=== PATIENT | male | born 1945 | race Two or more races ===

== ENCOUNTER 2024-08-02 10:47 | Inpatient (IN) | payer MEDICARE, SELFPAY ==
[2024-08-02] VITALS (15 sets, daily range): BP systolic 121–142; BP diastolic 75–94; PULSE 78–121; RESP 16–58; TEMP 36.2–37.1; O2SAT 75–100; BMI 33.9
--- NOTE | 2024-08-02 10:51 | EKG_ITS ---
[facility] Test Date: 2024-08-02 Pat Name: MICHELLE LEMUS Department: Room: - Gender: Male [employer]: : 1945 Requested By: ED Temporary Provider Order Number: [id number] Reading MD: ED Temporary Provider Measurements Intervals [place] Rate: 89 P: 47 AR: 222 QRS: -17 QRSD: 193 T: 94 QT: 445 QTc: 542 Interpretive Statements SINUS RHYTHM WITH FIRST DEGREE AV BLOCK LEFT BUNDLE BRANCH BLOCK [120+ ms QRS DURATION, 80+ ms Q/S IN V1/V2, 85+ ms R IN I/aVL/V5/V6] Compared to ECG 02/12/2024 09:09:13 Left bundle-branch block now present T-wave abnormality no longer present /store/S0/[id number]/[id number].pdf
--- NOTE | 2024-08-02 10:55 | RESP.EEG ---
PT BROUGHT BACK FROM TRIAGE IN RESPIRATORY DISTRESS WITH A SPO2 58% ROOM AIR WITH RR AT 42, AND PT IS UNABLE TO SPEAK BUT IN SHOT SENTENCES USING ACCESSORIES MUCUSES TO HELP HIM BREATH. DR. ESPINAL AT BEDSIDE, NEW ORDER GIVEN.
[2024-08-02] MEDS: MethylPREDNISolone SOD SUCC 62.5 MG/ML 2ML VIAL 125 MG IVP (11:06)
[2024-08-02] MEDS: FUROSEMIDE INJ 10 MG/ML 4ML VIAL 60 MG IVP (11:08)
--- NOTE | 2024-08-02 11:12 | XR_ITS ---
Examination: AP chest single view TECHNIQUE: AP portable upright chest single view Exam date and time: August 02, 2024 1153 hours INDICATIONS: Shortness of breath today. FINDINGS: Significant bilateral pneumonia Normal heart size Prominent osteopenia IMPRESSION: Significant bilateral pneumonia
[2024-08-02 12:09] LABS: Basophils % (Auto) 0 % (0-2.5); Eosinophils # (Auto) 0.1 Thou/mm3 (0.0-0.5); Eosinophils % (Auto) 1 % (0-10); Hematocrit 34.5 % (41.0-53.0); Hemoglobin 10.7 g/dL (13.5-16.0); Immature Granulocytes % (Auto) 0 % (0-0); Immature Granulocytes Auto 0.03 Thou/mm3 (0.00-0.00); Lymphocytes # (Auto) 1.3 Thou/mm3 (1.0-4.8); Lymphocytes % (Auto) 15 % (10-50); Mean Corpuscular Hemoglobin 29.2 pg (25.0-35.0); Mean Corpuscular Volume 94 fL (80-100); Monocytes # (Auto) 0.6 Thou/mm3 (0.0-0.8); Monocytes % (Auto) 7 % (0-12); Neutrophils # (Auto) 6.6 Thou/mm3 (1.8-7.7); Neutrophils % (Auto) 76 % (37-80); Nucleated Red Blood Cell % 0 /100 WBC (0); Platelet Count 251 Thou/mm3 (140-440); RDW Standard Deviation 47.8 fL (35.1-43.9); Red Blood Count 3.67 Miln/mm3 (4.50-5.90); White Blood Count 8.6 Thou/mm3 (3.8-10.6)
--- NOTE | 2024-08-02 12:09 | PD.EDSOB ---
ED SOB =RME/HPI General Chief Complaint: Shortness of Breath/Dyspnea Stated Complaint: DIFF BREATHING FOR 2 DAYS, WORSE SINCE 0600 Time Seen by Provider: 08/02/24 11:12 Arrival date/time: 08/02/24 10:47 RME / HPI RME / HPI Narrative: 79 year old male with history of hypertension, diabetes, hyperlipidemia, BPH, CHEYANNE on CPAP at night, asthma presents to the ED brought in by for shortness of breath today. Accompanied by a productive cough. reports patient has intermittently felt short of breath for 5 months and using his inhaler daily in the last 2 months. However, stated in the last 4 days the patient has had difficulty sleeping flat in bed and is sleeping upright on the couch, using his CPAP during the day, and taking multiple puffs of his inhaler. States yesterday the patient used his CPAP three times during the day with improvement while on it. denies any fevers, chills, vomiting, or other known lung history. Per RN, on arrival to ED patient was saturating 55% on room air, diaphoretic and tachypneic. Related Data Home Medications ?Medication ?Instructions ?Recorded ?Confirmed ferrous sulfate 325 mg (65 mg 325 mg PO TIDWM #0 tabs 11/21/13 04/19/20 iron) tablet (Feosol) Previous Rx's ?Medication ?Instructions ?Recorded cyclobenzaprine 10 mg tablet 10 mg PO TID PRN muscle spasm #30 04/19/20 tabs ibuprofen 800 mg tablet 800 mg PO TID PRN pain #30 tabs 04/19/20 Allergies Allergy/AdvReac Type Severity Reaction Status Date / Time No Known Allergies Allergy Verified 08/02/24 10:50 Review of Systems Review of Systems Narrative Review of Systems: Gen: No fever, no chills, no weight loss EYES: No discharge, no visual changes, no pain HEENT: No ear pain, no congestion, no sore throat PULM: + shortness of breath,+ cough CV: No chest pain, no palpitations, no chest tightness, +orthopnea GI: No nausea, no vomiting, no diarrhea, no pain, no constipation : No frequency, no urgency,? no dysuria Musc/skel: No joint pain, no back pain Skin: No rash, no ecchymosis, no lesions Psyc: No hallucinations, no depression Heme/Lymph: No easy bleeding or bruising tendencies Neuro: No weakness, no headache Past Medical History Past Medical History CARDIAC: Positive Hypertension; Negative Congestive Heart Failure RESPIRATORY: Negative Chronic Obstructive Pulmonary Disease (COPD) GENITOURINARY: Negative Renal Disease ENDOCRINE: Positive Endocrine Disorders and Diabetes Mellitus Type 2; Negative Diabetes Mellitus Type 1 OTHER HISTORY: Positive Blood Transfusions Social History SMOKING STATUS: Never smoker SUBSTANCE USE: does not use ED Exam Narrative Physical exam: GENERAL APPEARANCE: AxOx4, in respiratory distress, diaphoretic, very ill-appearing, cannot speak a word due to respiratory distress. HEENT: NC, AT. MMM. EOMI, clear conjunctiva, oropharynx clear. NECK: Supple without lymphadenopathy. No stiffness or restricted ROM. HEART: Normal rate and regular rhythm, normal S1/S1, no m/r/g LUNGS: Rales heard through entire lung anthony diminished breath sounds, visually appears to have a prolonged expiratory phase ABDOMEN: Soft, nontender, nondistended with good bowel sounds heard. BACK: No midline C/T/L spine pain or deformity, No CVAT, no obvious deformity. EXTREMITIES: Bilateral lower extremity edema. Without cyanosis or clubbing. MUSCULOSKELETAL: FROM of all major joints, no chest tenderness NEUROLOGICAL: Grossly nonfocal. Alert and oriented, moving all 4 extremities. CN not formally tested but appear grossly intact. Skin: Warm and dry without any rash. Course Quality Measures none Orders Category Date Time Status Bedside COVID-19 Antigen Test NOW Care 08/02/24 11:13 Active Bedside Influenza A&B Antigen Test NOW Care 08/02/24 11:13 Completed EKG (ED ONLY) *Do not use* NOW Care 08/02/24 10:51 Active Insert IV NOW Care 08/02/24 11:10 Active EKG (ED Only) Stat Exams 08/02/24 10:51 Draft XR chest 1V portable Stat Exams 08/02/24 11:12 Completed BNP [B-Type Natriuretic Peptide] Stat Lab 08/02/24 11:51 Completed Blood Culture (Lab) Stat Lab 08/02/24 11:09 Received CBC Stat Lab 08/02/24 11:51 Completed CMP [Comprehensive Metabolic Panel] Stat Lab 08/02/24 11:51 Completed Lactate (Lactic Acid) Stat Lab 08/02/24 12:27 Completed Partial Thromboplastin Time Stat Lab 08/02/24 11:51 Completed Procalcitonin Stat Lab 08/02/24 11:51 Completed Prothrombin Time with INR Stat Lab 08/02/24 11:51 Completed Troponin I Stat Lab 08/02/24 11:51 Completed ALBUTEROL RT 0.5ml [Proventil Rt 0.5ml] Med 08/02/24 11:12 Discontinued 10 mg INH X1 ONE Doxycycline [Vibramycin] Med 08/02/24 12:38 Discontinued 100 mg PO X1 ONE Furosemide Inj [Lasix Inj] Med 08/02/24 11:03 Discontinued 60 mg IVP X1 ONE Ipratropium [place] Rt Liya [Atrovent Rt Liya] Med 08/02/24 11:12 Discontinued 1 mg INH X1 ONE MethylPREDNISolone.* [SoluMEDROL Inj] Med 08/02/24 11:03 Discontinued 125 mg IVP X1 ONE Sodium Chloride 0.9% 1000 ml [Ns] 1,000 ml Med 08/02/24 12:38 Discontinued IV 999 mls/hr Sodium Chloride Rt Liya 0.9% [NS Rt Liya 0.9%] Med 08/02/24 11:12 Active 3 ml INH PRN PRN cefTRIAXone/D5w 1gm IV premix [Rocephin/D5w 1gm IV Med 08/02/24 12:38 Discontinued premix] 50 ml IV X1 Reevaluation(s) Reevaluation #1: Patient reports feeling much improved while on bipap. Time: 11:25 Reevaluation #2: Patient reports he had chest pain 1 week ago when his shortness of breath began worsening. No chest pain at this time. Time: 12:23 Vital Signs Vital signs: Vital Signs Pulse Rate 115 H 08/02/24 10:48 Respiratory Rate 38 H 08/02/24 10:48 Blood Pressure 142/88 H 08/02/24 10:48 Pulse Oximetry (%) 75 L 08/02/24 10:48 Oxygen Delivery Method Oxy Mask 08/02/24 10:48 Oxygen Flow Rate 15 08/02/24 10:48 Shortness of Breath / Dyspnea MDM Narrative MDM Narrative:: Mr. Tong presents to the emergency department with about a months worth of progressively worsening shortness of breath which is unclear as to whether not there is a dyspnea or positional component to it with subacute worsening over the last week where he presents in near respiratory distress. He was profoundly hypoxic, tachypneic, and diaphoretic on arrival. He was brought back immediately to room 3 for resuscitation and put immediately on BiPAP okay. already on CPAP at home, he was aggressively started on BiPAP settings of 16 and 10. This seemed to improve his symptoms almost immediately/dramatically where he was less diaphoretic, oxygen saturations risa quickly to 95 to 97%, however he remains tachypneic in the high 20s low 30s. Laboratory testing is otherwise unremarkable but is curious as he has a normal BNP, and a slightly elevated troponin. EKG shows a new left bundle branch block in comparison to EKG on January 2024. However patient does not endorse current chest pain, and notes last chest pain was about a week ago. Chest x-ray is suggestive for bilateral pneumonia, therefore cultures were sent and patient was started on antibiotics for community-acquired pneumonia. Given his profound hypoxia, need for respiratory support, and respiratory failure, it would be best to admit for further management, IV antibiotics, and respiratory treatments. IEwa, am scribing for and in the presence of Dr. Garcia. Patient data External records reviewed:: [facility] previous records (I reviewed ED visit on 02/12/2024. ) Clinical information provided by:: patient Social determinants that could affect healthcare access:: none Patient has the following chronic illnesses:: hypertension, diabetes, hyperlipidemia, BPH, CHEYANNE on CPAP at night, asthma How is presenting disease/condition affected by chronic disease/condition?: exacerbated by Evaluation data The following diagnostics were reviewed and interpreted by me:: lab results, radiology exam(s) and EKG tracing(s) (Sinus rhythm, rate 89, left bundle branch block that is new compared to EKG on 02/12/2024) Lab and/or radiology exams considered but not ordered:: None Interpretation Summary: Ordering Physician: Julio Cesar Garcia MD Date of Service: 08/02/24 Procedure(s): XR chest 1V portable Accession Number(s): [id number] Examination: AP chest single view Exam date and time: August 02, 2024 1153 hours INDICATIONS: Shortness of breath today. FINDINGS: Significant bilateral pneumonia Normal heart size Prominent osteopenia IMPRESSION: Significant bilateral pneumonia Dictated By: Adrien Zambrano MD Signed By: <Electronically signed by Adrien Zambrano MD in OV> 08/02/24 1221 Medications / Prescriptions Medications or Prescriptions considered but not ordered:: None Medication administrations:: Medication Administration History Sodium Chloride (Sodium Chloride Rt Liya 0.9% 3 Ml Nebu) 3 ml INH PRN PRN PRN Reason: SOLN Stop: 09/01/24 11:11 Discontinued Medications Albuterol (Albuterol Rt 2.5 Mg/0.5 Ml Nebu) 10 mg INH X1 ONE Stop: 08/02/24 11:13 Last Admin: 08/02/24 12:21 Dose: 10 mg Documented By: GAGAN Doxycycline Hyclate (Doxycycline 100 Mg Tablet) 100 mg PO X1 ONE Stop: 08/02/24 12:39 Last Admin: 08/02/24 12:54 Dose: 100 mg Documented By: MARCOS Furosemide (Furosemide Inj 10 Mg/Ml 4ml Vial) 60 mg IVP X1 ONE Stop: 08/02/24 11:04 Last Admin: 08/02/24 11:08 Dose: 60 mg Documented By: MARCOS Sodium Chloride (Ns) 1,000 mls @ 999 mls/hr IV .Q1H1M ONE Stop: 08/02/24 13:38 Last Admin: 08/02/24 12:51 Dose: 999 mls/hr Documented By: MARCOS Ceftriaxone Sodium/Dextrose (Rocephin/D5w 1gm Iv Premix) 50 mls @ 100 mls/hr IV X1 ONE Stop: 08/02/24 13:07 Last Admin: 08/02/24 12:52 Dose: 100 mls/hr Documented By: MARCOS Ipratropium [place] (Ipratropium Rt 0.5 Mg/ 2.5 Ml Nebu) 1 mg INH X1 ONE Stop: 08/02/24 11:13 Last Admin: 08/02/24 12:20 Dose: 1 mg Documented By: GAGAN Methylprednisolone Sodium Succinate (Methylprednisolone Sod Succ 62.5 Mg/Ml 2ml Vial) 125 mg IVP X1 ONE Stop: 08/02/24 11:04 Last Admin: 08/02/24 11:06 Dose: 125 mg Documented By: MARCOS See above Consultations Consultation(s) initiated? (list below): No Diagnosis Shortness of Breath Differential Diagnosis: acute exacerbation of chronic obstructive airways disease, congestive heart failure, community acquired pneumonia and asthma with exacerbation Most likely diagnosis given after review of the tests above:: See below Admission Indicated Admission indicated?: indicated Admission Request Was there a request for admission?: Yes Admission Attestation Admission request attestation: Discussed case with [Dr. Thompson] from Hospitalist service regarding admission. Discussed patients ED course, exam findings, labs, and radiology results. The Hospitalist [agrees] to accept the patient for admission. Disposition Plan Disposition Plan: Admit Critical Care Time Critical Care Time Critical Care Time: Yes Total Critical Care Time (min.): 35 Attestation: The high probability of sudden, clinically significant deterioration in the patient's condition required the highest level of my preparedness to intervene urgently. The services I provided to this patient were to treat and/or prevent clinically significant deterioration. Services included the following: chart data review, reviewing nursing notes and/or old charts, documentation time, vmware consultant collaboration regarding findings and treatment options, medication orders and management, direct patient care, vital sign assessments and ordering, interpreting and reviewing diagnostic studies and lab tests. Aggregate critical care time includes only time during which I was engaged in work directly related to the patient's care, as described above, whether at bedside or elsewhere in the Emergency Department. It did not include time spent performing other reported procedures or the services of residents, students, nurses or physician assistants. Discharge Plan Plan Patient Disposition: Admit Acute Care w/in Hospital Prescriptions/Referrals Prescriptions/Med Rec: No Action ferrous sulfate [Feosol] 1 TAB tablet 325 mg PO TIDWM Qty: 0 cyclobenzaprine 10 mg tablet 10 mg PO TID PRN (Reason: muscle spasm) Qty: 30 0RF ibuprofen 800 mg tablet 800 mg PO TID PRN (Reason: pain) Qty: 30 0RF Referrals: Bao Stephens MD [Primary Care Provider] - In 1 week Problem List Clinical Impression: Community acquired pneumonia, Acute hypoxic respiratory failure, Complete left bundle branch block Patient/Caregiver Discharge Instructions Print Language: Italian Stand Alone Forms: [employer]iko Award Info., Patient Portal Info Letter
[2024-08-02] MEDS: IPRATROPIUM RT 0.5 MG/ 2.5 ML NEBU 1 MG INH (12:20)
[2024-08-02] MEDS: ALBUTEROL RT 2.5 MG/0.5 ML NEBU 10 MG INH (12:21)
[2024-08-02 12:27] LABS: INR 1.1 (0.9-1.3); Partial Thromboplastin Time 25.2 Seconds (22.0-36.0); Prothrombin Time 11.7 Seconds (9.0-12.2)
[2024-08-02 12:30] LABS: B-Type Natriuretic Peptide 172 pg/mL (0-100)
[2024-08-02 12:35] LABS: Lactate (Lactic Acid) 1.1 mMol/L (0.4-2.0)
[2024-08-02] MEDS: SODIUM CHLORIDE 0.9% 1000 ML 1,000 ML 999 ML IV (12:51)
[2024-08-02] MEDS: cefTRIAXone/D5w 1gm IV premix 50 ML IV (12:52)
[2024-08-02] MEDS: DOXYCYCLINE 100 MG TABLET PO ×2 (12:54→20:18)
[2024-08-02 13:09] LABS: Alanine Aminotransferase 12 U/L (10-49); Albumin, Serum 3.9 gm/dL (3.4-4.8); Albumin/Globulin Ratio 0.9 (1.2-2.2); Alkaline Phosphatase 59 U/L (46-116); Anion Gap 11 (7-16); Aspartate Amino Transferase 14 U/L (0-34); BUN/Creatinine Ratio 13 Ratio (12-20); Bilirubin,Total 0.9 mg/dL (0.3-1.2); Blood Urea Nitrogen 10 mg/dL (9-23); Calcium 9.1 mg/dL (8.3-10.6); Calcium (Corrected) 9.2 mg/dL (8.5-10.1); Carbon Dioxide 25.6 mMol/L (20.0-31.0); Chloride 107 mMol/L (98-107); Creatinine (Component) 0.8 mg/dL (0.6-1.3); Estimated Creatinine Clearance 98.9 mL/min (>60); Globulin 4.5 gm/dL (2.3-3.5); Glucose 177 mg/dL (74-106); Osmolality,Calculated 289 (275-295); Procalcitonin < 0.04 ng/ml (0.0-0.49); Sodium 144 mMol/L (136-145); Total Protein 8.4 gm/dL (5.7-8.2); eGFR > 60 See Note
[2024-08-02 13:10] LABS: Troponin I 0.049 ng/mL (0.0-0.045)
[2024-08-02 15:42] LABS: Glucose Estimated Average 140 mg/dL (80-131); Hemoglobin A1C 6.5 % Hgb (4.8-6.0)
--- NOTE | 2024-08-02 15:58 | ECHO_ITS ---
Transthoracic Echo Report Ht (in): 72 Wt (lb): 250 Exam Location: Echo Lab Status: Emergency Field Nurse Case Manager: Lorna Ashraf Indications: Procedure Performed: BP: 110 / 67 HR: 117 Technical Quality: Technically difficult study MEASUREMENTS (Male / Female) Normal Values 2D ECHO LV Diastolic Diameter PLAX 6.6 cm 4.2 - 5.9 / 3.9 - 5.3 cm LV Systolic Diameter PLAX 5.5 cm IVS Diastolic Thickness 0.8 cm 0.6 - 1.0 / 0.6 - 0.9 cm LVPW Diastolic Thickness 0.9 cm 0.6 - 1.0 / 0.6 - 0.9 cm LV Relative Wall Thickness 0.3 LVOT Diameter 2.4 cm LA Volume Index 34.8 cm?/m? 16 - 28 cm?/m? M-MODE Aortic Root Diameter MM 2.5 cm LA Systolic Diameter MM 6.0 cm LA Ao Ratio MM 2.4 AV Cusp Separation MM 1.5 cm DOPPLER AV Peak Velocity 201.0 cm/s AV Peak Gradient 16.2 mmHg AV Mean Gradient 7.0 mmHg AV Velocity Time Integral 32.9 cm LVOT Peak Velocity 117.0 cm/s LVOT Peak Gradient 5.5 mmHg LVOT Velocity Time Integral 23.4 cm LVOT Cardiac Index 5084.5 cm?/min?m? AV Area Cont Eq vti 3.2 cm? AV Area Cont Eq pk 2.6 cm? MV Area PHT 6.7 cm? MR Peak Velocity 432.0 cm/s MR Peak Gradient 74.6 mmHg Mitral E Point Velocity 104.0 cm/s Mitral A Point Velocity 100.0 cm/s Mitral E to A Ratio 1.0 LV E' Lateral Velocity 7.1 cm/s Mitral E to LV E' Lateral Ratio 14.7 LV E' Septal Velocity 5.4 cm/s Mitral E to LV E' Septal Ratio 19.1 PV Peak Velocity 133.0 cm/s PV Peak Gradient 7.1 mmHg FINDINGS Left Ventricle Normal left ventricular size, wall thickness. The ejection fraction is visually estimated at 40-45 %. Global left ventricular systolic function is mildly decreased. Right Ventricle The right ventricle is normal in size and systolic function. Left Atrium The left atrium is normal by two-dimensional, color flow and Doppler imaging with no structural abnormalities, no thrombus formation present. Right Atrium The right atrium is normal by two-dimensional imaging, color flow and Doppler imaging with no structural abnormalities, no thrombus formation present. Atrial Septum The interatrial septum appears normal with no evidence of a shunt. Aorta The aorta is normal by two-dimensional, color flow and Doppler interrogation. Mitral Valve The mitral valve is normal by two-dimensional, color flow and Doppler interrogation. There is moderate valve regurgitation, stenosis or prolapse. Aortic Valve The aortic valve is trileaflet and normal by two-dimensional, color flow and Doppler interrogation. There is no significant aortic valve regurgitation. Tricuspid Valve The tricuspid valve is normal by two-dimensional, color flow and Doppler interrogation. There is no significant tricuspid valve regurgitation. Pulmonic Valve The pulmonic valve is not well visualized. There is no significant pulmonic valve regurgitation. Vessels The pulmonary artery appears normal. The inferior vena cava pulmonary and hepatic veins appear normal. Pericardium The pericardium is normal by two-dimensional imaging. There is no significant pericardial effusion. CONCLUSIONS Indication: SOB R/O CHF Normal left ventricular size, wall thickness. Severely reduced LV function LVEF estimated at 25-30 %. RV is normal in size and systolic function. Could not estimate RVSP as TR not visualiozed well. Moderate AV thickening with mild calcification. AV sclerosis without stenosis. V max 2.1 m/s. Possibly underestimated due to low EF. MIld thickening and clacification of mitral leafts too. Mild to moderate MR. Mild LA dilataion. IVC dilated but with > 50% collapse. Rakan Lundberg (Electronically Signed) Final Date: 05 August 2024 12:37
[2024-08-02] MEDS: POTASSIUM CHLORIDE 20 mEq TABCR 40 MEQ PO (16:05)
[2024-08-02] MEDS: POTASSIUM CHLORIDE 20 mEq TABCR PO (16:05)
--- NOTE | 2024-08-02 16:10 | PD.RESHP ---
Documentation for date of: 08/02/24 HPI History of Present Illness History of present illness: The patient is a 79-year-old male with a past medical history of hypertension, diabetes, asthma, CHEYANNE on CPAP presented to the ED on 08/02/2024 with a 3-day history of shortness of breath and cough. Per at bedside, about a month ago she noticed that he started drinking a lot of water and was increasingly thirsty which is the first time that he was feeling unhealthy however in the last 3 days he has had difficulty breathing and a cough. Cough is nonproductive most times and sometimes with white frothy sputum. She also reports that she had noticed some swelling in his legs bilaterally that he had not had prior. He denies fever, chest pain or palpitations. He has had no recent travels or immobilization or surgical periods. ED course: In the ED, patient was hypoxic and tachypneic and had to be placed on BiPAP. Labs showed WBC 8.6 Hgb 10.7 sodium 144 potassium 3 glucose 177 chloride 107 bicarb 25.6 troponin 0.049 BNP 172. COVID test was done which was negative Chest x-ray was done which showed bilateral pneumonia. EKG showed sinus rhythm with a first-degree AV block and left bundle branch block was not present on previous EKG. Patient was given IV Lasix 60 mg, Solu-Medrol 125 mg, IV Rocephin in the ED. He has been admitted for management of acute hypoxic respiratory failure secondary to bilateral pneumonia and possible new onset CHF. PMHx-hypertension, diabetes, asthma PSHx-knee surgery Home meds-pending med recs Review of Systems Review of Systems Narrative Review of Systems: GENERAL: Denies fevers/chills or diaphoresis. HEENT: Denies headache or visual/hearing changes. Denies nasal discharge. NEURO: Denies unusual weakness or difficulty speaking. CARDIO: Denies chest pain or palpitations. PULM: Admits SOB and cough GI: Denies abdominal pain, N/V/C/D/reflux/gas, bright red blood per rectum or melena. Reports having BMs. URO: Denies burning/itching/pain/urinary changes. MSK/EXT/SKIN: Denies joint/skeletal/muscle pain, issues/changes in upper or lower extremities, itchiness, or superficial pain. PSYCH: Cooperative, pleasant mood & affect. Exam Vital Signs Temp Pulse Resp BP Pulse Ox O2 Del Method O2 Flow Rate 98.7 F 79 24 H 124/76 100 CPAP 15 08/02/24 16:00 08/02/24 16:00 08/02/24 16:00 08/02/24 16:00 08/02/24 16:00 08/02/24 16:00 08/02/24 10:48 FiO2 75 08/02/24 12:28 Narrative Exam GENERAL: AAOX3 NEURO: SPRING INTERN grossly intact, moves extremities x4 HEENT: Moist mucosa. Eyes open, symmetrical, & clear CARDIO: No chest pain on palpation. Heart RRR, no obvious murmurs PULM: Tachypnea. Crackles bilaterally, no wheezing, BIPAP on GI: Abdomen soft, nondistended, no pain on palpation. BSx4 URO/MUNITIONS HANDLER:: No further abnormalities noted. SKIN/MSK/EXT: Bilateral pitting edema 2+ Results: Labs 08/03/24 10:20 08/03/24 10:20 Labs: Short CBC 08/02/24 Range/Units 11:51 WBC 8.6 (3.8-10.6) Thou/mm3 Hgb 10.7 L (13.5-16.0) g/dL Hct 34.5 L (41.0-53.0) % Plt Count 251 (140-440) Thou/mm3 BMP 08/02/24 11:51 Sodium 144 Potassium 3.0 L Chloride 107 Carbon Dioxide 25.6 BUN 10 Creatinine 0.8 Glucose 177 H Calcium 9.1 Cardiac Enzymes 08/02/24 Range/Units 11:51 Troponin I 0.049 H* (0.0-0.045) ng/mL Liver Function 08/02/24 Range/Units 11:51 Total Bilirubin 0.9 (0.3-1.2) mg/dL AST 14 (0-34) U/L ALT 12 (10-49) U/L Alkaline Phosphatase 59 (46-116) U/L Albumin 3.9 (3.4-4.8) gm/dL Quality Measures Quality Measures none Advance care planning discussed with:: patient and spouse Medications Home Medications and Allergies Home Medications ?Medication ?Instructions ?Recorded ?Confirmed ?Type albuterol sulfate 90 mcg/actuation 1 inh inhalation PRN shortness of 08/02/24 History aerosol inhaler breath or wheezing finasteride 5 mg tablet 5 mg PO QDAY 08/02/24 08/03/24 History glipizide 5 mg tablet 5 mg PO BID 08/02/24 08/03/24 History losartan 50 mg tablet 50 mg PO QDAY 08/02/24 08/03/24 History ropinirole 1 mg tablet 1 mg PO .COMPLEX 08/02/24 08/03/24 History simvastatin 20 mg tablet 20 mg PO QDAY 08/02/24 08/03/24 History tamsulosin 0.4 mg capsule 0.4 mg PO Q24H 08/02/24 08/03/24 History amlodipine 10 mg tablet 10 mg PO QDAY 08/03/24 08/03/24 History Allergies Allergy/AdvReac Type Severity Reaction Status Date / Time No Known Allergies Allergy Verified 08/02/24 10:50 Visit Medications Acetaminophen (Acetaminophen 325 Mg Tablet) 650 mg PO Q6H PRN PRN Reason: Pain 1-3 or Fever >100.3 Stop: 09/01/24 14:37 Albuterol/Ipratropium (Albuterol/Ipratropium (Duoneb) Rt Liya 3 Ml Nebu) 3 ml INH Q4HRRT PRN PRN Reason: WHEEZING Stop: 09/01/24 14:59 Doxycycline Hyclate (Doxycycline 100 Mg Tablet) 100 mg PO BID [facility] Stop: 08/09/24 20:59 Furosemide (Furosemide Inj 10 Mg/Ml 4ml Vial) 40 mg IVP QDAY [facility] Stop: 09/02/24 08:59 Guaifenesin/Dextromethorphan (Guaifenesin/Dm Tablet) 1 each PO DAILY [facility] Stop: 09/01/24 15:59 Heparin Sodium (Porcine) (Heparin Sod Inj 5000 Unit/Ml Vial) 5,000 unit SC Q12HR [facility] Stop: 08/16/24 20:59 Ceftriaxone Sodium/Dextrose (Rocephin/D5w 1gm Iv Premix) 50 mls @ 100 mls/hr IV QDAY [facility] Stop: 08/10/24 08:59 Ondansetron HCl (Ondansetron Inj 2 Mg/Ml Inj 2 Ml) 4 mg IV Q6H PRN; Protocol PRN Reason: NAUSEA OR VOMITING Stop: 09/01/24 14:37 Sennosides (Senna Tablet) 1 tab PO QDAY [facility]; Protocol Stop: 09/02/24 08:59 Sodium Chloride (Sodium Chloride Rt Liya 0.9% 3 Ml Nebu) 3 ml INH PRN PRN PRN Reason: SOLN Stop: 09/01/24 11:11 Discontinued Medications Albuterol (Albuterol Rt 2.5 Mg/0.5 Ml Nebu) 10 mg INH X1 ONE Stop: 08/02/24 11:13 Last Admin: 08/02/24 12:21 Dose: 10 mg Doxycycline Hyclate (Doxycycline 100 Mg Tablet) 100 mg PO X1 ONE Stop: 08/02/24 12:39 Last Admin: 08/02/24 12:54 Dose: 100 mg Furosemide (Furosemide Inj 10 Mg/Ml 4ml Vial) 60 mg IVP X1 ONE Stop: 08/02/24 11:04 Last Admin: 08/02/24 11:08 Dose: 60 mg Sodium Chloride (Ns) 1,000 mls @ 999 mls/hr IV .Q1H1M ONE Stop: 08/02/24 13:38 Last Infusion: 08/02/24 14:44 Dose: Infused Ceftriaxone Sodium/Dextrose (Rocephin/D5w 1gm Iv Premix) 50 mls @ 100 mls/hr IV X1 ONE Stop: 08/02/24 13:07 Last Infusion: 08/02/24 14:43 Dose: Infused Ceftriaxone Sodium/Dextrose (Rocephin/D5w 1gm Iv Premix) 50 mls @ 100 mls/hr IV QDAY [facility] Stop: 08/09/24 14:44 Ipratropium [place] (Ipratropium Rt 0.5 Mg/ 2.5 Ml Nebu) 1 mg INH X1 ONE Stop: 08/02/24 11:13 Last Admin: 08/02/24 12:20 Dose: 1 mg Methylprednisolone Sodium Succinate (Methylprednisolone Sod Succ 62.5 Mg/Ml 2ml Vial) 125 mg IVP X1 ONE Stop: 08/02/24 11:04 Last Admin: 08/02/24 11:06 Dose: 125 mg Potassium Chloride (Potassium Chloride 20 Meq Tabcr) 40 meq PO X1 ONE Stop: 08/02/24 15:45 Last Admin: 08/02/24 16:05 Dose: 40 meq Potassium Chloride (Potassium Chloride 20 Meq Tabcr) 20 meq PO X1 ONE Stop: 08/02/24 15:46 Sodium Chloride (Sodium Chloride Rt 10% 15 Ml Nebu) 5 ml INH X1 ONE Stop: 08/02/24 14:39 Assessment & Plan Plan Summary: The patient is a 79-year-old male with a past medical history of hypertension, diabetes, asthma, CHEYANNE on CPAP who presented to the ED with a 3-day history of shortness of breath and cough. #Acute hypoxic respiratory failure #Bilateral pneumonia #?New onset CHF The patient presented with a 3-day history of shortness of breath and cough. Although he uses CPAP at home and in inhaler for asthma, he has never had to be on oxygen at home. Reports that he initially started noticing that he was unable to do as much activity or take as many steps. After this, became much more difficult to breathe even laying down. He denies orthopnea or PND however. He also endorses a cough which is sometimes productive with whitish sputum but otherwise nonproductive. He denies fever chest pain palpitations. He has had no sick contacts or travel history no peers of immobilization or surgery. In the ED, patient was noted to be hypoxic and tachypneic and was placed on BiPAP and has been tolerating well. Chest x-ray showed bilateral pneumonia. EKG showed sinus rhythm with first-degree AV block. Plan: -IV Rocephin 1 g daily -Doxycycline 100 mg twice daily -IV Lasix 40 mg every day -DuoNebs as needed -Influenza A and B -Blood and sputum culture #Elevated troponin levels #Possible NSTEMI type II On admission, patient had troponin level resolved 0.049. He denies chest pain. Plan: --Trend troponins #History of hypertension The patient has a history of hypertension but does not know what medications he is on. Blood pressure on admission within normal limits. Plan: -Hold antihypertensives for now. #History of diabetes The patient has a history of diabetes and is on oral medication, possibly metformin. A1c done-6.5. Glucose on admission 177 Plan: -ISS -Blood glucose check AC -Hypoglycemic protocols in place #History of asthma The patient has a history of asthma and has a rescue albuterol inhaler. On examination, he does not have wheezing. Plan: -DuoNebs as needed Health maintenance: Dispo: Tele Diet: Cardiac/Carb consistent DVT: SC Heparin [place]: None Lines: Peripheral Med Rec: Pending, f/u PT: Not ordered Code: Full Case was discussed with Dr Hayes PGY-2 and attending physician, Dr Nate Thompson MD PGY-1 Patient is a 79-year-old male with a past medical history of hypertension, diabetes, asthma, CHEYANNE on CPAP who presented to the ED with a 3-day history of shortness of breath and cough. He was clinically found to be in acute hypoxia secondary to CHF exacerbation and pneumonia. Physical exam showed audible basal crackles and 2+ pitting edema up to the knees. BNP 172 and CXR was remarkable for prominent congestion as well as bilateral pneumonia. EKG showed sinus rhythm with first-degree AV block with LBBB. Cardiology was consulted and recommendations appreciated. Patient is NYHA Class II at baseline. Plan: Continue IV Lasix 40mg daily. Strict input/output charting. Daily weight recording. Diet: 2g sodium restriction. Fluid restriction to 1.5L Patient examined and case discussed with the team including attending physician. Note reviewed, I agree with the care plan as documented. - Elliott Hayes MD, PGY 2 Attending Provider Attestation/Addendum I reviewed labs, imaging, EKG, home medications and prior available records. Face to face evaluation was performed by me. I have personally examined the patient and discussed assessment and plan with the IM team. I reviewed the resident note and agree with the plan with exceptions as below. 79-year-old male with history of COPD, type 2 diabetes mellitus, hypertension, and hyperlipidemia, who presented with a chief complaint of shortness of breath and mild chest pain for 3 days. He was found to have pulmonary edema, bilateral pneumonia, and non-STEMI. Acute hypoxic respiratory failure New onset CHF Bilateral pneumonia, lower lobes Non-STEMI Type 2 diabetes mellitus Essential hypertension Hyperlipidemia Start IV Lasix. Monitor I's and O's. Ordered echocardiogram Start ceftriaxone/doxycycline Start aspirin and atorvastatin. Trend troponin. Consulted cardiology Patient refused insulin therapy. Will resume his home glipizide. Monitor fingersticks
[2024-08-02 17:02] LABS: Troponin I 0.062 ng/mL (0.0-0.045)
--- NOTE | 2024-08-02 17:28 | PC.NURSE ---
PT BLOOD GLUCOSE 216 AND PT AND WIDE WHO IS AT BEDSIDE IS REFUSING INSULIN. DR. CARTER MADE AWARE.
--- NOTE | 2024-08-02 18:10 | ESCONSULT_ITS ---
<Statement entered by Rakan Lundberg MD - 08/04/24 08:27> I have personally seen and examined the patient separately on the above date of service and discussed the plan of care with the resident. I reviewed the resident Dr. Yenny Lewis consultation note and agree with the resident findings and plan in the note above and have also edited the documentation to reflect my findings and plan. A 79-year-old male with a past medical history of morbid obesity, essential hypertension, type 2 diabetes mellitus, hyperlipidemia, history of intraventricular hemorrhage in January 2024 after a fall [unclear etiology- transferred to [facility]] asthma, obstructive sleep apnea on CPAP, BPH, hyperlipidemia, restless leg syndrome presented to the hospital with worsening shortness of breath as well as cough over the last few days. As per patient and his patient has been having worsening shortness of breath over the last for 5 days and was unable to sleep flat and was trying to sleep in the chair. Previously patient used to sleep on the bed with only 1 pillow. Denies any kind of PND but has significant orthopnea as noted above. Patient also complains of cough along with some sputum production and the sputum is mostly colorless and frothy. Also complains of significant bilateral leg swelling which is only worsened in the past few days. He has any other chest pain chest pressure or other cardiac complaints including any palpitations have any previous history of any heart disease. Denies a Fear of chills. Complains of some nausea but denies any kind of vomitings or other abdominal complaints. In the emergency department patient was noted to be hypoxic at 70% initially patient Ventimask and eventually started BiPAP. Blood pressure initially was 140/88 mmHg heart rate 115/min and respiratory rate 30/min tachypneic as well as tachycardic. Initial labs in the ED showed hemoglobin of 9.5 and platelets of 211 and WBC of 6.7 glucose 178 BUN 15 creatinine of 0.8 sodium 144 potassium 3.4. Troponin 0.049 and repeat troponin 0.06. LFTs were normal. BNP was 172. Chest x-ray showed at least moderate vascular congestion with evidence of heart failure pattern and possible right lower lobe pneumonia. EKG showed sinus rhythm with precipitated AV block and left bundle branch block. Previous EKG in January 2024 showed only sinus rhythm with first-degree AV block and no evidence of any left bundle branch block. On examination General: Patient appears morbidly obese and is in significant respiratory distress with use of accessory muscles and is on BiPAP. HEENT: Pupils equal and bilateral reacting to light. Mucosa moist Heart: S1-S2 present and tachycardic, 2 or 6 systolic murmur heard at the apex, no rubs or gallops. Lungs:-bilateral air entry present and significant decreased breath sounds in the right basilar compared to the left base and also bilateral crackles up to the mid anthony noted. Occasional rhonchi. Abdomenl: Soft bowel sounds present, obese as well as nondistended and nontender Extremities: 2+ bilateral lower leg edema noted and able to move all extremities without any major deformities Neuro: Alert awake oriented x 3, no focal neurological deficits Psych: Normal affect and mood Cardiology consulted for possible CHF new onset and also left bundle branch block. Assessment and plan: 1. New onset congestive heart failure exacerbation-unknown systolic versus diastolic 2. Acute hypoxic respiratory failure in the setting of CHF exacerbation as well as pneumonia 3. Community-acquired pneumonia-possible 4. Left bundle branch block 5. Essential hypertension 6. Diabetes mellitus type 2 7. Hyperlipidemia 8. Morbid obesity 9. CHEYANNE on CPAP 10. History of intraventricular hemorrhage after fall in March 2024 11. BPH 12. Anemia Patient presented significant orthopnea as well as shortness of breath along with cough and also sputum production. Clinical examination indicates patient is in acute CHF exacerbation. Unknown systolic versus diastolic but given his older blood presentation patient has both systolic and diastolic heart failure which is new onset diabetes no history of heart failure before. Also patient appears to have some possible right-sided consolidation of pneumonia. Regarding congestive failure recommend echocardiogram to evaluate systolic versus diastolic heart failure Strict input output Daily weights and 2 g sodium diet Recommend to continue BiPAP intermittently for the patient and continue Lasix 40 mg IV twice daily. Further goal-directed medical therapy based on the echocardiogram findings. Treatment of pneumonia with antibiotics as per the primary team. Left bundle branch block: Patient has normal sinus rhythm with first-degree block and new left bundle branch block compared to the previous EKG January 2024. Unlikely acute given his presentation as does have shortness of breath but he has causes for the same as the double patient denies any Chest pain chest pressure at the present moment. Including CHF as well as pneumonia. Troponins are also not elevated and unlikely [place]. Mildly elevated troponins at 0.046 and the repeat was 0.069. Recommend no further troponins at patient is elevated troponin secondary to acute hypoxic respiratory failure in the setting of CHF exacerbation. Recommend TSH A1c and lipid profile for further cardiac restratification. Recommend to check the echocardiogram while inpatient and can pursue further ischemic workup as outpatient after patient is treated for the hypoxia respiratory failure with pneumonia as well as CHF exacerbation. Anemia with a hemoglobin of around 9.5-unclear etiology and recommend primary team to do complete workup for the anemia. History of hypertension and diabetes and recommend aggressive control of the same. Hold antihypertensives for now until further diuresis and will restart new regimen based on the echo findings. Management of rest of the medical conditions as per primary team and other consultants. Thank you for the consult and allowing me to participate in the care of the patient. Cardiology will continue to follow. Rakan Lundberg M.D. Interventional Cardiology HPI Data of Consult Primary Care Provider: Bao Stephens MD Consult Narrative History of present illness: Mr. Hartman is a 79-year-old male with past medical history significant for hypertension, oid-nzgfpvq-vijgomhnn type 2 diabetes, CHEYANNE on CPAP and asthma presented to the ED for shortness of breath, cough and leg swelling for the past 3 days. Patient's is at bedside who stated patient has been having a cough with shortness of breath and she noticed that he was having swelling in lower extremities for the past 2 days patient also complained of inability to sleep because he is unable to lie flat due to shortness of breath for the last 5 days. Patient denies waking up gasping for air. Although Pt. denies diziness and syncopal episode however he has been feeling excessively weak and had near fall when he stands from sitting position. Pt has history of asthma and uses albuterol inhaler. Pt denies any smoking history. ED course In the ED patient's initial presentation oxygen saturation was 95% via oxime mask therefore patient was switched to BiPAP. Initial blood pressure was 142/88, pulse 115 with respirations of 38, hemoglobin was 10.7, hematocrit 34.5, blood glucose was 219, hemoglobin A1c 6.5, troponin 0.062, BNP 172. chest Xray Significant bilateral pneumonia EKG: Sinus rhythm with first-degree AV block, left bundle branch block PMH: HTN, DDLC0AV, CHEYANNE, Asthma PSH: shoulder surgery, hernia repair surgery, and hemicolectomy due to colonic perforation SH: denies tabacco, alcohol and drug use cc:: cc: Review of Systems Review of Systems Systems Reviewed: All systems reviewed, normal except as documented Exam Vital Signs Temp Pulse Resp BP Pulse Ox O2 Del Method O2 Flow Rate 98.7 F 79 24 H 124/76 100 CPAP 15 08/02/24 16:00 08/02/24 16:00 08/02/24 16:00 08/02/24 16:00 08/02/24 16:00 08/02/24 16:00 08/02/24 10:48 FiO2 75 08/02/24 14:36 Narrative Exam GENERAL: A&Ox3 . Awake, Not in acute distress NEURO: no focal neurological deficits HEENT: Atraumatic, Normocephalic. mucous membranes moist. Eyes open, symmetrical, & clear HEART: Normal Heart Sounds LUNGS: Decreased breath sounds at the base of lung and crackles heard at the middle lung ABDOMEN: soft, non-distended, non-tender, bowel sounds heard, no guarding or rebound tenderness SKIN: No Rash or ecchymoses EXTREMITIES: 2+ pitting edema bilaterally on LE, tenderness, able to move all 4 extremities, pedal pulses palpated Results Labs 08/02/24 11:51 08/02/24 19:16 Labs: Short CBC 08/02/24 Range/Units 11:51 WBC 8.6 (3.8-10.6) Thou/mm3 Hgb 10.7 L (13.5-16.0) g/dL Hct 34.5 L (41.0-53.0) % Plt Count 251 (140-440) Thou/mm3 BMP 08/02/24 11:51 Sodium 144 Potassium 3.0 L Chloride 107 Carbon Dioxide 25.6 BUN 10 Creatinine 0.8 Glucose 177 H Calcium 9.1 Cardiac Enzymes 08/02/24 08/02/24 Range/Units 11:51 15:40 Troponin I 0.049 H* 0.062 H* (0.0-0.045) ng/mL Liver Function 08/02/24 Range/Units 11:51 Total Bilirubin 0.9 (0.3-1.2) mg/dL AST 14 (0-34) U/L ALT 12 (10-49) U/L Alkaline Phosphatase 59 (46-116) U/L Albumin 3.9 (3.4-4.8) gm/dL Quality Measures Quality Measures none Advance care planning discussed with:: patient Medications Home Medications and Allergies Home Medications ?Medication ?Instructions ?Recorded ?Confirmed ?Type albuterol sulfate 90 mcg/actuation inhalation 08/02/24 History aerosol inhaler finasteride 5 mg tablet mg 08/02/24 History glipizide 5 mg tablet mg 08/02/24 History losartan 50 mg tablet mg 08/02/24 History ropinirole 1 mg tablet mg 08/02/24 History simvastatin 20 mg tablet mg 08/02/24 History tamsulosin 0.4 mg capsule mg PO 08/02/24 History Allergies Allergy/AdvReac Type Severity Reaction Status Date / Time No Known Allergies Allergy Verified 08/02/24 10:50 Visit Medications Acetaminophen (Acetaminophen 325 Mg Tablet) 650 mg PO Q6H PRN PRN Reason: Pain 1-3 or Fever >100.3 Stop: 09/01/24 14:37 Albuterol/Ipratropium (Albuterol/Ipratropium (Duoneb) Rt Liya 3 Ml Nebu) 3 ml INH Q4HRRT PRN PRN Reason: WHEEZING Stop: 09/01/24 14:59 Dextrose (Dextrose 50%-Water Inj 50 Ml Syringe) 25 ml IV Q15MIN PRN PRN Reason: BG 50-70 responsive npo pt Stop: 09/01/24 16:26 Dextrose (Dextrose 50%-Water Inj 50 Ml Syringe) 50 ml IV Q15MIN PRN PRN Reason: BG <50 OR BG <70 & pt unresponsive Stop: 09/01/24 16:26 Doxycycline Hyclate (Doxycycline 100 Mg Tablet) 100 mg PO BID SHAZIA Stop: 08/09/24 20:59 Furosemide (Furosemide Inj 10 Mg/Ml 4ml Vial) 40 mg IVP QDAY SHAZIA Stop: 09/02/24 08:59 Glucagon (Glucagon Inj 1 Mg Vial) 1 mg IM Q15MIN PRN PRN Reason: BG <70, and no IV access Guaifenesin/Dextromethorphan (Guaifenesin/Dm Tablet) 1 each PO DAILY SHAZIA Stop: 09/01/24 15:59 Heparin Sodium (Porcine) (Heparin Sod Inj 5000 Unit/Ml Vial) 5,000 unit SC Q12HR SHAZIA Stop: 08/16/24 20:59 Ceftriaxone Sodium/Dextrose (Rocephin/D5w 1gm Iv Premix) 50 mls @ 100 mls/hr IV QDAY SHAZIA Stop: 08/10/24 08:59 Insulin Human Lispro (Insulin Lispro (Admelog) 1 Unit/0.01 Ml Unit) 0 unit SC AC SHAZIA; Protocol Stop: 09/01/24 16:59 Last Admin: 08/02/24 17:32 Dose: Not Given Ondansetron HCl (Ondansetron Inj 2 Mg/Ml Inj 2 Ml) 4 mg IV Q6H PRN; Protocol PRN Reason: NAUSEA OR VOMITING Stop: 09/01/24 14:37 Sennosides (Senna Tablet) 1 tab PO QDAY [facility]; Protocol Stop: 09/02/24 08:59 Sodium Chloride (Sodium Chloride Rt Liya 0.9% 3 Ml Nebu) 3 ml INH PRN PRN PRN Reason: SOLN Stop: 09/01/24 11:11 Discontinued Medications Albuterol (Albuterol Rt 2.5 Mg/0.5 Ml Nebu) 10 mg INH X1 ONE Stop: 08/02/24 11:13 Last Admin: 08/02/24 12:21 Dose: 10 mg Doxycycline Hyclate (Doxycycline 100 Mg Tablet) 100 mg PO X1 ONE Stop: 08/02/24 12:39 Last Admin: 08/02/24 12:54 Dose: 100 mg Furosemide (Furosemide Inj 10 Mg/Ml 4ml Vial) 60 mg IVP X1 ONE Stop: 08/02/24 11:04 Last Admin: 08/02/24 11:08 Dose: 60 mg Sodium Chloride (Ns) 1,000 mls @ 999 mls/hr IV .Q1H1M ONE Stop: 08/02/24 13:38 Last Infusion: 08/02/24 14:44 Dose: Infused Ceftriaxone Sodium/Dextrose (Rocephin/D5w 1gm Iv Premix) 50 mls @ 100 mls/hr IV X1 ONE Stop: 08/02/24 13:07 Last Infusion: 08/02/24 14:43 Dose: Infused Ceftriaxone Sodium/Dextrose (Rocephin/D5w 1gm Iv Premix) 50 mls @ 100 mls/hr IV QDAY SHAZIA Stop: 08/09/24 14:44 Last Admin: 08/02/24 17:04 Dose: Not Given Ipratropium [place] (Ipratropium Rt 0.5 Mg/ 2.5 Ml Nebu) 1 mg INH X1 ONE Stop: 08/02/24 11:13 Last Admin: 08/02/24 12:20 Dose: 1 mg Methylprednisolone Sodium Succinate (Methylprednisolone Sod Succ 62.5 Mg/Ml 2ml Vial) 125 mg IVP X1 ONE Stop: 08/02/24 11:04 Last Admin: 08/02/24 11:06 Dose: 125 mg Potassium Chloride (Potassium Chloride 20 Meq Tabcr) 40 meq PO X1 ONE Stop: 08/02/24 15:45 Last Admin: 08/02/24 16:05 Dose: 40 meq Potassium Chloride (Potassium Chloride 20 Meq Tabcr) 20 meq PO X1 ONE Stop: 08/02/24 15:46 Last Admin: 08/02/24 16:05 Dose: 20 meq Sodium Chloride (Sodium Chloride Rt 10% 15 Ml Nebu) 5 ml INH X1 ONE Stop: 08/02/24 14:39 Assessment & Plan Plan Mr. Hartman is a 79-year-old male with past medical history significant for hypertension, cyx-quqadoe-mobekdtdo type 2 diabetes, CHEYANNE on CPAP and asthma presented to the ED for shortness of breath, cough and leg swelling for the past 3 days. Cardiology is consulted for new onset of acute CHF excerbation. #Acute hypoxic respiratory failure #bilateral pneumonia -Patient had a cough and generalized weakness with shortness of breath for the past 3 days. Chest x-ray is evident of bilateral pneumonia currently patient is saturating on BiPAP. -Patient is started on Rocephin and doxycycline along with DuoNebs. Influenza A and B are pending #Elevated troponin levels in the setting of NSTEMI type II -Initial troponins are 0.049 -> 0.062, likely secondary to demand ischemia as Pt is in acute hypoxic respiratory failure requiring Bipap. 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 -Pt endorse to orthopnea for the last 5 days and has been unable to sleep due to it. -Due to shortness of breath pt will require supplemental oxygen, currently pt is requiring Bipap. Pt will need to be diuresed with Lasix 40mg IV BID. keep K+ above 4 and Mg above 2 at all times. #History of ozl-hqkxnkh-drfyygwqh type 2 diabetes -Although patient is taking glipizide as her diabetes medication patient denies having history of diabetes and refuses to take insulin sliding scale. Fingerstick at bedside is 216, A1c from today is 6.5 and patient continues to refuse insulin during hospitalization. Primary hospitalist team is informed of the patient's decision # Primary hypertension -Patient has history of hypertension which is well-controlled with losartan 50 Mg daily blood pressure on admission was within normal limits therefore will hold antihypertensive medication for now. Assessment and plan discussed with my attending physician Dr. Tamika Lewis (PGY-1)- Internal medicine resident
[2024-08-02 19:42] LABS: Albumin, Serum 3.8 gm/dL (3.4-4.8); Anion Gap 11 (7-16); BUN/Creatinine Ratio 14 Ratio (12-20); Blood Urea Nitrogen 11 mg/dL (9-23); Calcium 8.6 mg/dL (8.3-10.6); Calcium (Corrected) 8.8 mg/dL (8.5-10.1); Carbon Dioxide 27.5 mMol/L (20.0-31.0); Chloride 105 mMol/L (98-107); Creatinine (Component) 0.8 mg/dL (0.6-1.3); Estimated Creatinine Clearance 98.9 mL/min (>60); Glucose 219 mg/dL (74-106); Osmolality,Calculated 291 (275-295); Phosphorous 3.7 mg/dL (2.4-5.1); Potassium 3.5 mMol/L (3.4-5.1); Sodium 143 mMol/L (136-145); eGFR > 60 See Note
[2024-08-02] MEDS: HEPARIN SOD INJ 5000 UNIT/ML VIAL SC (20:17)
[2024-08-03] VITALS (11 sets, daily range): BP systolic 105–131; BP diastolic 63–85; PULSE 64–128; RESP 20–31; TEMP 35.6–37.2; O2SAT 90–100; BMI 31.4
--- NOTE | 2024-08-03 08:46 | EKG_ITS ---
[facility] Test Date: 2024-08-03 Pat Name: MICHELLE LEMUS [facility] [employer]: XAVIER : 1945 Requested By: Darrick Thompson Order Number: [id number] Reading MD: Darrick Thompson Measurements Intervals [place] Rate: 80 P: 29 DC: 252 QRS: 9 QRSD: 182 T: -25 QT: 449 QTc: 521 Interpretive Statements SINUS RHYTHM WITH FIRST DEGREE AV BLOCK LEFT BUNDLE BRANCH BLOCK Compared to ECG 08/02/2024 12:03:05 No significant changes /store/S0/[id number]
[2024-08-03] MEDS: glipiZIDE 5 MG TABLET PO (09:57)
[2024-08-03] MEDS: DOXYCYCLINE 100 MG TABLET PO ×2 (09:57→21:45)
[2024-08-03] MEDS: guaiFENesin/DM TABLET 1 EACH PO ×3 (09:58→21:45)
[2024-08-03] MEDS: SENNA TABLET 1 TAB PO (09:58)
[2024-08-03] MEDS: FUROSEMIDE INJ 10 MG/ML 4ML VIAL 40 MG IVP ×2 (09:59→21:47)
[2024-08-03] MEDS: HEPARIN SOD INJ 5000 UNIT/ML VIAL SC ×2 (10:00→21:51)
[2024-08-03] MEDS: cefTRIAXone/D5w 1gm IV premix 50 ML IV (10:01)
[2024-08-03 10:34] LABS: Basophils % (Auto) 0 % (0-2.5); Eosinophils % (Auto) 0 % (0-10); Hematocrit 30.8 % (41.0-53.0); Hemoglobin 9.5 g/dL (13.5-16.0); Immature Granulocytes % (Auto) 0 % (0-0); Immature Granulocytes Auto 0.02 Thou/mm3 (0.00-0.00); Lymphocytes # (Auto) 1.2 Thou/mm3 (1.0-4.8); Lymphocytes % (Auto) 17 % (10-50); Mean Corpuscular HGB Conc 30.8 g/dl (31.0-37.0); Mean Corpuscular Hemoglobin 29.1 pg (25.0-35.0); Mean Corpuscular Volume 95 fL (80-100); Monocytes # (Auto) 0.7 Thou/mm3 (0.0-0.8); Monocytes % (Auto) 10 % (0-12); Neutrophils # (Auto) 4.8 Thou/mm3 (1.8-7.7); Neutrophils % (Auto) 72 % (37-80); Nucleated Red Blood Cell % 0 /100 WBC (0); Platelet Count 211 Thou/mm3 (140-440); RDW Standard Deviation 48.4 fL (35.1-43.9); Red Blood Count 3.26 Miln/mm3 (4.50-5.90); White Blood Count 6.7 Thou/mm3 (3.8-10.6)
[2024-08-03 10:59] LABS: Alanine Aminotransferase 11 U/L (10-49); Albumin, Serum 3.5 gm/dL (3.4-4.8); Albumin/Globulin Ratio 0.9 (1.2-2.2); Alkaline Phosphatase 52 U/L (46-116); Anion Gap 8 (7-16); Aspartate Amino Transferase < 10 U/L (0-34); BUN/Creatinine Ratio 19 Ratio (12-20); Bilirubin,Total 0.6 mg/dL (0.3-1.2); Blood Urea Nitrogen 15 mg/dL (9-23); Calcium 8.8 mg/dL (8.3-10.6); Calcium (Corrected) 9.2 mg/dL (8.5-10.1); Carbon Dioxide 28.6 mMol/L (20.0-31.0); Chloride 107 mMol/L (98-107); Creatinine (Component) 0.8 mg/dL (0.6-1.3); Estimated Creatinine Clearance 95.4 mL/min (>60); Globulin 4.1 gm/dL (2.3-3.5); Glucose 178 mg/dL (74-106); Osmolality,Calculated 291 (275-295); Potassium 3.4 mMol/L (3.4-5.1); Sodium 144 mMol/L (136-145); Total Protein 7.6 gm/dL (5.7-8.2); eGFR > 60 See Note
[2024-08-03 11:40] LABS: Troponin I 0.071 ng/mL (0.0-0.045)
--- NOTE | 2024-08-03 13:23 | PD.IMPROG ---
Documentation for date of: 08/03/24 Subjective Subjective Interval history: Patient seen and examined at the bedside. No new complaint including complaints. Telemetry reviewed and no other arrhythmias noted. Patient is breathing much better today and is oxygen via Ventimask at 15 L/min and decrease it to 5 L/min. Recommend to continue BiPAP intermittently for the patient. Patient received 1 dose of IV Lasix last night and recommend to increase Lasix to 40 mg IV twice daily. Strict input output, daily weights and 2 g sodium diet Keep potassium greater than 4 and magnesium greater than 2.0 at all times. No other antihypertensives for now as patient will need room for further diuresis. Echocardiogram ordered and is still pending at the present point of time. Patient is on IV antibiotics for possible community-acquired pneumonia. Still no workup started for the anemia and recommend to obtain also TSH A1c and lipid profile for the patient for further cardiac risk stratification. Recommend to stop trending the troponins Exam Vital Signs Temp Pulse Resp BP Pulse Ox O2 Del Method O2 Flow Rate 97.1 F 78 20 105/63 96 Oxy Mask 15 08/03/24 12:00 08/03/24 12:00 08/03/24 12:00 08/03/24 12:00 08/03/24 12:00 08/03/24 12:00 08/03/24 12:00 FiO2 75 08/03/24 04:00 Narrative Exam General: Patient appears morbidly obese and in mild respiratory distress HEENT: Pupils equal and bilateral reacting to light. Mucosa moist Heart: S1-S2 present and tachycardic, 2 or 6 systolic murmur heard at the apex, no rubs or gallops. Lungs:-bilateral air entry present and significant decreased breath sounds in the right basilar compared to the left base and also bilateral crackles up to the mid anthony noted. Occasional rhonchi. Abdomenl: Soft bowel sounds present, obese as well as nondistended and nontender Extremities: 2+ bilateral lower leg edema noted and able to move all extremities without any major deformities Neuro: Alert awake oriented x 3, no focal neurological deficits Psych: Normal affect and mood Objective Labs 08/04/24 03:04 08/04/24 03:04 Labs: Laboratory Results - last 24 hr 08/02/24 08/02/24 08/02/24 11:51 15:40 19:16 WBC RBC Hgb Hct MCV MCH MCHC RDW Std Deviation Plt Count Neut % (Auto) Lymph % (Auto) [place] % (Auto) Eos % (Auto) Baso % (Auto) Neut # (Auto) Lymph # (Auto) [place] # (Auto) Eos # (Auto) Baso # (Auto) Immature Gran # (Auto) Absolute Nucleated RBC Immature Gran % Nucleated RBC % Sodium 143 Potassium 3.5 D Chloride 105 Carbon Dioxide 27.5 Anion Gap 11 BUN 11 Creatinine 0.8 Estim Creat Clear Calc 98.9 eGFR > 60 BUN/Creatinine Ratio [address] Glu mg/dL 140 H Hemoglobin A1c 6.5 H Calculated Osmolality 291 Calcium 8.6 Corrected Calcium 8.8 Phosphorus 3.7 Total Bilirubin AST ALT Alkaline Phosphatase Troponin I 0.062 H* Total Protein Albumin 3.8 Globulin Albumin/Globulin Ratio 08/03/24 10:20 WBC 6.7 RBC 3.26 L Hgb 9.5 L Hct 30.8 L MCV 95 MCH 29.1 MCHC 30.8 L RDW Std Deviation 48.4 H Plt Count 211 D Neut % (Auto) 72 Lymph % (Auto) 17 [place] % (Auto) 10 Eos % (Auto) 0 Baso % (Auto) 0 Neut # (Auto) 4.8 Lymph # (Auto) 1.2 [place] # (Auto) 0.7 Eos # (Auto) 0.0 Baso # (Auto) 0.0 Immature Gran # (Auto) 0.02 H Absolute Nucleated RBC 0.00 Immature Gran % 0 Nucleated RBC % 0 Sodium 144 Potassium 3.4 Chloride 107 Carbon Dioxide 28.6 Anion Gap 8 BUN 15 Creatinine 0.8 Estim Creat Clear Calc 95.4 eGFR > 60 BUN/Creatinine Ratio 19 [address]ucose [address] Glu mg/dL Hemoglobin A1c Calculated Osmolality 291 Calcium 8.8 Corrected Calcium 9.2 Phosphorus Total Bilirubin 0.6 AST < 10 ALT 11 Alkaline Phosphatase 52 Troponin I 0.071 H* Total Protein 7.6 Albumin 3.5 Globulin 4.1 H Albumin/Globulin Ratio 0.9 L Assessment & Plan A&P Narrative A 79-year-old male with a past medical history of morbid obesity, essential hypertension, type 2 diabetes mellitus, hyperlipidemia, history of intraventricular hemorrhage in January 2024 after a fall [unclear etiology- transferred to [facility]] asthma, obstructive sleep apnea on CPAP, BPH, hyperlipidemia, restless leg syndrome presented to the hospital with worsening shortness of breath as well as cough over the last few days. As per patient and his patient has been having worsening shortness of breath over the last for 5 days and was unable to sleep flat and was trying to sleep in the chair. Previously patient used to sleep on the bed with only 1 pillow. Denies any kind of PND but has significant orthopnea as noted above. Patient also complains of cough along with some sputum production and the sputum is mostly colorless and frothy. Also complains of significant bilateral leg swelling which is only worsened in the past few days. He has any other chest pain chest pressure or other cardiac complaints including any palpitations have any previous history of any heart disease. In the emergency department patient was noted to be hypoxic at 70% initially patient Ventimask and eventually started BiPAP. Blood pressure initially was 140/88 mmHg heart rate 115/min and respiratory rate 30/min tachypneic as well as tachycardic. Initial labs in the ED showed hemoglobin of 9.5 and platelets of 211 and WBC of 6.7 glucose 178 BUN 15 creatinine of 0.8 sodium 144 potassium 3.4. Troponin 0.049 and repeat troponin 0.06. LFTs were normal. BNP was 172. Chest x-ray showed at least moderate vascular congestion with evidence of heart failure pattern and possible right lower lobe pneumonia. EKG showed sinus rhythm with precipitated AV block and left bundle branch block. Previous EKG in January 2024 showed only sinus rhythm with first-degree AV block and no evidence of any left bundle branch block. Cardiology consulted for possible CHF new onset and also left bundle branch block. Assessment and plan: 1. New onset congestive heart failure exacerbation-unknown systolic versus diastolic 2. Acute hypoxic respiratory failure in the setting of CHF exacerbation as well as pneumonia 3. Community-acquired pneumonia-possible 4. Left bundle branch block 5. Essential hypertension 6. Diabetes mellitus type 2 7. Hyperlipidemia 8. Morbid obesity 9. CHEYANNE on CPAP 10. History of intraventricular hemorrhage after fall in March 2024 11. BPH 12. Anemia Patient presented significant orthopnea as well as shortness of breath along with cough and also sputum production. Clinical examination indicates patient is in acute CHF exacerbation. Unknown systolic versus diastolic but given his older blood presentation patient has both systolic and diastolic heart failure which is new onset diabetes no history of heart failure before. Also patient appears to have some possible right-sided consolidation of pneumonia. Regarding congestive failure recommend echocardiogram to evaluate systolic versus diastolic heart failure Strict input output Daily weights and 2 g sodium diet Recommend to continue BiPAP intermittently for the patient and continue Lasix 40 mg IV twice daily. Further goal-directed medical therapy based on the echocardiogram findings. Treatment of pneumonia with antibiotics as per the primary team. Left bundle branch block: Patient has normal sinus rhythm with first-degree block and new left bundle branch block compared to the previous EKG January 2024. Unlikely acute given his presentation as does have shortness of breath but he has causes for the same as the double patient denies any Chest pain chest pressure at the present moment. Including CHF as well as pneumonia. Troponins are also not elevated and unlikely RI. Mildly elevated troponins at 0.046 and the repeat was 0.069. Recommend no further troponins at patient is elevated troponin secondary to acute hypoxic respiratory failure in the setting of CHF exacerbation. Recommend TSH A1c and lipid profile for further cardiac restratification. Recommend to check the echocardiogram while inpatient and can pursue further ischemic workup as outpatient after patient is treated for the hypoxia respiratory failure with pneumonia as well as CHF exacerbation. Anemia with a hemoglobin of around 9.5-unclear etiology and recommend primary team to do complete workup for the anemia. History of hypertension and diabetes and recommend aggressive control of the same. Hold antihypertensives for now until further diuresis and will restart new regimen based on the echo findings. 08/03/2023 Telemetry reviewed and no other arrhythmias noted. Patient is breathing much better today and is oxygen via Ventimask at 15 L/min and decrease it to 5 L/min. Recommend to continue BiPAP intermittently for the patient. Patient received 1 dose of IV Lasix last night and recommend to increase Lasix to 40 mg IV twice daily. Strict input output, daily weights and 2 g sodium diet Keep potassium greater than 4 and magnesium greater than 2.0 at all times. No other antihypertensives for now as patient will need room for further diuresis. Echocardiogram ordered and is still pending at the present point of time. Patient is on IV antibiotics for possible community-acquired pneumonia. Still no workup started for the anemia and recommend to obtain also TSH A1c and lipid profile for the patient for further cardiac risk stratification. Recommend to stop trending the troponins Management of rest of the medical conditions as per primary team and other consultants. Thank you for the consult and allowing me to participate in the care of the patient. Cardiology will continue to follow. Rakan Lundberg M.D. Interventional Cardiology Time Spent With Patient Time: Total time spent is greater than 50% in coordination of care (as documented) at patient's floor/unit and/or counseling patient:
--- NOTE | 2024-08-03 14:49 | ESPR_ITS ---
Documentation for date of: 08/03/24 Subjective Subjective Interval history: Patient seen at bedside. No acute overnight events. He reports improvements in his symptoms. He has been transitioned from BIPAP to Oxy mask, saturating 98% on 15L. Urine output not documented, but patient endorsed increased diuresis. He was evaluated by the digital product manager and Lasix dose was increased from 40mg daily to 40mg BID. Had a conversation with patient and about diabetes management and they are agreeable to start an SGLT2. Will hold glipizide now and commence on Dapagliflozin. Will also continue Ceftriaxone and doxycycline. Exam Vital Signs Temp Pulse Resp BP Pulse Ox O2 Del Method O2 Flow Rate 97.1 F 78 20 105/63 96 Oxy Mask 15 08/03/24 12:00 08/03/24 12:00 08/03/24 12:00 08/03/24 12:00 08/03/24 12:00 08/03/24 12:00 08/03/24 12:00 FiO2 75 08/03/24 04:00 Narrative Exam GENERAL: AAOX3 NEURO: SURVEILLANCE MONITOR grossly intact, moves extremities x4 HEENT: Moist mucosa. Eyes open, symmetrical, & clear CARDIO: No chest pain on palpation. Heart RRR, no obvious murmurs PULM: Milld crackles bilaterally. Oxymask on, saturating 98% on 15L of O2 GI: Abdomen soft, nondistended, no pain on palpation. BSx4 URO/ACCOUNTS PAYABLES CLERK:: No further abnormalities noted. SKIN/MSK/EXT: Bilateral pitting edema 2+ - resolving Objective Labs 08/04/24 03:04 08/04/24 03:04 Labs: Laboratory Results - last 24 hr 08/02/24 08/02/24 08/02/24 11:51 15:40 19:16 WBC RBC Hgb Hct MCV MCH MCHC RDW Std Deviation Plt Count Neut % (Auto) Lymph % (Auto) [place] % (Auto) Eos % (Auto) Baso % (Auto) Neut # (Auto) Lymph # (Auto) [place] # (Auto) Eos # (Auto) Baso # (Auto) Immature Gran # (Auto) Absolute Nucleated RBC Immature Gran % Nucleated RBC % Sodium 143 Potassium 3.5 D Chloride 105 Carbon Dioxide 27.5 Anion Gap 11 BUN 11 Creatinine 0.8 Estim Creat Clear Calc 98.9 eGFR > 60 BUN/Creatinine Ratio 14 [address]ucose [address] Glu mg/dL 140 H Hemoglobin A1c 6.5 H Calculated Osmolality 291 Calcium 8.6 Corrected Calcium 8.8 Phosphorus 3.7 Total Bilirubin AST ALT Alkaline Phosphatase Troponin I 0.062 H* Total Protein Albumin 3.8 Globulin Albumin/Globulin Ratio 08/03/24 10:20 WBC 6.7 RBC 3.26 L Hgb 9.5 L Hct 30.8 L MCV 95 MCH 29.1 MCHC 30.8 L RDW Std Deviation 48.4 H Plt Count 211 D Neut % (Auto) 72 Lymph % (Auto) 17 [place] % (Auto) 10 Eos % (Auto) 0 Baso % (Auto) 0 Neut # (Auto) 4.8 Lymph # (Auto) 1.2 [place] # (Auto) 0.7 Eos # (Auto) 0.0 Baso # (Auto) 0.0 Immature Gran # (Auto) 0.02 H Absolute Nucleated RBC 0.00 Immature Gran % 0 Nucleated RBC % 0 Sodium 144 Potassium 3.4 Chloride 107 Carbon Dioxide 28.6 Anion Gap 8 BUN 15 Creatinine 0.8 Estim Creat Clear Calc 95.4 eGFR > 60 BUN/Creatinine Ratio 19 [address]ucose [address] Glu mg/dL Hemoglobin A1c Calculated Osmolality 291 Calcium 8.8 Corrected Calcium 9.2 Phosphorus Total Bilirubin 0.6 AST < 10 ALT 11 Alkaline Phosphatase 52 Troponin I 0.071 H* Total Protein 7.6 Albumin 3.5 Globulin 4.1 H Albumin/Globulin Ratio 0.9 L Quality Measures Quality Measures none Advance care planning discussed with:: patient Assessment & Plan Assessment Current Active Medications: Generic Name Dose Route Start Last Admin Trade Name Freq PRN Reason Stop Dose Admin Acetaminophen 650 mg 08/02/24 14:38 Acetaminophen 325 Mg Tablet PO 09/01/24 14:37 Q6H PRN Pain 1-3 or Fever >100.3 Albuterol/Ipratropium 3 ml 08/02/24 14:47 Albuterol/Ipratropium (Duoneb) Rt Liya 3 Ml Nebu INH 09/01/24 14:59 Q4HRRT PRN WHEEZING Dapagliflozin 5 mg 08/04/24 09:00 Dapagliflozin Propanediol 5 Mg Tablet PO 09/03/24 08:59 QAM SHAZIA Dextrose 25 ml 08/02/24 16:27 Dextrose 50%-Water Inj 50 Ml Syringe IV 09/01/24 16:26 Q15MIN PRN BG 50-70 responsive npo pt Dextrose 50 ml 08/02/24 16:27 Dextrose 50%-Water Inj 50 Ml Syringe IV 09/01/24 16:26 Q15MIN PRN BG <50 OR BG <70 & pt unresponsive Doxycycline Hyclate 100 mg 08/02/24 21:00 08/03/24 09:57 Doxycycline 100 Mg Tablet PO 08/09/24 20:59 100 mg BID SHAZIA Administration Furosemide 40 mg 08/03/24 21:00 Furosemide Inj 10 Mg/Ml 4ml Vial IVP 09/02/24 20:59 BID SHAZIA Glucagon 1 mg 08/02/24 16:27 Glucagon Inj 1 Mg Vial IM Q15MIN PRN BG <70, and no IV access Guaifenesin/Dextromethorphan 1 each 08/03/24 21:00 Guaifenesin/Dm Tablet PO 09/02/24 20:59 BID SHAZIA Heparin Sodium (Porcine) 5,000 unit 08/02/24 21:00 08/03/24 10:00 Heparin Sod Inj 5000 Unit/Ml Vial SC 08/16/24 20:59 5,000 unit Q12HR SHAZIA Administration Ceftriaxone Sodium/Dextrose 50 mls @ 100 mls/hr 08/03/24 09:00 08/03/24 10:01 Rocephin/D5w 1gm Iv Premix IV 08/10/24 08:59 100 mls/hr QDAY SHAZIA Administration Insulin Human Lispro 0 unit 08/02/24 17:00 08/02/24 17:32 Insulin Lispro (Admelog) 1 Unit/0.01 Ml Unit SC 09/01/24 16:59 Not Given AC [facility] Protocol Ondansetron HCl 4 mg 08/02/24 14:38 Ondansetron Inj 2 Mg/Ml Inj 2 Ml IV 09/01/24 14:37 Q6H PRN NAUSEA OR VOMITING Protocol Sennosides 1 tab 08/03/24 09:00 08/03/24 09:58 Senna Tablet PO 09/02/24 08:59 1 tab QDAY SHAZIA Administration Protocol Sodium Chloride 3 ml 08/02/24 11:12 Sodium Chloride Rt Liya 0.9% 3 Ml Nebu INH 09/01/24 11:11 PRN PRN SOLN Plan Summary: The patient is a 79-year-old male with a past medical history of hypertension, diabetes, asthma, CHEYANNE on CPAP who presented to the ED with a 3-day history of shortness of breath and cough. #Acute hypoxic respiratory failure #Bilateral pneumonia #?New onset CHF The patient presented with a 3-day history of shortness of breath and cough. Although he uses CPAP at home and in inhaler for asthma, he has never had to be on oxygen at home. Reports that he initially started noticing that he was unable to do as much activity or take as many steps. After this, became much more difficult to breathe even laying down. He denies orthopnea or PND however. He also endorses a cough which is sometimes productive with whitish sputum but otherwise nonproductive. He denies fever chest pain palpitations. He has had no sick contacts or travel history no peers of immobilization or surgery. In the ED, patient was noted to be hypoxic and tachypneic and was placed on BiPAP and has been tolerating well. Chest x-ray showed bilateral pneumonia. EKG showed sinus rhythm with first- degree AV block. 08/03/2024- Bedside Influenza test negative. Patient reports improvement in his symptoms. Transitioned from BIPAP to Oxymask at 15L. Pending blood and sputum cultures Plan: -Continue Rocephin and doxycycline -Continue Lasix 40mg BID -DuoNebs as needed -Blood and sputum cultures pending -Pending echocardiogram #Elevated troponin levels #Possible NSTEMI type II On admission, patient had troponin level resolved 0.049. He denies chest pain. Troponins have been trending up, currently at 0.071 Plan: -Continue to trend troponin until peak #History of hypertension The patient has a history of hypertension but does not know what medications he is on. Blood pressure on admission within normal limits. Plan: -Hold antihypertensives for now. #History of diabetes The patient has a history of diabetes and is on oral medication, possibly metformin. A1c done-6.5. Glucose on admission 177 08/03/2024- Had a conversation about diabetes management with patient and , still declining insulin but willing to try an SGLT2 Plan: -ISS -Blood glucose check AC -Hypoglycemic protocols in place -DC Glipizide -Commence Dapagliflozin 5mg daily #History of asthma The patient has a history of asthma and has a rescue albuterol inhaler. On examination, he does not have wheezing. Plan: -DuoNebs as needed Health maintenance: Dispo: Tele Diet: Cardiac/Carb consistent DVT: SC Heparin [place]: None Lines: Peripheral PT: Not ordered Code: Full Case was discussed with Dr Pryor PGY-2 and attending physician, Dr Nate Thompson MD PGY-1 Attending Provider Attestation/Addendum I reviewed labs, imaging, EKG, home medications and prior available records. Face to face evaluation was performed by me. I have personally examined the patient and discussed assessment and plan with the IM team. I reviewed the resident note and agree with the plan with exceptions as below. 79-year-old male with history of COPD, type 2 diabetes mellitus, hypertension, and hyperlipidemia, who presented with a chief complaint of shortness of breath and mild chest pain for 3 days. He was found to have pulmonary edema, bilateral pneumonia, and non-STEMI. Acute hypoxic respiratory failure New onset CHF Bilateral pneumonia, lower lobes Non-STEMI Type 2 diabetes mellitus Essential hypertension Hyperlipidemia Started IV Lasix. Monitor I's and O's. Ordered echocardiogram Started ceftriaxone/doxycycline Started aspirin and atorvastatin. Trend troponin. Consulted cardiology: Likely demand ischemia Patient refused insulin therapy. Will resume his home glipizide. Monitor fingersticks. SGLT2 inhibitors on discharge
[2024-08-03 16:38] LABS: Troponin I 0.074 ng/mL (0.0-0.045)
[2024-08-03 21:45] LABS: Troponin I 0.072 ng/mL (0.0-0.045)
[2024-08-04] VITALS (12 sets, daily range): BP systolic 103–126; BP diastolic 58–79; PULSE 70–122; RESP 20–30; TEMP 36.3–37.6; O2SAT 90–99; BMI 31.8
[2024-08-04 03:26] LABS: Basophils % (Auto) 0 % (0-2.5); Eosinophils % (Auto) 0 % (0-10); Hematocrit 31.6 % (41.0-53.0); Hemoglobin 9.8 g/dL (13.5-16.0); Immature Granulocytes % (Auto) 0 % (0-0); Immature Granulocytes Auto 0.03 Thou/mm3 (0.00-0.00); Lymphocytes # (Auto) 1.8 Thou/mm3 (1.0-4.8); Lymphocytes % (Auto) 22 % (10-50); Mean Corpuscular Hemoglobin 29.3 pg (25.0-35.0); Mean Corpuscular Volume 95 fL (80-100); Monocytes # (Auto) 0.8 Thou/mm3 (0.0-0.8); Monocytes % (Auto) 9 % (0-12); Neutrophils # (Auto) 5.5 Thou/mm3 (1.8-7.7); Neutrophils % (Auto) 68 % (37-80); Nucleated Red Blood Cell % 0 /100 WBC (0); Platelet Count 214 Thou/mm3 (140-440); RDW Standard Deviation 48.3 fL (35.1-43.9); Red Blood Count 3.34 Miln/mm3 (4.50-5.90); White Blood Count 8.1 Thou/mm3 (3.8-10.6)
[2024-08-04 03:42] LABS: Albumin, Serum 3.6 gm/dL (3.4-4.8); Anion Gap 8 (7-16); BUN/Creatinine Ratio 25 Ratio (12-20); Blood Urea Nitrogen 20 mg/dL (9-23); Calcium 8.7 mg/dL (8.3-10.6); Carbon Dioxide 33.4 mMol/L (20.0-31.0); Chloride 103 mMol/L (98-107); Creatinine (Component) 0.8 mg/dL (0.6-1.3); Glucose 143 mg/dL (74-106); Osmolality,Calculated 291 (275-295); Phosphorous 3.2 mg/dL (2.4-5.1); Potassium 3.2 mMol/L (3.4-5.1); Sodium 144 mMol/L (136-145); eGFR > 60 See Note
[2024-08-04 03:47] LABS: Troponin I 0.072 ng/mL (0.0-0.045)
--- NOTE | 2024-08-04 06:05 | PC.NURSE ---
REPORT GIVEN TO ROSELYN LEYVA
[2024-08-04] MEDS: POTASSIUM CHLORIDE 20 mEq TABCR PO (09:00)
[2024-08-04] MEDS: cefTRIAXone/D5w 1gm IV premix 50 ML IV (09:00)
[2024-08-04] MEDS: POTASSIUM CHLORIDE 20 mEq TABCR 40 MEQ PO (09:00)
[2024-08-04] MEDS: FUROSEMIDE INJ 10 MG/ML 4ML VIAL 40 MG IVP ×2 (09:00→21:31)
[2024-08-04] MEDS: guaiFENesin/DM TABLET 1 EACH PO ×2 (09:00→21:34)
[2024-08-04] MEDS: DAPAGLIFLOZIN PROPANEDIOL 5 MG TABLET PO (09:15)
[2024-08-04] MEDS: SENNA TABLET 1 TAB PO (09:15)
[2024-08-04] MEDS: DOXYCYCLINE 100 MG TABLET PO (09:15)
[2024-08-04] MEDS: HEPARIN SOD INJ 5000 UNIT/ML VIAL SC ×2 (09:16→21:35)
[2024-08-04 09:37] LABS: Troponin I 0.072 ng/mL (0.0-0.045)
--- NOTE | 2024-08-04 10:15 | PD.RESPRO ---
Documentation for date of: 08/04/24 Subjective Subjective Interval history: 08/04: No acute overnight events patient seen and examined at bedside this morning patient appears to be looking and feeling much better however patient is on 5 L of oxygen via OxyMask saturating at 94%. Physical therapy is working with the patient to start ambulating. Patient denies any chest pain, chest pressure, shortness of breath he endorses to feeling much better. Patient oxygen is titrated down and bedside nurse is informed to place patient on nasal cannula. Patient has no other complaints at this time. Exam Vital Signs Temp Pulse Resp BP Pulse Ox O2 Del Method O2 Flow Rate 98.4 F 115 H 29 H 115/69 99 BiPAP 15 08/04/24 08:00 08/04/24 09:00 08/04/24 08:00 08/04/24 09:00 08/04/24 08:00 08/04/24 08:00 08/03/24 16:00 FiO2 70 08/04/24 03:38 Narrative Exam GENERAL: A&Ox3 . Awake, Not in acute distress NEURO: no focal neurological deficits HEENT: Atraumatic, Normocephalic. mucous membranes moist. Eyes open, symmetrical, & clear HEART: Normal Heart Sounds LUNGS: Clear to auscultation with no wheezing or crackles. ABDOMEN: soft, non-distended, non-tender, bowel sounds heard, no guarding or rebound tenderness SKIN: No Rash or ecchymoses EXTREMITIES: No edema, tenderness, able to move all 4 extremities, pedal pulses palpated Objective Labs 08/05/24 05:27 08/05/24 05:27 Labs: Laboratory Results - last 24 hr 08/03/24 08/03/24 08/03/24 10:20 15:43 21:00 WBC 6.7 RBC 3.26 L Hgb 9.5 L Hct 30.8 L MCV 95 MCH 29.1 MCHC 30.8 L RDW Std Deviation 48.4 H Plt Count 211 D Neut % (Auto) 72 Lymph % (Auto) 17 [place] % (Auto) 10 Eos % (Auto) 0 Baso % (Auto) 0 Neut # (Auto) 4.8 Lymph # (Auto) 1.2 [place] # (Auto) 0.7 Eos # (Auto) 0.0 Baso # (Auto) 0.0 Immature Gran # (Auto) 0.02 H Absolute Nucleated RBC 0.00 Immature Gran % 0 Nucleated RBC % 0 Sodium 144 Potassium 3.4 Chloride 107 Carbon Dioxide 28.6 Anion Gap 8 BUN 15 Creatinine 0.8 Estim Creat Clear Calc 95.4 eGFR > 60 BUN/Creatinine Ratio 19 Glucose 178 H Calculated Osmolality 291 Calcium 8.8 Corrected Calcium 9.2 Phosphorus Magnesium Total Bilirubin 0.6 AST < 10 ALT 11 Alkaline Phosphatase 52 Troponin I 0.071 H* 0.074 H* 0.072 H* Total Protein 7.6 Albumin 3.5 Globulin 4.1 H Albumin/Globulin Ratio 0.9 L 08/04/24 08/04/24 03:04 08:45 WBC 8.1 RBC 3.34 L Hgb 9.8 L Hct 31.6 L MCV 95 MCH 29.3 MCHC 31.0 RDW Std Deviation 48.3 H Plt Count 214 Neut % (Auto) 68 Lymph % (Auto) 22 [place] % (Auto) 9 Eos % (Auto) 0 Baso % (Auto) 0 Neut # (Auto) 5.5 Lymph # (Auto) 1.8 [place] # (Auto) 0.8 Eos # (Auto) 0.0 Baso # (Auto) 0.0 Immature Gran # (Auto) 0.03 H Absolute Nucleated RBC 0.00 Immature Gran % 0 Nucleated RBC % 0 Sodium 144 Potassium 3.2 L Chloride 103 Carbon Dioxide 33.4 H Anion Gap 8 BUN 20 Creatinine 0.8 Estim Creat Clear Calc 96.0 eGFR > 60 BUN/Creatinine Ratio 25 H Glucose 143 H Calculated Osmolality 291 Calcium 8.7 Corrected Calcium 9.0 Phosphorus 3.2 Magnesium 2.0 Total Bilirubin AST ALT Alkaline Phosphatase Troponin I 0.072 H* 0.072 H* Total Protein Albumin 3.6 Globulin Albumin/Globulin Ratio Quality Measures Quality Measures none Advance care planning discussed with:: patient Assessment & Plan Assessment Current Active Medications: Generic Name Dose Route Start Last Admin Trade Name Freq PRN Reason Stop Dose Admin Acetaminophen 650 mg 08/02/24 14:38 Acetaminophen 325 Mg Tablet PO 09/01/24 14:37 Q6H PRN Pain 1-3 or Fever >100.3 Albuterol/Ipratropium 3 ml 08/02/24 14:47 Albuterol/Ipratropium (Duoneb) Rt Liya 3 Ml Nebu INH 09/01/24 14:59 Q4HRRT PRN WHEEZING Dapagliflozin 5 mg 08/04/24 09:00 08/04/24 09:15 Dapagliflozin Propanediol 5 Mg Tablet PO 09/03/24 08:59 5 mg QAM SHAZIA Administration Dextrose 25 ml 08/02/24 16:27 Dextrose 50%-Water Inj 50 Ml Syringe IV 09/01/24 16:26 Q15MIN PRN BG 50-70 responsive npo pt Dextrose 50 ml 08/02/24 16:27 Dextrose 50%-Water Inj 50 Ml Syringe IV 09/01/24 16:26 Q15MIN PRN BG <50 OR BG <70 & pt unresponsive Doxycycline Hyclate 100 mg 08/02/24 21:00 08/04/24 09:15 Doxycycline 100 Mg Tablet PO 08/09/24 20:59 100 mg BID SHAZIA Administration Furosemide 40 mg 08/03/24 21:00 08/04/24 09:00 Furosemide Inj 10 Mg/Ml 4ml Vial IVP 09/02/24 20:59 40 mg BID SHAZIA Administration Glucagon 1 mg 08/02/24 16:27 Glucagon Inj 1 Mg Vial IM Q15MIN PRN BG <70, and no IV access Guaifenesin/Dextromethorphan 1 each 08/03/24 21:00 08/04/24 09:00 Guaifenesin/Dm Tablet PO 09/02/24 20:59 1 each BID SHAZIA Administration Heparin Sodium (Porcine) 5,000 unit 08/02/24 21:00 08/04/24 09:16 Heparin Sod Inj 5000 Unit/Ml Vial SC 08/16/24 20:59 5,000 unit Q12HR SHAZIA Administration Ceftriaxone Sodium/Dextrose 50 mls @ 100 mls/hr 08/03/24 09:00 08/04/24 09:00 Rocephin/D5w 1gm Iv Premix IV 08/10/24 08:59 100 mls/hr QDAY SHAZIA Administration Insulin Human Lispro 0 unit 08/02/24 17:00 08/02/24 17:32 Insulin Lispro (Admelog) 1 Unit/0.01 Ml Unit SC 09/01/24 16:59 Not Given AC SHAZIA Protocol Ondansetron HCl 4 mg 08/02/24 14:38 Ondansetron Inj 2 Mg/Ml Inj 2 Ml IV 09/01/24 14:37 Q6H PRN NAUSEA OR VOMITING Protocol Sennosides 1 tab 08/03/24 09:00 08/04/24 09:15 Senna Tablet PO 09/02/24 08:59 1 tab QDAY SHAZIA Administration Protocol Sodium Chloride 3 ml 08/02/24 11:12 Sodium Chloride Rt Liya 0.9% 3 Ml Nebu INH 09/01/24 11:11 PRN PRN SOLN Plan Mr. Hartman is a 79-year-old male with past medical history significant for hypertension, stt-fvdqzej-ionqjzfsv type 2 diabetes, CHEYANNE on CPAP and asthma presented to the ED for shortness of breath, cough and leg swelling for the past 3 days. Cardiology is consulted for new onset of acute CHF excerbation. #Acute hypoxic respiratory failure #bilateral pneumonia -Patient had a cough and generalized weakness with shortness of breath for the past 3 days. Chest x-ray is evident of bilateral pneumonia currently patient is saturating on BiPAP. -Patient is started on Rocephin and doxycycline along with DuoNebs. Influenza A and B are negative #Elevated troponin levels in the setting of NSTEMI type II -Initial troponins are 0.049 -> 0.062, likely secondary to demand ischemia as Pt is in acute hypoxic respiratory failure requiring Bipap. 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 -Pt endorse to orthopnea for the last 5 days and has been unable to sleep due to it. -Due to shortness of breath pt will require supplemental oxygen, currently pt is requiring Bipap. Pt will need to be diuresed with Lasix 40mg IV BID. keep K+ above 4 and Mg above 2 at all times. #History of omw-ovnebgq-nasrlhyrx type 2 diabetes -Although patient is taking glipizide as her diabetes medication patient denies having history of diabetes and refuses to take insulin sliding scale. Fingerstick at bedside is 216, A1c from today is 6.5 and patient continues to refuse insulin during hospitalization. Primary hospitalist team is informed of the patient's decision # Primary hypertension -Patient has history of hypertension which is well-controlled with losartan 50 Mg daily blood pressure on admission was within normal limits therefore will hold antihypertensive medication for now. #Acute normocytic Anemia with a hemoglobin of around 9.8 and Hct 31.6-unclear etiology and recommend primary team to do complete workup for the anemia. #History of intraventricular hemorrhage after fall in March 2024. Patient was transferred to [place] for further evaluation by neurosurgeon however per patient's no procedures were done and hemorrhage was resolved Assessment and plan discussed with my attending physician Dr. Tamika Lewis (PGY-1)- Internal medicine resident Attending Provider Attestation/Addendum A 79-year-old male with a past medical history of morbid obesity, essential hypertension, type 2 diabetes mellitus, hyperlipidemia, history of intraventricular hemorrhage in January 2024 after a fall [unclear etiology- transferred to [facility]] asthma, obstructive sleep apnea on CPAP, BPH, hyperlipidemia, restless leg syndrome presented to the hospital with worsening shortness of breath as well as cough over the last few days. As per patient and his patient has been having worsening shortness of breath over the last for 5 days and was unable to sleep flat and was trying to sleep in the chair. Previously patient used to sleep on the bed with only 1 pillow. Denies any kind of PND but has significant orthopnea as noted above. Patient also complains of cough along with some sputum production and the sputum is mostly colorless and frothy. Also complains of significant bilateral leg swelling which is only worsened in the past few days. He has any other chest pain chest pressure or other cardiac complaints including any palpitations have any previous history of any heart disease. Denies a Fear of chills. Complains of some nausea but denies any kind of vomitings or other abdominal complaints. In the emergency department patient was noted to be hypoxic at 70% initially patient Ventimask and eventually started BiPAP. Blood pressure initially was 140/88 mmHg heart rate 115/min and respiratory rate 30/min tachypneic as well as tachycardic. Initial labs in the ED showed hemoglobin of 9.5 and platelets of 211 and WBC of 6.7 glucose 178 BUN 15 creatinine of 0.8 sodium 144 potassium 3.4. Troponin 0.049 and repeat troponin 0.06. LFTs were normal. BNP was 172. Chest x-ray showed at least moderate vascular congestion with evidence of heart failure pattern and possible right lower lobe pneumonia. EKG showed sinus rhythm with precipitated AV block and left bundle branch block. Previous EKG in January 2024 showed only sinus rhythm with first-degree AV block and no evidence of any left bundle branch block. On examination General: Patient appears morbidly obese and is in significant respiratory distress with use of accessory muscles and is on BiPAP. HEENT: Pupils equal and bilateral reacting to light. Mucosa moist Heart: S1-S2 present and tachycardic, 2 or 6 systolic murmur heard at the apex, no rubs or gallops. Lungs:-bilateral air entry present and significant decreased breath sounds in the right basilar compared to the left base and also bilateral crackles up to the mid anthony noted. Occasional rhonchi. Abdomenl: Soft bowel sounds present, obese as well as nondistended and nontender Extremities: 2+ bilateral lower leg edema noted and able to move all extremities without any major deformities Neuro: Alert awake oriented x 3, no focal neurological deficits Psych: Normal affect and mood Cardiology consulted for possible CHF new onset and also left bundle branch block. Assessment and plan: 1. New onset congestive heart failure exacerbation-unknown systolic versus diastolic 2. Acute hypoxic respiratory failure in the setting of CHF exacerbation as well as pneumonia 3. Community-acquired pneumonia-possible 4. Left bundle branch block 5. Essential hypertension 6. Diabetes mellitus type 2 7. Hyperlipidemia 8. Morbid obesity 9. CHEYANNE on CPAP 10. History of intraventricular hemorrhage after fall in March 2024 11. BPH 12. Anemia Patient presented significant orthopnea as well as shortness of breath along with cough and also sputum production. Clinical examination indicates patient is in acute CHF exacerbation. Unknown systolic versus diastolic but given his older blood presentation patient has both systolic and diastolic heart failure which is new onset diabetes no history of heart failure before. Also patient appears to have some possible right-sided consolidation of pneumonia. Regarding congestive failure recommend echocardiogram to evaluate systolic versus diastolic heart failure Strict input output Daily weights and 2 g sodium diet Recommend to continue BiPAP intermittently for the patient and continue Lasix 40 mg IV twice daily. Further goal-directed medical therapy based on the echocardiogram findings. Treatment of pneumonia with antibiotics as per the primary team. Left bundle branch block: Patient has normal sinus rhythm with first-degree block and new left bundle branch block compared to the previous EKG January 2024. Unlikely acute given his presentation as does have shortness of breath but he has causes for the same as the double patient denies any Chest pain chest pressure at the present moment. Including CHF as well as pneumonia. Troponins are also not elevated and unlikely [place]. Mildly elevated troponins at 0.046 and the repeat was 0.069. Recommend no further troponins at patient is elevated troponin secondary to acute hypoxic respiratory failure in the setting of CHF exacerbation. Recommend TSH A1c and lipid profile for further cardiac restratification. Recommend to check the echocardiogram while inpatient and can pursue further ischemic workup as outpatient after patient is treated for the hypoxia respiratory failure with pneumonia as well as CHF exacerbation. Anemia with a hemoglobin of around 9.5-unclear etiology and recommend primary team to do complete workup for the anemia. History of hypertension and diabetes and recommend aggressive control of the same. Hold antihypertensives for now until further diuresis and will restart new regimen based on the echo findings. 08/04/2024 Patient seen and examined at the bedside. Patient improving well with IV diuresis Lasix 40 mg IV twice daily. Leg edema has improved and is around 1+ presently. Patient is still on oxygen via Ventimask decreased 67 L/min. Recommend to continue aggressive diuresis for now Keep potassium greater than 4 and magnesium greater than 2.0 Echocardiogram ordered and still pending at the present point of time. Primary team recommended to complete the workup for the anemia. Management of rest of the medical conditions as per primary team and other consultants. Thank you for the consult and allowing me to participate in the care of the patient. Cardiology will continue to follow. Rakan Lundberg M.D. Interventional Cardiology
[2024-08-04 10:21] LABS: Iron 29 mcg/dL (65-175); Percent Iron Saturation 11 % (20-55); Total Iron Binding Capacity 253 mcg/dL (250-425); Unsaturated Iron Binding 224 (225-295)
[2024-08-04] MEDS: IRON SUCROSE CPLX INJ 20 MG/ML VIAL 5 ML 200 MG IVP (11:55)
[2024-08-04] MEDS: VIT B12/Vit C/FA (Nephrovite) TABLET 1 TAB PO (11:55)
[2024-08-04] MEDS: CYANOCOBALAMIN INJ 1,000 mCg/ML VIAL 1000 MCG IM (11:56)
[2024-08-04] MEDS: LEVOFLOXACIN 250 MG TABLET 500 MG PO (11:56)
--- NOTE | 2024-08-04 12:22 | PC.SS ---
CATALOGUE ILLUSTRATOR conducted bedside contact with the patient to conduct initial assessment and to discuss discharge planning.? Patient resides at home with friend, Monica Chicas .? Patient does not utilize DME for ambulation.? Patient does not utilize home oxygen.? Patient currently on 5L oxygen.? Patient is able to complete ADL?s independently.? Patient?s medical surrogate decision maker is friend Monica Chicas.? Patient?s PCP is Dr. Stephens [facility]. ?Patient utilizes [facility] for medication services. ?If home oxygen required at the time of discharge no preferred vendor identified.? Plan is for the patient to return home at the time of discharge.? No further intervention required at this time, social and political studies professor will be available to address any further concerns.? Next of Kin: Monica Chicas D/C Plan: Home
--- NOTE | 2024-08-04 12:24 | ESPR_ITS ---
Documentation for date of: 08/04/24 Subjective Subjective Interval history: Patient seen at bedside. No acute overnight events. Patient has significantly improved and reports improvements in breathing function as well. I&O: 700/3375 (-0453). Examination- bilateral crackles Labs reviewed hypokalemia of 3.2 and contraction alkalosis. Exam Vital Signs Temp Pulse Resp BP Pulse Ox O2 Del Method O2 Flow Rate 98.4 F 115 H 29 H 115/69 99 BiPAP 15 08/04/24 08:00 08/04/24 09:00 08/04/24 08:00 08/04/24 09:00 08/04/24 08:00 08/04/24 08:00 08/03/24 16:00 FiO2 70 08/04/24 03:38 Narrative Exam GENERAL: AAOX3 NEURO: PIPED BUTTONHOLE MACHINE OPERATOR grossly intact, moves extremities x4 HEENT: Moist mucosa. Eyes open, symmetrical, & clear CARDIO: No chest pain on palpation. Heart RRR, no obvious murmurs PULM: No noted coughing/dyspnea. Bilateral crackles on auscultation-resolving. Oxymask on 4L GI: Abdomen soft, nondistended, no pain on palpation. BSx4 URO/RESPIRATORY SERVICES MANAGER:: No further abnormalities noted. SKIN/MSK/EXT: Pitting edema resolving Objective Labs 08/05/24 05:27 08/05/24 05:27 Labs: Laboratory Results - last 24 hr 08/03/24 08/03/24 08/04/24 15:43 21:00 03:04 WBC 8.1 RBC 3.34 L Hgb 9.8 L Hct 31.6 L MCV 95 MCH 29.3 MCHC 31.0 RDW Std Deviation 48.3 H Plt Count 214 Neut % (Auto) 68 Lymph % (Auto) 22 [place] % (Auto) 9 Eos % (Auto) 0 Baso % (Auto) 0 Neut # (Auto) 5.5 Lymph # (Auto) 1.8 [place] # (Auto) 0.8 Eos # (Auto) 0.0 Baso # (Auto) 0.0 Immature Gran # (Auto) 0.03 H Absolute Nucleated RBC 0.00 Immature Gran % 0 Nucleated RBC % 0 Sodium 144 Potassium 3.2 L Chloride 103 Carbon Dioxide 33.4 H Anion Gap 8 BUN 20 Creatinine 0.8 Estim Creat Clear Calc 96.0 eGFR > 60 BUN/Creatinine Ratio 25 H Glucose 143 H Calculated Osmolality 291 Calcium 8.7 Corrected Calcium 9.0 Phosphorus 3.2 Magnesium 2.0 Iron 29 L TIBC 253 Iron Saturation 11 L Unsat Iron Binding 224 L Troponin I 0.074 H* 0.072 H* 0.072 H* Albumin 3.6 08/04/24 08:45 WBC RBC Hgb Hct MCV MCH MCHC RDW Std Deviation Plt Count Neut % (Auto) Lymph % (Auto) [place] % (Auto) Eos % (Auto) Baso % (Auto) Neut # (Auto) Lymph # (Auto) [place] # (Auto) Eos # (Auto) Baso # (Auto) Immature Gran # (Auto) Absolute Nucleated RBC Immature Gran % Nucleated RBC % Sodium Potassium Chloride Carbon Dioxide Anion Gap BUN Creatinine Estim Creat Clear Calc eGFR BUN/Creatinine Ratio Glucose Calculated Osmolality Calcium Corrected Calcium Phosphorus Magnesium Iron TIBC Iron Saturation Unsat Iron Binding Troponin I 0.072 H* Albumin Quality Measures Quality Measures none Advance care planning discussed with:: patient Assessment & Plan Assessment Current Active Medications: Generic Name Dose Route Start Last Admin Trade Name Freq PRN Reason Stop Dose Admin Acetaminophen 650 mg 08/02/24 14:38 Acetaminophen 325 Mg Tablet PO 09/01/24 14:37 Q6H PRN Pain 1-3 or Fever >100.3 Albuterol/Ipratropium 3 ml 08/02/24 14:47 Albuterol/Ipratropium (Duoneb) Rt Liya 3 Ml Nebu INH 09/01/24 14:59 Q4HRRT PRN WHEEZING Dapagliflozin 5 mg 08/04/24 09:00 08/04/24 09:15 Dapagliflozin Propanediol 5 Mg Tablet PO 09/03/24 08:59 5 mg QAM SHAZIA Administration Dextrose 25 ml 08/02/24 16:27 Dextrose 50%-Water Inj 50 Ml Syringe IV 09/01/24 16:26 Q15MIN PRN BG 50-70 responsive npo pt Dextrose 50 ml 08/02/24 16:27 Dextrose 50%-Water Inj 50 Ml Syringe IV 09/01/24 16:26 Q15MIN PRN BG <50 OR BG <70 & pt unresponsive Furosemide 40 mg 08/03/24 21:00 08/04/24 09:00 Furosemide Inj 10 Mg/Ml 4ml Vial IVP 09/02/24 20:59 40 mg BID SHAZIA Administration Glucagon 1 mg 08/02/24 16:27 Glucagon Inj 1 Mg Vial IM Q15MIN PRN BG <70, and no IV access Guaifenesin/Dextromethorphan 1 each 08/03/24 21:00 08/04/24 09:00 Guaifenesin/Dm Tablet PO 09/02/24 20:59 1 each BID SHAZIA Administration Heparin Sodium (Porcine) 5,000 unit 08/02/24 21:00 08/04/24 09:16 Heparin Sod Inj 5000 Unit/Ml Vial SC 08/16/24 20:59 5,000 unit Q12HR SHAZIA Administration Insulin Human Lispro 0 unit 08/02/24 17:00 08/02/24 17:32 Insulin Lispro (Admelog) 1 Unit/0.01 Ml Unit SC 09/01/24 16:59 Not Given AC SHAZIA Protocol Iron Sucrose 200 mg 08/04/24 13:00 08/04/24 11:55 Iron Sucrose Cplx Inj 20 Mg/Ml Vial 5 Ml IVP 08/08/24 12:59 200 mg DAILY SHAZIA Administration Levofloxacin 500 mg 08/04/24 11:15 08/04/24 11:56 Levofloxacin 250 Mg Tablet PO 08/07/24 11:14 500 mg QDAY SHAZIA Administration Ondansetron HCl 4 mg 08/02/24 14:38 Ondansetron Inj 2 Mg/Ml Inj 2 Ml IV 09/01/24 14:37 Q6H PRN NAUSEA OR VOMITING Protocol Sennosides 1 tab 08/03/24 09:00 08/04/24 09:15 Senna Tablet PO 09/02/24 08:59 1 tab QDAY SHAZIA Administration Protocol Sodium Chloride 3 ml 08/02/24 11:12 Sodium Chloride Rt Liya 0.9% 3 Ml Nebu INH 09/01/24 11:11 PRN PRN SOLN Vitamin B Complex/Vit C/Folic Acid 1 tab 08/04/24 11:15 08/04/24 11:55 Vit B12/Vit C/Fa (Nephrovite) Tablet PO 09/03/24 11:14 1 tab QDAY SHAZIA Administration Plan Summary: The patient is a 79-year-old male with a past medical history of hypertension, diabetes, asthma, CHEYANNE on CPAP who presented to the ED with a 3-day history of shortness of breath and cough. #Acute hypoxic respiratory failure #Bilateral pneumonia #?New onset CHF The patient presented with a 3-day history of shortness of breath and cough. Although he uses CPAP at home and in inhaler for asthma, he has never had to be on oxygen at home. Reports that he initially started noticing that he was unable to do as much activity or take as many steps. After this, became much more difficult to breathe even laying down. He denies orthopnea or PND however. He also endorses a cough which is sometimes productive with whitish sputum but otherwise nonproductive. He denies fever chest pain palpitations. He has had no sick contacts or travel history no peers of immobilization or surgery. In the ED, patient was noted to be hypoxic and tachypneic and was placed on BiPAP and has been tolerating well. Chest x-ray showed bilateral pneumonia. EKG showed sinus rhythm with first- degree AV block. 08/04/2024- Patient significantly improved. I&O: 700/3375 (-2675). Now on oxymask at 4L Plan: -Continue Rocephin and doxycycline -Continue Lasix 40mg BID -DuoNebs as needed -Blood and sputum cultures pending -Pending echocardiogram #Elevated troponin levels-resolved #Possible NSTEMI type II On admission, patient had troponin level resolved 0.049. He denies chest pain. Troponins have been trending up, currently at 0.071. Troponin peaked at 0.072 Plan: -Stop trending tropes #History of hypertension The patient has a history of hypertension but does not know what medications he is on. Blood pressure on admission within normal limits. Plan: -Hold antihypertensives for now. #History of diabetes The patient has a history of diabetes and is on oral medication, possibly metformin. A1c done-6.5. Glucose on admission 177 08/03/2024- Patient on SGLT2. Blood glucose today 143 Plan: -ISS -Blood glucose check AC -Hypoglycemic protocols in place -Continue Dapagliflozin 5mg daily #History of asthma The patient has a history of asthma and has a rescue albuterol inhaler. On examination, he does not have wheezing. Plan: -DuoNebs as needed Health maintenance: Dispo: Tele Diet: Cardiac/Carb consistent DVT: SC Heparin [place]: None Lines: Peripheral PT: Not ordered Code: Full Case was discussed with Dr Pryor PGY-2 and attending physician, Dr Nate Thompson MD PGY-1 Disclaimer: This note was dictated by speech recognition. Minor errors in marriage counselor minister may be present due to voice recognition software. Attending Provider Attestation/Addendum I reviewed labs, imaging, EKG, home medications and prior available records. Face to face evaluation was performed by me. I have personally examined the patient and discussed assessment and plan with the IM team. I reviewed the resident note and agree with the plan with exceptions as below. 79-year-old male with history of COPD, type 2 diabetes mellitus, hypertension, and hyperlipidemia, who presented with a chief complaint of shortness of breath and mild chest pain for 3 days. He was found to have pulmonary edema, bilateral pneumonia, and non-STEMI. Acute hypoxic respiratory failure New onset CHF Bilateral pneumonia, lower lobes Non-STEMI Type 2 diabetes mellitus Essential hypertension Hyperlipidemia He is on 4 L nasal cannula Started IV Lasix. Monitor I's and O's. Ordered echocardiogram Started ceftriaxone/doxycycline Started aspirin and atorvastatin. Trend troponin: Peaked. Consulted cardiology: Likely demand ischemia Patient refused insulin therapy. Will resume his home glipizide. Monitor fingersticks. SGLT2 inhibitors on discharge
--- NOTE | 2024-08-04 17:48 | PC.PT ---
PT eval only. Patient is at his PLOF and no longer requires skilled PT intervention. Patient is safe to ambulate in the halls and to the bathroom using a FWW and O2. RN notified.
[2024-08-05] VITALS (7 sets, daily range): BP systolic 111–132; BP diastolic 64–80; PULSE 68–99; RESP 17–95; TEMP 36.3–37.1; O2SAT 95–100; BMI 29.6
[2024-08-05 06:39] LABS: Albumin, Serum 3.6 gm/dL (3.4-4.8); Anion Gap 8 (7-16); BUN/Creatinine Ratio 23 Ratio (12-20); Blood Urea Nitrogen 18 mg/dL (9-23); Calcium (Corrected) 9.3 mg/dL (8.5-10.1); Carbon Dioxide 34.7 mMol/L (20.0-31.0); Chloride 101 mMol/L (98-107); Creatinine (Component) 0.8 mg/dL (0.6-1.3); Estimated Creatinine Clearance 92.9 mL/min (>60); Glucose 130 mg/dL (74-106); Osmolality,Calculated 290 (275-295); Phosphorous 4.2 mg/dL (2.4-5.1); Potassium 3.4 mMol/L (3.4-5.1); Sodium 144 mMol/L (136-145); eGFR > 60 See Note
[2024-08-05 08:29] LABS: Basophils % (Auto) 1 % (0-2.5); Eosinophils # (Auto) 0.1 Thou/mm3 (0.0-0.5); Eosinophils % (Auto) 1 % (0-10); Hematocrit 33.1 % (41.0-53.0); Hemoglobin 10.1 g/dL (13.5-16.0); Immature Granulocytes % (Auto) 0 % (0-0); Immature Granulocytes Auto 0.01 Thou/mm3 (0.00-0.00); Lymphocytes # (Auto) 1.6 Thou/mm3 (1.0-4.8); Lymphocytes % (Auto) 28 % (10-50); Mean Corpuscular HGB Conc 30.5 g/dl (31.0-37.0); Mean Corpuscular Hemoglobin 29.1 pg (25.0-35.0); Mean Corpuscular Volume 95 fL (80-100); Monocytes # (Auto) 0.7 Thou/mm3 (0.0-0.8); Monocytes % (Auto) 13 % (0-12); Neutrophils # (Auto) 3.3 Thou/mm3 (1.8-7.7); Neutrophils % (Auto) 57 % (37-80); Nucleated Red Blood Cell % 0 /100 WBC (0); Platelet Count 182 Thou/mm3 (140-440); RDW Standard Deviation 49.1 fL (35.1-43.9); Red Blood Count 3.47 Miln/mm3 (4.50-5.90); White Blood Count 5.8 Thou/mm3 (3.8-10.6)
[2024-08-05] MEDS: DAPAGLIFLOZIN PROPANEDIOL 5 MG TABLET PO (10:26)
[2024-08-05] MEDS: SENNA TABLET 1 TAB PO (10:26)
[2024-08-05] MEDS: guaiFENesin/DM TABLET 1 EACH PO (10:26)
[2024-08-05] MEDS: FUROSEMIDE INJ 10 MG/ML 4ML VIAL 40 MG IVP (10:27)
[2024-08-05] MEDS: LEVOFLOXACIN 250 MG TABLET 500 MG PO (10:27)
[2024-08-05] MEDS: POTASSIUM CHLORIDE 20 mEq TABCR 40 MEQ PO ×2 (10:27→17:24)
[2024-08-05] MEDS: HEPARIN SOD INJ 5000 UNIT/ML VIAL SC (10:28)
--- NOTE | 2024-08-05 12:00 | PC.NURSE ---
Patient sat and ambulated on room air, O2 dropped to 87%. Patient needed to be placed on 2L NC for O2 to be above 92%.
[2024-08-05] MEDS: VIT B12/Vit C/FA (Nephrovite) TABLET 1 TAB PO (12:01)
[2024-08-05] MEDS: IRON SUCROSE CPLX INJ 20 MG/ML VIAL 5 ML 200 MG IVP (12:01)
--- NOTE | 2024-08-05 12:28 | PC.SS ---
To secure a safe discharge for the pt home oxygen is needed. The patient is mobile within the home and will need continuous, portable O2 via nasal cannula. Patient is discharged in a chronic stable state and has been treated optimally and has other respiratory needs. Oxygen has been ordered due to acute hypoxic respiratory failure.
--- NOTE | 2024-08-05 12:30 | PC.SS ---
Addendum entered by Isabella Baumann 08/05/24 12:58: Julianne stated DME oxygen and FWW will be delivered at bedside within 3hrs.; 1500. Addendum entered by Isabella Baumann 08/05/24 12:47: Referral for DME oxygen and FWW submitted via [employer], pending responses from DME companies. Original Note: To secure a safe discharge for the pt home oxygen is needed. The patient is mobile within the home and will need continuous, portable O2 via nasal cannula. Patient is discharged in a chronic stable state and has been treated optimally and has other respiratory needs. Oxygen has been ordered due to acute hypoxic respiratory failure.
--- NOTE | 2024-08-05 12:42 | PD.RESPRO ---
Documentation for date of: 08/05/24 Subjective Subjective Interval history: 08/05: no acute overnight events. Pt is seen and examined at bedside. pt endorses to feeling significantly better. denies shortness of breath even when laying flat. Pt did well with physical therapy. Pt will require home oxygen. Currently saturating at 97% on 5L of O2 and oxygen is titrated down to 3L and pt is saturating at 94%. Pt feels ready to go home. Pt denies chest pain, pressur or palpitations. Pt has no complaints and states he feels great. Exam Vital Signs Temp Pulse Resp BP Pulse Ox O2 Del Method O2 Flow Rate 97.7 F 68 27 H 118/76 95 BiPAP 2 08/05/24 08:00 08/05/24 10:36 08/05/24 10:36 08/05/24 10:27 08/05/24 10:36 08/05/24 08:00 08/04/24 20:00 FiO2 60 08/05/24 04:00 Narrative Exam GENERAL: A&Ox3 . Awake, Not in acute distress NEURO: no focal neurological deficits HEENT: Atraumatic, Normocephalic. mucous membranes moist. Eyes open, symmetrical, & clear HEART: Normal Heart Sounds LUNGS: Clear to auscultation with no wheezing or crackles. ABDOMEN: soft, non-distended, non-tender, bowel sounds heard, no guarding or rebound tenderness SKIN: No Rash or ecchymoses EXTREMITIES: No edema, tenderness, able to move all 4 extremities, pedal pulses palpated Objective Labs 08/05/24 05:27 08/05/24 05:27 Labs: Laboratory Results - last 24 hr 08/05/24 05:27 WBC 5.8 RBC 3.47 L Hgb 10.1 L Hct 33.1 L MCV 95 MCH 29.1 MCHC 30.5 L RDW Std Deviation 49.1 H Plt Count 182 D Neut % (Auto) 57 Lymph % (Auto) 28 [place] % (Auto) 13 H Eos % (Auto) 1 Baso % (Auto) 1 Neut # (Auto) 3.3 Lymph # (Auto) 1.6 [place] # (Auto) 0.7 Eos # (Auto) 0.1 Baso # (Auto) 0.0 Immature Gran # (Auto) 0.01 H Absolute Nucleated RBC 0.00 Immature Gran % 0 Nucleated RBC % 0 Sodium 144 Potassium 3.4 Chloride 101 Carbon Dioxide 34.7 H Anion Gap 8 BUN 18 Creatinine 0.8 Estim Creat Clear Calc 92.9 eGFR > 60 BUN/Creatinine Ratio 23 H Glucose 130 H Calculated Osmolality 290 Calcium 9.0 Corrected Calcium 9.3 Phosphorus 4.2 Magnesium 2.0 Albumin 3.6 Quality Measures Quality Measures none Advance care planning discussed with:: patient and spouse Assessment & Plan Assessment Current Active Medications: Generic Name Dose Route Start Last Admin Trade Name Freq PRN Reason Stop Dose Admin Acetaminophen 650 mg 08/02/24 14:38 Acetaminophen 325 Mg Tablet PO 09/01/24 14:37 Q6H PRN Pain 1-3 or Fever >100.3 Albuterol/Ipratropium 3 ml 08/02/24 14:47 Albuterol/Ipratropium (Duoneb) Rt Liya 3 Ml Nebu INH 09/01/24 14:59 Q4HRRT PRN WHEEZING Dapagliflozin 5 mg 08/04/24 09:00 08/05/24 10:26 Dapagliflozin Propanediol 5 Mg Tablet PO 09/03/24 08:59 5 mg QAM SHAZIA Administration Dextrose 25 ml 08/02/24 16:27 Dextrose 50%-Water Inj 50 Ml Syringe IV 09/01/24 16:26 Q15MIN PRN BG 50-70 responsive npo pt Dextrose 50 ml 08/02/24 16:27 Dextrose 50%-Water Inj 50 Ml Syringe IV 09/01/24 16:26 Q15MIN PRN BG <50 OR BG <70 & pt unresponsive Furosemide 40 mg 08/03/24 21:00 08/05/24 10:27 Furosemide Inj 10 Mg/Ml 4ml Vial IVP 09/02/24 20:59 40 mg BID SHAZIA Administration Glucagon 1 mg 08/02/24 16:27 Glucagon Inj 1 Mg Vial IM Q15MIN PRN BG <70, and no IV access Guaifenesin/Dextromethorphan 1 each 08/03/24 21:00 08/05/24 10:26 Guaifenesin/Dm Tablet PO 09/02/24 20:59 1 each BID SHAZIA Administration Heparin Sodium (Porcine) 5,000 unit 08/02/24 21:00 08/05/24 10:28 Heparin Sod Inj 5000 Unit/Ml Vial SC 08/16/24 20:59 5,000 unit Q12HR SHAZIA Administration Insulin Human Lispro 0 unit 08/02/24 17:00 08/02/24 17:32 Insulin Lispro (Admelog) 1 Unit/0.01 Ml Unit SC 09/01/24 16:59 Not Given AC SHAZIA Protocol Iron Sucrose 200 mg 08/04/24 13:00 08/05/24 12:01 Iron Sucrose Cplx Inj 20 Mg/Ml Vial 5 Ml IVP 08/08/24 12:59 200 mg DAILY SHAZIA Administration Levofloxacin 500 mg 08/04/24 11:15 08/05/24 10:27 Levofloxacin 250 Mg Tablet PO 08/07/24 11:14 500 mg QDAY SHAZIA Administration Ondansetron HCl 4 mg 08/02/24 14:38 Ondansetron Inj 2 Mg/Ml Inj 2 Ml IV 09/01/24 14:37 Q6H PRN NAUSEA OR VOMITING Protocol Sennosides 1 tab 08/03/24 09:00 08/05/24 10:26 Senna Tablet PO 09/02/24 08:59 1 tab QDAY SHAZIA Administration Protocol Sodium Chloride 3 ml 08/02/24 11:12 Sodium Chloride Rt Liya 0.9% 3 Ml Nebu INH 09/01/24 11:11 PRN PRN SOLN Vitamin B Complex/Vit C/Folic Acid 1 tab 08/04/24 11:15 08/05/24 12:01 Vit B12/Vit C/Fa (Nephrovite) Tablet PO 09/03/24 11:14 1 tab QDAY SHAZIA Administration Plan Mr. Hartman is a 79-year-old male with past medical history significant for hypertension, [id number]-[id number] type 2 diabetes, CHEYANNE on CPAP and asthma presented to the ED for shortness of breath, cough and leg swelling for the past 3 days. Cardiology is consulted for new onset of acute CHF excerbation. #Acute hypoxic respiratory failure #bilateral pneumonia -Patient had a cough and generalized weakness with shortness of breath for the past 3 days. Chest x-ray is evident of bilateral pneumonia currently patient is saturating on BiPAP. -Patient is started on Rocephin and doxycycline along with DuoNebs. Influenza A and B are negative #Elevated troponin levels in the setting of NSTEMI type II -Initial troponins are 0.049 -> 0.062, likely secondary to demand ischemia as Pt is in acute hypoxic respiratory failure requiring Bipap. 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 -Pt endorse to orthopnea for the last 5 days and has been unable to sleep due to it. -Due to shortness of breath pt will require supplemental oxygen, currently pt is requiring Bipap. Pt will need to be diuresed with Lasix 40mg IV BID. keep K+ above 4 and Mg above 2 at all times. -echo done on 08/02/24 findings include- Normal left ventricular size, wall thickness. Severely reduced LV function LVEF estimated at 25-30 %. RV is normal in size and systolic function. Could not estimate RVSP as TR not visualiozed well. Moderate AV thickening with mild calcification. AV sclerosis without stenosis. V max 2.1 m/s. Possibly underestimated due to low EF. MIld thickening and clacification of mitral leafts too. Mild to moderate MR. Mild LA dilataion. IVC dilated but with > 50% collapse. -pt is advised to follow up with cardiogist outpatietn, as pt will need to be started on goal directed therapy with spironolactone, entresto outpatient after reviewing kidney function. Pt is currently being dicharged with lasix 40 Qday and Metoprolol succinate XL 25mg daily. #History of [id number]-ecmoymhyg type 2 diabetes -Although patient is taking glipizide as her diabetes medication patient denies having history of diabetes and refuses to take insulin sliding scale. Fingerstick at bedside is 216, A1c from today is 6.5 and patient initially refused insulin during hospitalization. -after Primary hospitalist team spoke to the pt. and they agreed to sliding scale during hospitalization only. -Pt is discharged home on , also benficial in marika setting of CHF # Primary hypertension -Patient has history of hypertension which is well-controlled with losartan 50 Mg daily blood pressure on admission was within normal limits therefore will hold antihypertensive medication for now. #Acute normocytic Anemia with a hemoglobin of around 9.8 and Hct 31.6-unclear etiology and recommend primary team to do complete workup for the anemia. #History of intraventricular hemorrhage after fall in March 2024. Patient was transferred to [facility] for further evaluation by neurosurgeon however per patient's no procedures were done and hemorrhage was resolved Assessment and plan discussed with my attending physician Dr. Tamika Lewis ([id number]-1)- Internal medicine resident Attending Provider Attestation/Addendum A 79-year-old male with a past medical history of morbid obesity, essential hypertension, type 2 diabetes mellitus, hyperlipidemia, history of intraventricular hemorrhage in January 2024 after a fall [unclear etiology- transferred to [facility]] asthma, obstructive sleep apnea on CPAP, BPH, hyperlipidemia, restless leg syndrome presented to the hospital with worsening shortness of breath as well as cough over the last few days. As per patient and his patient has been having worsening shortness of breath over the last for 5 days and was unable to sleep flat and was trying to sleep in the chair. Previously patient used to sleep on the bed with only 1 pillow. Denies any kind of PND but has significant orthopnea as noted above. Patient also complains of cough along with some sputum production and the sputum is mostly colorless and frothy. Also complains of significant bilateral leg swelling which is only worsened in the past few days. He has any other chest pain chest pressure or other cardiac complaints including any palpitations have any previous history of any heart disease. Denies a Fear of chills. Complains of some nausea but denies any kind of vomitings or other abdominal complaints. In the emergency department patient was noted to be hypoxic at 70% initially patient Ventimask and eventually started BiPAP. Blood pressure initially was 140/88 mmHg heart rate 115/min and respiratory rate 30/min tachypneic as well as tachycardic. Initial labs in the ED showed hemoglobin of 9.5 and platelets of 211 and WBC of 6.7 glucose 178 BUN 15 creatinine of 0.8 sodium 144 potassium 3.4. Troponin 0.049 and repeat troponin 0.06. LFTs were normal. BNP was 172. Chest x-ray showed at least moderate vascular congestion with evidence of heart failure pattern and possible right lower lobe pneumonia. EKG showed sinus rhythm with precipitated AV block and left bundle branch block. Previous EKG in January 2024 showed only sinus rhythm with first-degree AV block and no evidence of any left bundle branch block. On examination General: Patient appears morbidly obese and is in significant respiratory distress with use of accessory muscles and is on BiPAP. HEENT: Pupils equal and bilateral reacting to light. Mucosa moist Heart: S1-S2 present and tachycardic, 2 or 6 systolic murmur heard at the apex, no rubs or gallops. Lungs:-bilateral air entry present and significant decreased breath sounds in the right basilar compared to the left base and also bilateral crackles up to the mid anthony noted. Occasional rhonchi. Abdomenl: Soft bowel sounds present, obese as well as nondistended and nontender Extremities: 2+ bilateral lower leg edema noted and able to move all extremities without any major deformities Neuro: Alert awake oriented x 3, no focal neurological deficits Psych: Normal affect and mood Cardiology consulted for possible CHF new onset and also left bundle branch block. Assessment and plan: 1. New onset congestive heart failure exacerbation-unknown systolic versus diastolic 2. Acute hypoxic respiratory failure in the setting of CHF exacerbation as well as pneumonia 3. Community-acquired pneumonia-possible 4. Left bundle branch block 5. Essential hypertension 6. Diabetes mellitus type 2 7. Hyperlipidemia 8. Morbid obesity 9. CHEYANNE on CPAP 10. History of intraventricular hemorrhage after fall in March 2024 11. BPH 12. Anemia Patient presented significant orthopnea as well as shortness of breath along with cough and also sputum production. Clinical examination indicates patient is in acute CHF exacerbation. Unknown systolic versus diastolic but given his older blood presentation patient has both systolic and diastolic heart failure which is new onset diabetes no history of heart failure before. Also patient appears to have some possible right-sided consolidation of pneumonia. Regarding congestive failure recommend echocardiogram to evaluate systolic versus diastolic heart failure Strict input output Daily weights and 2 g sodium diet Recommend to continue BiPAP intermittently for the patient and continue Lasix 40 mg IV twice daily. Further goal-directed medical therapy based on the echocardiogram findings. Treatment of pneumonia with antibiotics as per the primary team. Left bundle branch block: Patient has normal sinus rhythm with first-degree block and new left bundle branch block compared to the previous EKG January 2024. Unlikely acute given his presentation as does have shortness of breath but he has causes for the same as the double patient denies any Chest pain chest pressure at the present moment. Including CHF as well as pneumonia. Troponins are also not elevated and unlikely MN. Mildly elevated troponins at 0.046 and the repeat was 0.069. Recommend no further troponins at patient is elevated troponin secondary to acute hypoxic respiratory failure in the setting of CHF exacerbation. Recommend TSH A1c and lipid profile for further cardiac restratification. Recommend to check the echocardiogram while inpatient and can pursue further ischemic workup as outpatient after patient is treated for the hypoxia respiratory failure with pneumonia as well as CHF exacerbation. Anemia with a hemoglobin of around 9.5-unclear etiology and recommend primary team to do complete workup for the anemia. History of hypertension and diabetes and recommend aggressive control of the same. Hold antihypertensives for now until further diuresis and will restart new regimen based on the echo findings. 08/05/2024 Patient seen and examined at the bedside. Patient improving well with IV diuresis Lasix 40 mg IV twice daily. Leg edema has improved and has around trace edema only today. Breathing is much better and is on oxygen via nasal cannula at 2 to 3 L/min. Unable to taper him off the oxygen and will need to be going home on home oxygen. Echocardiogram completed which showed Normal left ventricular size, wall thickness. Severely reduced LV function LVEF estimated at 25-30 %. RV is normal in size and systolic function. Could not estimate RVSP as TR not visualiozed well. Moderate AV thickening with mild calcification. AV sclerosis without stenosis. V max 2.1 m/s. Possibly underestimated due to low EF. MIld thickening and clacification of mitral leafts too. Mild to moderate MR. Mild LA dilataion. IVC dilated but with > 50% collapse. Patient now has new onset severe LV dysfunction with an EF of 25 to 30%. Patient also has left bundle branch block on the EKG which was not present before. Patient did not complain of any chest pain chest pressure and the troponins were only mildly elevated at 0.046 and 0.06. Patient will need further ischemic evaluation to rule out any kind of underlying CAD for the severe systolic CHF. Patient does not want to stay in the hospital and want to be discharged today and recommended to follow-up with outpatient office for further ischemic evaluation with a stress test and eventual cardiac catheterization. Patient will need goal-directed medical therapy recommend to discharge the patient on Lasix 40 mg once daily along with metoprolol XL 25 mg once daily. Will need to start Entresto as well as spironolactone as outpatient based on the kidney function. Patient also started on Farxiga by primary team for his history of diabetes given improved mortality with the GI team which is with heart failure patients. Patient does have severe anemia with pending hemoglobin of 9.0 and anemia workup done and showed mild Provided the patient with contact information for my office for follow-up appointment next week as patient is still on discharging today. Discussed with the primary team who will probably arrange the discharge for today. Management of rest of the medical conditions as per primary team and other consultants. Thank you for the consult and allowing me to participate in the care of the patient. Cardiology will continue to follow. Rakan Lundberg M.D. Interventional Cardiology
--- NOTE | 2024-08-05 14:05 | ESPR_ITS ---
Documentation for date of: 08/05/24 Subjective Subjective Interval history: Patient seen at bedside. No acute overnight events. Patient is significantly improved, seen she is on the edge of bed saturating 98% on room air. As part of discharge planning, the patient was ambulated by nurse, however O2 saturation dropped to 87% and the patient was placed on 2 L of oxygen via nasal cannula. Echocardiogram was done and showed normal left ventricular size with ejection fraction of 25 to 30%. Will follow-up on cardiology recommendations as he is currently not cleared for discharge. Interim, will continue on Lasix 40 twice daily and levofloxacin. Exam Vital Signs Temp Pulse Resp BP Pulse Ox O2 Del Method O2 Flow Rate 97.7 F 68 27 H 118/76 95 BiPAP 2 08/05/24 08:00 08/05/24 10:36 08/05/24 10:36 08/05/24 10:27 08/05/24 10:36 08/05/24 08:00 08/04/24 20:00 FiO2 60 08/05/24 04:00 Narrative Exam GENERAL: AAOX3 NEURO: LIVESTOCK HAULIER grossly intact, moves extremities x4 HEENT: Moist mucosa. Eyes open, symmetrical, & clear CARDIO: No chest pain on palpation. Heart RRR, no obvious murmurs PULM: No noted coughing/dyspnea. Minimal crackles on auscultation GI: Abdomen soft, nondistended, no pain on palpation. 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 SKIN/MSK/EXT: Trace pedal edema Objective Labs 08/05/24 05:27 08/05/24 05:27 Labs: Laboratory Results - last 24 hr 08/05/24 05:27 WBC 5.8 RBC 3.47 L Hgb 10.1 L Hct 33.1 L MCV 95 MCH 29.1 MCHC 30.5 L RDW Std Deviation 49.1 H Plt Count 182 D Neut % (Auto) 57 Lymph % (Auto) 28 [place] % (Auto) 13 H Eos % (Auto) 1 Baso % (Auto) 1 Neut # (Auto) 3.3 Lymph # (Auto) 1.6 [place] # (Auto) 0.7 Eos # (Auto) 0.1 Baso # (Auto) 0.0 Immature Gran # (Auto) 0.01 H Absolute Nucleated RBC 0.00 Immature Gran % 0 Nucleated RBC % 0 Sodium 144 Potassium 3.4 Chloride 101 Carbon Dioxide 34.7 H Anion Gap 8 BUN 18 Creatinine 0.8 Estim Creat Clear Calc 92.9 eGFR > 60 BUN/Creatinine Ratio 23 H Glucose 130 H Calculated Osmolality 290 Calcium 9.0 Corrected Calcium 9.3 Phosphorus 4.2 Magnesium 2.0 Albumin 3.6 Quality Measures Quality Measures none Advance care planning discussed with:: patient and spouse Assessment & Plan Assessment Current Active Medications: Generic Name Dose Route Start Last Admin Trade Name Freq PRN Reason Stop Dose Admin Acetaminophen 650 mg 08/02/24 14:38 Acetaminophen 325 Mg Tablet PO 09/01/24 14:37 Q6H PRN Pain 1-3 or Fever >100.3 Albuterol/Ipratropium 3 ml 08/02/24 14:47 Albuterol/Ipratropium (Duoneb) Rt Liya 3 Ml Nebu INH 09/01/24 14:59 Q4HRRT PRN WHEEZING Dapagliflozin 5 mg 08/04/24 09:00 08/05/24 10:26 Dapagliflozin Propanediol 5 Mg Tablet PO 09/03/24 08:59 5 mg QAM SHAZIA Administration Dextrose 25 ml 08/02/24 16:27 Dextrose 50%-Water Inj 50 Ml Syringe IV 09/01/24 16:26 Q15MIN PRN BG 50-70 responsive npo pt Dextrose 50 ml 08/02/24 16:27 Dextrose 50%-Water Inj 50 Ml Syringe IV 09/01/24 16:26 Q15MIN PRN BG <50 OR BG <70 & pt unresponsive Furosemide 40 mg 08/03/24 21:00 08/05/24 10:27 Furosemide Inj 10 Mg/Ml 4ml Vial IVP 09/02/24 20:59 40 mg BID SHAZIA Administration Glucagon 1 mg 08/02/24 16:27 Glucagon Inj 1 Mg Vial IM Q15MIN PRN BG <70, and no IV access Guaifenesin/Dextromethorphan 1 each 08/03/24 21:00 08/05/24 10:26 Guaifenesin/Dm Tablet PO 09/02/24 20:59 1 each BID SHAZIA Administration Heparin Sodium (Porcine) 5,000 unit 08/02/24 21:00 08/05/24 10:28 Heparin Sod Inj 5000 Unit/Ml Vial SC 08/16/24 20:59 5,000 unit Q12HR SHAZIA Administration Insulin Human Lispro 0 unit 08/02/24 17:00 08/02/24 17:32 Insulin Lispro (Admelog) 1 Unit/0.01 Ml Unit SC 09/01/24 16:59 Not Given AC SHAZIA Protocol Iron Sucrose 200 mg 08/04/24 13:00 08/05/24 12:01 Iron Sucrose Cplx Inj 20 Mg/Ml Vial 5 Ml IVP 08/08/24 12:59 200 mg DAILY SHAZIA Administration Levofloxacin 500 mg 08/04/24 11:15 08/05/24 10:27 Levofloxacin 250 Mg Tablet PO 08/07/24 11:14 500 mg QDAY SHAZIA Administration Ondansetron HCl 4 mg 08/02/24 14:38 Ondansetron Inj 2 Mg/Ml Inj 2 Ml IV 09/01/24 14:37 Q6H PRN NAUSEA OR VOMITING Protocol Sennosides 1 tab 08/03/24 09:00 08/05/24 10:26 Senna Tablet PO 09/02/24 08:59 1 tab QDAY SHAZIA Administration Protocol Sodium Chloride 3 ml 08/02/24 11:12 Sodium Chloride Rt Liya 0.9% 3 Ml Nebu INH 09/01/24 11:11 PRN PRN SOLN Vitamin B Complex/Vit C/Folic Acid 1 tab 08/04/24 11:15 08/05/24 12:01 Vit B12/Vit C/Fa (Nephrovite) Tablet PO 09/03/24 11:14 1 tab QDAY SHAZIA Administration Plan Summary: The patient is a 79-year-old male with a past medical history of hypertension, diabetes, asthma, CHEYANNE on CPAP who presented to the ED with a 3-day history of shortness of breath and cough. #Acute hypoxic respiratory failure #Bilateral pneumonia #?New onset CHF The patient presented with a 3-day history of shortness of breath and cough. Although he uses CPAP at home and in inhaler for asthma, he has never had to be on oxygen at home. Reports that he initially started noticing that he was unable to do as much activity or take as many steps. After this, became much more difficult to breathe even laying down. He denies orthopnea or PND however. He also endorses a cough which is sometimes productive with whitish sputum but otherwise nonproductive. He denies fever chest pain palpitations. He has had no sick contacts or travel history no peers of immobilization or surgery. In the ED, patient was noted to be hypoxic and tachypneic and was placed on BiPAP and has been tolerating well. Chest x-ray showed bilateral pneumonia. EKG showed sinus rhythm with first- degree AV block. 08/05/2024- Patient is significantly improved, seen she is on the edge of bed saturating 98% on room air. As part of discharge planning, the patient was ambulated by nurse, however O2 saturation dropped to 87% and the patient was placed on 2 L of oxygen via nasal cannula. Blood and sputum cultures negative Echocardiogram was done and showed normal left ventricular size with ejection fraction of 25 to 30%. Plan: -Continue Lasix 40mg BID -Continue levofloxacin for 3 more days -DuoNebs as needed -Cardiology consulted, appreciate recommendations -Patient will require home oxygen on discharge #Elevated troponin levels #Possible NSTEMI type II On admission, patient had troponin level resolved 0.049. He denies chest pain. Troponins have been trending up, peaked at 0.072 Plan: -Stop trending tropes #History of hypertension The patient has a history of hypertension but does not know what medications he is on. Blood pressure on admission within normal limits. Plan: -Hold antihypertensives for now. #History of diabetes The patient has a history of diabetes and is on oral medication, possibly metformin. A1c done-6.5. Glucose on admission 177 08/05/2024- Blood glucose fairly controlled on Farxiga 5mg daily Plan: -ISS -Blood glucose check AC -Hypoglycemic protocols in place -DC Glipizide -Commence Dapagliflozin 5mg daily #History of asthma The patient has a history of asthma and has a rescue albuterol inhaler. On examination, he does not have wheezing. Plan: -DuoNebs as needed Health maintenance: Dispo: Tele Diet: Cardiac/Carb consistent DVT: SC Heparin [place]: None Lines: Peripheral PT: Not ordered Code: Full Case was discussed with Dr Pryor PGY-2 and attending physician, Dr Nate Thompson MD PGY-1 Disclaimer: This note was dictated by speech recognition. Minor errors in worker's compensation claims examiner may be present due to voice recognition software. Attending Provider Attestation/Addendum I reviewed labs, imaging, EKG, home medications and prior available records. Face to face evaluation was performed by me. I have personally examined the patient and discussed assessment and plan with the IM team. I reviewed the resident note and agree with the plan with exceptions as below. 79-year-old male with history of COPD, type 2 diabetes mellitus, hypertension, and hyperlipidemia, who presented with a chief complaint of shortness of breath and mild chest pain for 3 days. He was found to have pulmonary edema, bilateral pneumonia, and non-STEMI. Acute hypoxic respiratory failure New onset CHF Bilateral pneumonia, lower lobes Non-STEMI Type 2 diabetes mellitus Essential hypertension Hyperlipidemia Oxygen requirements improved send follow-up with Continue p.o. Lasix 40 mg daily per cardiology recommendations Ordered echocardiogram: Showed reduced EF. Started metoprolol succinate 25 mg daily. Continue losartan 50 mg daily. Hold amlodipine. Monitor BP at home Will discharge on p.o. levofloxacin SGLT2 inhibitors on discharge Time spent is 40 minutes. More than 50% of the time was spent on patient education and coordination of care.
--- NOTE | 2024-08-05 14:39 | PC.SS ---
Rounding note: Discharge cancelled due to cardiology clearance still needed. 1230 RN Maura informed patient's DME to be delivered at bedside by 1500 by [facility]. [facility] stated they can accept DME order and will deliver oxygen and FWW at bedside by 1500.
--- NOTE | 2024-08-06 09:03 | PD.RESDS ---
Planned Discharge Date 08/06/24 DS: Providers Provider Date of admission: 08/02/24 20:56 Primary care physician: Bao Stephens MD Admitting Provider: Miquel Sullivan MD Attending Provider on Admission: Miquel Sullivan MD Consults: 08/02/24 16:57 Referral Physical Therapy Routine Comment: Physician Instructions: 08/02/24 18:00 Consult to Cardiology Routine Comment: Consulting Provider: Rakan Lundberg 08/03/24 10:14 Referral Registered Dietitian Routine Comment: Referral Registered Dietitian Routine Comment: Attending Provider on DC: Darrick Thompson MD Discharging Provider: Darrick Thompson MD DS: Diagnosis Problem List Completed Was Problem List Reviewed/Reconciled?: Yes Hospital Course Hospital Course Hospital course: The patient is a 79-year-old male with a past medical history of hypertension, diabetes, asthma, CHEYANNE on CPAP, intraventricular hemorrhage presented to the ED on 08/02/2024 with a 3-day history of shortness of breath and cough. In the ED, patient was hypoxic and tachypneic was placed on BiPAP. Labs are significant for elevated troponin and BNP. Viral testing was negative. Chest x-ray showed bilateral pneumonia and an EKG was done which showed sinus rhythm with first-degree AV block. The patient was started on IV diuresis and antibiotics and was admitted for management of acute hypoxic respiratory failure secondary to bilateral pneumonia and possible new onset CHF. Echocardiogram was done which showed severely reduced left ventricular function with EF 25 to 30% and cardiology was consulted. Additionally, for management of diabetes the patient was previously on glipizide 5 mg and declined insulin in the hospital but after extensive counseling with the patient and , they excepted to be on Farxiga 5 mg daily. On 08/05/2024, the patient is clinically and hemodynamically stable and medically cleared for discharge by cardiology on home oxygen. Patient was recommended to continue on Lasix 40 mg daily and metoprolol 25 mg daily as well as continue Farxiga. He will also continue antibiotic levofloxacin for 3 more days to complete the course. He is recommended to follow-up with his PCP within 1 week of discharge and datastage consultant Dr. Lundberg within 2 weeks of discharge. #Acute hypoxic respiratory failure #Bilateral pneumonia #New onset HFrEF 25 to 30% #Troponin anemia #Type II NSTEMI #History of hypertension and diabetes Discharge instructions: Follow up with your PCP within one week of discharge Follow up with datastage consultant Dr Lundberg within two weeks of discharge Continue diuretic lasix 40mg daily Take Metoprolol XL 25mg daily Continue Levofloxacin 500mg daily for 3 more days Take Farxiga 5mg daily for blood glucose control Limit your salt intake to 2gm daily and limit water intake to 1500ml a day Return to the ED if your symptoms worsen Case was discussed with Dr Pryor PGY-2 and attending physician, Dr Nate Thompson MD PGY-1 Disclaimer: This note was dictated by speech recognition. Minor errors in principal bioinformatics specialist may be present due to voice recognition software. 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 Eyes open, symmetrical, & clear CARDIO: No chest pain on palpation. Heart RRR, no obvious murmurs PULM: No noted coughing/dyspnea. Lungs CTA B/L GI: Abdomen soft, nondistended, no pain on palpation. 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 SKIN/MSK/EXT: No wounds/rashes/edema/amputations, no pain on palpation. Pedal pulses present B/L Discharge Plan Plan Patient Disposition: HOME (Self Care) Patient condition on transfer: Stable Prescriptions/Referrals Prescriptions/Med Rec: New levofloxacin 250 mg Tablet 500 mg PO QDAY 3 Days Qty: 3 0RF dapagliflozin propanediol 5 mg Tablet 5 mg PO QAM Qty: 30 0RF metoprolol succinate 25 mg tablet extended release 24 hr 25 mg PO QDAY 30 Days Qty: 30 0RF furosemide 40 mg tablet 40 mg PO QDAY 30 Days Qty: 30 0RF Continued cyclobenzaprine 10 mg tablet 10 mg PO TID PRN (Reason: muscle spasm) Qty: 30 0RF losartan 50 mg tablet 50 mg PO QDAY Patient Comments: TAKE 1 TABLET BY MOUTH EVERY DAY FOR 90 DAYS ropinirole 1 mg tablet 1 mg PO .COMPLEX Patient Comments: HS Rx Instructions: 1 mg orally 1-3 hours before bedtime; tamsulosin 0.4 mg capsule 0.4 mg PO Q24H simvastatin 20 mg tablet 20 mg PO QDAY Patient Comments: HS albuterol sulfate 90 mcg/actuation HFA aerosol inhaler 1 inh INHALATION PRN (Reason: shortness of breath or wheezing) finasteride 5 mg tablet 5 mg PO QDAY Patient Comments: TAKE 1 TABLET BY MOUTH EVERY DAY FOR 30 DAYS Discontinued ibuprofen 800 mg tablet 800 mg PO TID PRN (Reason: pain) Qty: 30 0RF glipizide 5 mg tablet 5 mg PO BID Patient Comments: TAKE 1 TABLET BY MOUTH TWICE A DAY amlodipine 10 mg tablet 10 mg PO QDAY Patient Comments: TAKE 1 TABLET BY MOUTH EVERY DAY FOR 90 DAYS Referrals: Rakan Lundberg MD [Physician] - Bao Stephens MD [Primary Care Provider] - Patient/Caregiver Discharge Instructions Meds to Beds: No Discharge Activity: activity as tolerated Other Discharge Activity Instructions:: Follow up with your PCP within one week of discharge Follow up with datastage consultant Dr Lundberg within two weeks of discharge Continue diuretic lasix 40mg daily Take Metoprolol XL 25mg daily Continue Levofloxacin 500mg daily for 3 more days Take Farxiga 5mg daily for blood glucose control Limit your salt intake to 2gm daily and limit water intake to 1500ml a day Return to the ED if your symptoms worsen Education Materials: Heart Failure Making Changes to ... Print Language: Persian Stand Alone Forms: Keiko Award Info., Patient Portal Info Letter Discharge Order Discharge Orders: Discharge (Routine); Ordered 08/05/24 Ordered By: Darrick Thompson Quality Discharge Quality Measures VTE prophylaxis Attestestation Attestation I reviewed labs, imaging, EKG, home medications and prior available records. Face to face evaluation was performed by me. I have personally examined the patient and discussed assessment and plan with the IM team. I reviewed the resident note and agree with the plan with exceptions as below. 79-year-old male with history of COPD, type 2 diabetes mellitus, hypertension, and hyperlipidemia, who presented with a chief complaint of shortness of breath and mild chest pain for 3 days. He was found to have pulmonary edema, bilateral pneumonia, and non-STEMI. Acute hypoxic respiratory failure New onset CHF Bilateral pneumonia, lower lobes Non-STEMI Type 2 diabetes mellitus Essential hypertension Hyperlipidemia Oxygen requirements improved send follow-up with Continue p.o. Lasix 40 mg daily per cardiology recommendations Ordered echocardiogram: Showed reduced EF. Started metoprolol succinate 25 mg daily. Continue losartan 50 mg daily. Hold amlodipine. Monitor BP at home Will discharge on p.o. levofloxacin SGLT2 inhibitors on discharge Time spent is 40 minutes. More than 50% of the time was spent on patient education and coordination of care.
== END 2024-08-05 18:26 | disposition home or self-care (01) | DRG 193 ==
LOC: SERX 15:44 → S2NX 21:03
PROVIDERS: Admitting Provider Student in an Organized Health Care Education/Training Program; Emergency Provider Emergency Medicine; PCP Family Medicine; Visit Provider Student in an Organized Health Care Education/Training Program
DX: J18.9 Pneumonia, unspecified organism (principal); I21.A1 Myocardial infarction type 2; J96.01 Acute respiratory failure with hypoxia; J44.0 Chronic obstructive pulmonary disease with (acute) lower respiratory infection; E87.3 Alkalosis; I50.40 Unspecified combined systolic (congestive) and diastolic (congestive) heart failure; I11.0 Hypertensive heart disease with heart failure; I44.0 Atrioventricular block, first degree; G47.33 Obstructive sleep apnea (adult) (pediatric); E78.5 Hyperlipidemia, unspecified; N40.0 Benign prostatic hyperplasia without lower urinary tract symptoms; E11.9 Type 2 diabetes mellitus without complications; D64.9 Anemia, unspecified; I44.7 Left bundle-branch block, unspecified; G25.81 Restless legs syndrome; E87.6 Hypokalemia; Z86.73 Personal history of transient ischemic attack (TIA), and cerebral infarction without residual deficits; E66.01 Morbid (severe) obesity due to excess calories; Z68.29 Body mass index [BMI] 29.0-29.9, adult; Z91.81 History of falling; Z99.81 Dependence on supplemental oxygen; Z11.52 Encounter for screening for COVID-19; Z79.84 Long term (current) use of oral hypoglycemic drugs; Z79.899 Other long term (current) drug therapy; Z53.20 Procedure and treatment not carried out because of patient's decision for unspecified reasons
CPT/HCPCS: 36415; 71045; 80053; 80069; 83036; 83540; 83550; 83605; 83735; 83880; 84145; 84484; 85025; 85610; 85730; 87040; 87081; 87205; 87400; 87811; 93005; 93306; 94640; 94644; 94660; 97162; J0696; J1643; J1756; J1940; J2919; J3420; J7030; J8499; A9270

== ENCOUNTER 2024-12-16 13:01 | Inpatient (IN) | payer MEDICARE, SELFPAY ==
[2024-12-16] VITALS (11 sets, daily range): BP systolic 111–131; BP diastolic 72–80; PULSE 62–94; RESP 12–32; TEMP 36.1–37; O2SAT 90–95; BMI 32.1
--- NOTE | 2024-12-16 13:12 | EKG_ITS ---
[facility] Test Date: 2024-12-16 Pat Name: MICHELLE LEMUS Department: Room: - Gender: Male Observer [employer]: : 1945 Requested By: Gary Mcarthur Order Number: [id number] Reading MD: Gary Mcarthur Measurements Intervals [place] Rate: 82 P: 11 MI: 212 QRS: -21 QRSD: 189 T: 35 QT: 536 QTc: 627 Interpretive Statements SINUS RHYTHM WITH FIRST DEGREE AV BLOCK LEFT BUNDLE BRANCH BLOCK [120+ ms QRS DURATION, 80+ ms Q/S IN V1/V2, 85+ ms R IN I/aVL/V5/V6] PROLONGED QT INTERVAL CRITICAL TEST RESULT Compared to ECG 08/03/2024 09:51:34 Prolonged QT interval now present /store/S0/[id number].pdf
--- NOTE | 2024-12-16 13:12 | XR_ITS ---
Examination: AP chest single view Technique one AP portable semiupright chest single view Date and time: December 16, 2024 1323 hrs. Comparison August 02, 2024 Indications: Patient fell this morning shortness of breath Findings: Moderate heart failure Moderate enlargement cardiac contour. Prominent vascular congestion with perihilar basilar edema The osseous structures are demineralized Impression: Moderate heart failure No pneumothorax Clavicles ribs appear grossly intact
--- NOTE | 2024-12-16 13:12 | XR_ITS ---
Examination: CT cervical spine without contrast 2-D sagittal reconstructions 2-D coronal reconstructions 3-D reconstructions. Exam date and time:December 16, 2024 1352 hrs. Indications: Neck pain today CTDI:vol (mGy) 19.7 DLP: (mGycm) 444 Technique: Multiple 2 mm axial sections of the cervical spine have been obtained. The coronal and sagittal reconstructions have been obtained. 3-D reconstructions have been obtained. Low dose protocols were performed. One or more of the following dose reduction techniques were used; automated exposure control, adjustment of the mA and/or KV according to patient size, use of iterative reconstruction technique. Findings: Axial sections demonstrate intact base of the skull. C1 exhibit satisfactory relationship to the odontoid. No acute cervical vertebral body fracture seen. Alignment posterior spinous processes satisfactory. Mild to moderate disc narrowing C5-C6 Prominent cervical spondylosis Impression: No acute cervical fracture. Moderate degenerative disc disease C5-C6 If neck pain persists, consider MRI cervical spine without contrast follow-up
--- NOTE | 2024-12-16 13:13 | PD.EDFALL ---
ED Fall Injury RME/HPI General Chief Complaint: Fall Stated Complaint: Fall, hit head at 0800 Time Seen by Provider: 12/16/24 13:11 Arrival date/time: 12/16/24 13:01 RME / HPI RME / HPI Narrative: 79-year-old male patient came in with family for evaluation regarding ground-level fall. Patient sustained a ground-level fall, hitting the back of the head, it happened about 4 hours prior to ER visit. According to the family patient stayed on the ground for more than 1 hour. Patient refused to go to the emergency room via EMS so it is decided and wait for the family to come to help them. Currently patient was noted to be drowsy, and weaker than usual. Patient was also noted to be having right-sided droopy eye, and slurring of speech since 9:00 am today. Patient also complained of headache. Denies any neck pain. Denies any chest pain. No fever noted. Initially family tried to call EMS however the patient told them not to call EMS instead to call family to help them. Patient is not taking any blood thinner. Patient uses oxygen at home. Related Data Home Medications ?Medication ?Instructions ?Recorded ?Confirmed albuterol sulfate 90 mcg/actuation 1 inh inhalation PRN shortness of 08/02/24 aerosol inhaler breath or wheezing finasteride 5 mg tablet 5 mg PO QDAY 08/02/24 08/03/24 losartan 50 mg tablet 50 mg PO QDAY 08/02/24 08/03/24 ropinirole 1 mg tablet 1 mg PO .COMPLEX 08/02/24 08/03/24 simvastatin 20 mg tablet 20 mg PO QDAY 08/02/24 08/03/24 tamsulosin 0.4 mg capsule 0.4 mg PO Q24H 08/02/24 08/03/24 Previous Rx's ?Medication ?Instructions ?Recorded cyclobenzaprine 10 mg tablet 10 mg PO TID PRN muscle spasm #30 04/19/20 tabs dapagliflozin propanediol 5 mg 5 mg PO QAM #30 tabs 08/05/24 tablet Allergies Allergy/AdvReac Type Severity Reaction Status Date / Time No Known Allergies Allergy Verified 12/16/24 13:05 Review of Systems Review of Systems Narrative Review of Systems: Review of system reviewed and within normal limits except mentioned in HPI ED Exam Narrative Physical exam: VITAL SIGNS: Reviewed. GENERAL APPEARANCE: Alert and interactive, follows commands, no acute distress, HEAD AND FACE: Non-traumatic. ENT: PERRL, pink conjunctivitis, eyelid no trauma, Mucous membrane moist. Slight left-sided facial asymmetry, mild ptosis noted on the left NECK: Supple, nontender, no nuchal rigidity. CHEST: No tenderness, no crepitus, no paradoxical movement, no retractions. LUNGS: Clear, well ventilated, symmetric, no rales, no wheezing, no ronchi, no stridor, good breath sounds bilaterally. HEART: Regular rate, regular rhythm, no murmur, no gallops. ABDOMEN: Soft, positive bowel sounds, nondistended, no guarding, nontender, no rebound, no masses, RECTAL: Deferred. GENITAL: Deferred. NEUROLOGICAL: Gross motor function intact sensory function intact, Appropriate for age. MUSCULOSKELETAL: low back nontender, full range of motion. EXTREMITIES: Nontender, full range of motion. SKIN: Color pink, dry, no rash, no lacerations, no abrasions, no contusions. LYMPHATICS: Deferred. Course Quality Measures none Orders Category Date Time Status Bedside Blood Glucose NOW Care 12/16/24 13:43 Active COVID-19 Screening Questionnaire NOW Care 12/16/24 16:58 Active Underwriting Account Representative NOW Care 12/16/24 13:43 Active Continuous Pulse Oximetry NOW Care 12/16/24 13:43 Completed Decision to Admit X1 Care 12/16/24 16:58 Active EKG (ED ONLY) *Do not use* NOW Care 12/16/24 13:12 Completed EKG (ED ONLY) *Do not use* NOW Care 12/16/24 13:43 Completed In and Out Catheter NEEDED Care 12/16/24 13:43 Completed Insert IV NOW Care 12/16/24 13:43 Active NIH Stroke Scale now Care 12/16/24 13:43 Active NPO NOW Care 12/16/24 13:43 Active Nurse Swallow Screen x1 Care 12/16/24 13:43 Active Consult to Neurology / Tele-Neurology Routine Cons 12/16/24 13:[address] angio stroke protocol Stat Exams 12/16/24 13:[address] cervical spine wo con Stat Exams 12/16/24 13:[address] stroke protocol Stat Exams 12/16/24 13:43 Completed EKG (ED Only) Stat Exams 12/16/24 13:12 Draft EKG (ED Only) Stat Exams 12/16/24 13:43 Ordered XR chest 1V Stat Exams 12/16/24 13:12 Completed XR lumbar spine 2-3V Stat Exams 12/16/24 15:19 Taken ABG [Arterial Blood Gas] Stat Lab 12/16/24 16:58 Ordered CBC Stat Lab 12/16/24 13:31 Completed Comprehensive Metabolic Panel Stat Lab 12/16/24 13:31 Completed Drug Screen,Urine Stat Lab 12/16/24 15:31 Completed Magnesium Stat Lab 12/16/24 13:31 Completed Partial Thromboplastin Time Stat Lab 12/16/24 13:31 Completed Prothrombin Time with INR Stat Lab 12/16/24 13:31 Completed Troponin I Stat Lab 12/16/24 13:31 Completed Urinalysis Stat Lab 12/16/24 15:31 Completed Urine Culture Stat Lab 12/16/24 15:31 Received Aspirin Med 12/16/24 16:48 Discontinued 325 mg PO X1 ONE Ondansetron Inj [Zofran Inj] Med 12/16/24 13:43 Active 4 mg IVP Q4HR PRN Potassium Chloride [K-Dur] Med 12/16/24 16:48 Discontinued 40 meq PO X1 ONE Oxygen Delivery NOW RT 12/16/24 13:43 Active Vital Signs Vital signs: Vital Signs Temperature 98.6 F 12/16/24 13:23 Pulse Rate 94 12/16/24 13:23 Respiratory Rate 24 H 12/16/24 13:23 Blood Pressure 111/72 12/16/24 13:23 Pulse Oximetry (%) 90 L 12/16/24 13:23 Oxygen Delivery Method Nasal Cannula 12/16/24 13:23 Oxygen Flow Rate 2 12/16/24 13:23 Fall MDM Narrative MDM Narrative:: 79-year-old male patient came in with family for evaluation regarding ground-level fall. Patient sustained a ground-level fall, hitting the back of the head, it happened about 4 hours prior to ER visit. According to the family patient stayed on the ground for more than 1 hour. Patient refused to go to the emergency room via EMS so it is decided and wait for the family to come to help them. Currently patient was noted to be drowsy, and weaker than usual. Patient was also noted to be having right-sided droopy eye, and slurring of speech since 9:00 am today. Patient also complained of headache. Denies any neck pain. Denies any chest pain. No fever noted. Initially family tried to call EMS however the patient told them not to call EMS instead to call family to help them. Patient is not taking any blood thinner. Patient uses oxygen at home. Stroke alert was initiated right away. At time of my initial evaluation Spoke with teleneurologist, who recommends aspirin, patient is out of the window for TNKase. CT scan of the head came back unremarkable CTA head and neck, showed no LVO Chest x-ray showed moderate heart failure, CT scan of the neck came back with no fracture dislocation noted x-ray of the lumbar spine also as interpreted by me showed no acute pathology noted. Potassium was noted to be 3.1 Was given aspirin and potassium replacement Patient was placed on oxygen, 4 L, satting 91%. Spoke with hospitalist who admitted the patient Patient data External records reviewed:: None Clinical information provided by:: patient and family Social determinants that could affect healthcare access:: none Patient has the following chronic illnesses:: congestive heart failure, hypertension,. Reduced ejection fracture, carcinoma the colon How is presenting disease/condition affected by chronic disease/condition?: exacerbated by Evaluation data The following diagnostics were reviewed and interpreted by me:: lab results, radiology exam(s) and EKG tracing(s) Lab and/or radiology exams considered but not ordered:: None Interpretation Summary: EKG as elevated by me showed sinus rhythm, with first-degree AV block, ventricular rate of 82 bpm, no ST segment elevation depression noted. Medications / Prescriptions Medications or Prescriptions considered but not ordered:: None Medication administrations:: Medication Administration History Ondansetron HCl (Ondansetron Inj 2 Mg/Ml Inj 2 Ml) 4 mg IVP Q4HR PRN PRN Reason: NAUSEA OR VOMITING Stop: 01/15/25 13:42 Discontinued Medications Aspirin (Aspirin 325 Mg Tablet) 325 mg PO X1 ONE Stop: 12/16/24 16:49 Potassium Chloride (Potassium Chloride 20 Meq Tabcr) 40 meq PO X1 ONE Stop: 12/16/24 16:49 Aspirin and potassium Consultations Consultation(s) initiated? (list below): Yes Consultation #1 (Physician, Specialty, Details): Teleneurologist thank you Diagnosis Fall Differential Diagnosis: syncope and concussion with loss of consciousness (Strokelike symptoms, history of congestive heart failure) Most likely diagnosis given after review of the tests above:: Strokelike symptoms, fall, hypoxia Admission Indicated Admission indicated?: indicated Admission Request Was there a request for admission?: Yes Admission Attestation Admission request attestation: Discussed case with [Dr. Luque] from Hospitalist service regarding admission. Discussed patients ED course, exam findings, labs, and radiology results. The Hospitalist [agrees,] to accept the patient for admission. Disposition Plan Disposition Plan: Admit Discharge Plan Plan Patient Disposition: Admit Acute Care w/in Hospital Prescriptions/Referrals Prescriptions/Med Rec: No Action cyclobenzaprine 10 mg tablet 10 mg PO TID PRN (Reason: muscle spasm) Qty: 30 0RF losartan 50 mg tablet 50 mg PO QDAY Patient Comments: TAKE 1 TABLET BY MOUTH EVERY DAY FOR 90 DAYS ropinirole 1 mg tablet 1 mg PO .COMPLEX Patient Comments: HS Rx Instructions: 1 mg orally 1-3 hours before bedtime; tamsulosin 0.4 mg capsule 0.4 mg PO Q24H simvastatin 20 mg tablet 20 mg PO QDAY Patient Comments: HS albuterol sulfate 90 mcg/actuation HFA aerosol inhaler 1 inh INHALATION PRN (Reason: shortness of breath or wheezing) finasteride 5 mg tablet 5 mg PO QDAY Patient Comments: TAKE 1 TABLET BY MOUTH EVERY DAY FOR 30 DAYS dapagliflozin propanediol 5 mg Tablet 5 mg PO QAM Qty: 30 0RF Referrals: Bao Stephens MD [Primary Care Provider] - In 1 week Problem List Clinical Impression: Stroke-like symptom, Fall, Hypoxia Patient/Caregiver Discharge Instructions Print Language: Irish Stand Alone Forms: Keiko Award Info., Patient Portal Info Letter
--- NOTE | 2024-12-16 13:43 | XR_ITS ---
Examination: CTA carotids with intravenous contrast CTA brain, head with intravenous contrast. 2-D sagittal, coronal reconstructions. 3-D reconstructions. Exam date and time: 25 1407 hrs. Indications: Stroke alert slurred speech onset focal neurologic deficit today CTDI: vol (mGy) 15.76 DLP: (mGycm) 637 Technique: Multiple CTA axial brain, head carotid images post intravenous contrast injection 100 cc, [id number]. 2-D sagittal, coronal reconstructions. 3-D reconstructions, 3-D post processing including vascular maximum intensity projection images. Low dose protocols were performed. One or more of the following dose reduction techniques were used; automated exposure control, adjustment of the mA and/or KV according to patient size, use of iterative reconstruction technique. Findings: No significant common carotid carotid bifurcation or internal carotid artery stenoses Codominant vertebral arteries with no critical neck vertebral artery stenoses Moderate calcification intracranial left vertebral artery No intracranial vertebral arteries basilar artery or posterior cerebral branches occlusions Moderate calcification juxtasellar internal carotid arteries No large vessel occlusions M1 segments middle cerebral arteries middle cerebral artery trifurcation vessels are intercerebral arteries Impression: No significant neck arterial stenoses No cerebral large vessel arterial occlusions or thrombus
--- NOTE | 2024-12-16 13:43 | XR_ITS ---
Examination: CT brain head without contrast. 2-D sagittal coronal reconstructions Date and time of exam:December 16, 2024 1351 hrs. Indications: Stroke alert, onset focal neurologic deficit today including slurred speech right-sided facial droop CTDI: vol (mGy):56.9 DLP: (mGycm):1160 Technique: Multiple CT axial sections of the brain have been obtained, 5 mm slice thickness. Contrast has not been administered. 2-D sagittal, coronal reconstructions have been obtained Low dose protocols were performed. One or more of the following dose reduction techniques were used; automated exposure control, adjustment of the mA and/or KV according to patient size, use of iterative reconstruction technique. Findings: No significant ventricular enlargement. Intra-axial or extra-axial hemorrhage density is not seen. No mass effect or midline shift Basal cisterns are not remarkable. Fourth ventricle is midline. Cranial vault intact. Impression: Negative for acute hemorrhage, mass effect or midline shift
[2024-12-16 13:51] LABS: Basophils # (Auto) 0.0 Thou/mm3 (0.0-0.2); Basophils % (Auto) 1 % (0-2.5); Eosinophils # (Auto) 0.1 Thou/mm3 (0.0-0.5); Eosinophils % (Auto) 2 % (0-10); Hematocrit 33.2 % (41.0-53.0); Hemoglobin 10.5 g/dL (13.5-16.0); Immature Granulocytes Auto 0.01 Thou/mm3 (0.00-0.00); Lymphocytes # (Auto) 1.2 Thou/mm3 (1.0-4.8); Lymphocytes % (Auto) 23 % (10-50); Mean Corpuscular HGB Conc 31.6 g/dl (31.0-37.0); Mean Corpuscular Hemoglobin 28.8 pg (25.0-35.0); Mean Corpuscular Volume 91 fL (80-100); Monocytes # (Auto) 0.5 Thou/mm3 (0.0-0.8); Monocytes % (Auto) 11 % (0-12); Neutrophils # (Auto) 3.2 Thou/mm3 (1.8-7.7); Neutrophils % (Auto) 63 % (37-80); Nucleated Red Blood Cell # 0.00 Thou/mm3 (0.00-0.00); Nucleated Red Blood Cell % 0 /100 WBC (0); Platelet Count 159 Thou/mm3 (140-440); RDW Standard Deviation 54.8 fL (35.1-43.9); Red Blood Count 3.65 Miln/mm3 (4.50-5.90); White Blood Count 5.1 Thou/mm3 (3.8-10.6)
[2024-12-16 14:06] LABS: INR 1.2 (0.9-1.3); Partial Thromboplastin Time 26.9 Seconds (22.0-36.0); Prothrombin Time 12.6 Seconds (9.0-12.2)
[2024-12-16 14:11] LABS: Alanine Aminotransferase 12 U/L (10-49); Albumin, Serum 3.7 gm/dL (3.4-4.8); Albumin/Globulin Ratio 0.9 (1.2-2.2); Alkaline Phosphatase 80 U/L (46-116); Anion Gap 12 (7-16); Aspartate Amino Transferase 15 U/L (0-34); BUN/Creatinine Ratio 13 Ratio (12-20); Bilirubin,Total 1.3 mg/dL (0.3-1.2); Blood Urea Nitrogen 13 mg/dL (9-23); Calcium 9.0 mg/dL (8.3-10.6); Calcium (Corrected) 9.2 mg/dL (8.5-10.1); Carbon Dioxide 25.0 mMol/L (20.0-31.0); Chloride 108 mMol/L (98-107); Creatinine (Component) 1.0 mg/dL (0.6-1.3); Globulin 4.2 gm/dL (2.3-3.5); Glucose 128 mg/dL (74-106); Magnesium 2.2 mg/dL (1.6-2.6); Osmolality,Calculated 290 (275-295); Potassium 3.1 mMol/L (3.4-5.1); Sodium 145 mMol/L (136-145); Total Protein 7.9 gm/dL (5.7-8.2); eGFR > 60 See Note
[2024-12-16 14:15] LABS: Troponin I 0.055 ng/mL (0.0-0.045)
--- NOTE | 2024-12-16 14:34 | ESCONSULT_ITS ---
Tele Neuro Consultation Consultation Date 12/16/24 Most Recent Vital Signs Last Vital Signs Temp 98.6 F 12/16/24 13:23 Pulse 94 12/16/24 13:23 Resp 24 H 12/16/24 13:23 BP 111/72 12/16/24 13:23 Pulse Ox 90 L 12/16/24 13:23 O2 Del Method Nasal Cannula 12/16/24 13:23 O2 Flow Rate 2 12/16/24 13:23 Laboratory-Coagulation Panel PT 12.6 Seconds (9.0-12.2) H 12/16/24 13:31 INR 1.2 (0.9-1.3) 12/16/24 13:31 APTT 26.9 Seconds (22.0-36.0) 12/16/24 13:31 Consultation Narrative [facility] Patient Name:???Pio Tong Date of :???1945 Identification Number:??? Date of Service:???12/16/2024 13:43:19 Diagnosis:?I63.89 - Cerebrovascular accident (CVA) due to other mechanism ([facility]) Impression: ?79M with a history of HTN, HLD, CHF with reduced EF, DM, prior ICH who presents to the ED with dysarthria and generalized weakness, worse in the BLE after a fall concerning for possible stroke. He is not a candidate for thrombolytics due to being outside of the time window and history of ICH. CTA head and neck read is pending. If no LVO would recommend VT aspirin 300 mg if no other contraindication and obtain MRI Brain wo Contrast to rule out infarction. ? ?Recommend further work up as trauma to rule out spine etiologies of generalized weakness as patient is complaining of low back pain. C Spine is pending. Our recommendations are outlined below. Recommendations: ? Stroke/Telemetry Floor ? Neuro Checks (Q4) ? Bedside Swallow Eval ? DVT Prophylaxis ? IV Fluids, Normal Saline ? Head of Bed 30 Degrees ? Euglycemia and Avoid Hyperthermia (PRN Acetaminophen) ? Aspirin per rectum ? Antihypertensives PRN if Blood pressure is greater than 220/120 or there is a concern for End organ damage/contraindications for permissive HTN. If blood pressure is greater than 220/120 give labetalol PO or IV or Vasotec IV with a goal of 15% reduction in BP during the first 24 hours. Sign Out: ? Discussed with Emergency Department Provider Advanced Imaging:Advanced imaging has been ordered. Results pending. Metrics: Last Known Well: 12/16/2024 09:00:00 Dispatch Time: 12/16/2024 13:43:19 Arrival Time: 12/16/2024 13:01:38 Initial Response Time: 12/16/2024 13:44:34Symptoms: Headache, Slurred Speech . Initial patient interaction: 12/16/2024 13:59:22 NIHSS Assessment Completed: 12/16/2024 14:01:55Patient is not a candidate for Thrombolytic. Thrombolytic Medical Decision: 12/16/2024 14:01:55Patient was not deemed candidate for Thrombolytic because of following reasons: LKW outside 4.[address] Head: I personally reviewed all the CT images that were available to me and it showed: no acute abnormality, no acute hemorrhage. Primary Provider Notified of Diagnostic Impression and Management Plan on: 12/16/2024 14:20:24 History of Present Illness:Patient is a 79 year old Male. Patient was brought by private transportation with symptoms of Headache, Slurred Speech . 79M who presents after a fall this morning. The patient fell and laid on the ground for over an hour since he could not get up on his own due to generalized weakness. Patient's noted his right eye drooping and speech became garbled and slurred. He is diffusely weak. Slurring his speech, garbled. LKN was 0900. 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 He is not on any blood thinners. ? Past Medical History: ?Hypertension ?Diabetes Mellitus ?Hyperlipidemia Other PMH:? CHEYANNE on CPAP. Medications: No Anticoagulant use? No Antiplatelet use Reviewed EMR for current medications Allergies:? Reviewed,NKDA Social History: Smoking: No Family History: There is no family history of premature cerebrovascular disease pertinent to this consultation ROS : 14 Points Review of Systems was performed and was negative except mentioned in HPI. Past Surgical History: There Is No Surgical History Contributory To Today?s Visit ? Examination: BP(111/72),?Pulse(94), 1A: Level of Consciousness - Requires repeated stimulation to arouse?+ 2 1B: Ask Month and Age - Could Not Answer Either Question Correctly?+ 2 1C: Blink Eyes & Squeeze Hands - Performs 1 Task?+ 1 2: Test Horizontal Extraocular Movements - Normal?+ 0 3: Test Visual Oseguera - No Visual Loss?+ 0 4: Test Facial Palsy (Use Grimace if Obtunded) - Minor paralysis (flat nasol abial fold, smile asymmetry)?+ 1 5A: Test Left Arm Motor Drift - No Drift for 10 Seconds?+ 0 5B: Test Right Arm Motor Drift - No Drift for 10 Seconds?+ 0 6A: Test Left Leg Motor Drift - No Effort Against Hydro?+ 3 6B: Test Right Leg Motor Drift - No Effort Against Hydro?+ 3 7: Test Limb Ataxia (FNF/Heel-Palacio) - No Ataxia?+ 0 8: Test Sensation - Normal; No sensory loss?+ 0 9: Test Language/Aphasia - Severe Aphasia: Fragmentary Expression, Inference Needed, Cannot Identify Materials?+ 2 10: Test Dysarthria - Severe Dysarthria: Unintelligble Slurring or Out of Proportion to Aphasia?+ 2 11: Test Extinction/Inattention - No abnormality?+ 0 NIHSS Score:?16 NIHSS Free Text :?Near unintelligible speech, can occasionally say appropriate sentences spontaneously but still very dysarthric. He is having trouble following commands. Pre-Morbid Modified Butts Scale:0 Points = No symptoms at all Spoke with :?Lyubov Vega This consult was conducted in real time using interactive audio and video technology. Patient was informed of the technology being used for this visit and agreed to proceed. Patient located in hospital and provider located at home/office setting. Patient is being evaluated for possible acute neurologic impairment and high probability of imminent or life-threatening deterioration. I spent total of 40 minutes providing care to this patient, including time for face to face visit via telemedicine, review of medical records, imaging studies and discussion of findings with providers, the patient and/or family. Dr Lurdes Christy [facility] For Inpatient follow-up with [facility] physician please call [facility] at . As we are not an outpatient service for any post hospital discharge needs please contact the hospital for assistance. If you have any questions for the [facility] physicians or need to reconsult for clinical or diagnostic changes please contact us via [facility] at . ?
--- NOTE | 2024-12-16 15:19 | XR_ITS ---
Examination: Lumbar spine 3 views TECHNIQUE: AP lateral, lateral lower lumbar spine 3 views Date and time: December 16, 2024 1559 hours INDICATIONS: Patient fell today with injury of the lower back, lower back pain. FINDINGS: Adequate alignment lumbar vertebral bodies No lumbar fracture Moderate diffuse lumbar degenerative disc disease Prominent lumbar spondylosis IMPRESSION: No acute lumbar fracture
[2024-12-16 16:33] LABS: Collection Type, Urine Clean Catch
[2024-12-16 16:49] LABS: Bilirubin,Urine Negative (Negative); Blood,Urine Negative (Negative); Clarity,Urine Clear (Clear/Hazy); Color,Urine Yellow (Lt Yel-Yel); Glucose, Urine Trace (Negative); Ketones,Urine Negative (Negative); Leukocyte Esterase,Urine Negative (Negative); Nitrite,Urine Negative (Negative); PH,Urine 5.5 (5.0-7.0); Protein,Urine Trace (Neg - Trace); RBC,Urine 1 /hpf (0-3); Specific Gravity,Urine 1.032 (1.001-1.035); Squamous Epithelial Cell,Urine 1 /hpf (0-5); Urobilinogen,Urine Negative mg/dL (0.0-1.0); WBC,Urine 1 /hpf (0-5)
[2024-12-16 16:57] LABS: Amphetamine/Methamp Scrn,U Negative (Negative); Barbiturate Screen,Urine Negative (Negative); Benzodiazepines Screen,Urine Negative (Negative); Benzoylecgonine Screen, Ur Negative (Negative); Fentanyl Screen,Urine Negative (Negative); Opiate Screen,Urine Positive (Negative); THC Screen,Urine Negative (Negative)
[2024-12-16 17:20] LABS: Base Excess 0 (-3-3); HCO3 24 mEq/L (20-26); Inspired Oxygen, FIO2 21 %; O2 Saturation 82 % (91-98); PCO2 38 mmHg (32.0-48.0); pH, Arterial 7.41 (7.35-7.45)
[2024-12-16] MEDS: FUROSEMIDE INJ 10 MG/ML 4ML VIAL 40 MG IVP ×2 (17:21→21:50)
[2024-12-16 17:43] LABS: Allen Test Not Performed; PO2 49 mmHg (83-108); Puncture Site Right Radial
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
[2024-12-16] MEDS: LIDOCAINE 5% 1 PATCH TOP (19:39)
[2024-12-16] MEDS: ACETAMINOPHEN 325 MG TABLET 650 MG PO (20:52)
[2024-12-16] MEDS: ATORVASTATIN CALCIUM 20 MG TABLET 40 MG PO (20:52)
--- NOTE | 2024-12-16 21:00 | PC.NURSE ---
AT BEDSIDE. AWARE THAT FACILITY NEEDS AN UPDATED MED LIST. STATES SHE WILL BRING IT TOMORROW MORNING.
[2024-12-16] MEDS: ALBUTEROL/IPRATROPIUM (Duoneb) RT SOL 3 ML NEBU INH (22:20)
--- NOTE | 2024-12-16 23:04 | PD.VPROG1 ---
Telemedicine visit statement This visit was conducted with the use of interactive audio and video telecommunications system that permits real time communication between the patient and the provider. Patient's verbal consent for virtual visit was obtained on 12/16/24 at 2304. Documentation for date of: 12/16/24 Subjective Subjective Interval history: Patient is in telemetry today.No new symptoms or recurrence of similar symptoms after admission. Virtual exam Vital Signs Temp Pulse Resp BP Pulse Ox O2 Del Method O2 Flow Rate 96.9 F 86 23 H 125/76 92 L Oxy Mask 12 12/16/24 21:00 12/16/24 21:50 12/16/24 21:00 12/16/24 21:50 12/16/24 21:00 12/16/24 21:00 12/16/24 21:00 Objective Labs 12/16/24 13:31 12/16/24 13:31 Labs: Laboratory Results - last 24 hr 12/16/24 12/16/24 12/16/24 13:31 15:31 17:14 WBC 5.1 RBC 3.65 L Hgb 10.5 L Hct 33.2 L MCV 91 MCH 28.8 MCHC 31.6 RDW Std Deviation 54.8 H Plt Count 159 Neut % (Auto) 63 Lymph % (Auto) 23 [place] % (Auto) 11 Eos % (Auto) 2 Baso % (Auto) 1 Neut # (Auto) 3.2 Lymph # (Auto) 1.2 [place] # (Auto) 0.5 Eos # (Auto) 0.1 Baso # (Auto) 0.0 Immature Gran # (Auto) 0.01 H Absolute Nucleated RBC 0.00 Immature Gran % 0 Nucleated RBC % 0 PT 12.6 H INR 1.2 APTT 26.9 Puncture Site Right Radial ABG pH 7.41 ABG pCO2 38 ABG pO2 49 L* ABG HCO3 24 ABG O2 Saturation 82 L ABG Base Excess 0 FiO2 21 Sodium 145 Potassium 3.1 L Chloride 108 H Carbon Dioxide 25.0 Anion Gap 12 BUN 13 Creatinine 1.0 Estim Creat Clear Calc Not Performed. eGFR > 60 BUN/Creatinine Ratio 13 Glucose 128 H Calculated Osmolality 290 Calcium 9.0 Corrected Calcium 9.2 Magnesium 2.2 Total Bilirubin 1.3 H AST 15 ALT 12 Alkaline Phosphatase 80 Troponin I 0.055 H* Total Protein 7.9 Albumin 3.7 Globulin 4.2 H Albumin/Globulin Ratio 0.9 L Ur Collection Type Clean Catch Urine Color Yellow Urine Clarity Clear Urine pH 5.5 Ur Specific [place] 1.032 Urine Protein Trace Urine Glucose (UA) Trace Urine Ketones Negative Urine Blood Negative Urine Nitrite Negative Urine Bilirubin Negative Urine Urobilinogen (Auto) Negative Ur Leukocyte Esterase Negative Urine RBC 1 Urine WBC 1 Ur Squamous Epith Cells 1 Urine Bacteria None Urine Opiates Screen Positive A Urine Fentanyl Screen Negative Ur Barbiturates Screen Negative U Amphetamin/Meth Scrn Negative U Benzodiazepines Scrn Negative U Cocaine Metab Screen Negative U Marijuana (THC) Screen Negative ABG Interpretation ABG results: 12/16/24 17:14 ABG pH 7.41 ABG pCO2 38 ABG pO2 49 L* ABG HCO3 24 ABG O2 Saturation 82 L ABG Base Excess 0 Assessment & Plan Problem List (1) Stroke-like symptom: Status: Acute Assessment and plan: FU with MRI brain Symptoms have resolved. CT and CTA resulted negative.
[2024-12-17] VITALS (91 sets, daily range): BP systolic 89–131; BP diastolic 59–84; PULSE 69–97; RESP 0–150; TEMP 36.1–36.8; O2SAT 86–100
[2024-12-17] MEDS: ONDANSETRON INJ 2 MG/ML INJ 2 ML 4 MG IVP (05:00)
--- NOTE | 2024-12-17 05:05 | XR_ITS ---
Examination: AP chest single view TECHNIQUE: AP portable upright chest single view Date and time: November 0514 hours Comparison December 16, 2024 INDICATIONS: Post orogastric tube placement FINDINGS: Orogastric tube tip in the stomach satisfactory position Enlarged cardiac contour with prominent vascular congestion and edema and/or pneumonia throughout the lungs again noted IMPRESSION: Orogastric tube in the stomach satisfactory position
--- NOTE | 2024-12-17 05:06 | XR_ITS ---
Examination: Abdomen AP single view Technique: AP portable supine abdomen, single view Exam date and time: December 17, 2024 at 0606 hours INDICATIONS: Abdominal pain today. FINDINGS: Orogastric tube tip in the body of the stomach satisfactory position Moderate to large amount of stool throughout the colon No obstruction No free air Surgical clips are upright abdomen Moderate bilateral hip osteoarthritis IMPRESSION: Moderate to large amounts of stool throughout the colon
[2024-12-17 05:21] LABS: Base Excess 0 (-3-3); HCO3 26 mEq/L (20-26); Inspired Oxygen, FIO2 100 %; O2 Saturation 94 % (91-98); PCO2 47 mmHg (32.0-48.0); PO2 72 mmHg (83-108); pH, Arterial 7.35 (7.35-7.45)
[2024-12-17 05:24] LABS: Allen Test Performed/OK; Puncture Site Right Radial
[2024-12-17] MEDS: ROCURONIUM INJ 10 MG/ML VIAL 10 ML 100 MG IV (05:29)
[2024-12-17] MEDS: ETOMIDATE INJ 2 MG/ML VIAL 10 ML 30 MG IV (05:29)
--- NOTE | 2024-12-17 05:33 | XR_ITS ---
Examination: AP chest single view TECHNIQUE: AP portable supine chest single view Date and time: December 17, 2024 0605 hours Comparison December 17, 2024 INDICATIONS: Hypoxic respiratory failure postintubation FINDINGS: Moderate heart failure Tlpy-in-whyhdqja enlargement left ventricle. Prominent vascular congestion. Extensive pneumonia and/or edema throughout the lungs Orogastric tube in the stomach Endotracheal tube tip 5 cm above kayla IMPRESSION: Moderate heart failure Likely superimposed pneumonia in both lungs. Endotracheal tube tip 5.2 cm above Kayla. Orogastric tube in stomach
--- NOTE | 2024-12-17 05:33 | EVENTNT_ITS ---
Documentation for date of: 12/17/24 Event Note Event Note: Rapid response was called this morning due to patient becoming hypoxic afterward he was found to have vomit around his BiPAP mask and on his left side of the face. On assessment patient was very lethargic and was minimally responsive to questioning more to verbal stimuli at all. Patient was saturating in the low 80s on oxy mask at 15 L. Patient earlier in the night was more responsive and able to communicate with the nurse, but this morning when lab came to draw morning labs they noticed some vomit around the BiPAP mask which patient could most likely have aspirated. At this time an ABG was drawn and chest x-ray was ordered as well as an NG tube was placed to aspirate any further gastric contents. At this time send the patient's O2 did not improve on 15 L via nasal cannula and BiPAP being contraindicated as well as high flow nasal, in the setting of aspiration we decided to proceed with intubation at this time due to hypoxia. Patient's was contacted and updated on the patient's current condition. Throughout the rapid response patient's blood pressure was stable and heart rate was stable as well. Shortly after patient was intubated patient had bigeminy with some ectopy therefore ordered an EKG which showed some QTc prolongation and first-degree AV block. At this time ordered potassium and magnesium IV. Start Unasyn for aspiration pneumonia coverage, but most likely if patient did aspirate most likely has pneumonitis versus aspiration pneumonia. At this time patient remained stable and blood pressure was stable and will be upgraded to ICU. Case disclosed with Attending Dr. Joshua Marinelli PGY1 Disclaimer: Even though this this note was dictated by speech recognition and even though it was carefully revised there may still be minor errors in general car yard supervisor due to voice recognition software.
--- NOTE | 2024-12-17 05:35 | EKG_ITS ---
[facility] Test Date: 2024-12-17 Pat Name: MICHELLE LEMUS Department: Room: S253A Gender: Male Development Team Lead: PATRICIA : 1945 Requested By: Felipe Marinelli Order Number: [id number] Reading MD: Felipe Marinelli Measurements Intervals [place] Rate: 79 P: 31 [place]: 254 QRS: -15 QRSD: 193 T: 35 QT: 551 QTc: 633 Interpretive Statements SINUS RHYTHM WITH FIRST DEGREE AV BLOCK INTRAVENTRICULAR CONDUCTION DELAY Compared to ECG 12/16/2024 14:20:40 Intraventricular conduction delay now present Left bundle-branch block no longer present Prolonged QT interval no longer present /store/S0/[id number]
[2024-12-17 05:38] LABS: Lactate (Lactic Acid) 1.8 mMol/L (0.4-2.0)
[2024-12-17] MEDS: fentaNYL 2,500 MCG/250 ML BAG 2,500 MCG/250 ML BAG IV (05:38)
[2024-12-17] MEDS: PROPOFOL 1,000 MG IVPB 1,000 MG/100 ML VIAL 3.13 MG IV (05:38)
--- NOTE | 2024-12-17 05:39 | PD.RESPROC ---
Procedures Procedure Date / Time 12/17/24527 Procedural Time Out Time out performed: 528 Intubation Indication(s): acute Resp Failure and inability to protect airway Informed consent obtained: procedure done urgently Time out done, and the following verified: correct patient, side and site, procedure, patient position and implants and/or equipment Sedative: etomidate Mg given: 30 Paralytic: rocuronium Mg given: 100 Laryngoscope: fiber optic video scope Assist device used: fiber optic device ET tube size: 8 ET tube uncuffed: No Tube secured depth (cm): 27 Tube secured location: teeth Tube placement confirmation: visualized tube passing through cords, equal breath sounds bilaterally, no breath sounds over epigastrium and confirmation by capnometry Patient tolerated procedure: well and no complications EBL(ml): 0 Intubation complications: none Additional comments: Quang George PGY-1 successfully performed endotracheal intubation procedure with no complications under the direct supervision of my attending Dr. Doan
[2024-12-17] MEDS: Magnesium Sulfate 2 GM Ivpb 2 GM/50 ML BAG IV ×2 (05:50→17:24)
[2024-12-17] MEDS: POTASSIUM CHL 10 mEq IVPB 10 MEQ/100 ML BAG 100 MEQ IV ×5 (05:51→18:33)
[2024-12-17 06:02] LABS: Basophils # (Auto) 0.0 Thou/mm3 (0.0-0.2); Basophils % (Auto) 1 % (0-2.5); Eosinophils # (Auto) 0.1 Thou/mm3 (0.0-0.5); Eosinophils % (Auto) 2 % (0-10); Hematocrit 34.8 % (41.0-53.0); Hemoglobin 10.5 g/dL (13.5-16.0); Immature Granulocytes Auto 0.02 Thou/mm3 (0.00-0.00); Lymphocytes # (Auto) 1.1 Thou/mm3 (1.0-4.8); Lymphocytes % (Auto) 15 % (10-50); Mean Corpuscular HGB Conc 30.2 g/dl (31.0-37.0); Mean Corpuscular Hemoglobin 27.8 pg (25.0-35.0); Mean Corpuscular Volume 92 fL (80-100); Monocytes # (Auto) 0.6 Thou/mm3 (0.0-0.8); Monocytes % (Auto) 8 % (0-12); Neutrophils # (Auto) 5.4 Thou/mm3 (1.8-7.7); Neutrophils % (Auto) 74 % (37-80); Nucleated Red Blood Cell # 0.00 Thou/mm3 (0.00-0.00); Nucleated Red Blood Cell % 0 /100 WBC (0); Platelet Count 127 Thou/mm3 (140-440); RDW Standard Deviation 55.5 fL (35.1-43.9); Red Blood Count 3.78 Miln/mm3 (4.50-5.90); White Blood Count 7.3 Thou/mm3 (3.8-10.6)
[2024-12-17] MEDS: AMPICILLIN/SULBAC INJ 1.5 GM in SODIUM CHLORIDE 0.9% (Popper) 50 ML IV ×2 (06:07→08:54)
[2024-12-17] MEDS: FUROSEMIDE INJ 10 MG/ML 4ML VIAL 40 MG IVP ×2 (06:09→17:10)
[2024-12-17 06:10] LABS: Glucose Estimated Average 140 mg/dL (80-131); Hemoglobin A1C 6.5 % Hgb (4.8-6.0)
[2024-12-17] MEDS: ALBUTEROL/IPRATROPIUM (Duoneb) RT SOL 3 ML NEBU INH ×3 (06:35→22:30)
[2024-12-17 07:09] LABS: Inspired Oxygen, FIO2 21 %
[2024-12-17 07:10] LABS: Base Excess 0 (-3-3); HCO3 27 mEq/L (20-26); O2 Saturation 100 % (91-98); PCO2 49 mmHg (32.0-48.0); PO2 170 mmHg (83-108); Puncture Site Right Radial; pH, Arterial 7.34 (7.35-7.45)
[2024-12-17 07:15] LABS: Allen Test Performed/OK
[2024-12-17 08:02] LABS: Alanine Aminotransferase 12 U/L (10-49); Albumin, Serum 3.8 gm/dL (3.4-4.8); Albumin/Globulin Ratio 0.9 (1.2-2.2); Alkaline Phosphatase 82 U/L (46-116); Anion Gap 13 (7-16); Aspartate Amino Transferase 14 U/L (0-34); BUN/Creatinine Ratio 11 Ratio (12-20); Bilirubin,Total 1.4 mg/dL (0.3-1.2); Blood Urea Nitrogen 11 mg/dL (9-23); Calcium 8.7 mg/dL (8.3-10.6); Calcium (Corrected) 8.9 mg/dL (8.5-10.1); Carbon Dioxide 24.9 mMol/L (20.0-31.0); Cardiac Risk Estimate 2.6 RATIO (4.0-6.7); Chloride 105 mMol/L (98-107); Cholesterol 79 mg/dL (132-200); Creatinine (Component) 1.0 mg/dL (0.6-1.3); Estimated Creatinine Clearance 75.1 mL/min (>60); Globulin 4.2 gm/dL (2.3-3.5); Glucose 167 mg/dL (74-106); HDL Cholesterol 30 mg/dL (40-60); LDL Cholesterol,Calculated 36 mg/dL (0-130); Magnesium 2.2 mg/dL (1.6-2.6); Osmolality,Calculated 288 (275-295); Potassium 3.2 mMol/L (3.4-5.1); Sodium 143 mMol/L (136-145); Total Protein 8.0 gm/dL (5.7-8.2); Triglycerides 63 mg/dL (30-150); eGFR > 60 See Note
[2024-12-17 08:20] LABS: Thyroid Stimulating Hormone 1.32 uIU/mL (0.55-4.78)
[2024-12-17] MEDS: ENOXAPARIN SOD INJ 40 MG/0.4 ML SYRINGE SC (09:42)
[2024-12-17] MEDS: ASPIRIN 81 MG CHEW GT (09:43)
[2024-12-17 11:45] LABS: B-Type Natriuretic Peptide 485 pg/mL (0-100)
[2024-12-17] MEDS: PROPOFOL 1,000 MG IVPB 1,000 MG/100 ML VIAL 18.779 MG IV (11:59)
[2024-12-17] MEDS: AMPICILLIN/SULBAC INJ 3 GM in SODIUM CHLORIDE 0.9% (POP) 100 ML IV ×3 (12:49→23:54)
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
--- NOTE | 2024-12-17 21:12 | PD.NEUROPROG ---
Documentation for date of: 12/17/24 Subjective Subjective Interval history: Seen in ICU today at the bedside with his . Intubated and on ventilator, under sedation: fentanyl and Propofol. Exam - Neurology Vital Signs Temp Pulse Resp BP Pulse Ox O2 Del Method O2 Flow Rate 98.0 F 91 22 H 89/62 L 98 Mechanical Ventilation 12 12/17/24 20:00 12/17/24 20:00 12/17/24 20:00 12/17/24 20:00 12/17/24 20:00 12/17/24 20:00 12/16/24 21:00 FiO2 50 12/17/24 20:00 Narrative Exam GENERAL APPEARANCE: Well hydrated, well-nourished intubated and on [facility] vent support HEENT: Normocephalic, atraumatic, extraocular movements intact. Pupils: Equal reacting to light. NECK: Supple, no JVD or bruits. CARDIOVASULAR: Heart: S1, S2 heard, regular without S3-S4 or murmur no rubs or gallops. LUNGS/CHEST: Clear to auscultation bilaterally. No rails, rhonchi, or wheezing. Normal inspection. ABDOMEN: Soft, nontender, with normal bowel sounds. No pulsatile masses. No rebound, rigidity, or guarding. Normal inspection and palpation. EXTREMITIES: Normal inspection and palpation. No edema, clubbing or cyanosis. SKIN: Warm and dry without rashes. Normal inspection. MUSCULOSKELETAL: No cervical, thoracic, lumbar or midline bony tenderness. Normal inspection. NEURO: under sedation. Brainstem function: intact. Rest of the exam: limited. No signs of meningeal irritation noted. PSYCHIATRIC: Limited. Objective Labs 12/17/24 04:37 12/17/24 04:37 Labs: Laboratory Results - last 24 hr 12/17/24 12/17/24 12/17/24 04:37 05:05 05:12 WBC 7.3 D RBC 3.78 L Hgb 10.5 L Hct 34.8 L MCV 92 MCH 27.8 MCHC 30.2 L RDW Std Deviation 55.5 H Plt Count 127 L D Neut % (Auto) 74 Lymph % (Auto) 15 Richardson % (Auto) 8 Eos % (Auto) 2 Baso % (Auto) 1 Neut # (Auto) 5.4 Lymph # (Auto) 1.1 Richardson # (Auto) 0.6 Eos # (Auto) 0.1 Baso # (Auto) 0.0 Immature Gran # (Auto) 0.02 H Absolute Nucleated RBC 0.00 Immature Gran % 0 Nucleated RBC % 0 Puncture Site Right Radial ABG pH 7.35 ABG pCO2 47 ABG pO2 72 L D ABG HCO3 26 ABG O2 Saturation 94 ABG Base Excess 0 FiO2 100 Sodium 143 Potassium 3.2 L Chloride 105 Carbon Dioxide 24.9 Anion Gap 13 BUN 11 Creatinine 1.0 Estim Creat Clear Calc 75.1 eGFR > 60 BUN/Creatinine Ratio 11 L Glucose [address] Glu mg/dL 140 H Hemoglobin A1c 6.5 H Calculated Osmolality 288 Lactic Acid 1.8 Calcium 8.7 Corrected Calcium 8.9 Magnesium 2.2 Total Bilirubin 1.4 H AST 14 ALT 12 Alkaline Phosphatase 82 B-Natriuretic Peptide 485 H* Total Protein 8.0 Albumin 3.8 Globulin 4.2 H Albumin/Globulin Ratio 0.9 L Triglycerides 63 Cholesterol 79 L LDL Cholesterol, Calc 36 HDL Cholesterol 30 L Cholesterol/HDL Ratio 2.6 L TSH 1.32 12/17/24 06:48 WBC RBC Hgb Hct MCV MCH MCHC RDW Std Deviation Plt Count Neut % (Auto) Lymph % (Auto) Richardson % (Auto) Eos % (Auto) Baso % (Auto) Neut # (Auto) Lymph # (Auto) Richardson # (Auto) Eos # (Auto) Baso # (Auto) Immature Gran # (Auto) Absolute Nucleated RBC Immature Gran % Nucleated RBC % Puncture Site Right Radial ABG pH 7.34 L ABG pCO2 49 H ABG pO2 170 H D ABG HCO3 27 H ABG O2 Saturation 100 H ABG Base Excess 0 FiO2 21 Sodium Potassium Chloride Carbon Dioxide Anion Gap BUN Creatinine Estim Creat Clear Calc eGFR BUN/Creatinine Ratio Glucose Estimated Ave Glu mg/dL Hemoglobin A1c Calculated Osmolality Lactic Acid Calcium Corrected Calcium Magnesium Total Bilirubin AST ALT Alkaline Phosphatase B-Natriuretic Peptide Total Protein Albumin Globulin Albumin/Globulin Ratio Triglycerides Cholesterol LDL Cholesterol, Calc HDL Cholesterol Cholesterol/HDL Ratio TSH ABG Interpretation ABG results: 12/16/24 12/17/24 12/17/24 17:14 05:12 06:48 ABG pH 7.41 7.35 7.34 L ABG pCO2 38 47 49 H ABG pO2 49 L* 72 L D 170 H D ABG HCO3 24 26 27 H ABG O2 Saturation 82 L 94 100 H ABG Base Excess 0 0 0 Assessment & Plan Assessment and plan (1) Stroke-like symptom: Status: Acute Assessment and plan: Fu with workup ICU team is trying to wean him from sedation as tolerated and plan to extubate tomorrow
[2024-12-17] MEDS: PROPOFOL 1,000 MG IVPB 1,000 MG/100 ML VIAL 12.624 MG IV (21:25)
[2024-12-17] MEDS: ATORVASTATIN CALCIUM 20 MG TABLET 40 MG PO (21:32)
[2024-12-18] VITALS (44 sets, daily range): BP systolic 78–114; BP diastolic 49–76; PULSE 70–97; RESP 9–27; TEMP 36.4–37.4; O2SAT 85–100
[2024-12-18] MEDS: PROPOFOL 1,000 MG IVPB 1,000 MG/100 ML VIAL 6.312 MG IV (05:25)
[2024-12-18] MEDS: AMPICILLIN/SULBAC INJ 3 GM in SODIUM CHLORIDE 0.9% (POP) 100 ML IV ×3 (05:27→17:27)
[2024-12-18] MEDS: FUROSEMIDE INJ 10 MG/ML 4ML VIAL 40 MG IVP ×2 (05:32→17:28)
[2024-12-18 05:41] LABS: Basophils # (Auto) 0.0 Thou/mm3 (0.0-0.2); Basophils % (Auto) 1 % (0-2.5); Eosinophils # (Auto) 0.1 Thou/mm3 (0.0-0.5); Eosinophils % (Auto) 2 % (0-10); Hematocrit 33.8 % (41.0-53.0); Hemoglobin 10.2 g/dL (13.5-16.0); Immature Granulocytes Auto 0.02 Thou/mm3 (0.00-0.00); Lymphocytes # (Auto) 1.1 Thou/mm3 (1.0-4.8); Lymphocytes % (Auto) 18 % (10-50); Mean Corpuscular HGB Conc 30.2 g/dl (31.0-37.0); Mean Corpuscular Hemoglobin 27.6 pg (25.0-35.0); Mean Corpuscular Volume 92 fL (80-100); Monocytes # (Auto) 0.6 Thou/mm3 (0.0-0.8); Monocytes % (Auto) 10 % (0-12); Neutrophils # (Auto) 4.2 Thou/mm3 (1.8-7.7); Neutrophils % (Auto) 69 % (37-80); Nucleated Red Blood Cell # 0.00 Thou/mm3 (0.00-0.00); Nucleated Red Blood Cell % 0 /100 WBC (0); Platelet Count 162 Thou/mm3 (140-440); RDW Standard Deviation 54.3 fL (35.1-43.9); Red Blood Count 3.69 Miln/mm3 (4.50-5.90); White Blood Count 6.1 Thou/mm3 (3.8-10.6)
[2024-12-18 06:13] LABS: Alanine Aminotransferase 10 U/L (10-49); Albumin, Serum 3.5 gm/dL (3.4-4.8); Albumin/Globulin Ratio 0.9 (1.2-2.2); Alkaline Phosphatase 78 U/L (46-116); Anion Gap 9 (7-16); Aspartate Amino Transferase 12 U/L (0-34); BUN/Creatinine Ratio 13 Ratio (12-20); Bilirubin,Total 0.8 mg/dL (0.3-1.2); Blood Urea Nitrogen 14 mg/dL (9-23); Calcium 8.7 mg/dL (8.3-10.6); Calcium (Corrected) 9.1 mg/dL (8.5-10.1); Carbon Dioxide 29.6 mMol/L (20.0-31.0); Chloride 106 mMol/L (98-107); Creatinine (Component) 1.1 mg/dL (0.6-1.3); Estimated Creatinine Clearance 68.2 mL/min (>60); Globulin 4.1 gm/dL (2.3-3.5); Glucose 164 mg/dL (74-106); Magnesium 2.7 mg/dL (1.6-2.6); Osmolality,Calculated 293 (275-295); Potassium 3.8 mMol/L (3.4-5.1); Sodium 145 mMol/L (136-145); Total Protein 7.6 gm/dL (5.7-8.2); eGFR > 60 See Note
[2024-12-18] MEDS: ALBUTEROL/IPRATROPIUM (Duoneb) RT SOL 3 ML NEBU INH ×3 (06:27→22:05)
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
[2024-12-18] MEDS: TAMSULOSIN HCL 0.4 MG CAPSULE PO (08:15)
[2024-12-18] MEDS: ASPIRIN 81 MG CHEW GT (08:15)
[2024-12-18] MEDS: ENOXAPARIN SOD INJ 40 MG/0.4 ML SYRINGE SC (08:15)
[2024-12-18] MEDS: ACETAMINOPHEN 325 MG TABLET 650 MG PO (09:21)
[2024-12-18] MEDS: KETOROLAC INJ 30 MG/ML VIAL IVP (09:29)
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
--- NOTE | 2024-12-18 17:09 | PC.SS ---
ENGINEERING RESEARCH MANAGER conducted bedside contact with the patient conduct initial assessment and to discuss discharge planning.? At bedside with patient was spouse, Monica Chicas .? Patient resides at home with spouse.? Patient is retired.? Patient utilizes a walker at home to assist with ambulation.? Patient does not utilize home oxygen.? Patient is able to complete ADL?s independently.? Patient?s surrogate medical decision maker is spouse, Monica Chicas.? Patient?s PCP is Dr. Stephens.? Patient utilizes [facility] for medication services.? Discharge plan is for the patient to return home at the time of discharge.? Patient previously aligned with [facility] home health.? If home health recommended, [facility] preferred agency.? Family will provide transportation on behalf of the patient.? No further discharge needs identified by the patient. ?No further intervention required at this time, community mental health social worker will be available to address any further concerns.? Next of Kin: Monica Chicas D/C Plan: Home
[2024-12-18] MEDS: INSULIN LISPRO (AdmeLOG) 1 UNIT/0.01 ML UNIT SC (17:28)
[2024-12-18] MEDS: ATORVASTATIN CALCIUM 20 MG TABLET 40 MG PO (20:57)
[2024-12-19] VITALS (21 sets, daily range): BP systolic 102–122; BP diastolic 60–87; PULSE 83–104; RESP 10–28; TEMP 36.4–37; O2SAT 82–97; BMI 32.3; BMI 32.4
--- NOTE | 2024-12-19 00:06 | PD.NEUROPROG ---
Documentation for date of: 12/19/24 Subjective Subjective Interval history: Seen in ICU today at the bedside, got extubated and breathing in room air, maintaining o2 saturation well. Exam - Neurology Vital Signs Temp Pulse Resp BP Pulse Ox O2 Del Method O2 Flow Rate 98.4 F 83 9 L 106/73 94 L Mechanical Ventilation 4 12/18/24 20:00 12/18/24 23:00 12/18/24 23:00 12/18/24 23:00 12/18/24 23:00 12/18/24 08:00 12/18/24 15:14 FiO2 50 12/18/24 09:31 Narrative Exam GENERAL APPEARANCE: Well hydrated, well-nourished male in NAD HEENT: Normocephalic, atraumatic, extraocular movements intact. Pupils: Equal reacting to light. NECK: Supple, no JVD or bruits. CARDIOVASULAR: Heart: S1, S2 heard, regular without S3-S4 or murmur no rubs or gallops. LUNGS/CHEST: Clear to auscultation bilaterally. No rails, rhonchi, or wheezing. Normal inspection. ABDOMEN: Soft, nontender, with normal bowel sounds. No pulsatile masses. No rebound, rigidity, or guarding. Normal inspection and palpation. EXTREMITIES: Normal inspection and palpation. No edema, clubbing or cyanosis. SKIN: Warm and dry without rashes. Normal inspection. MUSCULOSKELETAL: No cervical , thoracic, lumbar or midline bony tenderness. Normal inspection. NEURO: Alert, awake, oriented; no focal deficit noted. No signs of meningeal irritation noted. PSYCHIATRIC: Normal mood and affect. Objective Labs 12/19/24 04:42 12/19/24 04:42 Labs: Laboratory Results - last 24 hr 12/18/24 04:57 WBC 6.1 RBC 3.69 L Hgb 10.2 L Hct 33.8 L MCV 92 MCH 27.6 MCHC 30.2 L RDW Std Deviation 54.3 H Plt Count 162 D Neut % (Auto) 69 Lymph % (Auto) 18 [place] % (Auto) 10 Eos % (Auto) 2 Baso % (Auto) 1 Neut # (Auto) 4.2 Lymph # (Auto) 1.1 [place] # (Auto) 0.6 Eos # (Auto) 0.1 Baso # (Auto) 0.0 Immature Gran # (Auto) 0.02 H Absolute Nucleated RBC 0.00 Immature Gran % 0 Nucleated RBC % 0 Sodium 145 Potassium 3.8 D Chloride 106 Carbon Dioxide 29.6 Anion Gap 9 BUN 14 Creatinine 1.1 Estim Creat Clear Calc 68.2 eGFR > 60 BUN/Creatinine Ratio 13 Glucose 164 H Calculated Osmolality 293 Calcium 8.7 Corrected Calcium 9.1 Magnesium 2.7 H Total Bilirubin 0.8 D AST 12 ALT 10 Alkaline Phosphatase 78 Total Protein 7.6 Albumin 3.5 Globulin 4.1 H Albumin/Globulin Ratio 0.9 L ABG Interpretation ABG results: 12/16/24 12/17/24 12/17/24 17:14 05:12 06:48 ABG pH 7.41 7.35 7.34 L ABG pCO2 38 47 49 H ABG pO2 49 L* 72 L D 170 H D ABG HCO3 24 26 27 H ABG O2 Saturation 82 L 94 100 H ABG Base Excess 0 0 0 Assessment & Plan Assessment and plan (1) Stroke-like symptom: Status: Acute Assessment and plan: no focal deficit on exam fu with MRI brain and EEG now he is extubated. PT eval. (2) Community acquired pneumonia: Status: Acute Assessment and plan: on IV antibiotics and bronchodilators
[2024-12-19] MEDS: AMPICILLIN/SULBAC INJ 3 GM in SODIUM CHLORIDE 0.9% (POP) 100 ML IV ×5 (01:11→23:19)
[2024-12-19] MEDS: FUROSEMIDE INJ 10 MG/ML 4ML VIAL 40 MG IVP ×2 (05:47→17:32)
[2024-12-19] MEDS: ALBUTEROL/IPRATROPIUM (Duoneb) RT SOL 3 ML NEBU INH ×3 (06:05→22:35)
[2024-12-19 06:26] LABS: Basophils # (Auto) 0.0 Thou/mm3 (0.0-0.2); Basophils % (Auto) 1 % (0-2.5); Eosinophils # (Auto) 0.1 Thou/mm3 (0.0-0.5); Eosinophils % (Auto) 2 % (0-10); Hematocrit 34.6 % (41.0-53.0); Hemoglobin 10.2 g/dL (13.5-16.0); Immature Granulocytes Auto 0.02 Thou/mm3 (0.00-0.00); Lymphocytes # (Auto) 1.4 Thou/mm3 (1.0-4.8); Lymphocytes % (Auto) 25 % (10-50); Mean Corpuscular HGB Conc 29.5 g/dl (31.0-37.0); Mean Corpuscular Hemoglobin 27.5 pg (25.0-35.0); Mean Corpuscular Volume 93 fL (80-100); Monocytes # (Auto) 0.5 Thou/mm3 (0.0-0.8); Monocytes % (Auto) 10 % (0-12); Neutrophils # (Auto) 3.5 Thou/mm3 (1.8-7.7); Neutrophils % (Auto) 63 % (37-80); Nucleated Red Blood Cell # 0.00 Thou/mm3 (0.00-0.00); Nucleated Red Blood Cell % 0 /100 WBC (0); Platelet Count 83 Thou/mm3 (140-440); RDW Standard Deviation 55.4 fL (35.1-43.9); Red Blood Count 3.71 Miln/mm3 (4.50-5.90); White Blood Count 5.5 Thou/mm3 (3.8-10.6)
[2024-12-19 06:48] LABS: Ferritin 75 ng/mL (10.5-307.3); Iron 20 mcg/dL (65-175); Percent Iron Saturation 6 % (20-55); Total Iron Binding Capacity 291 mcg/dL (250-425); Unsaturated Iron Binding 271 (225-295)
[2024-12-19 07:01] LABS: Alanine Aminotransferase 10 U/L (10-49); Albumin, Serum 3.5 gm/dL (3.4-4.8); Albumin/Globulin Ratio 0.8 (1.2-2.2); Alkaline Phosphatase 78 U/L (46-116); Anion Gap 10 (7-16); Aspartate Amino Transferase 16 U/L (0-34); BUN/Creatinine Ratio 14 Ratio (12-20); Bilirubin,Total 1.0 mg/dL (0.3-1.2); Blood Urea Nitrogen 14 mg/dL (9-23); Calcium 8.7 mg/dL (8.3-10.6); Calcium (Corrected) 9.1 mg/dL (8.5-10.1); Carbon Dioxide 29.3 mMol/L (20.0-31.0); Chloride 104 mMol/L (98-107); Creatinine (Component) 1.0 mg/dL (0.6-1.3); Estimated Creatinine Clearance 75.1 mL/min (>60); Globulin 4.2 gm/dL (2.3-3.5); Glucose 135 mg/dL (74-106); Magnesium 2.4 mg/dL (1.6-2.6); Osmolality,Calculated 287 (275-295); Phosphorous 2.6 mg/dL (2.4-5.1); Potassium 3.5 mMol/L (3.4-5.1); Sodium 143 mMol/L (136-145); Total Protein 7.7 gm/dL (5.7-8.2); eGFR > 60 See Note
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
--- NOTE | 2024-12-19 07:39 | EKG_ITS ---
[facility] Test Date: 2024-12-19 Pat Name: MICHELLE LEMUS Department: Room: S253A Gender: Male Social Service Assistant: JOHN PAUL : 1945 Requested By: Berry Soto Order Number: [id number] Reading MD: Berry Soto Measurements Intervals [place] Rate: 91 P: 39 WA: 199 QRS: 26 QRSD: 182 T: 35 QT: 426 QTc: 524 Interpretive Statements SINUS RHYTHM LEFT BUNDLE BRANCH BLOCK Compared to ECG 12/17/2024 05:41:54 Left bundle-branch block now present First degree AV block no longer present Intraventricular conduction delay no longer present /store/S0/[id number]/ecg/[id number].pdf
[2024-12-19] MEDS: POTASSIUM CHLORIDE 10% 20 MEQ/15 ML UDC 40 MEQ PO (08:54)
[2024-12-19] MEDS: Milk Of Magnesia Susp 30 ML UDC PO (08:55)
[2024-12-19] MEDS: ENOXAPARIN SOD INJ 40 MG/0.4 ML SYRINGE SC (08:56)
[2024-12-19] MEDS: ASPIRIN 81 MG CHEW PO (08:56)
[2024-12-19] MEDS: TAMSULOSIN HCL 0.4 MG CAPSULE PO (09:38)
--- NOTE | 2024-12-19 10:53 | CHAP ---
Patient was visited by a Spiritual Care Volunteer on 12/19/2024 between 0900 and 0920 and received comfort, encouragement and/or prayer.
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
[2024-12-19] MEDS: INSULIN LISPRO (AdmeLOG) 1 UNIT/0.01 ML UNIT SC ×2 (11:31→17:12)
[2024-12-19] MEDS: POTASSIUM CHLORIDE 10% 20 MEQ/15 ML UDC PO (12:16)
[2024-12-19] MEDS: ACETYLCYSTEINE RT SOL 10% 4 ML NEBU 3 ML INH ×2 (14:06→22:35)
--- NOTE | 2024-12-19 15:15 | PC.SS ---
Update: Patient to be downgraded from ICU today.
[2024-12-19] MEDS: guaiFENesin SYRUP 200 MG/10 ML UDC PO ×2 (17:04→20:21)
--- NOTE | 2024-12-19 17:21 | ESPR_ITS ---
<Statement entered by Jabier Cao MD - 12/20/24 00:33> I discussed with and supervised the strategy intern physician involved in the care of this patient. Patient assessment and plan was discussed with entire medicine team, including my attending. I agree with the assessment and plan as documented by strategy intern doctor. Patient care was discussed with my attending physician Dr. Chichi Cao, PGY-2 Documentation for date of: 12/19/24 Subjective Subjective Interval history: Patient is admitted to the telemetry floor for acute decompensated heart failure, on the day of the admission patient aspirated on BiPAP and later upgraded to the ICU. Patient was treated with antibiotics, Lasix and was extubated on 12/19/2024 later downgraded to our team for further management Exam Vital Signs Temp Pulse Resp BP Pulse Ox O2 Del Method O2 Flow Rate 98.6 F 96 18 102/65 96 Nasal Cannula 4 12/19/24 12:00 12/19/24 14:06 12/19/24 14:06 12/19/24 12:00 12/19/24 14:06 12/19/24 12:00 12/19/24 14:06 FiO2 50 12/18/24 09:31 Narrative Exam General: Awake. HEENT: Normocephalic, atraumatic, mucous membranes moist. Heart: Regular rate and rhythm, no murmurs. Lungs: B/l wheeze and fine crackles heard Abdomen: Soft, nondistended, nontender, positive bowel sounds. ?No guarding or rebound tenderness. Neurologic: Alert and oriented x3, no gross neurological deficit, and patient able to move all 4 extremities. Extremities: 1+ pedal edema. Skin: No rash or ecchymoses. Objective Labs 12/20/24 05:02 12/20/24 05:02 Labs: Laboratory Results - last 24 hr 12/19/24 04:42 WBC 5.5 RBC 3.71 L Hgb 10.2 L Hct 34.6 L MCV 93 MCH 27.5 MCHC 29.5 L RDW Std Deviation 55.4 H Plt Count 83 L D Neut % (Auto) 63 Lymph % (Auto) 25 [place] % (Auto) 10 Eos % (Auto) 2 Baso % (Auto) 1 Neut # (Auto) 3.5 Lymph # (Auto) 1.4 [place] # (Auto) 0.5 Eos # (Auto) 0.1 Baso # (Auto) 0.0 Immature Gran # (Auto) 0.02 H Absolute Nucleated RBC 0.00 Immature Gran % 0 Nucleated RBC % 0 Sodium 143 Potassium 3.5 Chloride 104 Carbon Dioxide 29.3 Anion Gap 10 BUN 14 Creatinine 1.0 Estim Creat Clear Calc 75.1 eGFR > 60 BUN/Creatinine Ratio 14 Glucose 135 H Calculated Osmolality 287 Calcium 8.7 Corrected Calcium 9.1 Phosphorus 2.6 Magnesium 2.4 Iron 20 L TIBC 291 Iron Saturation 6 L Unsat Iron Binding 271 Ferritin 75 Total Bilirubin 1.0 AST 16 ALT 10 Alkaline Phosphatase 78 Total Protein 7.7 Albumin 3.5 Globulin 4.2 H Albumin/Globulin Ratio 0.8 L ABG Interpretation ABG results: 12/16/24 12/17/24 12/17/24 17:14 05:12 06:48 ABG pH 7.41 7.35 7.34 L ABG pCO2 38 47 49 H ABG pO2 49 L* 72 L D 170 H D ABG HCO3 24 26 27 H ABG O2 Saturation 82 L 94 100 H ABG Base Excess 0 0 0 Quality Measures Quality Measures none Advance care planning discussed with:: patient and spouse Assessment & Plan Assessment Current Active Medications: Generic Name Dose Route Start Last Admin Trade Name Freq PRN Reason Stop Dose Admin Acetaminophen 650 mg 12/17/24 06:35 12/18/24 09:21 Acetaminophen 325 Mg Tablet PO 01/15/25 17:41 650 mg Q6H PRN Administration Fever >100.3 Acetylcysteine 3 ml 12/19/24 15:00 12/19/24 14:06 Acetylcysteine Rt Liya 10% 4 Ml Nebu INH 01/18/25 14:59 3 ml Q8HRRT SHAZIA Administration Albuterol/Ipratropium 3 ml 12/16/24 22:00 12/19/24 14:06 Albuterol/Ipratropium (Duoneb) Rt Liya 3 Ml Nebu INH 01/15/25 21:59 3 ml Q8HR SHAZAI Administration Aspirin 81 mg 12/19/24 09:00 12/19/24 08:56 Aspirin 81 Mg Chew PO 01/18/25 08:59 81 mg QDAY SHAZIA Administration Atorvastatin Calcium 40 mg 12/16/24 21:00 12/18/24 20:57 Atorvastatin Calcium 20 Mg Tablet PO 01/15/25 20:59 40 mg HS SHAZIA Administration Dextrose 50 ml 12/18/24 16:56 Dextrose 50%-Water Inj 50 Ml Syringe IV 01/17/25 16:55 Q15MIN PRN BG <50 OR BG <70 & pt unresponsive Enoxaparin Sodium 40 mg 12/17/24 09:00 12/19/24 08:56 Enoxaparin Sod Inj 40 Mg/0.4 Ml Syringe SC 12/31/24 08:59 40 mg QDAY SAHZIA Administration Furosemide 40 mg 12/16/24 20:00 12/19/24 05:47 Furosemide Inj 10 Mg/Ml 4ml Vial IVP 01/15/25 19:59 40 mg BIDD SHAZIA Administration Glucagon 1 mg 12/18/24 16:56 Glucagon Inj 1 Mg Vial IM Q15MIN PRN BG <70, and no IV access Guaifenesin 200 mg 12/19/24 17:00 12/19/24 17:04 Guaifenesin Syrup 200 Mg/10 Ml Udc PO 01/18/25 16:59 200 mg QID SHAZIA Administration Protocol Ampicillin Sodium/Sulbactam 100 mls @ 200 mls/hr 12/17/24 12:00 12/19/24 17:12 Sodium 3 gm/ Sodium Chloride IV 12/24/24 11:59 200 mls/hr Q6HR SHAZIA Administration Insulin Human Lispro 0 unit 12/18/24 17:00 12/19/24 17:12 Insulin Lispro (Admelog) 1 Unit/0.01 Ml Unit SC 01/17/25 16:59 1 unit AC SHAZIA Administration Protocol Magnesium Hydroxide 30 ml 12/19/24 08:18 Milk Of Magnesia Susp 30 Ml Udc PO 01/18/25 08:17 QDAY PRN CONSTIPATION Protocol Ondansetron HCl 4 mg 12/16/24 17:42 Ondansetron Inj 2 Mg/Ml Inj 2 Ml IVP 01/15/25 17:41 Q6H PRN NAUSEA OR VOMITING Protocol Pantoprazole Sodium 40 mg 12/17/24 09:15 12/19/24 08:56 Pantoprazole Inj 40 Mg Vial IVP 01/16/25 09:14 40 mg QDAY SHAZIA Administration Sennosides 1 tab 12/17/24 09:00 12/19/24 08:55 Senna Tablet PO 01/16/25 08:59 1 tab QDAY [facility] Administration Protocol Tamsulosin HCl 0.4 mg 12/17/24 09:00 12/19/24 09:38 Tamsulosin Hcl 0.4 Mg Capsule PO 01/16/25 08:59 0.4 mg QDAY [facility] Administration Plan A 79-year-old male with significant past medical history of hypertension, diabetes mellitus, asthma, intracranial bleed, using oxygen, 2 L at home as needed, HFrEF presented to the hospital with chief complaints of sudden onset headache followed by generalized weakness on the day of admission. # Acute decompensated chronic systolic CHF exacerbation [EF 25-30%]?resolving - Patient found to have extensive pedal edema, 4+ pitting extending up to knees. Per patient and patient's , it was present since the time of diagnosis from last hospital admission - Home oxygen : 2 L nasal cannula as needed for shortness of breath - Chest x-ray : bilateral moderate vascular congestion - 08/02/2024 LILLIAM: Normal LV size and thickness. Severely reduced LV function, LVEF estimated 25-30%. - NYHA Class III at baseline Plan - Daily weights - 2G sodium restricted diet - Continue fluid restriction to 1500 mL - Continue Lasix 40 Mg IV twice daily for today, will de escalate tomorrow based on patients clinical condition - Steel Spar Operator Dr. Lundberg consulted, Appreciated recommendations. Recommended cardiac cath - Pending repeat Echo - Will keep K >4 and Mg >2 - Will continue to monitor urine output and renal function closely # Acute hypoxic respiratory failure secondary to aspiration Pneumonia - resolving - Admitted for acute hypoxic respiratory failure due to aspiration while on BiPAP. Intubated 5:30 AM and 12/17 - Started on IV Unasyn every 6 hours Plan - Continue Unasyn 3 g every 6 hours (12/17 - - Follow-up culture results and sensitivity panel # Syncope , Ground-level mechanical fall # Stroke ruled out - Patient presented to the hospital with chief complaints of sudden onset headache followed by generalized weakness and a fall on the day of admission - Head CT, CTA head/neck did not show any acute pathology - Cervical spine CT and Lumbar spine x-ray: No fracture noted - Teleneurology is consulted and recommended loading dose of aspirin and stroke precautions Plan - Continue aspirin 81 Mg and atorvastatin 40 Mg po HS - Dr Downing is consulted, appreciate recommendations #Likely CHEYANNE/OHS Patient's states that he snores at night and has excessive daytime somnolence especially while eating or watching TV. She bought a secondhand CPAP machine from a medical supply oxygen and uses that at home. However was never formally diagnosed or prescribed a CPAP machine by a medical practitioner. Plan BiPAP/CPAP as needed during the day for naps and at night #T2 IDDM History of type 2 insulin-dependent diabetes. Home medication: Insulin glargine 50 units SC daily Hb A1C 6.5% Plan - Continue normal insulin sliding scale with Accu-Checks - Hypoglycemia protocol in place Hospital Maintenance: Dispo: Tele DVT ppx: Enoxaparin GI ppx: Pantoprazole Diet: Cardiac IV lines: Peripheral Code status: Full Patient plan of care was discussed with the attending physician, Dr. Cadet and senior resident Dr. Nash Vigil, PGY1 Attending Provider Attestation/Addendum Mulu George, , attest that I was physically present for the brown portions of the service and evaluated the patient with the resident and I reviewed and discussed the case with the resident and agree with the resident's findings and plans of care as documented above Patient downgraded from ICU and currently on 2 L nasal cannula. Patient is breathing with pursed lip breathing. Per at bedside, patient is very confused since being extubated. He continues to have some mild wheezing and congestion. Will continue with chest PT and breathing treatments. Continue with IV diuretics as well. There is trace edema in bilateral lower extremities at this time. Patient remains on Unasyn due to concern for aspiration pneumonia. Continue with BiPAP at night. Pending neuro workup and echocardiogram.
[2024-12-19] MEDS: ACETAMINOPHEN 325 MG TABLET 650 MG PO (18:19)
[2024-12-19] MEDS: ATORVASTATIN CALCIUM 20 MG TABLET 40 MG PO (20:21)
--- NOTE | 2024-12-19 22:51 | VVPN_ITS ---
Telemedicine visit statement This visit was conducted with the use of interactive audio and video telecommunications system that permits real time communication between the patient and the provider. Patient's verbal consent for virtual visit was obtained on 12/19/24 at 2251. Documentation for date of: 12/19/24 Subjective Subjective Interval history: Patient is in telemetry today.No new symptoms or recurrence of similar symptoms after admission. Virtual exam Vital Signs Temp Pulse Resp BP Pulse Ox O2 Del Method O2 Flow Rate 97.7 F 93 16 120/83 95 Nasal Cannula 4 12/19/24 20:00 12/19/24 20:00 12/19/24 20:00 12/19/24 20:00 12/19/24 20:00 12/19/24 20:00 12/19/24 20:00 FiO2 50 12/18/24 09:31 Objective Labs 12/19/24 04:42 12/19/24 04:42 Labs: Laboratory Results - last 24 hr 12/19/24 04:42 WBC 5.5 RBC 3.71 L Hgb 10.2 L Hct 34.6 L MCV 93 MCH 27.5 MCHC 29.5 L RDW Std Deviation 55.4 H Plt Count 83 L D Neut % (Auto) 63 Lymph % (Auto) 25 [place] % (Auto) 10 Eos % (Auto) 2 Baso % (Auto) 1 Neut # (Auto) 3.5 Lymph # (Auto) 1.4 [place] # (Auto) 0.5 Eos # (Auto) 0.1 Baso # (Auto) 0.0 Immature Gran # (Auto) 0.02 H Absolute Nucleated RBC 0.00 Immature Gran % 0 Nucleated RBC % 0 Sodium 143 Potassium 3.5 Chloride 104 Carbon Dioxide 29.3 Anion Gap 10 BUN 14 Creatinine 1.0 Estim Creat Clear Calc 75.1 eGFR > 60 BUN/Creatinine Ratio 14 Glucose 135 H Calculated Osmolality 287 Calcium 8.7 Corrected Calcium 9.1 Phosphorus 2.6 Magnesium 2.4 Iron 20 L TIBC 291 Iron Saturation 6 L Unsat Iron Binding 271 Ferritin 75 Total Bilirubin 1.0 AST 16 ALT 10 Alkaline Phosphatase 78 Total Protein 7.7 Albumin 3.5 Globulin 4.2 H Albumin/Globulin Ratio 0.8 L ABG Interpretation ABG results: 12/16/24 12/17/24 12/17/24 17:14 05:12 06:48 ABG pH 7.41 7.35 7.34 L ABG pCO2 38 47 49 H ABG pO2 49 L* 72 L D 170 H D ABG HCO3 24 26 27 H ABG O2 Saturation 82 L 94 100 H ABG Base Excess 0 0 0 Assessment & Plan Problem List (1) Stroke-like symptom: Status: Acute Assessment and plan: FU with MRI brain and EEG even though his Symptoms have resolved and no focal deficit noted. (2) Sleep apnea in adult: Status: Chronic Assessment and plan: need objective in house sleep study to confirm the diagnosis so that he can officially get CPAP and accessories.
[2024-12-20] VITALS (13 sets, daily range): BP systolic 112–132; BP diastolic 73–94; PULSE 65–115; RESP 16–30; TEMP 36.1–37.3; O2SAT 93–98; BMI 32.4; BMI 32.1
[2024-12-20] MEDS: AMPICILLIN/SULBAC INJ 3 GM in SODIUM CHLORIDE 0.9% (POP) 100 ML IV ×4 (05:28→23:07)
[2024-12-20] MEDS: FUROSEMIDE INJ 10 MG/ML 4ML VIAL 40 MG IVP ×2 (05:29→17:10)
[2024-12-20] MEDS: guaiFENesin SYRUP 200 MG/10 ML UDC PO ×4 (05:29→20:18)
[2024-12-20 05:38] LABS: Basophils # (Auto) 0.0 Thou/mm3 (0.0-0.2); Basophils % (Auto) 0 % (0-2.5); Eosinophils # (Auto) 0.1 Thou/mm3 (0.0-0.5); Eosinophils % (Auto) 2 % (0-10); Hematocrit 35.9 % (41.0-53.0); Hemoglobin 11.1 g/dL (13.5-16.0); Immature Granulocytes Auto 0.01 Thou/mm3 (0.00-0.00); Lymphocytes # (Auto) 1.3 Thou/mm3 (1.0-4.8); Lymphocytes % (Auto) 24 % (10-50); Mean Corpuscular HGB Conc 30.9 g/dl (31.0-37.0); Mean Corpuscular Hemoglobin 27.5 pg (25.0-35.0); Mean Corpuscular Volume 89 fL (80-100); Monocytes # (Auto) 0.5 Thou/mm3 (0.0-0.8); Monocytes % (Auto) 9 % (0-12); Neutrophils # (Auto) 3.5 Thou/mm3 (1.8-7.7); Neutrophils % (Auto) 64 % (37-80); Nucleated Red Blood Cell # 0.00 Thou/mm3 (0.00-0.00); Nucleated Red Blood Cell % 0 /100 WBC (0); Platelet Count 130 Thou/mm3 (140-440); RDW Standard Deviation 54.1 fL (35.1-43.9); Red Blood Count 4.03 Miln/mm3 (4.50-5.90); White Blood Count 5.4 Thou/mm3 (3.8-10.6)
[2024-12-20 06:37] LABS: Alanine Aminotransferase 11 U/L (10-49); Albumin, Serum 3.7 gm/dL (3.4-4.8); Albumin/Globulin Ratio 0.8 (1.2-2.2); Alkaline Phosphatase 82 U/L (46-116); Anion Gap 10 (7-16); Aspartate Amino Transferase 16 U/L (0-34); BUN/Creatinine Ratio 14 Ratio (12-20); Bilirubin,Total 1.2 mg/dL (0.3-1.2); Blood Urea Nitrogen 13 mg/dL (9-23); Calcium 9.2 mg/dL (8.3-10.6); Calcium (Corrected) 9.4 mg/dL (8.5-10.1); Carbon Dioxide 29.7 mMol/L (20.0-31.0); Chloride 102 mMol/L (98-107); Creatinine (Component) 0.9 mg/dL (0.6-1.3); Estimated Creatinine Clearance 81.8 mL/min (>60); Globulin 4.5 gm/dL (2.3-3.5); Glucose 192 mg/dL (74-106); Magnesium 2.5 mg/dL (1.6-2.6); Osmolality,Calculated 288 (275-295); Phosphorous 2.8 mg/dL (2.4-5.1); Potassium 3.5 mMol/L (3.4-5.1); Sodium 142 mMol/L (136-145); Total Protein 8.2 gm/dL (5.7-8.2); eGFR > 60 See Note
[2024-12-20] MEDS: ALBUTEROL/IPRATROPIUM (Duoneb) RT SOL 3 ML NEBU INH ×3 (07:29→22:10)
[2024-12-20] MEDS: ACETYLCYSTEINE RT SOL 10% 4 ML NEBU 3 ML INH ×3 (07:29→22:10)
[2024-12-20] MEDS: INSULIN LISPRO (AdmeLOG) 1 UNIT/0.01 ML UNIT SC ×4 (07:48→20:17)
--- NOTE | 2024-12-20 08:56 | ECHO_ITS ---
Transthoracic Echo Report Ht (in): 70 Wt (lb): 230 Exam Location: Echo Lab Status: Inpatient Field Training Manager: Ilda Pierre Indications: Procedure Performed: BP: 123 / 90 HR: 84 Technical Quality: Technically Difficult-Pt Combative MEASUREMENTS (Male / Female) Normal Values 2D ECHO LV Diastolic Diameter PLAX 6.8 cm 4.2 - 5.9 / 3.9 - 5.3 cm LV Systolic Diameter PLAX 6.2 cm IVS Diastolic Thickness 0.7 cm 0.6 - 1.0 / 0.6 - 0.9 cm LVPW Diastolic Thickness 0.8 cm 0.6 - 1.0 / 0.6 - 0.9 cm LV Relative Wall Thickness 0.2 LVOT Diameter 2.3 cm LA Volume Index 69.3 cm?/m? 16 - 28 cm?/m? DOPPLER AV Peak Velocity 177.0 cm/s AV Peak Gradient 12.5 mmHg AV Mean Gradient 7.0 mmHg AV Velocity Time Integral 30.5 cm AI Peak Velocity 333.0 cm/s AI Peak Gradient 44.4 mmHg AI Pressure Half Time 682.0 ms LVOT Peak Velocity 106.5 cm/s LVOT Peak Gradient 4.5 mmHg LVOT Velocity Time Integral 18.7 cm LVOT Cardiac Index 2833.5 cm?/min?m? AV Area Cont Eq vti 2.5 cm? AV Area Cont Eq pk 2.5 cm? MR Peak Velocity 462.0 cm/s MR Peak Gradient 85.4 mmHg MR ERO PISA 0.9 cm? MR Regurgitant Volume PISA 123.1 cm? PV Peak Velocity 114.0 cm/s PV Peak Gradient 5.2 mmHg FINDINGS Left Ventricle Severe left ventricular enlargement. Normal left ventricular wall thickness. The left ventricular ejection fraction is severely decreased, estimated at 10-15%. Severe global hypokensis. Right Ventricle The right ventricle is normal in size and systolic function. The estimated right ventricular systolic pressure can not be determined due to innadequate Doppler signal. Left Atrium The left atrium is severely enlarged. Right Atrium The right atrium is severely enlarged. Atrial Septum The interatrial septum appears normal with no evidence of a shunt. Aorta The aorta is normal by two-dimensional, color flow and Doppler interrogation. Mitral Valve The mitral valve annulus and leaflets are moderately calcified without stenosis. Mild to moderate eccentric mitral regurgitation. Aortic Valve The aortic valve is moderately calcified without stenosis. Possible low flow low gradient. PVA Katie Area 1.46cm2. There is trace aortic regurgitation. Tricuspid Valve The tricuspid valve is normal by two-dimensional, color flow and Doppler interrogation. There is mild tricuspid regurgitation. Pulmonic Valve The pulmonic valve is not well visualized. There is trace pulmonic regurgitation. Vessels The pulmonary artery appears normal. The inferior vena cava pulmonary and hepatic veins are dilated. Pericardium The pericardium is normal by two-dimensional imaging. There is no significant pericardial effusion. CONCLUSIONS Indication: Acute on chronic severe systolic CHF exacerbation, shock, fall Dilated cardiomyopathy. Moderate to severe LV enlargement. Severely reduced LV function with an LVEF of 15 to 20%. Mildly dilated RV with normal systolic function. Could not estimate RVSP as TR not visualiozed well. Moderate AV thickening with moderate calcification. Moderate AV sclerosis without stenosis based on V max 2.1 m/s. Possibly underestimated due to the low EF and could be mild on moderate . Trace AI. MIld thickening and clacification of mitral leafts too. Mild to moderate MR. Trace to mild TR Severe LA dilatation and mild to moderate RA dilatation. IVC dilated with <50% collapse during inspiration. No pericardial effusion. Left pleural effusion noted. Rakan Lundberg (Electronically Signed) Final Date: 20 December 2024 20:04
[2024-12-20] MEDS: ENOXAPARIN SOD INJ 40 MG/0.4 ML SYRINGE SC (09:15)
[2024-12-20] MEDS: ASPIRIN 81 MG CHEW PO (09:15)
[2024-12-20] MEDS: TAMSULOSIN HCL 0.4 MG CAPSULE PO (09:16)
--- NOTE | 2024-12-20 10:02 | XR_ITS ---
Examination: AP chest single view Technique one AP portable upright chest single view Date and time: December 20, 2024 1009 hours Comparison December 17, 2024 INDICATIONS: Shortness of breath beginning 2 days ago. FINDINGS: Moderate heart failure Mild enlargement cardiac contour Prominent vascular congestion with perihilar basilar edema Prominent osteopenia IMPRESSION: Moderate heart failure
[2024-12-20] MEDS: LIDOCAINE 5% 1 PATCH TOP (11:55)
--- NOTE | 2024-12-20 14:38 | ESPR_ITS ---
<Statement entered by Jabier Cao MD - 12/21/24 07:11> I discussed with and supervised the art gallery internship physician involved in the care of this patient. Patient assessment and plan was discussed with entire medicine team, including my attending. I agree with the assessment and plan as documented by art gallery internship doctor. Patient care was discussed with my attending physician Dr. Chichi Cao, PGY-2 Documentation for date of: 12/20/24 Subjective Subjective Interval history: Patient is seen and examined at bedside No acute overnight events. Still complaining of mild shortness of breath Vitals are stable. On physical examination, noted tachypnea, tachycardia and increased work of breathing without any pedal edema Started patient on BiPAP in view of increased work of breathing. Repleted with 40 mEq of oral potassium Test Data Developer, Dr. Lundberg is following the patient and he recommended cardiac cath tomorrow Exam Vital Signs Temp Pulse Resp BP Pulse Ox O2 Del Method O2 Flow Rate 97.7 F 85 26 H 124/85 H 97 Oxy Mask 3 12/20/24 08:00 12/20/24 09:45 12/20/24 09:45 12/20/24 08:00 12/20/24 08:00 12/20/24 08:00 12/20/24 07:29 FiO2 40 12/20/24 09:45 Narrative Exam General: Awake. HEENT: Normocephalic, atraumatic, mucous membranes moist. Heart: Regular rate and rhythm, no murmurs. Lungs: Clear to auscultate Abdomen: Soft, nondistended, nontender, positive bowel sounds. ?No guarding or rebound tenderness. Neurologic: Alert and oriented x3, no gross neurological deficit, and patient able to move all 4 extremities. Extremities: No pedal edema. Skin: No rash or ecchymoses. Objective Labs 12/20/24 05:02 12/20/24 05:02 Labs: Laboratory Results - last 24 hr 12/20/24 05:02 WBC 5.4 RBC 4.03 L Hgb 11.1 L Hct 35.9 L MCV 89 MCH 27.5 MCHC 30.9 L RDW Std Deviation 54.1 H Plt Count 130 L D Neut % (Auto) 64 Lymph % (Auto) 24 [place] % (Auto) 9 Eos % (Auto) 2 Baso % (Auto) 0 Neut # (Auto) 3.5 Lymph # (Auto) 1.3 [place] # (Auto) 0.5 Eos # (Auto) 0.1 Baso # (Auto) 0.0 Immature Gran # (Auto) 0.01 H Absolute Nucleated RBC 0.00 Immature Gran % 0 Nucleated RBC % 0 Sodium 142 Potassium 3.5 Chloride 102 Carbon Dioxide 29.7 Anion Gap 10 BUN 13 Creatinine 0.9 Estim Creat Clear Calc 81.8 eGFR > 60 BUN/Creatinine Ratio 14 Glucose 192 H D Calculated Osmolality 288 Calcium 9.2 Corrected Calcium 9.4 Phosphorus 2.8 Magnesium 2.5 Total Bilirubin 1.2 AST 16 ALT 11 Alkaline Phosphatase 82 Total Protein 8.2 Albumin 3.7 Globulin 4.5 H Albumin/Globulin Ratio 0.8 L ABG Interpretation ABG results: 12/16/24 12/17/24 12/17/24 17:14 05:12 06:48 ABG pH 7.41 7.35 7.34 L ABG pCO2 38 47 49 H ABG pO2 49 L* 72 L D 170 H D ABG HCO3 24 26 27 H ABG O2 Saturation 82 L 94 100 H ABG Base Excess 0 0 0 Quality Measures Quality Measures none Advance care planning discussed with:: patient Assessment & Plan Assessment Current Active Medications: Generic Name Dose Route Start Last Admin Trade Name Freq PRN Reason Stop Dose Admin Acetaminophen 650 mg 12/17/24 06:35 12/19/24 18:19 Acetaminophen 325 Mg Tablet PO 01/15/25 17:41 650 mg Q6H PRN Administration Fever >100.3 Acetylcysteine 3 ml 12/19/24 15:00 12/20/24 07:29 Acetylcysteine Rt Liya 10% 4 Ml Nebu INH 01/18/25 14:59 3 ml Q8HRRT SHAZIA Administration Albuterol/Ipratropium 3 ml 12/16/24 22:00 12/20/24 07:29 Albuterol/Ipratropium (Duoneb) Rt Liya 3 Ml Nebu INH 01/15/25 21:59 3 ml Q8HR SHAZIA Administration Aspirin 81 mg 12/19/24 09:00 12/20/24 09:15 Aspirin 81 Mg Chew PO 01/18/25 08:59 81 mg QDAY SHAZIA Administration Atorvastatin Calcium 40 mg 12/16/24 21:00 12/19/24 20:21 Atorvastatin Calcium 20 Mg Tablet PO 01/15/25 20:59 40 mg HS SHAZIA Administration Dextrose 50 ml 12/18/24 16:56 Dextrose 50%-Water Inj 50 Ml Syringe IV 01/17/25 16:55 Q15MIN PRN BG <50 OR BG <70 & pt unresponsive Enoxaparin Sodium 40 mg 12/17/24 09:00 12/20/24 09:15 Enoxaparin Sod Inj 40 Mg/0.4 Ml Syringe SC 12/31/24 08:59 40 mg QDAY SHAZIA Administration Furosemide 40 mg 12/16/24 20:00 12/20/24 05:29 Furosemide Inj 10 Mg/Ml 4ml Vial IVP 01/15/25 19:59 40 mg BIDD SHAZIA Administration Glucagon 1 mg 12/18/24 16:56 Glucagon Inj 1 Mg Vial IM Q15MIN PRN BG <70, and no IV access Guaifenesin 200 mg 12/19/24 17:00 12/20/24 11:56 Guaifenesin Syrup 200 Mg/10 Ml Udc PO 01/18/25 16:59 200 mg QID SHAZIA Administration Protocol Ampicillin Sodium/Sulbactam 100 mls @ 200 mls/hr 12/17/24 12:00 12/20/24 11:56 Sodium 3 gm/ Sodium Chloride IV 12/24/24 11:59 200 mls/hr Q6HR SHAZIA Administration Insulin Human Lispro 0 unit 12/20/24 11:30 12/20/24 11:56 Insulin Lispro (Admelog) 1 Unit/0.01 Ml Unit SC 01/19/25 11:29 1 unit ACHS SHAZIA Administration Protocol Magnesium Hydroxide 30 ml 12/19/24 08:18 Milk Of Magnesia Susp 30 Ml Udc PO 01/18/25 08:17 QDAY PRN CONSTIPATION Protocol Ondansetron HCl 4 mg 12/16/24 17:42 Ondansetron Inj 2 Mg/Ml Inj 2 Ml IVP 01/15/25 17:41 Q6H PRN NAUSEA OR VOMITING Protocol Pantoprazole Sodium 40 mg 12/21/24 09:00 Pantoprazole 40 Mg Tablet PO 01/20/25 08:59 QDAY SHAZIA Protocol Polyethylene Glycol 17 gm 12/20/24 07:57 Polyethylene Glycol 17 Gm Packet PO 01/19/25 08:59 QDAY PRN constipation Sennosides 1 tab 12/17/24 09:00 12/20/24 09:16 Senna Tablet PO 01/16/25 08:59 1 tab QDAY SHAZIA Administration Protocol Tamsulosin HCl 0.4 mg 12/17/24 09:00 12/20/24 09:16 Tamsulosin Hcl 0.4 Mg Capsule PO 01/16/25 08:59 0.4 mg QDAY SHAZIA Administration Plan A 79-year-old male with significant past medical history of hypertension, diabetes mellitus, asthma, intracranial bleed, using oxygen, 2 L at home as needed, HFrEF presented to the hospital with chief complaints of sudden onset headache followed by generalized weakness on the day of admission. # Acute decompensated chronic systolic CHF exacerbation [EF 25-30%]?resolving - Patient found to have extensive pedal edema, 4+ pitting extending up to knees. Per patient and patient's , it was present since the time of diagnosis from last hospital admission - Home oxygen : 2 L nasal cannula as needed for shortness of breath - Chest x-ray : bilateral moderate vascular congestion - 08/02/2024 LILLIAM: Normal LV size and thickness. Severely reduced LV function, LVEF estimated 25-30%. - NYHA Class III at baseline Plan - Daily weights - 2G sodium restricted diet - Continue fluid restriction to 1500 mL - Continue Lasix 40 Mg IV twice daily for today - Test Data Developer Dr. Lundberg consulted, Appreciated recommendations. Recommended cardiac cath - Pending repeat Echo, taken - read is pending - Will keep K >4 and Mg >2 - Will continue to monitor urine output and renal function closely - Bipap as needed and at night time # Acute hypoxic respiratory failure secondary to aspiration Pneumonia - resolving - Admitted for acute hypoxic respiratory failure due to aspiration while on BiPAP. Intubated 5:30 AM and 12/17 - Started on IV Unasyn every 6 hours - Sputum and blood cultures came back negative Plan - Continue Unasyn 3 g every 6 hours (12/17 - # Syncope , Ground-level mechanical fall # Stroke ruled out - Patient presented to the hospital with chief complaints of sudden onset headache followed by generalized weakness and a fall on the day of admission - Head CT, CTA head/neck did not show any acute pathology - Cervical spine CT and Lumbar spine x-ray: No fracture noted - Teleneurology is consulted and recommended loading dose of aspirin and stroke precautions Plan - Continue aspirin 81 Mg and atorvastatin 40 Mg po HS - Dr Downing is consulted, appreciate recommendations #Likely CHEYANNE/OHS Patient's states that he snores at night and has excessive daytime somnolence especially while eating or watching TV. She bought a secondhand CPAP machine from a medical supply oxygen and uses that at home. However was never formally diagnosed or prescribed a CPAP machine by a medical practitioner. Plan BiPAP/CPAP as needed during the day for naps and at night #T2 IDDM History of type 2 insulin-dependent diabetes. Home medication: Insulin glargine 50 units SC daily Hb A1C 6.5% Plan - Continue normal insulin sliding scale with Accu-Checks and started on insulin glargine 6 units subcutaneous at bedtime - Hypoglycemia protocol in place Hospital Maintenance: Dispo: Tele DVT ppx: Enoxaparin GI ppx: Pantoprazole Diet: Cardiac IV lines: Peripheral Code status: Full Patient plan of care was discussed with the attending physician, Dr. Cadet and senior resident Dr. Nash Vigil, PGY1 Attending Provider Attestation/Addendum Doris, Mulu Cadet, , attest that I was physically present for the brown portions of the service and evaluated the patient with the resident and I reviewed and discussed the case with the resident and agree with the resident's findings and plans of care as documented above Patient seen and evaluated this a.m. Patient placed on BiPAP this morning and is undergoing echocardiogram. Patient given pain medication due to headaches that did not resolve. Will continue with diuresis as chest x-ray continues to show significant vascular congestion. Lung sounds appear improved with less wheezing and rhonchi today. Will continue with IV diuresis and antibiotics. If patient is able to lay flat, patient is tentatively plan for cardiac cath tomorrow. Will keep NPO. Will continue to titrate O2 as tolerated.
--- NOTE | 2024-12-20 15:22 | PC.SS ---
Rounding Note: Plan is for cardiac cath tomorrow. Dr. Bruce consulting.
--- NOTE | 2024-12-20 15:26 | CHAP ---
Patient was visited by a Spiritual Care Volunteer on 12/20/2024 between 0900 and 1015 and received comfort, encouragement and/or prayer.
[2024-12-20] MEDS: ACETAMINOPHEN 325 MG TABLET 650 MG PO (17:08)
[2024-12-20] MEDS: INSULIN GLARGINE (Lantus) 5 UNIT/0.05 ML (PER 5 UNITS) 6 UNIT SC (20:17)
[2024-12-20] MEDS: ATORVASTATIN CALCIUM 20 MG TABLET 40 MG PO (20:18)
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
--- NOTE | 2024-12-20 23:45 | ESPR_ITS ---
Documentation for date of: 12/20/24 Subjective Subjective Interval history: Seen in telemetry today at the bedside, needing oxygen with face mask, with one on one supervision. Intermittently confused. Exam - Neurology Vital Signs Temp Pulse Resp BP Pulse Ox O2 Del Method O2 Flow Rate 99.2 F 65 16 115/80 98 Oxy Mask 12 12/20/24 20:00 12/20/24 20:00 12/20/24 20:00 12/20/24 20:00 12/20/24 20:00 12/20/24 20:00 12/20/24 20:00 FiO2 40 12/20/24 16:00 Narrative Exam GENERAL APPEARANCE: Well hydrated, well-nourished male in NAD HEENT: Normocephalic, atraumatic, extraocular movements intact. Pupils: Equal reacting to light. NECK: Supple, no JVD or bruits. CARDIOVASULAR: Heart: S1, S2 heard, regular without S3-S4 or murmur no rubs or gallops. LUNGS/CHEST: Clear to auscultation bilaterally. No rails, rhonchi, or wheezing. Normal inspection. ABDOMEN: Soft, nontender, with normal bowel sounds. No pulsatile masses. No rebound, rigidity, or guarding. Normal inspection and palpation. EXTREMITIES: Normal inspection and palpation. No edema, clubbing or cyanosis. SKIN: Warm and dry without rashes. Normal inspection. MUSCULOSKELETAL: No cervical , thoracic, lumbar or midline bony tenderness. Normal inspection. NEURO: Alert, awake, oriented to person and place; no focal deficit noted. No signs of meningeal irritation noted. PSYCHIATRIC: Normal mood and affect. Objective Labs 12/20/24 05:02 12/20/24 05:02 Labs: Laboratory Results - last 24 hr 12/20/24 05:02 WBC 5.4 RBC 4.03 L Hgb 11.1 L Hct 35.9 L MCV 89 MCH 27.5 MCHC 30.9 L RDW Std Deviation 54.1 H Plt Count 130 L D Neut % (Auto) 64 Lymph % (Auto) 24 [place] % (Auto) 9 Eos % (Auto) 2 Baso % (Auto) 0 Neut # (Auto) 3.5 Lymph # (Auto) 1.3 [place] # (Auto) 0.5 Eos # (Auto) 0.1 Baso # (Auto) 0.0 Immature Gran # (Auto) 0.01 H Absolute Nucleated RBC 0.00 Immature Gran % 0 Nucleated RBC % 0 Sodium 142 Potassium 3.5 Chloride 102 Carbon Dioxide 29.7 Anion Gap 10 BUN 13 Creatinine 0.9 Estim Creat Clear Calc 81.8 eGFR > 60 BUN/Creatinine Ratio 14 Glucose 192 H D Calculated Osmolality 288 Calcium 9.2 Corrected Calcium 9.4 Phosphorus 2.8 Magnesium 2.5 Total Bilirubin 1.2 AST 16 ALT 11 Alkaline Phosphatase 82 Total Protein 8.2 Albumin 3.7 Globulin 4.5 H Albumin/Globulin Ratio 0.8 L ABG Interpretation ABG results: 12/16/24 12/17/24 12/17/24 17:14 05:12 06:48 ABG pH 7.41 7.35 7.34 L ABG pCO2 38 47 49 H ABG pO2 49 L* 72 L D 170 H D ABG HCO3 24 26 27 H ABG O2 Saturation 82 L 94 100 H ABG Base Excess 0 0 0 Assessment & Plan Assessment and plan (1) Stroke-like symptom: Status: Acute Assessment and plan: no focal deficit on exam fu with MRI brain and EEG now he got extubated, needing face mask oxygen. PT eval. when stable. (2) Sleep apnea in adult: Status: Chronic (3) Community acquired pneumonia: Status: Acute Assessment and plan: on IV antibiotics and bronchodilators
[2024-12-21] VITALS (14 sets, daily range): BP systolic 100–139; BP diastolic 66–99; PULSE 82–105; RESP 19–30; TEMP 36.2–36.9; O2SAT 91–100; BMI 31.9
--- NOTE | 2024-12-21 02:48 | EKG_ITS ---
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
[2024-12-21] MEDS: AMPICILLIN/SULBAC INJ 3 GM in SODIUM CHLORIDE 0.9% (POP) 100 ML IV ×4 (05:05→23:14)
[2024-12-21] MEDS: FUROSEMIDE INJ 10 MG/ML 4ML VIAL 40 MG IVP (05:06)
[2024-12-21 06:18] LABS: Phosphorous 3.0 mg/dL (2.4-5.1)
[2024-12-21] MEDS: ACETYLCYSTEINE RT SOL 10% 4 ML NEBU 3 ML INH ×3 (06:53→22:31)
[2024-12-21] MEDS: ALBUTEROL/IPRATROPIUM (Duoneb) RT SOL 3 ML NEBU INH ×3 (06:53→22:31)
[2024-12-21 08:57] LABS: Alanine Aminotransferase 11 U/L (10-49); Albumin, Serum 3.5 gm/dL (3.4-4.8); Albumin/Globulin Ratio 0.8 (1.2-2.2); Alkaline Phosphatase 79 U/L (46-116); Anion Gap 9 (7-16); Aspartate Amino Transferase 15 U/L (0-34); BUN/Creatinine Ratio 19 Ratio (12-20); Bilirubin,Total 1.7 mg/dL (0.3-1.2); Blood Urea Nitrogen 15 mg/dL (9-23); Calcium 8.9 mg/dL (8.3-10.6); Calcium (Corrected) 9.3 mg/dL (8.5-10.1); Carbon Dioxide 31.5 mMol/L (20.0-31.0); Chloride 102 mMol/L (98-107); Creatinine (Component) 0.8 mg/dL (0.6-1.3); Estimated Creatinine Clearance 91.8 mL/min (>60); Globulin 4.3 gm/dL (2.3-3.5); Glucose 160 mg/dL (74-106); Osmolality,Calculated 286 (275-295); Potassium 4.0 mMol/L (3.4-5.1); Sodium 142 mMol/L (136-145); Total Protein 7.8 gm/dL (5.7-8.2); eGFR > 60 See Note
[2024-12-21 09:37] LABS: Base Excess 10 (-3-3); HCO3 34 mEq/L (20-26); Inspired O2, VO2 Liters 10 L/min; Inspired Oxygen, FIO2 21 %; O2 Saturation 96 % (91-98); PCO2 41 mmHg (32.0-48.0); PO2 73 mmHg (83-108); pH, Arterial 7.52 (7.35-7.45)
[2024-12-21 09:38] LABS: Allen Test Performed/OK; Puncture Site Right Radial
[2024-12-21 10:00] LABS: INR 1.2 (0.9-1.3); Partial Thromboplastin Time 29.4 Seconds (22.0-36.0); Prothrombin Time 12.9 Seconds (9.0-12.2)
[2024-12-21] MEDS: POTASSIUM CHL 10 mEq IVPB 10 MEQ/100 ML BAG 50 MEQ IV ×2 (11:44→14:38)
[2024-12-21] MEDS: BUMETANIDE INJ 0.25 MG/ML VIAL 4 ML 2 MG IVP (11:44)
--- NOTE | 2024-12-21 16:11 | PC.SS ---
Trilogy Machine Trilogy Machine has been ordered due to Acute Hypoxic Respiratory Failure, J96.01. Pt needs Mechanical ventilator due to chronic respiratory failure due to severe Acute Hypoxic Respiratory Failure. Patient needs to keep the tidal volume to prevent CO2 retention. A Ventilator is required to improve the pts pulmonary status. Without this respiratory support in the home it could lead to serious harm or . The BiPAP therapy did not improve the pts respiratory status and failed.
--- NOTE | 2024-12-21 16:12 | ESPR_ITS ---
<Statement entered by Jabier Cao MD - 12/22/24 07:16> I discussed with and supervised the consultant internship physician involved in the care of this patient. Patient assessment and plan was discussed with entire medicine team, including my attending. I agree with the assessment and plan as documented by consultant internship doctor. Patient care was discussed with my attending physician Dr. Chichi Cao, PGY-2 Documentation for date of: 12/21/24 Subjective Subjective Interval history: Patient is seen and examined at bedside Overnight patient is not on BiPAP. Patient Is mildly altered during the initial examination and later he is much more alert and awake after 2 hours No acute overnight events. Vitals are stable. Labs showed mild metabolic alkalosis. ABG was done which showed metabolic alkalosis, likely contraction secondary to diuretic usage Real Estate Rep, Dr. Lundberg is following the patient and he recommended cardiac cath tomorrow, gave 1 dose of Diamox per his recommendations Will continue Bipap for tonight Exam Vital Signs Temp Pulse Resp BP Pulse Ox O2 Del Method O2 Flow Rate 97.1 F 91 30 H 115/80 99 CPAP 12 12/21/24 16:00 12/21/24 16:00 12/21/24 16:00 12/21/24 16:00 12/21/24 16:00 12/21/24 16:00 12/21/24 07:43 FiO2 40 12/21/24 16:00 Narrative Exam General: Awake. HEENT: Normocephalic, atraumatic, mucous membranes moist. Heart: Regular rate and rhythm, no murmurs. Lungs: Clear to auscultate Abdomen: Soft, nondistended, nontender, positive bowel sounds. ?No guarding or rebound tenderness. Neurologic: Alert and oriented x3, no gross neurological deficit, and patient able to move all 4 extremities. Extremities: No pedal edema. Skin: No rash or ecchymoses. Objective Labs 12/22/24 05:07 12/22/24 05:07 Labs: Laboratory Results - last 24 hr 12/21/24 12/21/24 05:12 09:30 PT 12.9 H INR 1.2 APTT 29.4 Puncture Site Right Radial ABG pH 7.52 H ABG pCO2 41 ABG pO2 73 L ABG HCO3 34 H ABG O2 Saturation 96 ABG Base Excess 10 H Oxygen Liter Flow 10 FiO2 21 Sodium 142 Potassium 4.0 D Chloride 102 Carbon Dioxide 31.5 H Anion Gap 9 BUN 15 Creatinine 0.8 Estim Creat Clear Calc 91.8 eGFR > 60 BUN/Creatinine Ratio 19 Glucose 160 H Calculated Osmolality 286 Calcium 8.9 Corrected Calcium 9.3 Phosphorus 3.0 Total Bilirubin 1.7 H D AST 15 ALT 11 Alkaline Phosphatase 79 Total Protein 7.8 Albumin 3.5 Globulin 4.3 H Albumin/Globulin Ratio 0.8 L ABG Interpretation ABG results: 12/16/24 12/17/24 12/17/24 17:14 05:12 06:48 ABG pH 7.41 7.35 7.34 L ABG pCO2 38 47 49 H ABG pO2 49 L* 72 L D 170 H D ABG HCO3 24 26 27 H ABG O2 Saturation 82 L 94 100 H ABG Base Excess 0 0 0 12/21/24 09:30 ABG pH 7.52 H ABG pCO2 41 ABG pO2 73 L ABG HCO3 34 H ABG O2 Saturation 96 ABG Base Excess 10 H Quality Measures Quality Measures none Advance care planning discussed with:: patient and spouse Assessment & Plan Assessment Current Active Medications: Generic Name Dose Route Start Last Admin Trade Name Freq PRN Reason Stop Dose Admin Acetaminophen 650 mg 12/17/24 06:35 12/20/24 17:08 Acetaminophen 325 Mg Tablet PO 01/15/25 17:41 650 mg Q6H PRN Administration Fever >100.3 Acetylcysteine 3 ml 12/19/24 15:00 12/21/24 14:47 Acetylcysteine Rt Liya 10% 4 Ml Nebu INH 01/18/25 14:59 3 ml Q8HRRT SHAZIA Administration Albuterol/Ipratropium 3 ml 12/16/24 22:00 12/21/24 14:47 Albuterol/Ipratropium (Duoneb) Rt Liya 3 Ml Nebu INH 01/15/25 21:59 3 ml Q8HR SHAZIA Administration Aspirin 81 mg 12/19/24 09:00 12/21/24 10:56 Aspirin 81 Mg Chew PO 01/18/25 08:59 Not Given QDAY SHAZIA Atorvastatin Calcium 40 mg 12/16/24 21:00 12/20/24 20:18 Atorvastatin Calcium 20 Mg Tablet PO 01/15/25 20:59 40 mg HS SHAZIA Administration Dextrose 50 ml 12/18/24 16:56 Dextrose 50%-Water Inj 50 Ml Syringe IV 01/17/25 16:55 Q15MIN PRN BG <50 OR BG <70 & pt unresponsive Enoxaparin Sodium 40 mg 12/17/24 09:00 12/21/24 10:56 Enoxaparin Sod Inj 40 Mg/0.4 Ml Syringe SC 12/31/24 08:59 Not Given QDAY SHAZIA Glucagon 1 mg 12/18/24 16:56 Glucagon Inj 1 Mg Vial IM Q15MIN PRN BG <70, and no IV access Guaifenesin 200 mg 12/19/24 17:00 12/21/24 13:10 Guaifenesin Syrup 200 Mg/10 Ml Udc PO 01/18/25 16:59 Not Given QID [facility] Protocol Hydromorphone HCl 1 mg 12/20/24 17:37 Hydromorphone Inj 2 Mg/Ml Vial IVP 12/25/24 17:36 Q4HR PRN PAIN 4-10 Ampicillin Sodium/Sulbactam 100 mls @ 200 mls/hr 12/17/24 12:00 12/21/24 12:03 Sodium 3 gm/ Sodium Chloride IV 12/24/24 11:59 200 mls/hr Q6HR SHAZIA Administration Insulin Glargine 6 unit 12/20/24 21:00 12/20/24 20:17 Insulin Glargine (Lantus) 5 Unit/0.05 Ml (Per 5 Units) SC 01/19/25 20:59 6 unit HS SHAZIA Administration Insulin Human Lispro 0 unit 12/20/24 11:30 12/21/24 12:04 Insulin Lispro (Admelog) 1 Unit/0.01 Ml Unit SC 01/19/25 11:29 Not Given ACHS [facility] Protocol Magnesium Hydroxide 30 ml 12/19/24 08:18 Milk Of Magnesia Susp 30 Ml Udc PO 01/18/25 08:17 QDAY PRN [facility]STIP[facility] Protocol Ondansetron HCl 4 mg 12/16/24 17:42 Ondansetron Inj 2 Mg/Ml Inj 2 Ml IVP 01/15/25 17:41 Q6H PRN NAUSEA OR VOMITING Protocol Pantoprazole Sodium 40 mg 12/21/24 09:00 12/21/24 10:59 Pantoprazole 40 Mg Tablet PO 01/20/25 08:59 Not Given QDAY [facility] Protocol Polyethylene Glycol 17 gm 12/21/24 09:00 12/21/24 10:20 Polyethylene Glycol 17 Gm Packet PO 01/20/25 08:59 Not Given QDAY SHAZIA Sennosides 1 tab 12/17/24 09:00 12/21/24 10:20 Senna Tablet PO 01/16/25 08:59 Not Given QDAY [facility] Protocol Tamsulosin HCl 0.4 mg 12/17/24 09:00 12/21/24 10:59 Tamsulosin Hcl 0.4 Mg Capsule PO 01/16/25 08:59 Not Given QDAY SHAZIA Plan A 79-year-old male with significant past medical history of hypertension, diabetes mellitus, asthma, intracranial bleed, using oxygen, 2 L at home as needed, HFrEF presented to the hospital with chief complaints of sudden onset headache followed by generalized weakness on the day of admission. # Acute decompensated chronic systolic CHF exacerbation [EF 25-30%]?resolving - Patient found to have extensive pedal edema, 4+ pitting extending up to knees. Per patient and patient's , it was present since the time of diagnosis from last hospital admission - Home oxygen : 2 L nasal cannula as needed for shortness of breath - Chest x-ray : bilateral moderate vascular congestion - 08/02/2024 LILLIAM: Normal LV size and thickness. Severely reduced LV function, LVEF estimated 25-30%. - NYHA Class III at baseline Plan - Daily weights - 2G sodium restricted diet - Continue fluid restriction to 1500 mL - Continue Lasix 40 Mg IV twice daily for today - Real Estate Rep Dr. Lundberg consulted, Appreciated recommendations. Recommended cardiac cath tomorrow - Pending repeat Echo, taken - read is pending - Will keep K >4 and Mg >2 - Will continue to monitor urine output and renal function closely - Bipap as needed and at night time # Acute hypoxic respiratory failure secondary to aspiration Pneumonia - resolving - Admitted for acute hypoxic respiratory failure due to aspiration while on BiPAP. Intubated 5:30 AM and 12/17 - Started on IV Unasyn every 6 hours - Sputum and blood cultures came back negative Plan - Continue Unasyn 3 g every 6 hours (12/17 - # Syncope , Ground-level mechanical fall # Stroke ruled out - Patient presented to the hospital with chief complaints of sudden onset headache followed by generalized weakness and a fall on the day of admission - Head CT, CTA head/neck did not show any acute pathology - Cervical spine CT and Lumbar spine x-ray: No fracture noted - Teleneurology is consulted and recommended loading dose of aspirin and stroke precautions Plan - Continue aspirin 81 Mg and atorvastatin 40 Mg po HS - Dr Downing is consulted, appreciate recommendations #Likely CHEYANNE/OHS Patient's states that he snores at night and has excessive daytime somnolence especially while eating or watching TV. She bought a secondhand CPAP machine from a [employer] supply oxygen and uses that at home. However was never formally diagnosed or prescribed a CPAP machine by a medical practitioner. Plan BiPAP/CPAP as needed during the day for naps and at night #T2 IDDM History of type 2 insulin-dependent diabetes. Home medication: Insulin glargine 50 units SC daily Hb A1C 6.5% Plan - Continue normal insulin sliding scale with Accu-Checks and started on insulin glargine 6 units subcutaneous at bedtime - Hypoglycemia protocol in place Hospital Maintenance: Dispo: Tele DVT ppx: Enoxaparin GI ppx: Pantoprazole Diet: Cardiac IV lines: Peripheral Code status: Full Patient plan of care was discussed with the attending physician, Dr. Cadet and senior resident Dr. Nash Vigil, PGY1 Attending Provider Attestation/Addendum I, Mulu Cadet DO, attest that I was physically present for the brown portions of the service and evaluated the patient with the resident and I reviewed and discussed the case with the resident and agree with the resident's findings and plans of care as documented above Patient seen and evaluated this AM. He is on 12L/oxymask with increased work of breathing and pursed lip breathing. Placed patient back on BIPap. Patient denies any chest pain, fevers, chills or nausea. Patient tentatively planned for cardiac cath today. However, postponed due to concern for increased work of breathing. Will continue to monitor closely on BiPap. Continue with IV diuresis. MRI deferred due to respiratory status. Continue with IV abx at this time.
[2024-12-21] MEDS: HYDROmorphone INJ 2 MG/ML VIAL 1 MG IVP (16:14)
--- NOTE | 2024-12-21 16:57 | PC.SS ---
DME referral for triology submitted on [facility]. Response pending. order and supporting documentation placed in patient's chart.
[2024-12-21] MEDS: INSULIN GLARGINE (Lantus) 5 UNIT/0.05 ML (PER 5 UNITS) 6 UNIT SC (20:21)
[2024-12-21] MEDS: ONDANSETRON INJ 2 MG/ML INJ 2 ML 4 MG IVP (20:35)
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
--- NOTE | 2024-12-21 23:24 | PD.NEUROPROG ---
Documentation for date of: 12/21/24 Subjective Subjective Interval history: Seen in telemetry today at the bedside, needing oxygen with face mask, with one on one supervision. Intermittently confused. Exam - Neurology Vital Signs Temp Pulse Resp BP Pulse Ox O2 Del Method O2 Flow Rate 97.6 F 88 20 117/75 99 BiPAP 12 12/21/24 20:00 12/21/24 22:34 12/21/24 22:34 12/21/24 20:00 12/21/24 22:34 12/21/24 20:00 12/21/24 20:00 FiO2 30 12/21/24 22:34 Narrative Exam GENERAL APPEARANCE: Well hydrated, well-nourished male in NAD HEENT: Normocephalic, atraumatic, extraocular movements intact. Pupils: Equal reacting to light. NECK: Supple, no JVD or bruits. CARDIOVASULAR: Heart: S1, S2 heard, regular without S3-S4 or murmur no rubs or gallops. LUNGS/CHEST: Clear to auscultation bilaterally. No rails, rhonchi, or wheezing. Normal inspection. ABDOMEN: Soft, nontender, with normal bowel sounds. No pulsatile masses. No rebound, rigidity, or guarding. Normal inspection and palpation. EXTREMITIES: Normal inspection and palpation. No edema, clubbing or cyanosis. SKIN: Warm and dry without rashes. Normal inspection. MUSCULOSKELETAL: No cervical , thoracic, lumbar or midline bony tenderness. Normal inspection. NEURO: resting now, no focal deficit noted. No signs of meningeal irritation noted. PSYCHIATRIC: Normal mood and affect. Objective Labs 12/20/24 05:02 12/21/24 05:12 Labs: Laboratory Results - last 24 hr 12/21/24 12/21/24 05:12 09:30 PT 12.9 H INR 1.2 APTT 29.4 Puncture Site Right Radial ABG pH 7.52 H ABG pCO2 41 ABG pO2 73 L ABG HCO3 34 H ABG O2 Saturation 96 ABG Base Excess 10 H Oxygen Liter Flow 10 FiO2 21 Sodium 142 Potassium 4.0 D Chloride 102 Carbon Dioxide 31.5 H Anion Gap 9 BUN 15 Creatinine 0.8 Estim Creat Clear Calc 91.8 eGFR > 60 BUN/Creatinine Ratio 19 Glucose 160 H Calculated Osmolality 286 Calcium 8.9 Corrected Calcium 9.3 Phosphorus 3.0 Total Bilirubin 1.7 H D AST 15 ALT 11 Alkaline Phosphatase 79 Total Protein 7.8 Albumin 3.5 Globulin 4.3 H Albumin/Globulin Ratio 0.8 L ABG Interpretation ABG results: 12/16/24 12/17/24 12/17/24 17:14 05:12 06:48 ABG pH 7.41 7.35 7.34 L ABG pCO2 38 47 49 H ABG pO2 49 L* 72 L D 170 H D ABG HCO3 24 26 27 H ABG O2 Saturation 82 L 94 100 H ABG Base Excess 0 0 0 12/21/24 09:30 ABG pH 7.52 H ABG pCO2 41 ABG pO2 73 L ABG HCO3 34 H ABG O2 Saturation 96 ABG Base Excess 10 H Assessment & Plan Assessment and plan (1) Stroke-like symptom: Status: Acute Assessment and plan: no focal deficit on exam fu with MRI brain and EEG PT eval. when stable. (2) Sleep apnea in adult: Status: Chronic (3) Community acquired pneumonia: Status: Acute Assessment and plan: on IV antibiotics and bronchodilators
[2024-12-22] VITALS (16 sets, daily range): BP systolic 96–127; BP diastolic 62–84; PULSE 70–104; RESP 15–25; TEMP 35.8–36.6; O2SAT 92–99; BMI 30.8
[2024-12-22 05:36] LABS: Basophils # (Auto) 0.0 Thou/mm3 (0.0-0.2); Basophils % (Auto) 1 % (0-2.5); Eosinophils # (Auto) 0.2 Thou/mm3 (0.0-0.5); Eosinophils % (Auto) 4 % (0-10); Hematocrit 35.9 % (41.0-53.0); Hemoglobin 10.6 g/dL (13.5-16.0); Immature Granulocytes Auto 0.01 Thou/mm3 (0.00-0.00); Lymphocytes # (Auto) 1.4 Thou/mm3 (1.0-4.8); Lymphocytes % (Auto) 28 % (10-50); Mean Corpuscular HGB Conc 29.5 g/dl (31.0-37.0); Mean Corpuscular Hemoglobin 27.3 pg (25.0-35.0); Mean Corpuscular Volume 93 fL (80-100); Monocytes # (Auto) 0.7 Thou/mm3 (0.0-0.8); Monocytes % (Auto) 13 % (0-12); Neutrophils # (Auto) 2.9 Thou/mm3 (1.8-7.7); Neutrophils % (Auto) 55 % (37-80); Nucleated Red Blood Cell # 0.00 Thou/mm3 (0.00-0.00); Nucleated Red Blood Cell % 0 /100 WBC (0); Platelet Count 142 Thou/mm3 (140-440); RDW Standard Deviation 53.8 fL (35.1-43.9); Red Blood Count 3.88 Miln/mm3 (4.50-5.90); White Blood Count 5.2 Thou/mm3 (3.8-10.6)
[2024-12-22 05:57] LABS: Alanine Aminotransferase 11 U/L (10-49); Albumin, Serum 3.5 gm/dL (3.4-4.8); Albumin/Globulin Ratio 0.8 (1.2-2.2); Alkaline Phosphatase 69 U/L (46-116); Anion Gap 10 (7-16); Aspartate Amino Transferase 16 U/L (0-34); BUN/Creatinine Ratio 19 Ratio (12-20); Bilirubin,Total 1.5 mg/dL (0.3-1.2); Blood Urea Nitrogen 17 mg/dL (9-23); Calcium 9.6 mg/dL (8.3-10.6); Calcium (Corrected) 10.0 mg/dL (8.5-10.1); Carbon Dioxide 35.1 mMol/L (20.0-31.0); Chloride 97 mMol/L (98-107); Creatinine (Component) 0.9 mg/dL (0.6-1.3); Estimated Creatinine Clearance 81.6 mL/min (>60); Globulin 4.3 gm/dL (2.3-3.5); Glucose 136 mg/dL (74-106); Osmolality,Calculated 286 (275-295); Phosphorous 4.4 mg/dL (2.4-5.1); Potassium 3.7 mMol/L (3.4-5.1); Sodium 142 mMol/L (136-145); Total Protein 7.8 gm/dL (5.7-8.2); eGFR > 60 See Note
[2024-12-22] MEDS: AMPICILLIN/SULBAC INJ 3 GM in SODIUM CHLORIDE 0.9% (POP) 100 ML IV ×3 (06:28→18:11)
[2024-12-22] MEDS: ACETYLCYSTEINE RT SOL 10% 4 ML NEBU 3 ML INH ×3 (07:02→22:38)
[2024-12-22] MEDS: ALBUTEROL/IPRATROPIUM (Duoneb) RT SOL 3 ML NEBU INH ×3 (07:02→22:38)
[2024-12-22] MEDS: ENOXAPARIN SOD INJ 40 MG/0.4 ML SYRINGE SC (08:47)
--- NOTE | 2024-12-22 09:15 | XR_ITS ---
Examination: CT brain head without contrast. 2-D sagittal coronal reconstructions Date and time of exam:December 22, 2024 1036 hours Comparison December 16, 2024 INDICATIONS: Altered mental status today CTDI: vol (mGy):62.3 DLP: (mGycm):1385 Technique: Multiple CT axial sections of the brain have been obtained, 5 mm slice thickness. Contrast has not been administered. 2-D sagittal, coronal reconstructions have been obtained Low dose protocols were performed. One or more of the following dose reduction techniques were used; automated exposure control, adjustment of the mA and/or KV according to patient size, use of iterative reconstruction technique. Findings: Mild ventricular enlargement. Intra-axial or extra-axial hemorrhage density is not seen. No mass effect or midline shift Basal cisterns are not remarkable. Fourth ventricle is midline. Cranial vault intact. Impression: Negative for acute hemorrhage, mass effect or midline shift Advise clinical correlation and follow-up accordingly
--- NOTE | 2024-12-22 09:29 | ESPR_ITS ---
<Statement entered by Erik Lewis MD - 12/22/24 17:33> I Erik Lewis MD reviewed the note and agree with the resident's assessment & plan with exceptions as below. I have personally reviewed labs, imaging, home meds/prior records, examined the patient, formulated and discussed management plan with the IM team. A 79-year-old male with Hx of HTN, DM, HFrEF without any prior ischemic workup presented to ED with headache and presyncopal episode, initial CT head and CTA head and neck did not reveal any acute abnormality however patient noted to have CO2 retention leading to acute hypoxemic hypercapnic respiratory failure requiring BiPAP therapy. Subsequently patient likely had an aspiration event causing aspiration pneumonia for which pulmonology is on board. Repeat echocardiogram did reveal worsening ejection fraction and patient developed acute decompensation of congestive heart failure. Additionally also noted to be intermittently encephalopathic however on evaluation today awake alert however uncooperative though move all extremities with significant strength. Will continue diuresis with Bumex 1 mg twice daily, will start on GDMT as tolerated including metoprolol and Jardiance, holding losartan due to borderline blood pressure. Continue Unasyn for aspiration pneumonia, obtain MRI brain due to overall altered mentation as opposed to what family reports being baseline at home. Additionally cardiology is consulted for ischemic evaluation recommended transfer to higher level of care facility for supported PCI and potential need for complicated/surgical intervention. press manager is on board for transfer Documentation for date of: 12/22/24 Subjective Subjective Interval history: Patient is seen and examined at the bedside. On Bipap overnight Patient appears drowsy and he is on Bipap during the initial examination and responding to only painful stimuli. ABG is ordered and showed mild CO2 retention Repeat CT brain was done and it showed no significant abnormality On evaluation after 2 hours, patient appears alert and awake, responding to verbal commands Vitals are stable. Labs showed mild metabolic alkalosis, bicarb 35.1, total bilirubin 1.5 Patient was started on daily dapagliflozin and metoprolol 12.5 Mg As patient ejection fraction decreased by half over 4 months, ischemic cardiomyopathy is suspected and patient was supposed to have cardiac cath but as the patient is having high risk and our Medical Center is not equipped with Impella, trying to transfer out the patient for further management. Transfer process is started. Trying to transfer to [facility] as patient was previously seen in that hospital Exam Vital Signs Temp Pulse Resp BP Pulse Ox O2 Del Method O2 Flow Rate 96.4 F L 72 19 109/74 95 BiPAP 12 12/22/24 08:00 12/22/24 08:00 12/22/24 08:00 12/22/24 08:00 12/22/24 08:00 12/22/24 08:00 12/22/24 04:00 FiO2 30 12/22/24 08:00 Narrative Exam General: Drowsy. Not responding to verbal commands HEENT: Normocephalic, atraumatic, mucous membranes moist. Heart: Regular rate and rhythm, no murmurs. Lungs: Clear to auscultation with no wheezing or crackles. Abdomen: Soft, nondistended, nontender, positive bowel sounds. ?No guarding or rebound tenderness. Neurologic: No gross neurological deficit, and patient able to move all 4 extremities. Extremities: No edema. Skin: No rash or ecchymoses. Objective Labs 12/22/24 05:07 12/22/24 05:07 Labs: Laboratory Results - last 24 hr 12/21/24 12/21/24 12/22/24 05:12 09:30 05:07 WBC 5.2 RBC 3.88 L Hgb 10.6 L Hct 35.9 L MCV 93 MCH 27.3 MCHC 29.5 L RDW Std Deviation 53.8 H Plt Count 142 Neut % (Auto) 55 Lymph % (Auto) 28 Nash % (Auto) 13 H Eos % (Auto) 4 Baso % (Auto) 1 Neut # (Auto) 2.9 Lymph # (Auto) 1.4 Nash # (Auto) 0.7 Eos # (Auto) 0.2 Baso # (Auto) 0.0 Immature Gran # (Auto) 0.01 H Absolute Nucleated RBC 0.00 Immature Gran % 0 Nucleated RBC % 0 PT 12.9 H INR 1.2 APTT 29.4 Puncture Site Right Radial ABG pH 7.52 H ABG pCO2 41 ABG pO2 73 L ABG HCO3 34 H ABG O2 Saturation 96 ABG Base Excess 10 H Oxygen Liter Flow 10 FiO2 21 Sodium 142 Potassium 3.7 Chloride 97 L Carbon Dioxide 35.1 H Anion Gap 10 BUN 17 Creatinine 0.9 Estim Creat Clear Calc 81.6 eGFR > 60 BUN/Creatinine Ratio 19 Glucose 136 H Calculated Osmolality 286 Calcium 9.6 Corrected Calcium 10.0 Phosphorus 4.4 Total Bilirubin 1.5 H AST 16 ALT 11 Alkaline Phosphatase 69 Total Protein 7.8 Albumin 3.5 Globulin 4.3 H Albumin/Globulin Ratio 0.8 L ABG Interpretation ABG results: 12/16/24 12/17/24 12/17/24 17:14 05:12 06:48 ABG pH 7.41 7.35 7.34 L ABG pCO2 38 47 49 H ABG pO2 49 L* 72 L D 170 H D ABG HCO3 24 26 27 H ABG O2 Saturation 82 L 94 100 H ABG Base Excess 0 0 0 12/21/24 09:30 ABG pH 7.52 H ABG pCO2 41 ABG pO2 73 L ABG HCO3 34 H ABG O2 Saturation 96 ABG Base Excess 10 H Quality Measures Quality Measures none Advance care planning discussed with:: patient and spouse Assessment & Plan Assessment Current Active Medications: Generic Name Dose Route Start Last Admin Trade Name Freq PRN Reason Stop Dose Admin Acetaminophen 650 mg 12/17/24 06:35 12/20/24 17:08 Acetaminophen 325 Mg Tablet PO 01/15/25 17:41 650 mg Q6H PRN Administration Fever >100.3 Acetylcysteine 3 ml 12/19/24 15:00 12/22/24 07:02 Acetylcysteine Rt Liya 10% 4 Ml Nebu INH 01/18/25 14:59 3 ml Q8HRRT SHAZIA Administration Albuterol/Ipratropium 3 ml 12/16/24 22:00 12/22/24 07:02 Albuterol/Ipratropium (Duoneb) Rt Liya 3 Ml Nebu INH 01/15/25 21:59 3 ml Q8HR SHAZIA Administration Aspirin 81 mg 12/19/24 09:00 12/22/24 08:31 Aspirin 81 Mg Chew PO 01/18/25 08:59 Not Given QDAY SHAZIA Atorvastatin Calcium 40 mg 12/16/24 21:00 12/21/24 20:15 Atorvastatin Calcium 20 Mg Tablet PO 01/15/25 20:59 Not Given HS SHAZIA Dextrose 50 ml 12/18/24 16:56 Dextrose 50%-Water Inj 50 Ml Syringe IV 01/17/25 16:55 Q15MIN PRN BG <50 OR BG <70 & pt unresponsive Enoxaparin Sodium 40 mg 12/17/24 09:00 12/22/24 08:47 Enoxaparin Sod Inj 40 Mg/0.4 Ml Syringe SC 12/31/24 08:59 40 mg QDAY SHAZIA Administration Glucagon 1 mg 12/18/24 16:56 Glucagon Inj 1 Mg Vial IM Q15MIN PRN BG <70, and no IV access Guaifenesin 200 mg 12/19/24 17:00 12/22/24 06:28 Guaifenesin Syrup 200 Mg/10 Ml Udc PO 01/18/25 16:59 Not Given QID [facility] Protocol Ampicillin Sodium/Sulbactam 100 mls @ 200 mls/hr 12/17/24 12:00 12/22/24 06:28 Sodium 3 gm/ Sodium Chloride IV 12/24/24 11:59 200 mls/hr Q6HR SHAZIA Administration Insulin Glargine 6 unit 12/20/24 21:00 12/21/24 20:21 Insulin Glargine (Lantus) 5 Unit/0.05 Ml (Per 5 Units) SC 01/19/25 20:59 6 unit HS [facility] Administration Insulin Human Lispro 0 unit 12/20/24 11:30 12/22/24 07:40 Insulin Lispro (Admelog) 1 Unit/0.01 Ml Unit SC 01/19/25 11:29 Not Given ACHS [facility] Protocol Magnesium Hydroxide 30 ml 12/19/24 08:18 Milk Of Magnesia Susp 30 Ml Udc PO 01/18/25 08:17 QDAY PRN [facility]ST[facility] Protocol Melatonin 3 mg 12/21/24 19:00 12/21/24 21:53 Melatonin 3 Mg Tablet PO 01/20/25 18:59 Not Given HS [facility] Ondansetron HCl 4 mg 12/16/24 17:42 12/21/24 20:35 Ondansetron Inj 2 Mg/Ml Inj 2 Ml IVP 01/15/25 17:41 4 mg Q6H PRN Administration NAUSEA OR VOMITING Protocol Pantoprazole Sodium 40 mg 12/21/24 09:00 12/22/24 08:31 Pantoprazole 40 Mg Tablet PO 01/20/25 08:59 Not Given QDAY [facility] Protocol Polyethylene Glycol 17 gm 12/21/24 09:00 12/22/24 08:32 Polyethylene Glycol 17 Gm Packet PO 01/20/25 08:59 Not Given QDAY [facility] Sennosides 1 tab 12/17/24 09:00 12/22/24 08:32 Senna Tablet PO 01/16/25 08:59 Not Given QDAY [facility] Protocol Tamsulosin HCl 0.4 mg 12/17/24 09:00 12/22/24 08:32 Tamsulosin Hcl 0.4 Mg Capsule PO 01/16/25 08:59 Not Given QDAY [facility] Plan A 79-year-old male with significant past medical history of hypertension, diabetes mellitus, asthma, intracranial bleed, using oxygen, 2 L at home as needed, HFrEF presented to the hospital with chief complaints of sudden onset headache followed by generalized weakness on the day of admission. # Acute on chronic decompensated chronic systolic CHF exacerbation [EF 15 - 20%]?resolving - Patient found to have extensive pedal edema, 4+ pitting extending up to knees. Per patient and patient's , it was present since the time of diagnosis from last hospital admission - Home oxygen : 2 L nasal cannula as needed for shortness of breath - Chest x-ray : bilateral moderate vascular congestion - 08/02/2024 LILLIAM: Normal LV size and thickness. Severely reduced LV function, LVEF estimated 25-30%. - NYHA Class III at baseline - Repeat ECHO - Dilated cardiomyopathy. Moderate to severe LV enlargement. Severely reduced LV function with an LVEF of 15 to 20%. Moderate AV thickening with moderate calcification. Moderate AV sclerosis without stenosis based on V max 2.1 m/s. Possibly underestimated due to the low EF and could be mild on moderate . Severe LA dilatation and mild to moderate RA dilatation. IVC dilated with <50% collapse during inspiration. Plan - Daily weights - 2G sodium restricted diet - Continue fluid restriction to 1500 mL - Continue Bumex 1 Mg IV twice daily - Automobile Rental Agent Dr. Lundberg consulted, Appreciated recommendations. Recommended cardiac cath and transfer the patient to higher center for further management - Will keep K >4 and Mg >2 - Will continue to monitor urine output and renal function closely - Bipap as needed and at night time # Acute on chronic hypoxic respiratory failure secondary to aspiration Pneumonia - resolving - Admitted for acute hypoxic respiratory failure due to aspiration while on BiPAP. Intubated 5:30 AM and 12/17 - Started on IV Unasyn every 6 hours - Sputum and blood cultures came back negative Plan - Continue Unasyn 3 g every 6 hours (12/17 - # Syncope , Ground-level mechanical fall # Stroke ruled out - Patient presented to the hospital with chief complaints of sudden onset headache followed by generalized weakness and a fall on the day of admission - Head CT, CTA head/neck did not show any acute pathology - Cervical spine CT and Lumbar spine x-ray: No fracture noted - Teleneurology is consulted and recommended loading dose of aspirin and stroke precautions Plan - Continue aspirin 81 Mg and atorvastatin 40 Mg po HS - Dr Downing is consulted, appreciate recommendations #Likely CHEYANNE/OHS Patient's states that he snores at night and has excessive daytime somnolence especially while eating or watching TV. She bought a secondhand CPAP machine from a medical supply oxygen and uses that at home. However was never formally diagnosed or prescribed a CPAP machine by a medical practitioner. Plan BiPAP/CPAP as needed during the day for naps and at night #T2 IDDM History of type 2 insulin-dependent diabetes. Hb A1C 6.5% Plan - Continue normal insulin sliding scale with Accu-Checks and started on insulin glargine 6 units subcutaneous at bedtime - Hypoglycemia protocol in place Hospital Maintenance: Dispo: Tele DVT ppx: Enoxaparin GI ppx: Pantoprazole Diet: Cardiac, pureed IV lines: Peripheral Code status: Full Patient plan of care was discussed with the attending physician, Dr. Lewis and senior resident Dr. Nash Vigil, PGY1
[2024-12-22 09:33] LABS: Base Excess 12 (-3-3); HCO3 38 mEq/L (20-26); Inspired Oxygen, FIO2 30 %; O2 Saturation 96 % (91-98); PCO2 59 mmHg (32.0-48.0); PO2 75 mmHg (83-108); pH, Arterial 7.42 (7.35-7.45)
[2024-12-22 09:35] LABS: Allen Test Not Performed; Puncture Site Site Not Noted
--- NOTE | 2024-12-22 13:35 | PC.NURSE ---
Patient's refused swallow eval screen. She fed patient without informing staff and stated pt did not need swallow eval. Patient coughing and spitting food up, but VS are stable. refuses to adhere to doctor's orders. Informed Dr. Cao about concerns, no new orders received.
[2024-12-22 13:40] LABS: Lactate (Lactic Acid) 1.3 mMol/L (0.4-2.0)
[2024-12-22] MEDS: METOPROLOL SUCCINATE XL 25 MG TABCR 12.5 MG PO (14:10)
[2024-12-22] MEDS: DAPAGLIFLOZIN PROPANEDIOL 5 MG TABLET PO (14:10)
--- NOTE | 2024-12-22 14:33 | PC.SS ---
Rounding note: MRI is pending.
[2024-12-22] MEDS: ACETAMINOPHEN 325 MG TABLET 650 MG PO (18:11)
--- NOTE | 2024-12-22 19:53 | PC.CM ---
1630 I received a call back from patient's insurace and I was transfer to a [facility] at ext [phone]. I left a detailed message asking for a call back and I let them know we were trying to transfer patient to [facility] in [place]. Packet started and I left packet on transfer nurse desk. 1500 I received a call from Transfer center nurse and states they received the referral on patient but she asked that I contact the insurance to get authorization.I reviewed patient's paperwork and I see patient has [employer]. I called [employer] at [phone]. I left a message for a call back. [phone] I received a referral to transfer patient to [facility] for higher level cardiac care. I faxed information to [facility]. As per our doctor patient has been at their facility in the past. Dr. Bledsoe saw patient and he was the one wanting patient transferred for an Impella guided PCI.
--- NOTE | 2024-12-22 21:07 | ESDS_ITS ---
<Statement entered by Erik Lewis MD - 12/25/24 16:12> I Erik Lewis MD reviewed the note and agree with the resident's assessment & plan with exceptions as below. I have personally reviewed labs, imaging, home meds/prior records, examined the patient, formulated and discussed management plan with the IM team. A 79-year-old male with extensive medical history including HTN, DM, HFrEF with EF 20% presented to ED with syncope and acute hypoxemic hypercapnic respiratory failure requiring BiPAP therapy, patient developed aspiration pneumonia while on BiPAP therapy further complicating respiratory failure. Patient appears clinically volume overloaded, will start on IV diuresis (Bumex 1 twice daily) with target net fluid balance -1-2 L/day, will start on metoprolol 12.5 mg twice daily, Jardiance 10 mg daily, if SBP remains stable will also start on losartan [address] head followed by MRI brain to evaluate for potential etiology of syncope. Will continue Unasyn for the management of aspiration pneumonia. Patient had significant drop in his EF since July 2024 indicating a potential ischemic etiology. Cardiology is on board, plan for cardiac catheterization. Planned Discharge Date 12/22/24 DS: Providers Provider Date of admission: 12/16/24 17:42 Primary care physician: Bao Stephens MD Admitting Provider: Mulu Cadet DO Attending Provider on Admission: Erik Lewis MD Consults: 12/16/24 13:43 Consult to Neurology / Tele-Neurology Routine Comment: Consulting Provider: [facility] 12/16/24 18:22 Consult to Cardiology Routine Comment: CHF Consulting Provider: Rakan Lnudberg 12/16/24 18:25 Consult to Neurology / Tele-Neurology Routine Comment: Consulting Provider: Dariusz Downing 12/18/24 11:06 Referral Speech Therapy Routine Comment: 12/22/24 13:29 Referral - Overhead Foreman Routine Service Needed for Transfer: Cardiovascular/Thoracic Surg Addl Comments:: Impella guided PCI Attending Provider on DC: Lance Vigil MD Discharging Provider: Lance Vigil MD DS: Diagnosis Problem List Completed Was Problem List Reviewed/Reconciled?: Yes Hospital Course Hospital Course Hospital course: .A 79-year-old male with significant past medical history of hypertension, diabetes mellitus, asthma, ICH, using oxygen, 2 L at home as needed, HFrEF presented to the hospital with chief complaints of sudden onset headache followed by generalized weakness on the day of admission and admitted for syncope-like episode and acute on chronic decompensated heart failure Hospital course: Vitals at the time of admission are significant for SpO2 90% with 2 L oxygen through nasal cannula. Labs are significant for hemoglobin 10.5, potassium 3.1, chloride 108, glucose 128, bilirubin 1.3. Urinalysis is unremarkable and urine tested positive for opioids. Cervical spine CT showed no acute cervical fracture, moderate degenerative disc disease C5-C6. Chest x-ray showed bilateral moderate vascular congestion. Head CT is negative for acute hemorrhage, mass effect or midline shift. Head CT/neck CTA is negative for large vessel occlusi on. EKG showed sinus rhythm with no ST-T wave changes. Lumbar spine x-ray showed no acute lumbar fracture. On the night of admission, 12/17/2024, patient became hypoxic after he was found to have mask and as patient was minimally responsive and lethargic at the time patient was intubated and upgraded to ICU for further management. Patient was treated with Unasyn, diuretics and mechanical ventilation. Fire Alarm Dispatcher, Dr. Lundberg was consulted for heart failure and appreciated his recommendation during the hospital stay. Later on 12/18/2024, patient was extubated to facemask and patient was kept in ICU till 12/19/2024 for further observation. Later patient was downgraded to telemetry for further management on 12/19/2024. Patient was diuresed and kept on BiPAP/CPAP at bedtime and as needed on telemetry. Cardiac echo was done on 12/20/2024 that showed that showed EF of 15 to 20% with severe LA dilatation and moderate to severe LV enlargement. Echo done in 07/2024 showed EF of 25 to 30%. As the patient had decline in half of his ejection fraction over 4 months, ischemic heart disease is suspected and warehouse receiving clerk recommended cardiac catheterization. In the setting of multiple comorbidities and low EF, 15 to 20%, warehouse receiving clerk recommended to transfer patient to higher center as our hospital is not equipped with Impella which might be needed during his cardiac cath in view of high risk. Transfer process was started on 12/22/2024. Trying to transfer to [facility] as patient was previously seen in that center. Time Spent with Patient Time attestation: Total time spent providing and/or coordinating discharge services: Time spent: Greater than 30 minutes Quality: Stroke Pt Provided Written Stroke Discharge Instructions: No (STROKE S/S) Exam Vital Signs Temp Pulse Resp BP Pulse Ox O2 Del Method O2 Flow Rate 96.8 F 81 15 89/65 L 98 BiPAP 4 12/22/24 20:00 12/22/24 20:00 12/22/24 20:00 12/22/24 20:00 12/22/24 20:00 12/22/24 20:00 12/22/24 20:00 FiO2 30 12/22/24 20:00 Discharge Plan Prescriptions/Referrals Prescriptions/Med Rec: No Action ropinirole 1 mg tablet 1 mg PO .COMPLEX Patient Comments: HS Rx Instructions: 1 mg orally 1-3 hours before bedtime; tamsulosin 0.4 mg capsule 0.4 mg PO Q24H simvastatin 20 mg tablet 20 mg PO QDAY Patient Comments: HS finasteride 5 mg tablet 5 mg PO QDAY Patient Comments: TAKE 1 TABLET BY MOUTH EVERY DAY FOR 30 DAYS dapagliflozin propanediol 5 mg Tablet 5 mg PO QAM Qty: 30 0RF furosemide 40 mg tablet 40 mg PO QDAY Patient Comments: 40 MG ORALLY DAILY FOR 30 DAYS sucralfate 1 gram tablet 1 g PO Q12H Patient Comments: TAKE 1 TABLET BY MOUTH TWICE A DAY ON EMPTY STOMACH metoprolol succinate 25 mg tablet extended release 24 hr 25 mg PO QDAY Patient Comments: TAKE 1 TABLET BY MOUTH EVERY DAY Referrals: Bao Stephens MD [Primary Care Provider] - Patient/Caregiver Discharge Instructions Print Language: Eritrean Quality Discharge Quality Measures VTE prophylaxis
[2024-12-22] MEDS: guaiFENesin SYRUP 200 MG/10 ML UDC PO (21:23)
[2024-12-22] MEDS: ATORVASTATIN CALCIUM 20 MG TABLET 40 MG PO (21:23)
[2024-12-22] MEDS: BUMETANIDE INJ 0.25 MG/ML VIAL 4 ML 1 MG IVP (21:23)
[2024-12-22] MEDS: MELATONIN 3 MG TABLET PO (21:24)
[2024-12-22] MEDS: INSULIN LISPRO (AdmeLOG) 1 UNIT/0.01 ML UNIT SC (21:24)
[2024-12-22] MEDS: INSULIN GLARGINE (Lantus) 5 UNIT/0.05 ML (PER 5 UNITS) 6 UNIT SC (21:24)
--- NOTE | 2024-12-22 22:53 | PD.IMPROG ---
Documentation for date of: 12/22/24 Subjective Subjective Interval history: Patient seen and examined at the bedside. Patient was difficult to arouse as per the primary team and was significantly altered patient had an ABG done which showed a PCO2 of 59 and a PO2 of 75 and patient was again started on BiPAP. Patient now has acute hypoxic as well as hypercapnic respiratory failure. Unable to follow any commands. Patient overall hemodynamically stable and has been diuresing well with Bumex 1 mg IV twice daily Renal function appears to be stable. Plan was for her to perform a left and right heart cardiac catheterization for the patient to continue with his ischemic workup as well as his CHF. Unfortunately patient has been confused since yesterday and his respiratory status has not been stable and is unable to lie down flat on the bed. Patient possibly has CAD with multivessel disease given his worsening EF and recent positive stress test and less likely nonischemic cardiomyopathy. Given his severely low ejection fraction patient will also need complex PCI with stent by Impella given his low ejection fraction of 15%. This institution does not have Impella or other MCS available to perform the complex PCI and it would be appropriate to transfer the patient to a higher level of care. Also patient does have a history of hemorrhagic CVA with procedures performed at [facility] previously and we are unable to obtain any records until now. Continue with heparin drip along with IV diuresis for now along with BiPAP Discussed with the and also requested for higher level of care and she has requested for [facility] as he was previously admitted there in April 2024. Exam Vital Signs Temp Pulse Resp BP Pulse Ox O2 Del Method O2 Flow Rate 96.8 F 89 24 H 96/62 98 BiPAP 30 12/22/24 20:00 12/22/24 22:39 12/22/24 22:39 12/22/24 21:23 12/22/24 22:39 12/22/24 20:00 12/22/24 22:39 FiO2 30 12/22/24 22:39 Objective Labs 12/23/24 05:31 12/23/24 05:31 Labs: Laboratory Results - last 24 hr 12/22/24 12/22/24 12/22/24 05:07 09:06 13:19 WBC 5.2 RBC 3.88 L Hgb 10.6 L Hct 35.9 L MCV 93 MCH 27.3 MCHC 29.5 L RDW Std Deviation 53.8 H Plt Count 142 Neut % (Auto) 55 Lymph % (Auto) 28 [place] % (Auto) 13 H Eos % (Auto) 4 Baso % (Auto) 1 Neut # (Auto) 2.9 Lymph # (Auto) 1.4 [place] # (Auto) 0.7 Eos # (Auto) 0.2 Baso # (Auto) 0.0 Immature Gran # (Auto) 0.01 H Absolute Nucleated RBC 0.00 Immature Gran % 0 Nucleated RBC % 0 Puncture Site Site Not Noted ABG pH 7.42 D ABG pCO2 59 H D ABG pO2 75 L ABG HCO3 38 H ABG O2 Saturation 96 ABG Base Excess 12 H FiO2 30 Sodium 142 Potassium 3.7 Chloride 97 L Carbon Dioxide 35.1 H Anion Gap 10 BUN 17 Creatinine 0.9 Estim Creat Clear Calc 81.6 eGFR > 60 BUN/Creatinine Ratio 19 Glucose 136 H Calculated Osmolality 286 Lactic Acid 1.3 Calcium 9.6 Corrected Calcium 10.0 Phosphorus 4.4 Total Bilirubin 1.5 H AST 16 ALT 11 Alkaline Phosphatase 69 Total Protein 7.8 Albumin 3.5 Globulin 4.3 H Albumin/Globulin Ratio 0.8 L ABG Interpretation ABG results: 12/16/24 12/17/24 12/17/24 17:14 05:12 06:48 ABG pH 7.41 7.35 7.34 L ABG pCO2 38 47 49 H ABG pO2 49 L* 72 L D 170 H D ABG HCO3 24 26 27 H ABG O2 Saturation 82 L 94 100 H ABG Base Excess 0 0 0 12/21/24 12/22/24 09:30 09:06 ABG pH 7.52 H 7.42 D ABG pCO2 41 59 H D ABG pO2 73 L 75 L ABG HCO3 34 H 38 H ABG O2 Saturation 96 96 ABG Base Excess 10 H 12 H Assessment & Plan A&P Narrative A 79-year-old male patient with a past medical history of severe systolic congestive heart failure with an EF of 25 to 30%, old left bundle branch block, 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 Initial workup did show that the patient was hypoxic with saturation of 90% on 2 L nasal cannula. Labs showed only mildly elevated troponins at 0.05 and previous was 0.06 during last admission. EKG showed normal sinus rhythm with left bundle branch block and no acute ST-T changes history of ischemia. Chest x-ray with moderate vascular congestion. Head CT, CTA head and neck was negative. Cervical spine CT showed degenerative disc disease. UA was negative. Labs showed mild anemia at 10.5, WBC normal at 7.3 and platelets of 127. Potassium was low at 3.2 BUN of 11 creatinine of 1.0 and glucose of 167. After admission patient did continue to be hypoxic and had a vomitus when he was placed on the BiPAP mask because of his acute hypoxic respiratory failure. There was possible aspiration pneumonia and patient continued to desaturate and he was intubated and started on mechanical ventilation and transferred to the ICU. Normal IV antibiotics for the pneumonia. Patient also fluid overloaded and was started on diuresis. Assessment and plan: 1. Acute hypoxic respiratory failure on mechanical ventilation mostly secondary to aspiration pneumonia as well as CHF exacerbation 2. Altered mental status with headaches, generalized weakness-ruled out stroke 3. Fall secondary to the weakness 4. Acute on chronic severe systolic congestive heart failure with an last known EF of 25 to 30% in July 2023 5. Left bundle branch block 6. History of CVA secondary to intraventricular hemorrhage after fall in February 2024 treated at [facility] 7. Morbid obesity 8. Essential hypertension . Diabetes mellitus type 2 10. Chronic anemia 11. Hyperlipidemia 12. Obstructive sleep apnea on CPAP 13. BPH 14. Restless leg syndrome Patient known to me from the previous hospitalization in July 2024 when he was initially diagnosed with severe systolic CHF with an EF of 25 to 30%. Patient was in CHF exacerbation along with pneumonia and acute hypoxic respiratory failure which was aggressively treated and was discharged home on 08/05/2024. Patient did follow-up with me in clinic on 08/08/2024 and was recommended a nuclear stress test given his new systolic congestive heart failure which was completed on 08/16/2024. Lexiscan stress test did show evidence of stress-induced ischemia in the apical as well as mid to apical anterior segments. LVEF was also low at 32%. Patient was recommended left heart cardiac catheterization but never followed up with the office and was adamant that his heart's was in good condition and does not need any further procedures. Patient presented with headache, generalized weakness as well as a fall. CTA head and neck, head CT were negative for any acute stroke. Neurology is following. Fall appears to be mechanical in review of the chart shows that there was no evidence of any syncope or loss of consciousness on admission. Patient could not get up because of the weakness but was awake alert. Acute hypoxic respiratory failure and on mechanical ventilation at the present point of time mostly secondary to the aspiration pneumonia and started on IV antibiotics by the critical care team which will be continued. Also patient does have CHF exacerbation and recommend to continue the diuresis for the same. Acute on chronic severe systolic congestive heart failure exacerbation. Echo from July 2024 showed Normal left ventricular size, wall thickness. Severely reduced LV function LVEF estimated at 25-30 %. RV is normal in size and systolic function. Could not estimate RVSP as TR not visualiozed well. Moderate AV thickening with mild calcification. AV sclerosis without stenosis. V max 2.1 m/s. Possibly underestimated due to low EF. MIld thickening and clacification of mitral leafts too. Mild to moderate MR. Mild LA dilataion. IVC dilated but with > 50% collapse. Echo - 12/20/24 - Dilated cardiomyopathy. Moderate to severe LV enlargement. Severely reduced LV function with an LVEF of 15 to 20%. Mildly dilated RV with normal systolic function. Could not estimate RVSP as TR not visualiozed well. Moderate AV thickening with moderate calcification. Moderate AV sclerosis without stenosis based on V max 2.1 m/s. Possibly underestimated due to the low EF and could be mild on moderate . Trace AI. MIld thickening and clacification of mitral leafts too. Mild to moderate MR. Trace to mild TR. Severe LA dilatation and mild to moderate RA dilatation. IVC dilated with <50% collapse during inspiration. No pericardial effusion. Left pleural effusion noted. Recommend to continue aggressive diuresis with Lasix 40 mg IV twice daily for now. Strict input output Daily weights and 2 g sodium diet. Fluid restriction to 15 mL/day. [place] potassium greater than 4 and magnesium greater than 2.0 at all times. Will continue to monitor renal function closely and the BUN/creatinine normal now. His systolic congestive heart failure etiology was not determined hence was seen in the clinic as noted above and had an NST which did show evidence of stress-induced ischemia with decreased uptake in the apical as well as mid to apical anterior segments. Patient was recommended left heart cardiac catheterization. Did not follow-up with any appointments as outpatient in spite of multiple calls from my office, felt that his heart was in good condition. Discussed in detail with the and patient apparently had procedure through his groin at [facility] in February 2024 and was apparently normal. Patient not sure if the patient had a carotid angiogram or intervention of the intraventricular hemorrhage which he had at that point of time or he had a cardiac catheterization. wanted us to wait for the operative reports from the outside hospital. Recommend primary team to obtain all operative reports from his previous hospitalization in February 2024 from [facility] and to find out if the patient had any cardiac catheterization procedure. Troponins only minimally elevated at 0.05. EKG also did not show any acute ST-T changes history of active ischemia. Patient did not have any complaints of chest pain or chest pressure prior to the admission. Patient will benefit from left and right heart cardiac catheterization once he is hemodynamically stable after active treatment of the aspiration pneumonia as well as CHF exacerbation. 12/22/2024: Patient was difficult to arouse as per the primary team and was significantly altered patient had an ABG done which showed a PCO2 of 59 and a PO2 of 75 and patient was again started on BiPAP. Patient now has acute hypoxic as well as hypercapnic respiratory failure. Unable to follow any commands. Patient overall hemodynamically stable and has been diuresing well with Bumex 1 mg IV twice daily Renal function appears to be stable. Plan was for her to perform a left and right heart cardiac catheterization for the patient to continue with his ischemic workup as well as his CHF. Unfortunately patient has been confused since yesterday and his respiratory status has not been stable and is unable to lie down flat on the bed. Patient possibly has CAD with multivessel disease given his worsening EF and recent positive stress test and less likely nonischemic cardiomyopathy. Given his severely low ejection fraction patient will also need complex PCI with stent by [facility] given his low ejection fraction of 15%. This institution does not have Impella or other MCS available to perform the complex PCI and it would be appropriate to transfer the patient to a higher level of care. Also patient does have a history of hemorrhagic CVA with procedures performed at [facility] previously and we are unable to obtain any records until now. Continue with heparin drip along with IV diuresis for now along with BiPAP Discussed with the and also requested for higher level of care and she has requested for [facility] as he was previously admitted there in April 2024. Management of rest of the medical conditions as per primary team and other consultants. Thank you for the consult and allowing me to participate in the care of the patient. Cardiology will continue to follow. Rakan Lundberg M.D. Interventional Cardiology Time Spent With Patient Time: Total time spent is greater than 50% in coordination of care (as documented) at patient's floor/unit and/or counseling patient:
--- NOTE | 2024-12-22 22:54 | PD.NEUROPROG ---
Documentation for date of: 12/22/24 Subjective Subjective Interval history: Seen in telemetry today with his at the bedside, with one on one supervision. Intermittently confused. Exam - Neurology Vital Signs Temp Pulse Resp BP Pulse Ox O2 Del Method O2 Flow Rate 96.8 F 89 24 H 96/62 98 BiPAP 30 12/22/24 20:00 12/22/24 22:39 12/22/24 22:39 12/22/24 21:23 12/22/24 22:39 12/22/24 20:00 12/22/24 22:39 FiO2 30 12/22/24 22:39 Narrative Exam GENERAL APPEARANCE: Well hydrated, well-nourished male in NAD HEENT: Normocephalic, atraumatic, extraocular movements intact. Pupils: Equal reacting to light. NECK: Supple, no JVD or bruits. CARDIOVASULAR: Heart: S1, S2 heard, regular without S3-S4 or murmur no rubs or gallops. LUNGS/CHEST: Clear to auscultation bilaterally. No rails, rhonchi, or wheezing. Normal inspection. ABDOMEN: Soft, nontender, with normal bowel sounds. No pulsatile masses. No rebound, rigidity, or guarding. Normal inspection and palpation. EXTREMITIES: Normal inspection and palpation. No edema, clubbing or cyanosis. SKIN: Warm and dry without rashes. Normal inspection. MUSCULOSKELETAL: No cervical , thoracic, lumbar or midline bony tenderness. Normal inspection. NEURO: aao2, speech and lang: normal no focal deficit noted. No signs of meningeal irritation noted. PSYCHIATRIC: Normal mood and affect. Objective Labs 12/22/24 05:07 12/22/24 05:07 Labs: Laboratory Results - last 24 hr 12/22/24 12/22/24 12/22/24 05:07 09:06 13:19 WBC 5.2 RBC 3.88 L Hgb 10.6 L Hct 35.9 L MCV 93 MCH 27.3 MCHC 29.5 L RDW Std Deviation 53.8 H Plt Count 142 Neut % (Auto) 55 Lymph % (Auto) 28 [place] % (Auto) 13 H Eos % (Auto) 4 Baso % (Auto) 1 Neut # (Auto) 2.9 Lymph # (Auto) 1.4 [place] # (Auto) 0.7 Eos # (Auto) 0.2 Baso # (Auto) 0.0 Immature Gran # (Auto) 0.01 H Absolute Nucleated RBC 0.00 Immature Gran % 0 Nucleated RBC % 0 Puncture Site Site Not Noted ABG pH 7.42 D ABG pCO2 59 H D ABG pO2 75 L ABG HCO3 38 H ABG O2 Saturation 96 ABG Base Excess 12 H FiO2 30 Sodium 142 Potassium 3.7 Chloride 97 L Carbon Dioxide 35.1 H Anion Gap 10 BUN 17 Creatinine 0.9 Estim Creat Clear Calc 81.6 eGFR > 60 BUN/Creatinine Ratio 19 Glucose 136 H Calculated Osmolality 286 Lactic Acid 1.3 Calcium 9.6 Corrected Calcium 10.0 Phosphorus 4.4 Total Bilirubin 1.5 H AST 16 ALT 11 Alkaline Phosphatase 69 Total Protein 7.8 Albumin 3.5 Globulin 4.3 H Albumin/Globulin Ratio 0.8 L ABG Interpretation ABG results: 12/16/24 12/17/24 12/17/24 17:14 05:12 06:48 ABG pH 7.41 7.35 7.34 L ABG pCO2 38 47 49 H ABG pO2 49 L* 72 L D 170 H D ABG HCO3 24 26 27 H ABG O2 Saturation 82 L 94 100 H ABG Base Excess 0 0 0 12/21/24 12/22/24 09:30 09:06 ABG pH 7.52 H 7.42 D ABG pCO2 41 59 H D ABG pO2 73 L 75 L ABG HCO3 34 H 38 H ABG O2 Saturation 96 96 ABG Base Excess 10 H 12 H Assessment & Plan Assessment and plan (1) Stroke-like symptom: Status: Acute Assessment and plan: no focal deficit on exam fu with MRI brain and EEG PT eval. when stable. (2) Sleep apnea in adult: Status: Chronic (3) Community acquired pneumonia: Status: Acute Assessment and plan: on IV antibiotics and bronchodilators
[2024-12-23] VITALS (15 sets, daily range): BP systolic 91–121; BP diastolic 64–81; PULSE 71–87; RESP 12–20; TEMP 36.1–36.9; O2SAT 90–100; BMI 30.8
[2024-12-23] MEDS: AMPICILLIN/SULBAC INJ 3 GM in SODIUM CHLORIDE 0.9% (POP) 100 ML IV ×4 (00:30→17:39)
[2024-12-23] MEDS: guaiFENesin SYRUP 200 MG/10 ML UDC PO ×4 (05:51→21:01)
--- NOTE | 2024-12-23 06:19 | EKG_ITS ---
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
[2024-12-23 06:24] LABS: Basophils # (Auto) 0.0 Thou/mm3 (0.0-0.2); Basophils % (Auto) 1 % (0-2.5); Eosinophils # (Auto) 0.2 Thou/mm3 (0.0-0.5); Eosinophils % (Auto) 3 % (0-10); Hematocrit 33.2 % (41.0-53.0); Hemoglobin 9.9 g/dL (13.5-16.0); Immature Granulocytes Auto 0.02 Thou/mm3 (0.00-0.00); Lymphocytes # (Auto) 1.6 Thou/mm3 (1.0-4.8); Lymphocytes % (Auto) 30 % (10-50); Mean Corpuscular HGB Conc 29.8 g/dl (31.0-37.0); Mean Corpuscular Hemoglobin 27.7 pg (25.0-35.0); Mean Corpuscular Volume 93 fL (80-100); Monocytes # (Auto) 0.6 Thou/mm3 (0.0-0.8); Monocytes % (Auto) 11 % (0-12); Neutrophils # (Auto) 2.9 Thou/mm3 (1.8-7.7); Neutrophils % (Auto) 55 % (37-80); Nucleated Red Blood Cell # 0.00 Thou/mm3 (0.00-0.00); Nucleated Red Blood Cell % 0 /100 WBC (0); Platelet Count 123 Thou/mm3 (140-440); RDW Standard Deviation 53.8 fL (35.1-43.9); Red Blood Count 3.58 Miln/mm3 (4.50-5.90); White Blood Count 5.2 Thou/mm3 (3.8-10.6)
[2024-12-23] MEDS: ACETYLCYSTEINE RT SOL 10% 4 ML NEBU 3 ML INH (06:32)
[2024-12-23] MEDS: ALBUTEROL/IPRATROPIUM (Duoneb) RT SOL 3 ML NEBU INH (06:32)
[2024-12-23 06:42] LABS: Alanine Aminotransferase 13 U/L (10-49); Albumin, Serum 3.3 gm/dL (3.4-4.8); Albumin/Globulin Ratio 0.8 (1.2-2.2); Alkaline Phosphatase 73 U/L (46-116); Anion Gap 6 (7-16); Aspartate Amino Transferase 21 U/L (0-34); BUN/Creatinine Ratio 19 Ratio (12-20); Bilirubin,Total 1.2 mg/dL (0.3-1.2); Blood Urea Nitrogen 19 mg/dL (9-23); Calcium 8.8 mg/dL (8.3-10.6); Calcium (Corrected) 9.4 mg/dL (8.5-10.1); Carbon Dioxide 36.0 mMol/L (20.0-31.0); Chloride 98 mMol/L (98-107); Creatinine (Component) 1.0 mg/dL (0.6-1.3); Estimated Creatinine Clearance 72.1 mL/min (>60); Globulin 4.4 gm/dL (2.3-3.5); Glucose 116 mg/dL (74-106); Magnesium 2.3 mg/dL (1.6-2.6); Osmolality,Calculated 282 (275-295); Phosphorous 3.8 mg/dL (2.4-5.1); Potassium 3.6 mMol/L (3.4-5.1); Sodium 140 mMol/L (136-145); Total Protein 7.7 gm/dL (5.7-8.2); eGFR > 60 See Note
[2024-12-23] MEDS: POLYETHYLENE GLYCOL 17 GM PACKET PO (08:29)
[2024-12-23] MEDS: DAPAGLIFLOZIN PROPANEDIOL 5 MG TABLET PO (08:30)
[2024-12-23] MEDS: TAMSULOSIN HCL 0.4 MG CAPSULE PO (08:30)
[2024-12-23] MEDS: PANTOPRAZOLE 40 MG TABLET PO (08:30)
--- NOTE | 2024-12-23 08:30 | PC.CC ---
08 called [employer] at [phone] in order to get insurance auth for transfer, got automated recording to call back during business hours Wednesday to Wednesday 0800 am to 5pm.
[2024-12-23] MEDS: BUMETANIDE INJ 0.25 MG/ML VIAL 4 ML 1 MG IVP ×2 (10:02→22:15)
[2024-12-23] MEDS: INSULIN LISPRO (AdmeLOG) 1 UNIT/0.01 ML UNIT SC ×2 (12:36→21:08)
--- NOTE | 2024-12-23 15:32 | ESPR_ITS ---
<Statement entered by Erik Lewis MD - 12/25/24 16:17> I Erik Lewis MD reviewed the note and agree with the resident's assessment & plan with exceptions as below. I have personally reviewed labs, imaging, home meds/prior records, examined the patient, formulated and discussed management plan with the IM team. A 79-year-old male with extensive medical history including HTN, DM, HFrEF with EF 20% presented to ED with syncope and acute hypoxemic hypercapnic respiratory failure requiring BiPAP therapy, patient developed aspiration pneumonia while on BiPAP therapy further complicating respiratory failure. Patient developed hemoptysis on BiPAP therapy overnight which is likely related to multiple factors including positive pressure ventilation, pulmonary edema, aspiration pneumonia, DVT prophylaxis. Discontinue aspirin and Lovenox, will use IPC's for DVT prophylaxis. Appears clinically volume overloaded, poor diuresis overnight continue on IV Bumex 1 mg twice daily, will add Diamox 250 mg x 1 with target net fluid balance -1-2 L/day, continue metoprolol 12.5 mg twice daily, Jardiance 10 mg daily, hold losartan due to borderline blood pressure. Will start on inhaled tranexamic acid for hemoptysis, will hold on BiPAP use for now. Obtain CT head followed by MRI brain to evaluate for potential etiology of syncope. Will continue Unasyn for the management of aspiration pneumonia. Patient had significant drop in his EF since July 2024 indicating a potential ischemic etiology. Cardiology is on board, plan for cardiac catheterization. Documentation for date of: 12/23/24 Subjective Subjective Interval history: Patient is seen and examined at bedside No acute overnight events. Patient is complaining of coughing up of blood since last night Otherwise patient is doing well. Vitals are stable and patient is saturating around 96 to 97% on oxygen through nasal cannula 3 L/min Labs done today showed mild decrease in hemoglobin, 9.9, bicarb 36 Patient was given a single dose of Diamox 250 mg to prevent compensatory CO2 retention Will repeat H&H at 4 PM and transfuse if needed Aspirin, prophylactic enoxaparin is held for now in view of hemoptysis Will hold BiPAP for tonight in view of hemoptysis Exam Vital Signs Temp Pulse Resp BP Pulse Ox O2 Del Method O2 Flow Rate 97.3 F 87 16 116/70 94 L Nasal Cannula 3 12/23/24 12:00 12/23/24 14:11 12/23/24 14:11 12/23/24 12:00 12/23/24 14:11 12/23/24 12:00 12/23/24 14:11 FiO2 30 12/23/24 12:00 Narrative Exam General: Awake. HEENT: Normocephalic, atraumatic, mucous membranes moist. Heart: Regular rate and rhythm, no murmurs. Lungs: Bilateral fine inspiratory crackles heard in the basilar areas. Abdomen: Soft, nondistended, nontender, positive bowel sounds. ?No guarding or rebound tenderness. Neurologic: Alert and oriented x3, no gross neurological deficit, and patient able to move all 4 extremities. Extremities: No edema. Skin: No rash or ecchymoses. Objective Labs 12/23/24 05:31 12/23/24 05:31 Labs: Laboratory Results - last 24 hr 12/23/24 05:31 WBC 5.2 RBC 3.58 L Hgb 9.9 L Hct 33.2 L MCV 93 MCH 27.7 MCHC 29.8 L RDW Std Deviation 53.8 H Plt Count 123 L Neut % (Auto) 55 Lymph % (Auto) 30 Peach % (Auto) 11 Eos % (Auto) 3 Baso % (Auto) 1 Neut # (Auto) 2.9 Lymph # (Auto) 1.6 Peach # (Auto) 0.6 Eos # (Auto) 0.2 Baso # (Auto) 0.0 Immature Gran # (Auto) 0.02 H Absolute Nucleated RBC 0.00 Immature Gran % 0 Nucleated RBC % 0 Sodium 140 Potassium 3.6 Chloride 98 Carbon Dioxide 36.0 H Anion Gap 6 L BUN 19 Creatinine 1.0 Estim Creat Clear Calc 72.1 eGFR > 60 BUN/Creatinine Ratio 19 Glucose 116 H Calculated Osmolality 282 Calcium 8.8 Corrected Calcium 9.4 Phosphorus 3.8 Magnesium 2.3 Total Bilirubin 1.2 AST 21 ALT 13 Alkaline Phosphatase 73 Total Protein 7.7 Albumin 3.3 L Globulin 4.4 H Albumin/Globulin Ratio 0.8 L ABG Interpretation ABG results: 12/16/24 12/17/24 12/17/24 17:14 05:12 06:48 ABG pH 7.41 7.35 7.34 L ABG pCO2 38 47 49 H ABG pO2 49 L* 72 L D 170 H D ABG HCO3 24 26 27 H ABG O2 Saturation 82 L 94 100 H ABG Base Excess 0 0 0 12/21/24 12/22/24 09:30 09:06 ABG pH 7.52 H 7.42 D ABG pCO2 41 59 H D ABG pO2 73 L 75 L ABG HCO3 34 H 38 H ABG O2 Saturation 96 96 ABG Base Excess 10 H 12 H Quality Measures Quality Measures VTE prophylaxis Advance care planning discussed with:: patient and spouse Assessment & Plan Assessment Current Active Medications: Generic Name Dose Route Start Last Admin Trade Name Freq PRN Reason Stop Dose Admin Acetaminophen 650 mg 12/17/24 06:35 12/22/24 18:11 Acetaminophen 325 Mg Tablet PO 01/15/25 17:41 650 mg Q6H PRN Administration Fever >100.3 Atorvastatin Calcium 40 mg 12/16/24 21:00 12/22/24 21:23 Atorvastatin Calcium 20 Mg Tablet PO 01/15/25 20:59 40 mg HS SHAZIA Administration Bumetanide 1 mg 12/22/24 21:00 12/23/24 10:02 Bumetanide Inj 0.25 Mg/Ml Vial 4 Ml IVP 01/21/25 20:59 1 mg BID SHAZIA Administration Dapagliflozin 5 mg 12/22/24 12:45 12/23/24 08:30 Dapagliflozin Propanediol 5 Mg Tablet PO 01/21/25 12:44 5 mg QAM SHAZIA Administration Dextrose 50 ml 12/18/24 16:56 Dextrose 50%-Water Inj 50 Ml Syringe IV 01/17/25 16:55 Q15MIN PRN BG <50 OR BG <70 & pt unresponsive Enoxaparin Sodium 40 mg 12/17/24 09:00 12/23/24 09:46 Enoxaparin Sod Inj 40 Mg/0.4 Ml Syringe SC 12/31/24 08:59 Not Given QDAY SHAIZA Glucagon 1 mg 12/18/24 16:56 Glucagon Inj 1 Mg Vial IM Q15MIN PRN BG <70, and no IV access Guaifenesin 200 mg 12/19/24 17:00 12/23/24 12:34 Guaifenesin Syrup 200 Mg/10 Ml Udc PO 01/18/25 16:59 200 mg QID SHAZIA Administration Protocol Ampicillin Sodium/Sulbactam 100 mls @ 200 mls/hr 12/17/24 12:00 12/23/24 12:35 Sodium 3 gm/ Sodium Chloride IV 12/24/24 11:59 200 mls/hr Q6HR SHAZIA Administration Insulin Glargine 6 unit 12/20/24 21:00 12/22/24 21:24 Insulin Glargine (Lantus) 5 Unit/0.05 Ml (Per 5 Units) SC 01/19/25 20:59 6 unit HS SHAZIA Administration Insulin Human Lispro 0 unit 12/20/24 11:30 12/23/24 12:36 Insulin Lispro (Admelog) 1 Unit/0.01 Ml Unit SC 01/19/25 11:29 1 unit ACHS SHAZIA Administration Protocol Magnesium Hydroxide 30 ml 12/19/24 08:18 Milk Of Magnesia Susp 30 Ml Udc PO 01/18/25 08:17 QDAY PRN CONSTIPATION Protocol Melatonin 3 mg 12/21/24 19:00 12/22/24 21:24 Melatonin 3 Mg Tablet PO 01/20/25 18:59 3 mg HS SHAZIA Administration Metoprolol Succinate 12.5 mg 12/22/24 12:45 12/23/24 09:47 Metoprolol Succinate Xl 25 Mg Tabcr PO 01/21/25 12:44 Not Given QDAY SHAZIA Ondansetron HCl 4 mg 12/16/24 17:42 12/21/24 20:35 Ondansetron Inj 2 Mg/Ml Inj 2 Ml IVP 01/15/25 17:41 4 mg Q6H PRN Administration NAUSEA OR VOMITING Protocol Pantoprazole Sodium 40 mg 12/21/24 09:00 12/23/24 08:30 Pantoprazole 40 Mg Tablet PO 01/20/25 08:59 40 mg QDAY SHAZIA Administration Protocol Polyethylene Glycol 17 gm 12/21/24 09:00 12/23/24 08:29 Polyethylene Glycol 17 Gm Packet PO 01/20/25 08:59 17 gm QDAY SHAZIA Administration Sennosides 1 tab 12/17/24 09:00 12/23/24 08:30 Senna Tablet PO 01/16/25 08:59 1 tab QDAY SHAZIA Administration Protocol Tamsulosin HCl 0.4 mg 12/17/24 09:00 12/23/24 08:30 Tamsulosin Hcl 0.4 Mg Capsule PO 01/16/25 08:59 0.4 mg QDAY SHAZIA Administration Plan A 79-year-old male with significant past medical history of hypertension, diabetes mellitus, asthma, intracranial bleed, using oxygen, 2 L at home as needed, HFrEF presented to the hospital with chief complaints of sudden onset headache followed by generalized weakness on the day of admission. # Hemoptysis - Patient is found to have hemoptysis since last night - No history of chest pain, fever, palpitations, difficulty breathing Plan - Discontinued aspirin, prophylactic dose of Lovenox - Will continue to monitor CBC - Will hold BiPAP for today # Acute on chronic decompensated chronic systolic CHF exacerbation [EF 15 - 20%]?resolving - Patient found to have extensive pedal edema, 4+ pitting extending up to knees. Per patient and patient's , it was present since the time of diagnosis from last hospital admission - Home oxygen : 2 L nasal cannula as needed for shortness of breath - Chest x-ray : bilateral moderate vascular congestion - 08/02/2024 LILLIAM: Normal LV size and thickness. Severely reduced LV function, LVEF estimated 25-30%. - NYHA Class III at baseline - Repeat ECHO - Dilated cardiomyopathy. Moderate to severe LV enlargement. Severely reduced LV function with an LVEF of 15 to 20%. Moderate AV thickening with moderate calcification. Moderate AV sclerosis without stenosis based on V max 2.1 m/s. Possibly underestimated due to the low EF and could be mild on moderate . Severe LA dilatation and mild to moderate RA dilatation. IVC dilated with <50% collapse during inspiration. Plan - Daily weights - 2G sodium restricted diet - Continue fluid restriction to 1500 mL - Continue Bumex 1 Mg IV twice daily and given a dose of Diamox 250mg one time dose on 12/23 in view of metabolic alkalosis to prevent co2 retention - Director Export Dr. Lundberg consulted, Appreciated recommendations. Recommended cardiac cath and transfer the patient to higher center for further management - Will keep K >4 and Mg >2 - Will continue to monitor urine output and renal function closely - Started on Jardiance, metoprolol on 12/22/2024, but withheld on 12/23 in view of low blood pressure - Bipap as needed and at night time # Acute on chronic hypoxic respiratory failure secondary to aspiration Pneumonia - resolving - Admitted for acute hypoxic respiratory failure due to aspiration while on BiPAP. Intubated 5:30 AM and 12/17 - Started on IV Unasyn every 6 hours - Sputum and blood cultures came back negative Plan - Continue Unasyn 3 g every 6 hours (12/17 - # Syncope , Ground-level mechanical fall # Stroke ruled out - Patient presented to the hospital with chief complaints of sudden onset headache followed by generalized weakness and a fall on the day of admission - Head CT, CTA head/neck did not show any acute pathology - Cervical spine CT and Lumbar spine x-ray: No fracture noted - Teleneurology is consulted and recommended loading dose of aspirin and stroke precautions Plan - Continue aspirin 81 Mg and atorvastatin 40 Mg po HS - Dr Downing is consulted, appreciate recommendations #Likely CHEYANNE/OHS Patient's states that he snores at night and has excessive daytime somnolence especially while eating or watching TV. She bought a secondhand CPAP machine from a medical supply oxygen and uses that at home. However was never formally diagnosed or prescribed a CPAP machine by a medical practitioner. Plan BiPAP/CPAP as needed during the day for naps and at night, will hold for tonight #T2 IDDM History of type 2 insulin-dependent diabetes. Hb A1C 6.5% Plan - Continue normal insulin sliding scale with Accu-Checks and started on insulin glargine 6 units subcutaneous at bedtime - Hypoglycemia protocol in place Hospital Maintenance: Dispo: Tele DVT ppx: Enoxaparin, Held for now GI ppx: Pantoprazole Diet: Cardiac, pureed IV lines: Peripheral Code status: Full Patient plan of care was discussed with the attending physician, Dr. Joshua Vigil, PGY1
[2024-12-23 16:47] LABS: Hematocrit 33.5 % (41.0-53.0); Hemoglobin 10.4 g/dL (13.5-16.0)
--- NOTE | 2024-12-23 18:57 | PD.IMPROG ---
Documentation for date of: 12/23/24 Subjective Subjective Interval history: Patient seen and examined at the bedside. Patient is much more awake alert oriented and x 3 this morning and is on oxygen via nasal cannula 2 to 3 L/min. Patient did use his BiPAP yesterday and recommended to continue BiPAP at night. There was a concern of questionable hemoptysis at coughing up with some blood. Hemoglobin was 9.9 and the repeat was 10.4. Recommend to continue BiPAP and not hold the BiPAP as patient appears to be retaining CO2. Patient apparently a has been using his CPAP machine at home but never has been officially diagnosed with CHEYANNE. Patient appears to be adequately diuresed at the present point of time and kidney function continues to be stable with Bumex 1 mg IV twice daily. Bicarb is slightly elevated 36 and recommend to give 1 dose of 5 mg oral x 1 today. BUN is 19 and creatinine is 1.0 As discussed previously patient is awaiting transfer to higher level of care [facility] at the request of the .. Exam Vital Signs Temp Pulse Resp BP Pulse Ox O2 Del Method O2 Flow Rate 97.7 F 83 14 121/80 94 L Nasal Cannula 3 12/23/24 16:00 12/23/24 16:00 12/23/24 16:00 12/23/24 16:00 12/23/24 16:00 12/23/24 16:00 12/23/24 16:00 FiO2 30 12/23/24 16:00 Narrative Exam General Appearance: Alert & Oriented x 3, mildly confused but clear mental status compared to before HEENT: Skull symmetrical and atraumatic. Conjunctivae pale and moist. Pupils equal, round, reactive to light and accommodation (PERRL). External ear without lesion or discharge. Cardio: Normal Rate and Rhythm with S1 and S2 heart sounds. No murmurs or extra heart sounds auscultated-difficult to appreciate secondary to body habitus. No bruits on carotid auscultation. Peripheral edema noted, 2+-improving Lungs: Symmetric with good expansion. Chest and back non-tender. Breath sounds vesicular dificult to appreciate it. Abdomen: Non-tender, Non-distended, Normal Reactive Bowel Sounds Neuro: Alert awake oriented x 3 in no major focal deficits except for slight confusion. Objective Labs 12/23/24 16:34 12/23/24 05:31 Labs: Laboratory Results - last 24 hr 12/23/24 12/23/24 05:31 16:34 WBC 5.2 RBC 3.58 L Hgb 9.9 L 10.4 L Hct 33.2 L 33.5 L MCV 93 MCH 27.7 MCHC 29.8 L RDW Std Deviation 53.8 H Plt Count 123 L Neut % (Auto) 55 Lymph % (Auto) 30 [place] % (Auto) 11 Eos % (Auto) 3 Baso % (Auto) 1 Neut # (Auto) 2.9 Lymph # (Auto) 1.6 [place] # (Auto) 0.6 Eos # (Auto) 0.2 Baso # (Auto) 0.0 Immature Gran # (Auto) 0.02 H Absolute Nucleated RBC 0.00 Immature Gran % 0 Nucleated RBC % 0 Sodium 140 Potassium 3.6 Chloride 98 Carbon Dioxide 36.0 H Anion Gap 6 L BUN 19 Creatinine 1.0 Estim Creat Clear Calc 72.1 eGFR > 60 BUN/Creatinine Ratio 19 Glucose 116 H Calculated Osmolality 282 Calcium 8.8 Corrected Calcium 9.4 Phosphorus 3.8 Magnesium 2.3 Total Bilirubin 1.2 AST 21 ALT 13 Alkaline Phosphatase 73 Total Protein 7.7 Albumin 3.3 L Globulin 4.4 H Albumin/Globulin Ratio 0.8 L ABG Interpretation ABG results: 12/16/24 12/17/24 12/17/24 17:14 05:12 06:48 ABG pH 7.41 7.35 7.34 L ABG pCO2 38 47 49 H ABG pO2 49 L* 72 L D 170 H D ABG HCO3 24 26 27 H ABG O2 Saturation 82 L 94 100 H ABG Base Excess 0 0 0 12/21/24 12/22/24 09:30 09:06 ABG pH 7.52 H 7.42 D ABG pCO2 41 59 H D ABG pO2 73 L 75 L ABG HCO3 34 H 38 H ABG O2 Saturation 96 96 ABG Base Excess 10 H 12 H Assessment & Plan A&P Narrative A 79-year-old male patient with a past medical history of severe systolic congestive heart failure with an EF of 25 to 30%, old left bundle branch block, 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 Initial workup did show that the patient was hypoxic with saturation of 90% on 2 L nasal cannula. Labs showed only mildly elevated troponins at 0.05 and previous was 0.06 during last admission. EKG showed normal sinus rhythm with left bundle branch block and no acute ST-T changes history of ischemia. Chest x-ray with moderate vascular congestion. Head CT, CTA head and neck was negative. Cervical spine CT showed degenerative disc disease. UA was negative. Labs showed mild anemia at 10.5, WBC normal at 7.3 and platelets of 127. Potassium was low at 3.2 BUN of 11 creatinine of 1.0 and glucose of 167. After admission patient did continue to be hypoxic and had a vomitus when he was placed on the BiPAP mask because of his acute hypoxic respiratory failure. There was possible aspiration pneumonia and patient continued to desaturate and he was intubated and started on mechanical ventilation and transferred to the ICU. Normal IV antibiotics for the pneumonia. Patient also fluid overloaded and was started on diuresis. Assessment and plan: 1. Acute hypoxic respiratory failure on mechanical ventilation mostly secondary to aspiration pneumonia as well as CHF exacerbation 2. Altered mental status with headaches, generalized weakness-ruled out stroke 3. Fall secondary to the weakness 4. Acute on chronic severe systolic congestive heart failure with an last known EF of 25 to 30% in July 2023 5. Left bundle branch block 6. 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 Morbid obesity 8. Essential hypertension . Diabetes mellitus type 2 10. Chronic anemia 11. Hyperlipidemia 12. Obstructive sleep apnea on CPAP 13. BPH 14. Restless leg syndrome Patient known to me from the previous hospitalization in July 2024 when he was initially diagnosed with severe systolic CHF with an EF of 25 to 30%. Patient was in CHF exacerbation along with pneumonia and acute hypoxic respiratory failure which was aggressively treated and was discharged home on 08/05/2024. Patient did follow-up with me in clinic on 08/08/2024 and was recommended a nuclear stress test given his new systolic congestive heart failure which was completed on 08/16/2024. Lexiscan stress test did show evidence of stress-induced ischemia in the apical as well as mid to apical anterior segments. LVEF was also low at 32%. Patient was recommended left heart cardiac catheterization but never followed up with the office and was adamant that his heart's was in good condition and does not need any further procedures. Patient presented with headache, generalized weakness as well as a fall. CTA head and neck, head CT were negative for any acute stroke. Neurology is following. Fall appears to be mechanical in review of the chart shows that there was no evidence of any syncope or loss of consciousness on admission. Patient could not get up because of the weakness but was awake alert. Acute hypoxic respiratory failure and on mechanical ventilation at the present point of time mostly secondary to the aspiration pneumonia and started on IV antibiotics by the critical care team which will be continued. Also patient does have CHF exacerbation and recommend to continue the diuresis for the same. Acute on chronic severe systolic congestive heart failure exacerbation. Echo from July 2024 showed Normal left ventricular size, wall thickness. Severely reduced LV function LVEF estimated at 25-30 %. RV is normal in size and systolic function. Could not estimate RVSP as TR not visualiozed well. Moderate AV thickening with mild calcification. AV sclerosis without stenosis. V max 2.1 m/s. Possibly underestimated due to low EF. MIld thickening and clacification of mitral leafts too. Mild to moderate MR. Mild LA dilataion. IVC dilated but with > 50% collapse. Echo - 12/20/24 - Dilated cardiomyopathy. Moderate to severe LV enlargement. Severely reduced LV function with an LVEF of 15 to 20%. Mildly dilated RV with normal systolic function. Could not estimate RVSP as TR not visualiozed well. Moderate AV thickening with moderate calcification. Moderate AV sclerosis without stenosis based on V max 2.1 m/s. Possibly underestimated due to the low EF and could be mild on moderate . Trace AI. MIld thickening and clacification of mitral leafts too. Mild to moderate MR. Trace to mild TR. Severe LA dilatation and mild to moderate RA dilatation. IVC dilated with <50% collapse during inspiration. No pericardial effusion. Left pleural effusion noted. Recommend to continue aggressive diuresis with Lasix 40 mg IV twice daily for now. Strict input output Daily weights and 2 g sodium diet. Fluid restriction to 15 mL/day. Mancera potassium greater than 4 and magnesium greater than 2.0 at all times. Will continue to monitor renal function closely and the BUN/creatinine normal now. His systolic congestive heart failure etiology was not determined hence was seen in the clinic as noted above and had an NST which did show evidence of stress-induced ischemia with decreased uptake in the apical as well as mid to apical anterior segments. Patient was recommended left heart cardiac catheterization. Did not follow-up with any appointments as outpatient in spite of multiple calls from my office, felt that his heart was in good condition. Discussed in detail with the and patient apparently had procedure through his groin at [facility] [place] in February 2024 and was apparently normal. Patient not sure if the patient had a carotid angiogram or intervention of the intraventricular hemorrhage which he had at that point of time or he had a cardiac catheterization. wanted us to wait for the operative reports from the outside hospital. Recommend primary team to obtain all operative reports from his previous hospitalization in February 2024 from [facility] [place] and to find out if the patient had any cardiac catheterization procedure. Troponins only minimally elevated at 0.05. EKG also did not show any acute ST-T changes history of active ischemia. Patient did not have any complaints of chest pain or chest pressure prior to the admission. Patient will benefit from left and right heart cardiac catheterization once he is hemodynamically stable after active treatment of the aspiration pneumonia as well as CHF exacerbation. 12/22/2024: Patient was difficult to arouse as per the primary team and was significantly altered patient had an ABG done which showed a PCO2 of 59 and a PO2 of 75 and patient was again started on BiPAP. Patient now has acute hypoxic as well as hypercapnic respiratory failure. Unable to follow any commands. Patient overall hemodynamically stable and has been diuresing well with Bumex 1 mg IV twice daily. Renal function appears to be stable. Plan was for her to perform a left and right heart cardiac catheterization for the patient to continue with his ischemic workup as well as his CHF. Unfortunately patient has been confused since yesterday and his respiratory status has not been stable and is unable to lie down flat on the bed. Patient possibly has CAD with multivessel disease given his worsening EF and recent positive stress test and less likely nonischemic cardiomyopathy. Given his severely low ejection fraction patient will also need complex PCI with stent by [facility] given his low ejection fraction of 15%. This institution does not have [facility] or other MCS available to perform the complex PCI and it would be appropriate to transfer the patient to a higher level of care. Also patient does have a history of hemorrhagic CVA with procedures performed at [facility] [place] previously and we are unable to obtain any records until now. Continue with heparin drip along with IV diuresis for now along with BiPAP Discussed with the and also requested for higher level of care and she has requested for [facility] [place] as he was previously admitted there in April 2024. 12/23/2024: Patient is much more awake alert oriented and x 3 this morning and is on oxygen via nasal cannula 2 to 3 L/min. Patient did use his BiPAP yesterday and recommended to continue BiPAP at night. There was a concern of questionable hemoptysis at coughing up with some blood. Hemoglobin was 9.9 and the repeat was 10.4. Recommend to continue BiPAP and not hold the BiPAP as patient appears to be retaining CO2. Patient apparently a has been using his CPAP machine at home but never has been officially diagnosed with CHEYANNE. Patient appears to be adequately diuresed at the present point of time and kidney function continues to be stable with Bumex 1 mg IV twice daily. Bicarb is slightly elevated 36 and recommend to give 1 dose of 5 mg oral x 1 today. BUN is 19 and creatinine is 1.0 As discussed previously patient is awaiting transfer to higher level of care [facility] [place] [facility] at the request of the .. Management of rest of the medical conditions as per primary team and other consultants. Thank you for the consult and allowing me to participate in the care of the patient. Cardiology will continue to follow. Rakan Lundberg M.D. Interventional Cardiology Time Spent With Patient Time: Total time spent is greater than 50% in coordination of care (as documented) at patient's floor/unit and/or counseling patient:
[2024-12-23] MEDS: TRANEXAMIC ACID INJ 1,000 MG/10 ML VIAL 500 MG INH (19:05)
[2024-12-23] MEDS: ATORVASTATIN CALCIUM 20 MG TABLET 40 MG PO (21:02)
[2024-12-23] MEDS: INSULIN GLARGINE (Lantus) 5 UNIT/0.05 ML (PER 5 UNITS) 6 UNIT SC (21:07)
[2024-12-24] VITALS (13 sets, daily range): BP systolic 107–128; BP diastolic 60–96; PULSE 79–105; RESP 16–30; TEMP 36.1–36.6; O2SAT 92–99; BMI 30.8
--- NOTE | 2024-12-24 | PD.VPROG1 ---
Telemedicine visit statement This visit was conducted with the use of interactive audio and video telecommunications system that permits real time communication between the patient and the provider. Patient's verbal consent for virtual visit was obtained on 12/24/24 at 0000. Documentation for date of: 12/24/24 Subjective Subjective Interval history: Patient is in telemetry today.No new symptoms or recurrence of similar symptoms after admission. Virtual exam Vital Signs Temp Pulse Resp BP Pulse Ox O2 Del Method O2 Flow Rate 97.7 F 86 20 116/81 95 Nasal Cannula 3 12/23/24 20:00 12/23/24 22:15 12/23/24 20:00 12/23/24 22:15 12/23/24 20:00 12/23/24 16:00 12/23/24 16:00 FiO2 30 12/23/24 16:00 Objective Labs 12/23/24 16:34 12/23/24 05:31 Labs: Laboratory Results - last 24 hr 12/23/24 12/23/24 05:31 16:34 WBC 5.2 RBC 3.58 L Hgb 9.9 L 10.4 L Hct 33.2 L 33.5 L MCV 93 MCH 27.7 MCHC 29.8 L RDW Std Deviation 53.8 H Plt Count 123 L Neut % (Auto) 55 Lymph % (Auto) 30 [place] % (Auto) 11 Eos % (Auto) 3 Baso % (Auto) 1 Neut # (Auto) 2.9 Lymph # (Auto) 1.6 [place] # (Auto) 0.6 Eos # (Auto) 0.2 Baso # (Auto) 0.0 Immature Gran # (Auto) 0.02 H Absolute Nucleated RBC 0.00 Immature Gran % 0 Nucleated RBC % 0 Sodium 140 Potassium 3.6 Chloride 98 Carbon Dioxide 36.0 H Anion Gap 6 L BUN 19 Creatinine 1.0 Estim Creat Clear Calc 72.1 eGFR > 60 BUN/Creatinine Ratio 19 Glucose 116 H Calculated Osmolality 282 Calcium 8.8 Corrected Calcium 9.4 Phosphorus 3.8 Magnesium 2.3 Total Bilirubin 1.2 AST 21 ALT 13 Alkaline Phosphatase 73 Total Protein 7.7 Albumin 3.3 L Globulin 4.4 H Albumin/Globulin Ratio 0.8 L ABG Interpretation ABG results: 12/16/24 12/17/24 12/17/24 17:14 05:12 06:48 ABG pH 7.41 7.35 7.34 L ABG pCO2 38 47 49 H ABG pO2 49 L* 72 L D 170 H D ABG HCO3 24 26 27 H ABG O2 Saturation 82 L 94 100 H ABG Base Excess 0 0 0 12/21/24 12/22/24 09:30 09:06 ABG pH 7.52 H 7.42 D ABG pCO2 41 59 H D ABG pO2 73 L 75 L ABG HCO3 34 H 38 H ABG O2 Saturation 96 96 ABG Base Excess 10 H 12 H Assessment & Plan Problem List (1) Stroke-like symptom: Status: Acute Assessment and plan: his Symptoms have resolved and no focal deficit noted. Intermittent confusion needing supervision. (2) Sleep apnea in adult: Status: Chronic Assessment and plan: need objective in house sleep study to confirm the diagnosis so that he can officially get CPAP and accessories.
[2024-12-24] MEDS: AMPICILLIN/SULBAC INJ 3 GM in SODIUM CHLORIDE 0.9% (POP) 100 ML IV ×2 (00:14→05:50)
--- NOTE | 2024-12-24 04:27 | PC.RT ---
bipap bipap ordered hold today due to hemoptysis, per IM MD. bipap will not be placed tonight. pt aware.
[2024-12-24] MEDS: guaiFENesin SYRUP 200 MG/10 ML UDC PO (05:49)
[2024-12-24 05:53] LABS: Basophils # (Auto) 0.0 Thou/mm3 (0.0-0.2); Basophils % (Auto) 1 % (0-2.5); Eosinophils # (Auto) 0.2 Thou/mm3 (0.0-0.5); Eosinophils % (Auto) 3 % (0-10); Hematocrit 34.8 % (41.0-53.0); Hemoglobin 10.5 g/dL (13.5-16.0); Immature Granulocytes Auto 0.01 Thou/mm3 (0.00-0.00); Lymphocytes # (Auto) 1.5 Thou/mm3 (1.0-4.8); Lymphocytes % (Auto) 27 % (10-50); Mean Corpuscular HGB Conc 30.2 g/dl (31.0-37.0); Mean Corpuscular Hemoglobin 27.7 pg (25.0-35.0); Mean Corpuscular Volume 92 fL (80-100); Monocytes # (Auto) 0.6 Thou/mm3 (0.0-0.8); Monocytes % (Auto) 12 % (0-12); Neutrophils # (Auto) 3.1 Thou/mm3 (1.8-7.7); Neutrophils % (Auto) 57 % (37-80); Nucleated Red Blood Cell # 0.00 Thou/mm3 (0.00-0.00); Nucleated Red Blood Cell % 0 /100 WBC (0); Platelet Count 139 Thou/mm3 (140-440); RDW Standard Deviation 54.0 fL (35.1-43.9); Red Blood Count 3.79 Miln/mm3 (4.50-5.90); White Blood Count 5.4 Thou/mm3 (3.8-10.6)
[2024-12-24 06:50] LABS: Alanine Aminotransferase 15 U/L (10-49); Albumin, Serum 3.4 gm/dL (3.4-4.8); Albumin/Globulin Ratio 0.7 (1.2-2.2); Alkaline Phosphatase 78 U/L (46-116); Anion Gap 6 (7-16); Aspartate Amino Transferase 20 U/L (0-34); BUN/Creatinine Ratio 16 Ratio (12-20); Bilirubin,Total 0.9 mg/dL (0.3-1.2); Blood Urea Nitrogen 18 mg/dL (9-23); Calcium 9.0 mg/dL (8.3-10.6); Calcium (Corrected) 9.5 mg/dL (8.5-10.1); Carbon Dioxide 31.9 mMol/L (20.0-31.0); Chloride 102 mMol/L (98-107); Creatinine (Component) 1.1 mg/dL (0.6-1.3); Estimated Creatinine Clearance 65.5 mL/min (>60); Globulin 4.7 gm/dL (2.3-3.5); Glucose 141 mg/dL (74-106); Magnesium 2.3 mg/dL (1.6-2.6); Osmolality,Calculated 283 (275-295); Potassium 3.7 mMol/L (3.4-5.1); Sodium 140 mMol/L (136-145); Total Protein 8.1 gm/dL (5.7-8.2); eGFR > 60 See Note
[2024-12-24] MEDS: TRANEXAMIC ACID INJ 1,000 MG/10 ML VIAL 500 MG INH (06:51)
[2024-12-24] MEDS: TAMSULOSIN HCL 0.4 MG CAPSULE PO (09:05)
[2024-12-24] MEDS: DAPAGLIFLOZIN PROPANEDIOL 5 MG TABLET PO (09:05)
[2024-12-24] MEDS: PANTOPRAZOLE 40 MG TABLET PO (09:06)
[2024-12-24] MEDS: METOPROLOL SUCCINATE XL 25 MG TABCR 12.5 MG PO (09:06)
[2024-12-24] MEDS: BUMETANIDE INJ 0.25 MG/ML VIAL 4 ML 1 MG IVP ×2 (09:16→21:44)
[2024-12-24] MEDS: OLANZapine INJ 5 MG, Sterile Water 1 ML IM (10:21)
[2024-12-24 11:16] LABS: Lactate (Lactic Acid) 1.8 mMol/L (0.4-2.0)
--- NOTE | 2024-12-24 14:55 | ESPR_ITS ---
<Statement entered by Erik Lewis MD - 12/25/24 16:23> I Erik Lewis MD reviewed the note and agree with the resident's assessment & plan with exceptions as below. I have personally reviewed labs, imaging, home meds/prior records, examined the patient, formulated and discussed management plan with the IM team. A 79-year-old male with extensive medical history including HTN, DM, HFrEF with EF 20% presented to ED with syncope and acute hypoxemic hypercapnic respiratory failure requiring BiPAP therapy, patient developed aspiration pneumonia while on BiPAP therapy further complicating respiratory failure. Patient developed hemoptysis on BiPAP therapy overnight which is likely related to multiple factors including positive pressure ventilation, pulmonary edema, aspiration pneumonia, DVT prophylaxis. Discontinue aspirin and Lovenox, will use IPC's for DVT prophylaxis. Appears clinically volume overloaded, poor diuresis overnight continue on IV Bumex 1 mg twice daily with target net fluid balance -1-2 L/day, continue metoprolol 12.5 mg twice daily, Jardiance 10 mg daily, hold losartan due to borderline blood pressure. Will continue inhaled tranexamic acid for hemoptysis (no hemoptysis since morning), will hold on albuterol and BiPAP use for now. Obtain MRI brain to evaluate for potential etiology of syncope. Will continue Unasyn for the management of aspiration pneumonia. Patient had significant drop in his EF since July 2024 indicating a potential ischemic etiology. Cardiology is on board, plan for cardiac catheterization. Documentation for date of: 12/24/24 Subjective Subjective Interval history: Patient is seen and examined at bedside No acute overnight events. Patient did not have any further episodes of hemoptysis since last night, per nurse At the time of examination, patient appeared awake, alert and trying to get out of the bed to go to the bathroom. Patient is almost at his baseline Later, got a call from the nurse reporting that patient is agitated for which patient was given 5 milligrams of olanzapine and patient was placed on restraints Vitals are stable and patient is saturating around 96% on 4 L oxygen Electrician Outside, Dr. Lundberg recommended BiPAP, ordered it Labs showed stable hemoglobin 10.5, bicarb 31.9 Will continue to diurese the patient. Electrician Outside recommended echocardiogram tomorrow Still trying to transfer the patient out for the cardiac cath Exam Vital Signs Temp Pulse Resp BP Pulse Ox O2 Del Method O2 Flow Rate 97.6 F 84 16 128/96 H 99 Humidified Nasal Cannula 4 12/24/24 12:00 12/24/24 14:33 12/24/24 14:33 12/24/24 12:00 12/24/24 14:33 12/24/24 12:00 12/24/24 12:00 FiO2 30 12/24/24 14:33 Narrative Exam General: Awake. HEENT: Normocephalic, atraumatic, mucous membranes moist. Heart: Regular rate and rhythm, no murmurs. Lungs: Bilateral fine inspiratory crackles heard in the basilar areas. Abdomen: Soft, nondistended, nontender, positive bowel sounds. ?No guarding or rebound tenderness. Neurologic: Alert and oriented x3, no gross neurological deficit, and patient able to move all 4 extremities. Extremities: No edema. Skin: No rash or ecchymoses. Objective Labs 12/24/24 05:00 12/24/24 05:00 Labs: Laboratory Results - last 24 hr 12/23/24 12/24/24 12/24/24 16:34 05:00 11:08 WBC 5.4 RBC 3.79 L Hgb 10.4 L 10.5 L Hct 33.5 L 34.8 L MCV 92 MCH 27.7 MCHC 30.2 L RDW Std Deviation 54.0 H Plt Count 139 L Neut % (Auto) 57 Lymph % (Auto) 27 [place] % (Auto) 12 Eos % (Auto) 3 Baso % (Auto) 1 Neut # (Auto) 3.1 Lymph # (Auto) 1.5 [place] # (Auto) 0.6 Eos # (Auto) 0.2 Baso # (Auto) 0.0 Immature Gran # (Auto) 0.01 H Absolute Nucleated RBC 0.00 Immature Gran % 0 Nucleated RBC % 0 Sodium 140 Potassium 3.7 Chloride 102 Carbon Dioxide 31.9 H Anion Gap 6 L BUN 18 Creatinine 1.1 Estim Creat Clear Calc 65.5 eGFR > 60 BUN/Creatinine Ratio 16 Glucose 141 H Calculated Osmolality 283 Lactic Acid 1.8 Calcium 9.0 Corrected Calcium 9.5 Magnesium 2.3 Total Bilirubin 0.9 AST 20 ALT 15 Alkaline Phosphatase 78 Total Protein 8.1 Albumin 3.4 Globulin 4.7 H Albumin/Globulin Ratio 0.7 L ABG Interpretation ABG results: 12/16/24 12/17/24 12/17/24 17:14 05:12 06:48 ABG pH 7.41 7.35 7.34 L ABG pCO2 38 47 49 H ABG pO2 49 L* 72 L D 170 H D ABG HCO3 24 26 27 H ABG O2 Saturation 82 L 94 100 H ABG Base Excess 0 0 0 12/21/24 12/22/24 09:30 09:06 ABG pH 7.52 H 7.42 D ABG pCO2 41 59 H D ABG pO2 73 L 75 L ABG HCO3 34 H 38 H ABG O2 Saturation 96 96 ABG Base Excess 10 H 12 H Quality Measures Quality Measures VTE prophylaxis Advance care planning discussed with:: patient and spouse Assessment & Plan Assessment Current Active Medications: Generic Name Dose Route Start Last Admin Trade Name Freq PRN Reason Stop Dose Admin Acetaminophen 650 mg 12/17/24 06:35 12/22/24 18:11 Acetaminophen 325 Mg Tablet PO 01/15/25 17:41 650 mg Q6H PRN Administration Fever >100.3 Atorvastatin Calcium 40 mg 12/16/24 21:00 12/23/24 21:02 Atorvastatin Calcium 20 Mg Tablet PO 01/15/25 20:59 40 mg HS SHAZIA Administration Bumetanide 1 mg 12/22/24 21:00 12/24/24 09:16 Bumetanide Inj 0.25 Mg/Ml Vial 4 Ml IVP 01/21/25 20:59 1 mg BID SHAZIA Administration Dapagliflozin 5 mg 12/22/24 12:45 12/24/24 09:05 Dapagliflozin Propanediol 5 Mg Tablet PO 01/21/25 12:44 5 mg QAM SHAZIA Administration Dextrose 50 ml 12/18/24 16:56 Dextrose 50%-Water Inj 50 Ml Syringe IV 01/17/25 16:55 Q15MIN PRN BG <50 OR BG <70 & pt unresponsive Enoxaparin Sodium 40 mg 12/17/24 09:00 12/23/24 09:46 Enoxaparin Sod Inj 40 Mg/0.4 Ml Syringe SC 12/31/24 08:59 Not Given QDAY SHAZIA Glucagon 1 mg 12/18/24 16:56 Glucagon Inj 1 Mg Vial IM Q15MIN PRN BG <70, and no IV access Guaifenesin 200 mg 12/19/24 17:00 12/24/24 12:38 Guaifenesin Syrup 200 Mg/10 Ml Udc PO 01/18/25 16:59 Not Given QID [facility] Protocol Insulin Glargine 6 unit 12/20/24 21:00 12/23/24 21:07 Insulin Glargine (Lantus) 5 Unit/0.05 Ml (Per 5 Units) SC 01/19/25 20:59 6 unit HS SHAZIA Administration Insulin Human Lispro 0 unit 12/20/24 11:30 12/24/24 12:37 Insulin Lispro (Admelog) 1 Unit/0.01 Ml Unit SC 01/19/25 11:29 Not Given ACHS SHAZIA Protocol Magnesium Hydroxide 30 ml 12/19/24 08:18 Milk Of Magnesia Susp 30 Ml Udc PO 01/18/25 08:17 QDAY PRN CONSTIPATION Protocol Melatonin 3 mg 12/21/24 19:00 12/22/24 21:24 Melatonin 3 Mg Tablet PO 01/20/25 18:59 3 mg HS SHAZIA Administration Metoprolol Succinate 12.5 mg 12/22/24 12:45 12/24/24 09:06 Metoprolol Succinate Xl 25 Mg Tabcr PO 01/21/25 12:44 12.5 mg QDAY SHAZIA Administration Ondansetron HCl 4 mg 12/16/24 17:42 12/21/24 20:35 Ondansetron Inj 2 Mg/Ml Inj 2 Ml IVP 01/15/25 17:41 4 mg Q6H PRN Administration NAUSEA OR VOMITING Protocol Pantoprazole Sodium 40 mg 12/21/24 09:00 12/24/24 09:06 Pantoprazole 40 Mg Tablet PO 01/20/25 08:59 40 mg QDAY [facility] Administration Protocol Polyethylene Glycol 17 gm 12/21/24 09:00 12/24/24 11:30 Polyethylene Glycol 17 Gm Packet PO 01/20/25 08:59 Not Given QDAY [facility] Sennosides 1 tab 12/17/24 09:00 12/24/24 09:05 Senna Tablet PO 01/16/25 08:59 1 tab QDAY [facility] Administration Protocol Tamsulosin HCl 0.4 mg 12/17/24 09:00 12/24/24 09:05 Tamsulosin Hcl 0.4 Mg Capsule PO 01/16/25 08:59 0.4 mg QDAY SHAZIA Administration Plan A 79-year-old male with significant past medical history of hypertension, diabetes mellitus, asthma, intracranial bleed, using oxygen, 2 L at home as needed, HFrEF presented to the hospital with chief complaints of sudden onset headache followed by generalized weakness on the day of admission. # Hemoptysis, resolved - Patient is found to have hemoptysis on 12/23/24 - No history of chest pain, fever, palpitations, difficulty breathing Plan - Discontinued aspirin, prophylactic dose of Lovenox - Will continue to monitor CBC - On SCD for DVT prophylaxis # Acute on chronic decompensated chronic systolic CHF exacerbation [EF 15 - 20%]?resolving - Patient found to have extensive pedal edema, 4+ pitting extending up to knees. Per patient and patient's , it was present since the time of diagnosis from last hospital admission - Home oxygen : 2 L nasal cannula as needed for shortness of breath - Chest x-ray : bilateral moderate vascular congestion - 08/02/2024 LILLIAM: Normal LV size and thickness. Severely reduced LV function, LVEF estimated 25-30%. - NYHA Class III at baseline - Repeat ECHO - Dilated cardiomyopathy. Moderate to severe LV enlargement. Severely reduced LV function with an LVEF of 15 to 20%. Moderate AV thickening with moderate calcification. Moderate AV sclerosis without stenosis based on V max 2.1 m/s. Possibly underestimated due to the low EF and could be mild on moderate . Severe LA dilatation and mild to moderate RA dilatation. IVC dilated with <50% collapse during inspiration. Plan - Daily weights - 2G sodium restricted diet - Continue fluid restriction to 1500 mL - Continue Bumex 1 Mg IV twice daily and given a dose of Diamox 250mg one time dose on 12/23 in view of metabolic alkalosis to prevent co2 retention - Electrician Outside Dr. Lundberg consulted, Appreciated recommendations. Recommended cardiac cath and transfer the patient to higher center for further management - Will keep K >4 and Mg >2 - Will continue to monitor urine output and renal function closely - Started on Jardiance, metoprolol on 12/22/2024 - Bipap as needed and at night time # Acute on chronic hypoxic respiratory failure secondary to aspiration Pneumonia - resolving - Admitted for acute hypoxic respiratory failure due to aspiration while on BiPAP. Intubated 5:30 AM and 12/17 - Started on IV Unasyn every 6 hours - Sputum and blood cultures came back negative Plan - Continue Unasyn 3 g every 6 hours (12/17 - # Syncope , Ground-level mechanical fall # Stroke ruled out - Patient presented to the hospital with chief complaints of sudden onset headache followed by generalized weakness and a fall on the day of admission - Head CT, CTA head/neck did not show any acute pathology - Cervical spine CT and Lumbar spine x-ray: No fracture noted - Teleneurology is consulted and recommended loading dose of aspirin and stroke precautions Plan - Continue aspirin 81 Mg and atorvastatin 40 Mg po HS - Dr Downing is consulted, appreciate recommendations - ordered MRI Brain #Likely CHEYANNE/OHS Patient's states that he snores at night and has excessive daytime somnolence especially while eating or watching TV. She bought a secondhand CPAP machine from a medical supply oxygen and uses that at home. However was never formally diagnosed or prescribed a CPAP machine by a medical practitioner. Plan BiPAP/CPAP as needed during the day for naps and at night, will hold for tonight #T2 IDDM History of type 2 insulin-dependent diabetes. Hb A1C 6.5% Plan - Continue normal insulin sliding scale with Accu-Checks and started on insulin glargine 6 units subcutaneous at bedtime - Hypoglycemia protocol in place Hospital Maintenance: Dispo: Tele DVT ppx: Enoxaparin, Held for now GI ppx: Pantoprazole Diet: Cardiac, pureed IV lines: Peripheral Code status: Full Patient plan of care was discussed with the attending physician, Dr. Joshua Vigil, PGY1
--- NOTE | 2024-12-24 15:46 | PD.IMPROG ---
Documentation for date of: 12/24/24 Subjective Subjective Interval history: Patient seen and examined at the bedside. Patient again confused and altered this morning during my examination. Patient apparently did not receive BiPAP because of the hemoptysis yesterday. Reordered to replace the BiPAP again now and recommended to continue BiPAP at night. There was a concern of questionable hemoptysis at coughing up with some blood. Hemoglobin was 9.9 and the repeat was 10.4. Recommend to continue BiPAP and not hold the BiPAP as patient appears to be retaining CO2. Patient apparently a has been using his CPAP machine at home but never has been officially diagnosed with CHEYANNE. Patient appears to be adequately diuresed at the present point of time and kidney function continues to be stable with Bumex 1 mg IV twice daily. Bicarb is slightly elevated 36 and recommend to give 1 dose of 5 mg oral x 1 today. BUN is 19 and creatinine is 1.0 As discussed previously patient is awaiting transfer to higher level of care [facility] at the request of the .. Exam Vital Signs Temp Pulse Resp BP Pulse Ox O2 Del Method O2 Flow Rate 97.6 F 84 16 128/96 H 99 Humidified Nasal Cannula 4 12/24/24 12:00 12/24/24 14:33 12/24/24 14:33 12/24/24 12:00 12/24/24 14:33 12/24/24 12:00 12/24/24 12:00 FiO2 30 12/24/24 14:33 Narrative Exam General Appearance: Alert & Oriented x 3, mildly confused but clear mental status compared to before HEENT: Skull symmetrical and atraumatic. Conjunctivae pale and moist. Pupils equal, round, reactive to light and accommodation (PERRL). External ear without lesion or discharge. Cardio: Normal Rate and Rhythm with S1 and S2 heart sounds. No murmurs or extra heart sounds auscultated-difficult to appreciate secondary to body habitus. No bruits on carotid auscultation. Peripheral edema noted, 2+-improving Lungs: Symmetric with good expansion. Chest and back non-tender. Breath sounds vesicular dificult to appreciate it. Abdomen: Non-tender, Non-distended, Normal Reactive Bowel Sounds Neuro: Alert awake oriented x 3 in no major focal deficits except for slight confusion. Objective Labs 12/24/24 05:00 12/24/24 05:00 Labs: Laboratory Results - last 24 hr 12/23/24 12/24/24 12/24/24 16:34 05:00 11:08 WBC 5.4 RBC 3.79 L Hgb 10.4 L 10.5 L Hct 33.5 L 34.8 L MCV 92 MCH 27.7 MCHC 30.2 L RDW Std Deviation 54.0 H Plt Count 139 L Neut % (Auto) 57 Lymph % (Auto) 27 Alfalfa % (Auto) 12 Eos % (Auto) 3 Baso % (Auto) 1 Neut # (Auto) 3.1 Lymph # (Auto) 1.5 Alfalfa # (Auto) 0.6 Eos # (Auto) 0.2 Baso # (Auto) 0.0 Immature Gran # (Auto) 0.01 H Absolute Nucleated RBC 0.00 Immature Gran % 0 Nucleated RBC % 0 Sodium 140 Potassium 3.7 Chloride 102 Carbon Dioxide 31.9 H Anion Gap 6 L BUN 18 Creatinine 1.1 Estim Creat Clear Calc 65.5 eGFR > 60 BUN/Creatinine Ratio 16 Glucose 141 H Calculated Osmolality 283 Lactic Acid 1.8 Calcium 9.0 Corrected Calcium 9.5 Magnesium 2.3 Total Bilirubin 0.9 AST 20 ALT 15 Alkaline Phosphatase 78 Total Protein 8.1 Albumin 3.4 Globulin 4.7 H Albumin/Globulin Ratio 0.7 L ABG Interpretation ABG results: 12/16/24 12/17/24 12/17/24 17:14 05:12 06:48 ABG pH 7.41 7.35 7.34 L ABG pCO2 38 47 49 H ABG pO2 49 L* 72 L D 170 H D ABG HCO3 24 26 27 H ABG O2 Saturation 82 L 94 100 H ABG Base Excess 0 0 0 12/21/24 12/22/24 09:30 09:06 ABG pH 7.52 H 7.42 D ABG pCO2 41 59 H D ABG pO2 73 L 75 L ABG HCO3 34 H 38 H ABG O2 Saturation 96 96 ABG Base Excess 10 H 12 H Assessment & Plan A&P Narrative A 79-year-old male patient with a past medical history of severe systolic congestive heart failure with an EF of 25 to 30%, old left bundle branch block, 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 Initial workup did show that the patient was hypoxic with saturation of 90% on 2 L nasal cannula. Labs showed only mildly elevated troponins at 0.05 and previous was 0.06 during last admission. EKG showed normal sinus rhythm with left bundle branch block and no acute ST-T changes history of ischemia. Chest x-ray with moderate vascular congestion. Head CT, CTA head and neck was negative. Cervical spine CT showed degenerative disc disease. UA was negative. Labs showed mild anemia at 10.5, WBC normal at 7.3 and platelets of 127. Potassium was low at 3.2 BUN of 11 creatinine of 1.0 and glucose of 167. After admission patient did continue to be hypoxic and had a vomitus when he was placed on the BiPAP mask because of his acute hypoxic respiratory failure. There was possible aspiration pneumonia and patient continued to desaturate and he was intubated and started on mechanical ventilation and transferred to the ICU. Normal IV antibiotics for the pneumonia. Patient also fluid overloaded and was started on diuresis. Assessment and plan: 1. Acute hypoxic respiratory failure on mechanical ventilation mostly secondary to aspiration pneumonia as well as CHF exacerbation 2. Altered mental status with headaches, generalized weakness-ruled out stroke 3. Fall secondary to the weakness 4. Acute on chronic severe systolic congestive heart failure with an last known EF of 25 to 30% in July 2023 5. Left bundle branch block 6. 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 Morbid obesity 8. Essential hypertension . Diabetes mellitus type 2 10. Chronic anemia 11. Hyperlipidemia 12. Obstructive sleep apnea on CPAP 13. BPH 14. Restless leg syndrome Patient known to me from the previous hospitalization in July 2024 when he was initially diagnosed with severe systolic CHF with an EF of 25 to 30%. Patient was in CHF exacerbation along with pneumonia and acute hypoxic respiratory failure which was aggressively treated and was discharged home on 08/05/2024. Patient did follow-up with me in clinic on 08/08/2024 and was recommended a nuclear stress test given his new systolic congestive heart failure which was completed on 08/16/2024. Lexiscan stress test did show evidence of stress-induced ischemia in the apical as well as mid to apical anterior segments. LVEF was also low at 32%. Patient was recommended left heart cardiac catheterization but never followed up with the office and was adamant that his heart's was in good condition and does not need any further procedures. Patient presented with headache, generalized weakness as well as a fall. CTA head and neck, head CT were negative for any acute stroke. Neurology is following. Fall appears to be mechanical in review of the chart shows that there was no evidence of any syncope or loss of consciousness on admission. Patient could not get up because of the weakness but was awake alert. Acute hypoxic respiratory failure and on mechanical ventilation at the present point of time mostly secondary to the aspiration pneumonia and started on IV antibiotics by the critical care team which will be continued. Also patient does have CHF exacerbation and recommend to continue the diuresis for the same. Acute on chronic severe systolic congestive heart failure exacerbation. Echo from July 2024 showed Normal left ventricular size, wall thickness. Severely reduced LV function LVEF estimated at 25-30 %. RV is normal in size and systolic function. Could not estimate RVSP as TR not visualiozed well. Moderate AV thickening with mild calcification. AV sclerosis without stenosis. V max 2.1 m/s. Possibly underestimated due to low EF. MIld thickening and clacification of mitral leafts too. Mild to moderate MR. Mild LA dilataion. IVC dilated but with > 50% collapse. Echo - 12/20/24 - Dilated cardiomyopathy. Moderate to severe LV enlargement. Severely reduced LV function with an LVEF of 15 to 20%. Mildly dilated RV with normal systolic function. Could not estimate RVSP as TR not visualiozed well. Moderate AV thickening with moderate calcification. Moderate AV sclerosis without stenosis based on V max 2.1 m/s. Possibly underestimated due to the low EF and could be mild on moderate . Trace AI. MIld thickening and clacification of mitral leafts too. Mild to moderate MR. Trace to mild TR. Severe LA dilatation and mild to moderate RA dilatation. IVC dilated with <50% collapse during inspiration. No pericardial effusion. Left pleural effusion noted. Recommend to continue aggressive diuresis with Lasix 40 mg IV twice daily for now. Strict input output Daily weights and 2 g sodium diet. Fluid restriction to 15 mL/day. Mancera potassium greater than 4 and magnesium greater than 2.0 at all times. Will continue to monitor renal function closely and the BUN/creatinine normal now. His systolic congestive heart failure etiology was not determined hence was seen in the clinic as noted above and had an NST which did show evidence of stress-induced ischemia with decreased uptake in the apical as well as mid to apical anterior segments. Patient was recommended left heart cardiac catheterization. Did not follow-up with any appointments as outpatient in spite of multiple calls from my office, felt that his heart was in good condition. Discussed in detail with the and patient apparently had procedure through his groin at [facility] in February 2024 and was apparently normal. Patient not sure if the patient had a carotid angiogram or intervention of the intraventricular hemorrhage which he had at that point of time or he had a cardiac catheterization. wanted us to wait for the operative reports from the outside hospital. Recommend primary team to obtain all operative reports from his previous hospitalization in February 2024 from [facility] and to find out if the patient had any cardiac catheterization procedure. Troponins only minimally elevated at 0.05. EKG also did not show any acute ST-T changes history of active ischemia. Patient did not have any complaints of chest pain or chest pressure prior to the admission. Patient will benefit from left and right heart cardiac catheterization once he is hemodynamically stable after active treatment of the aspiration pneumonia as well as CHF exacerbation. 12/22/2024: Patient was difficult to arouse as per the primary team and was significantly altered patient had an ABG done which showed a PCO2 of 59 and a PO2 of 75 and patient was again started on BiPAP. Patient now has acute hypoxic as well as hypercapnic respiratory failure. Unable to follow any commands. Patient overall hemodynamically stable and has been diuresing well with Bumex 1 mg IV twice daily. Renal function appears to be stable. Plan was for her to perform a left and right heart cardiac catheterization for the patient to continue with his ischemic workup as well as his CHF. Unfortunately patient has been confused since yesterday and his respiratory status has not been stable and is unable to lie down flat on the bed. Patient possibly has CAD with multivessel disease given his worsening EF and recent positive stress test and less likely nonischemic cardiomyopathy. Given his severely low ejection fraction patient will also need complex PCI with stent by [facility] given his low ejection fraction of 15%. This institution does not have [facility] or other MCS available to perform the complex PCI and it would be appropriate to transfer the patient to a higher level of care. Also patient does have a history of hemorrhagic CVA with procedures performed at [facility] previously and we are unable to obtain any records until now. Continue with heparin drip along with IV diuresis for now along with BiPAP Discussed with the and also requested for higher level of care and she has requested for [facility] as he was previously admitted there in April 2024. 12/24/2024: Patient again confused and altered this morning during my examination. Patient apparently did not receive BiPAP because of the hemoptysis yesterday. Reordered to replace the BiPAP again now and recommended to continue BiPAP at night. There was a concern of questionable hemoptysis at coughing up with some blood. Hemoglobin was 9.9 and the repeat was 10.4. Recommend to continue BiPAP and not hold the BiPAP as patient appears to be retaining CO2. Patient apparently a has been using his CPAP machine at home but never has been officially diagnosed with CHEYANNE. Patient appears to be adequately diuresed at the present point of time and kidney function continues to be stable with Bumex 1 mg IV twice daily. Bicarb is slightly elevated 36 and recommend to give 1 dose of 5 mg oral x 1 today. BUN is 19 and creatinine is 1.0 As discussed previously patient is awaiting transfer to higher level of care [facility] at the request of the .. Management of rest of the medical conditions as per primary team and other consultants. Thank you for the consult and allowing me to participate in the care of the patient. Cardiology will continue to follow. Rakan Lundberg M.D. Interventional Cardiology Time Spent With Patient Time: Total time spent is greater than 50% in coordination of care (as documented) at patient's floor/unit and/or counseling patient:
[2024-12-24] MEDS: INSULIN LISPRO (AdmeLOG) 1 UNIT/0.01 ML UNIT SC (21:45)
[2024-12-24] MEDS: INSULIN GLARGINE (Lantus) 5 UNIT/0.05 ML (PER 5 UNITS) 6 UNIT SC (21:45)
[2024-12-24 22:15] LABS: Base Excess, Venous 4 (-3-3); O2 Saturation, Venous 72 % (96-97); PCO2, Venous 48 mmHg (36-56); PO2, Venous 39 mmHg (15-58); pH, Venous 7.41 (7.33-7.66)
[2024-12-25] VITALS (15 sets, daily range): BP systolic 107–117; BP diastolic 65–84; PULSE 75–93; RESP 10–26; TEMP 36.1–36.8; O2SAT 94–100; BMI 29.8
--- NOTE | 2024-12-25 | XR_ITS ---
Examination: MRI brain without intravenous contrast. Date and time of exam: December 25, 2024 1935 hours Comparison June 08, 2014 INDICATIONS: Syncopal episode today Technique: Multiple axial and sagittal images of the brain obtained. Siemens high-resolution 1.5 Kelli short bore scanners utilized. Sagittal sections, T1-weighted, TR 500, TE 14, are performed. Axial sections proton-density and T2-weighted have been obtained. Inversion recovery axial images, TR 9, 260, TE 111, TI 2500. Diffusion weighted images, axial sections, TR 4800, TE 128, B value 1000 Axial sections, ADC map, TR 4800, TE 128 Findings: Enlargement of the sella turcica is not present. The optic chiasm and infundibular are not remarkable. Prepontine and interpeduncular cisterns are not enlarged. There is no localized enlargement of the medulla or grace. Fourth ventricle and cerebellar tonsils appear normal in position. No subacute area of hemorrhage density is seen. Mass in the cerebellopontine angle region is not evident. Globes symmetrical. Orbital musculature including medial lateral rectus muscles do not exhibit abnormality. Diffusion-weighted images demonstrate no focus of restricted diffusion. Increased white matter signal prominent Mass effect upon the ventricular system is not identified. 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
[2024-12-25 06:25] LABS: Basophils # (Auto) 0.0 Thou/mm3 (0.0-0.2); Basophils % (Auto) 1 % (0-2.5); Eosinophils # (Auto) 0.2 Thou/mm3 (0.0-0.5); Eosinophils % (Auto) 3 % (0-10); Hematocrit 34.5 % (41.0-53.0); Hemoglobin 10.7 g/dL (13.5-16.0); Immature Granulocytes Auto 0.01 Thou/mm3 (0.00-0.00); Lymphocytes # (Auto) 1.7 Thou/mm3 (1.0-4.8); Lymphocytes % (Auto) 30 % (10-50); Mean Corpuscular HGB Conc 31.0 g/dl (31.0-37.0); Mean Corpuscular Hemoglobin 27.9 pg (25.0-35.0); Mean Corpuscular Volume 90 fL (80-100); Monocytes # (Auto) 0.8 Thou/mm3 (0.0-0.8); Monocytes % (Auto) 15 % (0-12); Neutrophils # (Auto) 2.8 Thou/mm3 (1.8-7.7); Neutrophils % (Auto) 51 % (37-80); Nucleated Red Blood Cell # 0.00 Thou/mm3 (0.00-0.00); Nucleated Red Blood Cell % 0 /100 WBC (0); Platelet Count 152 Thou/mm3 (140-440); RDW Standard Deviation 52.4 fL (35.1-43.9); Red Blood Count 3.84 Miln/mm3 (4.50-5.90); White Blood Count 5.6 Thou/mm3 (3.8-10.6)
[2024-12-25 06:54] LABS: Alanine Aminotransferase 17 U/L (10-49); Albumin, Serum 3.5 gm/dL (3.4-4.8); Albumin/Globulin Ratio 0.7 (1.2-2.2); Alkaline Phosphatase 82 U/L (46-116); Anion Gap 4 (7-16); Aspartate Amino Transferase 23 U/L (0-34); BUN/Creatinine Ratio 15 Ratio (12-20); Bilirubin,Total 1.0 mg/dL (0.3-1.2); Blood Urea Nitrogen 17 mg/dL (9-23); Calcium 9.4 mg/dL (8.3-10.6); Calcium (Corrected) 9.8 mg/dL (8.5-10.1); Carbon Dioxide 30.1 mMol/L (20.0-31.0); Chloride 106 mMol/L (98-107); Creatinine (Component) 1.1 mg/dL (0.6-1.3); Estimated Creatinine Clearance 64.5 mL/min (>60); Globulin 4.9 gm/dL (2.3-3.5); Glucose 140 mg/dL (74-106); Osmolality,Calculated 282 (275-295); Potassium 3.8 mMol/L (3.4-5.1); Sodium 140 mMol/L (136-145); Total Protein 8.4 gm/dL (5.7-8.2); eGFR > 60 See Note
--- NOTE | 2024-12-25 08:19 | ECHO_ITS ---
Transthoracic Echo Report Ht (in): 70 Wt (lb): 213 Exam Location: Echo Lab Status: Inpatient [employer]: Ilda Pierre Indications: Procedure Performed: BP: 108 / 72 HR: 75 Technical Quality: Adequate MEASUREMENTS (Male / Female) Normal Values 2D ECHO LV Diastolic Diameter PLAX 5.1 cm 4.2 - 5.9 / 3.9 - 5.3 cm LV Systolic Diameter PLAX 4.8 cm IVS Diastolic Thickness 0.7 cm 0.6 - 1.0 / 0.6 - 0.9 cm LVPW Diastolic Thickness 0.8 cm 0.6 - 1.0 / 0.6 - 0.9 cm LV Relative Wall Thickness 0.3 LVOT Diameter 1.9 cm LA Volume Index 62.2 cm?/m? 16 - 28 cm?/m? DOPPLER AV Peak Velocity 172.0 cm/s AV Peak Gradient 11.8 mmHg LVOT Peak Velocity 86.8 cm/s LVOT Peak Gradient 3.0 mmHg AV Area Cont Eq pk 1.4 cm? MV Area PHT 3.3 cm? Mitral E Point Velocity 107.0 cm/s Mitral A Point Velocity 124.0 cm/s Mitral E to A Ratio 0.9 LV E' Lateral Velocity 9.3 cm/s Mitral E to LV E' Lateral Ratio 11.6 LV E' Septal Velocity 6.4 cm/s Mitral E to LV E' Septal Ratio 16.7 PV Peak Velocity 115.0 cm/s PV Peak Gradient 5.3 mmHg FINDINGS Left Ventricle Global left ventricular systolic function is severely decreased.The left ventricular ejection fraction is severely decreased, estimated at 10-15%. The left ventricular cavity size is moderately increased. Right Ventricle The right ventricle is normal in size and systolic function. The estimated right ventricular systolic pressure can not be determined due to innadequate tricuspid signal. Left Atrium The left atrial cavity size is severely increased. Right Atrium The right atrial cavity size is severely increased. Atrial Septum The interatrial septum appears normal with no evidence of a shunt. Aorta The aorta is normal by two-dimensional, color flow and Doppler interrogation. Mitral Valve The mitral valve is normal by two-dimensional, color flow and Doppler interrogation. There is mild to moderate mitral regurgitation. Aortic Valve The aortic valve is moderately calcified without stenosis. Tricuspid Valve The tricuspid valve is normal by two-dimensional, color flow and Doppler interrogation. There is trace tricuspid regurgitation. Pulmonic Valve The pulmonic valve is not well visualized. There is no significant pulmonic valve regurgitation. Vessels The pulmonary artery appears normal. The inferior vena cava is severely enlarged. Pericardium The pericardium is normal by two-dimensional imaging. There is no significant pericardial effusion. CONCLUSIONS Indications: cardiogenic shock and CHF -Re-Evaluate LV and EF Dilated cardiomyopathy. Moderate to severe LV enlargement. Severely reduced LV function with an LVEF of 15 to 20%. Mildly dilated RV with normal systolic function. Could not estimate RVSP as TR not visualiozed well. Moderate AV thickening with moderate calcification. Moderate AV sclerosis without stenosis based on V max 2.1 m/s. Possibly underestimated due to the low EF and could be mild on moderate . Trace AI. MIld thickening and clacification of mitral leafts too. Mild to moderate MR. Trace to mild TR Severe LA dilatation and mild to moderate RA dilatation. IVC dilated with <50% collapse during inspiration. No pericardial effusion. Rakan Lundberg (Electronically Signed) Final Date: 25 December 2024 17:50
[2024-12-25] MEDS: METOPROLOL SUCCINATE XL 25 MG TABCR 12.5 MG PO (09:43)
[2024-12-25] MEDS: DAPAGLIFLOZIN PROPANEDIOL 5 MG TABLET PO (09:43)
[2024-12-25] MEDS: PANTOPRAZOLE 40 MG TABLET PO (09:43)
[2024-12-25] MEDS: TAMSULOSIN HCL 0.4 MG CAPSULE PO (09:43)
[2024-12-25] MEDS: POLYETHYLENE GLYCOL 17 GM PACKET PO (09:43)
[2024-12-25] MEDS: BUMETANIDE INJ 0.25 MG/ML VIAL 4 ML 1 MG IVP ×2 (09:44→20:37)
--- NOTE | 2024-12-25 10:52 | XR_ITS ---
Examination: AP chest single view TECHNIQUE: AP portable semiupright chest single view Date and time: December 25, 2024 1112 hours Comparison December 20, 2024 INDICATIONS: Shortness of breath today. FINDINGS: Mild heart failure Mild enlargement cardiac contour with prominent vascular congestion and early perihilar edema Prominent osteopenia IMPRESSION: Mild heart failure
--- NOTE | 2024-12-25 11:47 | PC.CC ---
Addendum entered by Rakesh Rivera RN 12/25/24 19:05: 1900: called [facility], intake initiated by Julissa. Night hospitalist contact number provided for a possible peer to peer. She will review clinicals. patient will need a prior auth if accepted. 1848: called frederick WILSON pt needs ins auth prior to review. Addendum entered by Rakesh Rivera RN 12/25/24 18:31: 1820: clinicals sent to ALIRE[facility] and [facility] 1550: spoke to Dr. Matt Lewis to give him update. He stated to try other facilities. He stated pt's is difficult to coordinate with. Addendum entered by Rakesh Rivera RN 12/25/24 15:47: 1541: Per Massiel, no beds avail at this time. She will try again after 5pm. Addendum entered by Rakesh Rivera RN 12/25/24 15:32: 1414: received call from Massiel cordero/ [facility], she stated she will reach out to specialist to review and call back with decision. Addendum entered by Rakesh Rivera RN 12/25/24 13:39: 1321: received call from Ledy Craig (Alex) with auth [id number]. Addendum entered by Rakesh Rivera RN 12/25/24 12:35: 1201: Received call back from Alex, transferred to Inpatient request. Transfer request order needs to be faxed to inpatient team to review. Faxed order to [phone]. Did not fax clinicals as they have received clinicals from [facility] dept. waiting for their review and call back. Addendum entered by Rakesh Rivera RN 12/25/24 11:55: 1144: call Alex again, placed on hold for 8 min. Prompted to enter a call back number when associate is avail to call me back. Original Note: [id number]: called Alex for prior auth, Rashmi transfered me to [facility]. Placed on hold for 10 min. will call back
[2024-12-25] MEDS: ACETAMINOPHEN 325 MG TABLET 650 MG PO ×2 (11:59→20:36)
[2024-12-25] MEDS: guaiFENesin SYRUP 200 MG/10 ML UDC PO ×3 (11:59→20:36)
[2024-12-25] MEDS: INSULIN LISPRO (AdmeLOG) 1 UNIT/0.01 ML UNIT SC ×3 (12:00→20:49)
--- NOTE | 2024-12-25 14:04 | ESPR_ITS ---
<Statement entered by Erik Lewis MD - 12/25/24 16:26> I Erik Lewis MD reviewed the note and agree with the resident's assessment & plan with exceptions as below. I have personally reviewed labs, imaging, home meds/prior records, examined the patient, formulated and discussed management plan with the IM team. A 79-year-old male with extensive medical history including HTN, DM, HFrEF with EF 20% presented to ED with syncope and acute hypoxemic hypercapnic respiratory failure requiring BiPAP therapy, patient developed aspiration pneumonia while on BiPAP therapy further complicating respiratory failure. Patient developed hemoptysis on BiPAP therapy overnight which is likely related to multiple factors including positive pressure ventilation, pulmonary edema, aspiration pneumonia, DVT prophylaxis. Discontinue aspirin and Lovenox, will use IPC's for DVT prophylaxis. Improved volume status, diuresed well overnight continue on IV Bumex 1 mg twice daily with target net fluid balance -1 L/day, continue metoprolol 12.5 mg twice daily, Jardiance 10 mg daily, hold losartan due to borderline blood pressure. Will continue inhaled tranexamic acid for hemoptysis (had few episodes of hemoptysis this morning had BiPAP therapy overnight), will hold on albuterol and BiPAP use for now. Obtain MRI brain to evaluate for potential etiology of syncope. Will continue Unasyn for the management of aspiration pneumonia. Patient had significant drop in his EF since July 2024 indicating a potential ischemic etiology. Cardiology is on board, recommending possible supported PCI which cannot be performed at our facility. residential leasing manager is on board for potential transfer to a higher level of care facility. Documentation for date of: 12/25/24 Subjective Subjective Interval history: Patient had 3.8 L of urine output with overall fluid balance of -3.3 L. Cognition/mentation gonzalez patient much improved from yesterday. He is saturating well on 4 L nasal cannula. Patient did have 2 episode of hemoptysis which the /machine chocolate molder described as clot. Currently patient pending MRI as recommended by neurology. As patient has a EF of 15 to 20% we are pending transfer to [facility] cardiac Requiring Impella. Exam Vital Signs Temp Pulse Resp BP Pulse Ox O2 Del Method O2 Flow Rate 98.3 F 82 18 107/69 94 L Nasal Cannula 4 12/25/24 12:00 12/25/24 12:00 12/25/24 12:00 12/25/24 12:00 12/25/24 12:00 12/25/24 12:00 12/25/24 08:50 FiO2 30 12/25/24 08:00 Narrative Exam General: Awake. HEENT: Normocephalic, atraumatic, mucous membranes moist. Heart: Regular rate and rhythm, no murmurs. Lungs: Bilateral fine inspiratory crackles heard in the basilar areas. Abdomen: Soft, nondistended, nontender, positive bowel sounds. ?No guarding or rebound tenderness. Neurologic: Alert and oriented x3, no gross neurological deficit, and patient able to move all 4 extremities. Extremities: No edema. Skin: No rash or ecchymoses. Objective Labs 12/25/24 06:10 12/25/24 06:10 Labs: Laboratory Results - last 24 hr 12/24/24 12/25/24 22:07 06:10 WBC 5.6 RBC 3.84 L Hgb 10.7 L Hct 34.5 L MCV 90 MCH 27.9 MCHC 31.0 RDW Std Deviation 52.4 H Plt Count 152 Neut % (Auto) 51 Lymph % (Auto) 30 [place] % (Auto) 15 H Eos % (Auto) 3 Baso % (Auto) 1 Neut # (Auto) 2.8 Lymph # (Auto) 1.7 [place] # (Auto) 0.8 Eos # (Auto) 0.2 Baso # (Auto) 0.0 Immature Gran # (Auto) 0.01 H Absolute Nucleated RBC 0.00 Immature Gran % 0 Nucleated RBC % 0 VBG pH 7.41 VBG pCO2 48 VBG pO2 39 VBG O2 Sat (Carlene) 72 L VBG Base Excess 4 H Sodium 140 Potassium 3.8 Chloride 106 Carbon Dioxide 30.1 Anion Gap 4 L BUN 17 Creatinine 1.1 Estim Creat Clear Calc 64.5 eGFR > 60 BUN/Creatinine Ratio 15 Glucose 140 H Calculated Osmolality 282 Calcium 9.4 Corrected Calcium 9.8 Total Bilirubin 1.0 AST 23 ALT 17 Alkaline Phosphatase 82 Total Protein 8.4 H Albumin 3.5 Globulin 4.9 H Albumin/Globulin Ratio 0.7 L ABG Interpretation ABG results: 12/16/24 12/17/24 12/17/24 17:14 05:12 06:48 ABG pH 7.41 7.35 7.34 L ABG pCO2 38 47 49 H ABG pO2 49 L* 72 L D 170 H D ABG HCO3 24 26 27 H ABG O2 Saturation 82 L 94 100 H ABG Base Excess 0 0 0 VBG pH VBG pCO2 VBG pO2 VBG Base Excess 12/21/24 12/22/24 12/24/24 09:30 09:06 22:07 ABG pH 7.52 H 7.42 D ABG pCO2 41 59 H D ABG pO2 73 L 75 L ABG HCO3 34 H 38 H ABG O2 Saturation 96 96 ABG Base Excess 10 H 12 H VBG pH 7.41 VBG pCO2 48 VBG pO2 39 VBG Base Excess 4 H Quality Measures Quality Measures VTE prophylaxis Advance care planning discussed with:: other Assessment & Plan Assessment Current Active Medications: Generic Name Dose Route Start Last Admin Trade Name Freq PRN Reason Stop Dose Admin Acetaminophen 650 mg 12/17/24 06:35 12/25/24 11:59 Acetaminophen 325 Mg Tablet PO 01/15/25 17:41 650 mg Q6H PRN Administration Fever >100.3 Atorvastatin Calcium 40 mg 12/16/24 21:00 12/24/24 22:19 Atorvastatin Calcium 20 Mg Tablet PO 01/15/25 20:59 Not Given HS SHAZIA Bumetanide 1 mg 12/22/24 21:00 12/25/24 09:44 Bumetanide Inj 0.25 Mg/Ml Vial 4 Ml IVP 01/21/25 20:59 1 mg BID SHAZIA Administration Dapagliflozin 5 mg 12/22/24 12:45 12/25/24 09:43 Dapagliflozin Propanediol 5 Mg Tablet PO 01/21/25 12:44 5 mg QAM SHAZIA Administration Dextrose 50 ml 12/18/24 16:56 Dextrose 50%-Water Inj 50 Ml Syringe IV 01/17/25 16:55 Q15MIN PRN BG <50 OR BG <70 & pt unresponsive Enoxaparin Sodium 40 mg 12/17/24 09:00 12/23/24 09:46 Enoxaparin Sod Inj 40 Mg/0.4 Ml Syringe SC 12/31/24 08:59 Not Given QDAY SHAZIA Glucagon 1 mg 12/18/24 16:56 Glucagon Inj 1 Mg Vial IM Q15MIN PRN BG <70, and no IV access Guaifenesin 200 mg 12/19/24 17:00 12/25/24 11:59 Guaifenesin Syrup 200 Mg/10 Ml Udc PO 01/18/25 16:59 200 mg QID SHAZIA Administration Protocol Insulin Glargine 6 unit 12/20/24 21:00 12/24/24 21:45 Insulin Glargine (Lantus) 5 Unit/0.05 Ml (Per 5 Units) SC 01/19/25 20:59 6 unit HS SHAZIA Administration Insulin Human Lispro 0 unit 12/20/24 11:30 12/25/24 12:00 Insulin Lispro (Admelog) 1 Unit/0.01 Ml Unit SC 01/19/25 11:29 1 unit ACHS SHAZIA Administration Protocol Magnesium Hydroxide 30 ml 12/19/24 08:18 Milk Of Magnesia Susp 30 Ml Udc PO 01/18/25 08:17 QDAY PRN CONSTIPATION Protocol Melatonin 3 mg 12/21/24 19:00 12/24/24 22:20 Melatonin 3 Mg Tablet PO 01/20/25 18:59 Not Given HS [facility] Metoprolol Succinate 12.5 mg 12/22/24 12:45 12/25/24 09:43 Metoprolol Succinate Xl 25 Mg Tabcr PO 01/21/25 12:44 12.5 mg QDAY SHAZIA Administration Ondansetron HCl 4 mg 12/16/24 17:42 12/21/24 20:35 Ondansetron Inj 2 Mg/Ml Inj 2 Ml IVP 01/15/25 17:41 4 mg Q6H PRN Administration NAUSEA OR VOMITING Protocol Pantoprazole Sodium 40 mg 12/21/24 09:00 12/25/24 09:43 Pantoprazole 40 Mg Tablet PO 01/20/25 08:59 40 mg QDAY SHAZIA Administration Protocol Polyethylene Glycol 17 gm 12/21/24 09:00 12/25/24 09:43 Polyethylene Glycol 17 Gm Packet PO 01/20/25 08:59 17 gm QDAY SHAZIA Administration Ropinirole HCl 1 mg 12/24/24 19:00 12/24/24 19:34 Ropinirole Hcl 1 Mg Tablet PO 01/23/25 18:59 1 mg QDAY@1900 SHAZIA Administration Sennosides 1 tab 12/17/24 09:00 12/25/24 09:43 Senna Tablet PO 01/16/25 08:59 1 tab QDAY [facility] Administration Protocol Tamsulosin HCl 0.4 mg 12/17/24 09:00 12/25/24 09:43 Tamsulosin Hcl 0.4 Mg Capsule PO 01/16/25 08:59 0.4 mg QDAY [facility] Administration Plan A 79-year-old male with significant past medical history of hypertension, diabetes mellitus, asthma, intracranial bleed, using oxygen, 2 L at home as needed, HFrEF presented to the hospital with chief complaints of sudden onset headache followed by generalized weakness on the day of admission. # Hemoptysis, stable - Patient is found to have hemoptysis on 12/23/24 - No history of chest pain, fever, palpitations, difficulty breathing Plan - Discontinued aspirin, prophylactic dose of Lovenox - Will continue to monitor CBC - On SCD for DVT prophylaxis # Acute on chronic decompensated chronic systolic CHF exacerbation [EF 15 - 20%]?resolving - Patient found to have extensive pedal edema, 4+ pitting extending up to knees. Per patient and patient's , it was present since the time of diagnosis from last hospital admission - Home oxygen : 2 L nasal cannula as needed for shortness of breath - Chest x-ray : bilateral moderate vascular congestion - 08/02/2024 LILLIAM: Normal LV size and thickness. Severely reduced LV function, LVEF estimated 25-30%. - NYHA Class III at baseline - Repeat ECHO - Dilated cardiomyopathy. Moderate to severe LV enlargement. Severely reduced LV function with an LVEF of 15 to 20%. Moderate AV thickening with moderate calcification. Moderate AV sclerosis without stenosis based on V max 2.1 m/s. Possibly underestimated due to the low EF and could be mild on moderate . Severe LA dilatation and mild to moderate RA dilatation. IVC dilated with <50% collapse during inspiration. Plan - Daily weights - 2G sodium restricted diet - Continue fluid restriction to 1500 mL - Continue Bumex 1 Mg IV twice daily and given a dose of Diamox 250mg one time dose on 12/23 in view of metabolic alkalosis to prevent co2 retention - Manager Programming Dr. Lundberg consulted, Appreciated recommendations. Recommended cardiac cath and transfer the [facility] for [facility] management - Will keep K >4 and Mg >2 - Will continue to monitor urine output and renal function closely - Started on Jardiance, metoprolol on 12/22/2024 - Bipap as needed and at night time # Acute on chronic hypoxic respiratory failure secondary to aspiration Pneumonia - resolving - Admitted for acute hypoxic respiratory failure due to aspiration while on BiPAP. Intubated 5:30 AM and 12/17 - Completed course of Unasyn - Sputum and blood cultures came back negative Plan - Continue Unasyn 3 g every 6 hours (12/17 - # Syncope , Ground-level mechanical fall # Stroke ruled out - Patient presented to the hospital with chief complaints of sudden onset headache followed by generalized weakness and a fall on the day of admission - Head CT, CTA head/neck did not show any acute pathology - Cervical spine CT and Lumbar spine x-ray: No fracture noted - Teleneurology is consulted and recommended loading dose of aspirin and stroke precautions Plan - Continue aspirin 81 Mg and atorvastatin 40 Mg po HS - Dr Downing is consulted, appreciate recommendations - ordered MRI Brain #Likely CHEYANNE/OHS Patient's states that he snores at night and has excessive daytime somnolence especially while eating or watching TV. She bought a secondhand CPAP machine from a medical supply oxygen and uses that at home. However was never formally diagnosed or prescribed a CPAP machine by a medical practitioner. Plan BiPAP/CPAP as needed during the day for naps and at night, will hold for tonight #T2 IDDM History of type 2 insulin-dependent diabetes. Hb A1C 6.5% Plan - Continue normal insulin sliding scale with Accu-Checks and started on insulin glargine 6 units subcutaneous at bedtime - Hypoglycemia protocol in place Hospital Maintenance: Dispo: Pending transfer to tertiary center with Impella DVT ppx: Enoxaparin, Held for now GI ppx: Pantoprazole Diet: Cardiac, pureed IV lines: Peripheral Code status: Full This patient care was discussed with attending Dr. Joshua Cao MD PGY-2 Disclaimer: Minor errors in it engineer may be present since this note was dictated by speech recognition software.
--- NOTE | 2024-12-25 14:30 | PC.SS ---
Rounding Note: Transfer remains pending.
--- NOTE | 2024-12-25 17:46 | PD.IMPROG ---
Documentation for date of: 12/25/24 Subjective Subjective Interval history: Patient seen and examined at the bedside. Given his altered mental status per primary team again plan to repeat an MRI today. Patient with the symptoms better today and is much more awake as patient did use his BiPAP yesterday. Again there was a concern of questionable hemoptysis with some blood or clot. Hemoglobin is still stable around 10. Chest x-ray was repeated today and appears much improved from before there is still some mild congestion and will continue with diuresis. Recommended to continue BiPAP at night. Repeat echo was performed today on 12/25/2024 and exactly similar as the previous echo and no change from admission on 12/20/2024. EF is still less than 20% and patient is awaiting transfer to [facility]. Patient apparently a has been using his CPAP machine at home but never has been officially diagnosed with CHEYANNE. Patient appears to be adequately diuresed at the present point of time and kidney function continues to be stable with Bumex 1 mg IV twice daily. Bicarbonate was slightly high and was given Diamox 500 mg x 1 now bicarbonate is 30. As discussed previously patient is awaiting transfer to higher level of care [facility] at the request of the . Exam Vital Signs Temp Pulse Resp BP Pulse Ox O2 Del Method O2 Flow Rate 97.2 F 79 19 109/65 95 Nasal Cannula 4 12/25/24 16:00 12/25/24 16:12/25/24 16:12/25/24 16:12/25/24 16:12/25/24 16:12/25/24 16:00 FiO2 30 12/25/24 08:00 Narrative Exam General Appearance: Alert & Oriented x 3, mildly confused but clear mental status compared to before HEENT: Skull symmetrical and atraumatic. Conjunctivae pale and moist. Pupils equal, round, reactive to light and accommodation (PERRL). External ear without lesion or discharge. Cardio: Normal Rate and Rhythm with S1 and S2 heart sounds. No murmurs or extra heart sounds auscultated-difficult to appreciate secondary to body habitus. No bruits on carotid auscultation. Peripheral edema noted, 2+-improving Lungs: Symmetric with good expansion. Chest and back non-tender. Breath sounds vesicular dificult to appreciate it. Abdomen: Non-tender, Non-distended, Normal Reactive Bowel Sounds Neuro: Alert awake oriented x 3 in no major focal deficits except for slight confusion. Objective Labs 12/25/24 06:10 12/25/24 06:10 Labs: Laboratory Results - last 24 hr 12/24/24 12/25/24 22:07 06:10 WBC 5.6 RBC 3.84 L Hgb 10.7 L Hct 34.5 L MCV 90 MCH 27.9 MCHC 31.0 RDW Std Deviation 52.4 H Plt Count 152 Neut % (Auto) 51 Lymph % (Auto) 30 [place] % (Auto) 15 H Eos % (Auto) 3 Baso % (Auto) 1 Neut # (Auto) 2.8 Lymph # (Auto) 1.7 [place] # (Auto) 0.8 Eos # (Auto) 0.2 Baso # (Auto) 0.0 Immature Gran # (Auto) 0.01 H Absolute Nucleated RBC 0.00 Immature Gran % 0 Nucleated RBC % 0 VBG pH 7.41 VBG pCO2 48 VBG pO2 39 VBG O2 Sat (Carlene) 72 L VBG Base Excess 4 H Sodium 140 Potassium 3.8 Chloride 106 Carbon Dioxide 30.1 Anion Gap 4 L BUN 17 Creatinine 1.1 Estim Creat Clear Calc 64.5 eGFR > 60 BUN/Creatinine Ratio 15 Glucose 140 H Calculated Osmolality 282 Calcium 9.4 Corrected Calcium 9.8 Total Bilirubin 1.0 AST 23 ALT 17 Alkaline Phosphatase 82 Total Protein 8.4 H Albumin 3.5 Globulin 4.9 H Albumin/Globulin Ratio 0.7 L ABG Interpretation ABG results: 12/16/24 12/17/24 12/17/24 17:14 05:12 06:48 ABG pH 7.41 7.35 7.34 L ABG pCO2 38 47 49 H ABG pO2 49 L* 72 L D 170 H D ABG HCO3 24 26 27 H ABG O2 Saturation 82 L 94 100 H ABG Base Excess 0 0 0 VBG pH VBG pCO2 VBG pO2 VBG Base Excess 12/21/24 12/22/24 12/24/24 09:30 09:06 22:07 ABG pH 7.52 H 7.42 D ABG pCO2 41 59 H D ABG pO2 73 L 75 L ABG HCO3 34 H 38 H ABG O2 Saturation 96 96 ABG Base Excess 10 H 12 H VBG pH 7.41 VBG pCO2 48 VBG pO2 39 VBG Base Excess 4 H Assessment & Plan A&P Narrative A 79-year-old male patient with a past medical history of severe systolic congestive heart failure with an EF of 25 to 30%, old left bundle branch block, 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 Initial workup did show that the patient was hypoxic with saturation of 90% on 2 L nasal cannula. Labs showed only mildly elevated troponins at 0.05 and previous was 0.06 during last admission. EKG showed normal sinus rhythm with left bundle branch block and no acute ST-T changes history of ischemia. Chest x-ray with moderate vascular congestion. Head CT, CTA head and neck was negative. Cervical spine CT showed degenerative disc disease. UA was negative. Labs showed mild anemia at 10.5, WBC normal at 7.3 and platelets of 127. Potassium was low at 3.2 BUN of 11 creatinine of 1.0 and glucose of 167. After admission patient did continue to be hypoxic and had a vomitus when he was placed on the BiPAP mask because of his acute hypoxic respiratory failure. There was possible aspiration pneumonia and patient continued to desaturate and he was intubated and started on mechanical ventilation and transferred to the ICU. Normal IV antibiotics for the pneumonia. Patient also fluid overloaded and was started on diuresis. Assessment and plan: 1. Acute hypoxic respiratory failure on mechanical ventilation mostly secondary to aspiration pneumonia as well as CHF exacerbation 2. Altered mental status with headaches, generalized weakness-ruled out stroke 3. Fall secondary to the weakness 4. Acute on chronic severe systolic congestive heart failure with an last known EF of 25 to 30% in July 2023 5. Left bundle branch block 6. 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 Morbid obesity 8. Essential hypertension . Diabetes mellitus type 2 10. Chronic anemia 11. Hyperlipidemia 12. Obstructive sleep apnea on CPAP 13. BPH 14. Restless leg syndrome Patient known to me from the previous hospitalization in July 2024 when he was initially diagnosed with severe systolic CHF with an EF of 25 to 30%. Patient was in CHF exacerbation along with pneumonia and acute hypoxic respiratory failure which was aggressively treated and was discharged home on 08/05/2024. Patient did follow-up with me in clinic on 08/08/2024 and was recommended a nuclear stress test given his new systolic congestive heart failure which was completed on 08/16/2024. Lexiscan stress test did show evidence of stress-induced ischemia in the apical as well as mid to apical anterior segments. LVEF was also low at 32%. Patient was recommended left heart cardiac catheterization but never followed up with the office and was adamant that his heart's was in good condition and does not need any further procedures. Patient presented with headache, generalized weakness as well as a fall. CTA head and neck, head CT were negative for any acute stroke. Neurology is following. Fall appears to be mechanical in review of the chart shows that there was no evidence of any syncope or loss of consciousness on admission. Patient could not get up because of the weakness but was awake alert. Acute hypoxic respiratory failure and on mechanical ventilation at the present point of time mostly secondary to the aspiration pneumonia and started on IV antibiotics by the critical care team which will be continued. Also patient does have CHF exacerbation and recommend to continue the diuresis for the same. Acute on chronic severe systolic congestive heart failure exacerbation. Echo from July 2024 showed Normal left ventricular size, wall thickness. Severely reduced LV function LVEF estimated at 25-30 %. RV is normal in size and systolic function. Could not estimate RVSP as TR not visualiozed well. Moderate AV thickening with mild calcification. AV sclerosis without stenosis. V max 2.1 m/s. Possibly underestimated due to low EF. MIld thickening and clacification of mitral leafts too. Mild to moderate MR. Mild LA dilataion. IVC dilated but with > 50% collapse. Echo - 12/20/24 - Dilated cardiomyopathy. Moderate to severe LV enlargement. Severely reduced LV function with an LVEF of 15 to 20%. Mildly dilated RV with normal systolic function. Could not estimate RVSP as TR not visualiozed well. Moderate AV thickening with moderate calcification. Moderate AV sclerosis without stenosis based on V max 2.1 m/s. Possibly underestimated due to the low EF and could be mild on moderate . Trace AI. MIld thickening and clacification of mitral leafts too. Mild to moderate MR. Trace to mild TR. Severe LA dilatation and mild to moderate RA dilatation. IVC dilated with <50% collapse during inspiration. No pericardial effusion. Left pleural effusion noted. Recommend to continue aggressive diuresis with Lasix 40 mg IV twice daily for now. Strict input output Daily weights and 2 g sodium diet. Fluid restriction to 15 mL/day. Mancera potassium greater than 4 and magnesium greater than 2.0 at all times. Will continue to monitor renal function closely and the BUN/creatinine normal now. His systolic congestive heart failure etiology was not determined hence was seen in the clinic as noted above and had an NST which did show evidence of stress-induced ischemia with decreased uptake in the apical as well as mid to apical anterior segments. Patient was recommended left heart cardiac catheterization. Did not follow-up with any appointments as outpatient in spite of multiple calls from my office, felt that his heart was in good condition. Discussed in detail with the and patient apparently had procedure through his groin at [facility] in February 2024 and was apparently normal. Patient not sure if the patient had a carotid angiogram or intervention of the intraventricular hemorrhage which he had at that point of time or he had a cardiac catheterization. wanted us to wait for the operative reports from the outside hospital. Recommend primary team to obtain all operative reports from his previous hospitalization in February 2024 from [facility] and to find out if the patient had any cardiac catheterization procedure. Troponins only minimally elevated at 0.05. EKG also did not show any acute ST-T changes history of active ischemia. Patient did not have any complaints of chest pain or chest pressure prior to the admission. Patient will benefit from left and right heart cardiac catheterization once he is hemodynamically stable after active treatment of the aspiration pneumonia as well as CHF exacerbation. 12/22/2024: Patient was difficult to arouse as per the primary team and was significantly altered patient had an ABG done which showed a PCO2 of 59 and a PO2 of 75 and patient was again started on BiPAP. Patient now has acute hypoxic as well as hypercapnic respiratory failure. Unable to follow any commands. Patient overall hemodynamically stable and has been diuresing well with Bumex 1 mg IV twice daily. Renal function appears to be stable. Plan was for her to perform a left and right heart cardiac catheterization for the patient to continue with his ischemic workup as well as his CHF. Unfortunately patient has been confused since yesterday and his respiratory status has not been stable and is unable to lie down flat on the bed. Patient possibly has CAD with multivessel disease given his worsening EF and recent positive stress test and less likely nonischemic cardiomyopathy. Given his severely low ejection fraction patient will also need complex PCI with stent by [facility] given his low ejection fraction of 15%. This institution does not have [facility] or other MCS available to perform the complex PCI and it would be appropriate to transfer the patient to a higher level of care. Also patient does have a history of hemorrhagic CVA with procedures performed at [facility] previously and we are unable to obtain any records until now. Continue with heparin drip along with IV diuresis for now along with BiPAP Discussed with the and also requested for higher level of care and she has requested for [facility] as he was previously admitted there in April 2024. 12/25/2024: Given his altered mental status per primary team again plan to repeat an MRI today. Patient with the symptoms better today and is much more awake as patient did use his BiPAP yesterday. Again there was a concern of questionable hemoptysis with some blood or clot. Hemoglobin is still stable around 10. Chest x-ray was repeated today and appears much improved from before there is still some mild congestion and will continue with diuresis. Recommended to continue BiPAP at night. Repeat echo was performed today on 12/25/2024 and exactly similar as the previous echo and no change from admission on 12/20/2024. EF is still less than 20% and patient is awaiting transfer to [facility]. Patient apparently a has been using his CPAP machine at home but never has been officially diagnosed with CHEYANNE. Patient appears to be adequately diuresed at the present point of time and kidney function continues to be stable with Bumex 1 mg IV twice daily. Bicarbonate was slightly high and was given Diamox 500 mg x 1 now bicarbonate is 30. As discussed previously patient is awaiting transfer to higher level of care [facility] at the request of the . Management of rest of the medical conditions as per primary team and other consultants. Thank you for the consult and allowing me to participate in the care of the patient. Cardiology will continue to follow. Rakan Lundberg M.D. Interventional Cardiology Time Spent With Patient Time: Total time spent is greater than 50% in coordination of care (as documented) at patient's floor/unit and/or counseling patient:
[2024-12-25] MEDS: MELATONIN 3 MG TABLET PO (20:36)
[2024-12-25] MEDS: ATORVASTATIN CALCIUM 20 MG TABLET 40 MG PO (20:36)
[2024-12-25] MEDS: INSULIN GLARGINE (Lantus) 5 UNIT/0.05 ML (PER 5 UNITS) 6 UNIT SC (20:48)
--- NOTE | 2024-12-25 22:31 | EVENTNT_ITS ---
Documentation for date of: 12/25/24 Patient discussed with cardiothoracic surgeon and furniture removalist on-call the patient will need specialty train master. Please contact data coordinator tomorrow morning/daytime to contact Dr. Rincon.
--- NOTE | 2024-12-25 22:31 | PD.EVENT ---
Documentation for date of: 12/25/24 Patient discussed with cardiothoracic surgeon and regulatory submissions specialist on-call the patient will need specialty head bellhop captain. Please contact dry transfer worker tomorrow morning/daytime to contact Dr. Rincon.
--- NOTE | 2024-12-25 23:46 | ESPR_ITS ---
Documentation for date of: 12/25/24 Subjective Subjective Interval history: Seen in telemetry today at the bedside, with one on one supervision. Intermittently confused. He has the BIPAP on now. Exam - Neurology Vital Signs Temp Pulse Resp BP Pulse Ox O2 Del Method O2 Flow Rate 97.8 F 83 26 H 114/84 98 Nasal Cannula 3 12/25/24 21:30 12/25/24 21:00 12/25/24 21:00 12/25/24 20:37 12/25/24 21:00 12/25/24 20:00 12/25/24 20:00 FiO2 30 12/25/24 21:00 Narrative Exam GENERAL APPEARANCE: Well hydrated, well-nourished male in NAD HEENT: Normocephalic, atraumatic, extraocular movements intact. Pupils: Equal reacting to light. NECK: Supple, no JVD or bruits. CARDIOVASULAR: Heart: S1, S2 heard, regular without S3-S4 or murmur no rubs or gallops. LUNGS/CHEST: Clear to auscultation bilaterally. No rails, rhonchi, or wheezing. Normal inspection. ABDOMEN: Soft, nontender, with normal bowel sounds. No pulsatile masses. No rebound, rigidity, or guarding. Normal inspection and palpation. EXTREMITIES: Normal inspection and palpation. No edema, clubbing or cyanosis. SKIN: Warm and dry without rashes. Normal inspection. MUSCULOSKELETAL: No cervical , thoracic, lumbar or midline bony tenderness. Normal inspection. NEURO: aao2, speech and lang: normal no focal deficit noted. No signs of meningeal irritation noted. PSYCHIATRIC: Normal mood and affect. Objective Labs 12/25/24 06:10 12/25/24 06:10 Labs: Laboratory Results - last 24 hr 12/25/24 06:10 WBC 5.6 RBC 3.84 L Hgb 10.7 L Hct 34.5 L MCV 90 MCH 27.9 MCHC 31.0 RDW Std Deviation 52.4 H Plt Count 152 Neut % (Auto) 51 Lymph % (Auto) 30 [place] % (Auto) 15 H Eos % (Auto) 3 Baso % (Auto) 1 Neut # (Auto) 2.8 Lymph # (Auto) 1.7 [place] # (Auto) 0.8 Eos # (Auto) 0.2 Baso # (Auto) 0.0 Immature Gran # (Auto) 0.01 H Absolute Nucleated RBC 0.00 Immature Gran % 0 Nucleated RBC % 0 Sodium 140 Potassium 3.8 Chloride 106 Carbon Dioxide 30.1 Anion Gap 4 L BUN 17 Creatinine 1.1 Estim Creat Clear Calc 64.5 eGFR > 60 BUN/Creatinine Ratio 15 Glucose 140 H Calculated Osmolality 282 Calcium 9.4 Corrected Calcium 9.8 Total Bilirubin 1.0 AST 23 ALT 17 Alkaline Phosphatase 82 Total Protein 8.4 H Albumin 3.5 Globulin 4.9 H Albumin/Globulin Ratio 0.7 L ABG Interpretation ABG results: 12/16/24 12/17/24 12/17/24 17:14 05:12 06:48 ABG pH 7.41 7.35 7.34 L ABG pCO2 38 47 49 H ABG pO2 49 L* 72 L D 170 H D ABG HCO3 24 26 27 H ABG O2 Saturation 82 L 94 100 H ABG Base Excess 0 0 0 VBG pH VBG pCO2 VBG pO2 VBG Base Excess 12/21/24 12/22/24 12/24/24 09:30 09:06 22:07 ABG pH 7.52 H 7.42 D ABG pCO2 41 59 H D ABG pO2 73 L 75 L ABG HCO3 34 H 38 H ABG O2 Saturation 96 96 ABG Base Excess 10 H 12 H VBG pH 7.41 VBG pCO2 48 VBG pO2 39 VBG Base Excess 4 H Assessment & Plan Assessment and plan (1) Stroke-like symptom: Status: Acute Assessment and plan: no focal deficit on exam 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 No acute infarction noted. PT eval. when stable. (2) Sleep apnea in adult: Status: Chronic Assessment and plan: uses CPAP even though it is not officially diagnosed. (3) Community acquired pneumonia: Status: Acute Assessment and plan: on IV antibiotics and bronchodilators (4) Heart failure: Status: Acute Assessment and plan: Repeat echo was performed today on 12/25/2024 and exactly similar as the previous echo and no change from admission on 12/20/2024. EF is still less than 20% and patient is awaiting transfer to [facility] for higher level of care as per 's request.
[2024-12-26] VITALS (15 sets, daily range): BP systolic 92–118; BP diastolic 63–86; PULSE 70–84; RESP 13–26; TEMP 36–36.7; O2SAT 94–99; BMI 29.8
[2024-12-26] MEDS: guaiFENesin SYRUP 200 MG/10 ML UDC PO ×4 (06:14→20:28)
--- NOTE | 2024-12-26 08:04 | PD.RESPRO ---
Documentation for date of: 12/26/24 Subjective Subjective Interval history: No acute overnight events. Vitals relatively stable, maintaining good oxygenation at 3% NC. Significant derangement on labs including CBC and CMP. No new cultures. Continue awaiting transfer to [facility] for cardiac cath due to capacity issue. Currently on a waiting list for transfer. In-house cardiology may do an angiogram but no PCI tomorrow if patient still here. Will make him n.p.o. at midnight. Exam Vital Signs Temp Pulse Resp BP Pulse Ox O2 Del Method O2 Flow Rate 97.8 F 71 14 106/64 99 Nasal Cannula 3 12/26/24 07:45 12/26/24 07:45 12/26/24 07:45 12/26/24 07:45 12/26/24 07:45 12/26/24 07:45 12/26/24 07:45 FiO2 30 12/26/24 07:45 Narrative Exam General: Awake. HEENT: Normocephalic, atraumatic, mucous membranes moist. Heart: Regular rate and rhythm, no murmurs. Lungs: Bilateral fine inspiratory crackles heard in the basilar areas. Abdomen: Soft, nondistended, nontender, positive bowel sounds. ?No guarding or rebound tenderness. Neurologic: Alert and oriented x3, no gross neurological deficit, and patient able to move all 4 extremities. Extremities: No edema. Skin: No rash or ecchymoses. Objective Labs 12/28/24 04:47 12/28/24 04:47 ABG Interpretation ABG results: 12/16/24 12/17/24 12/17/24 17:14 05:12 06:48 ABG pH 7.41 7.35 7.34 L ABG pCO2 38 47 49 H ABG pO2 49 L* 72 L D 170 H D ABG HCO3 24 26 27 H ABG O2 Saturation 82 L 94 100 H ABG Base Excess 0 0 0 VBG pH VBG pCO2 VBG pO2 VBG Base Excess 12/21/24 12/22/24 12/24/24 09:30 09:06 22:07 ABG pH 7.52 H 7.42 D ABG pCO2 41 59 H D ABG pO2 73 L 75 L ABG HCO3 34 H 38 H ABG O2 Saturation 96 96 ABG Base Excess 10 H 12 H VBG pH 7.41 VBG pCO2 48 VBG pO2 39 VBG Base Excess 4 H Quality Measures Quality Measures VTE prophylaxis Advance care planning discussed with:: patient Assessment & Plan Assessment Current Active Medications: Generic Name Dose Route Start Last Admin Trade Name Freq PRN Reason Stop Dose Admin Acetaminophen 650 mg 12/17/24 06:35 12/25/24 20:36 Acetaminophen 325 Mg Tablet PO 01/15/25 17:41 650 mg Q6H PRN Administration Fever >100.3 Atorvastatin Calcium 40 mg 12/16/24 21:00 12/25/24 20:36 Atorvastatin Calcium 20 Mg Tablet PO 01/15/25 20:59 40 mg HS SHAZIA Administration Bumetanide 1 mg 12/22/24 21:00 12/25/24 20:37 Bumetanide Inj 0.25 Mg/Ml Vial 4 Ml IVP 01/21/25 20:59 1 mg BID SHAZIA Administration Dapagliflozin 5 mg 12/22/24 12:45 12/25/24 09:43 Dapagliflozin Propanediol 5 Mg Tablet PO 01/21/25 12:44 5 mg QAM HSAZIA Administration Dextrose 50 ml 12/18/24 16:56 Dextrose 50%-Water Inj 50 Ml Syringe IV 01/17/25 16:55 Q15MIN PRN BG <50 OR BG <70 & pt unresponsive Enoxaparin Sodium 40 mg 12/17/24 09:00 12/23/24 09:46 Enoxaparin Sod Inj 40 Mg/0.4 Ml Syringe SC 12/31/24 08:59 Not Given QDAY SHAZIA Glucagon 1 mg 12/18/24 16:56 Glucagon Inj 1 Mg Vial IM Q15MIN PRN BG <70, and no IV access Guaifenesin 200 mg 12/19/24 17:00 12/26/24 06:14 Guaifenesin Syrup 200 Mg/10 Ml Udc PO 01/18/25 16:59 200 mg QID SHAZIA Administration Protocol Insulin Glargine 6 unit 12/20/24 21:00 12/25/24 20:48 Insulin Glargine (Lantus) 5 Unit/0.05 Ml (Per 5 Units) SC 01/19/25 20:59 6 unit HS SHAZIA Administration Insulin Human Lispro 0 unit 12/20/24 11:30 12/26/24 07:14 Insulin Lispro (Admelog) 1 Unit/0.01 Ml Unit SC 01/19/25 11:29 Not Given ACHS SHAZIA Protocol Magnesium Hydroxide 30 ml 12/19/24 08:18 Milk Of Magnesia Susp 30 Ml Udc PO 01/18/25 08:17 QDAY PRN CONSTIPATION Protocol Melatonin 3 mg 12/21/24 19:00 12/25/24 20:36 Melatonin 3 Mg Tablet PO 01/20/25 18:59 3 mg HS SHAZIA Administration Metoprolol Succinate 12.5 mg 12/22/24 12:45 12/25/24 09:43 Metoprolol Succinate Xl 25 Mg Tabcr PO 01/21/25 12:44 12.5 mg QDAY SHAZIA Administration Ondansetron HCl 4 mg 12/16/24 17:42 12/21/24 20:35 Ondansetron Inj 2 Mg/Ml Inj 2 Ml IVP 01/15/25 17:41 4 mg Q6H PRN Administration NAUSEA OR VOMITING Protocol Pantoprazole Sodium 40 mg 12/21/24 09:00 12/25/24 09:43 Pantoprazole 40 Mg Tablet PO 01/20/25 08:59 40 mg QDAY SHAZIA Administration Protocol Polyethylene Glycol 17 gm 12/21/24 09:00 12/25/24 09:43 Polyethylene Glycol 17 Gm Packet PO 01/20/25 08:59 17 gm QDAY SHAZIA Administration Ropinirole HCl 1 mg 12/24/24 19:00 12/25/24 19:33 Ropinirole Hcl 1 Mg Tablet PO 01/23/25 18:59 1 mg QDAY@1900 SHAZIA Administration Sennosides 1 tab 12/17/24 09:00 12/25/24 09:43 Senna Tablet PO 01/16/25 08:59 1 tab QDAY SHAZIA Administration Protocol Tamsulosin HCl 0.4 mg 12/17/24 09:00 12/25/24 09:43 Tamsulosin Hcl 0.4 Mg Capsule PO 01/16/25 08:59 0.4 mg QDAY SHAZIA Administration Plan A 79-year-old male with significant past medical history of hypertension, diabetes mellitus, asthma, intracranial bleed, using oxygen, 2 L at home as needed, HFrEF presented to the hospital with chief complaints of sudden onset headache followed by generalized weakness on the day of admission. Admitted for CHF exacerbation. Acute CHF exacerbation CHF with a EF 15-20% Presented with 4+ pitting edema up to the knee. He has chronic CHF, on 2 L home oxygen. CXR showed moderate vascular congestion. Echocardiogram showed EEF 15-20% (EF 25-30% from 07/2024), there is also severe reduced LV function with moderate to severe LV enlargement, moderate AV thickening and moderate calcification, moderate AV sclerosis without stenosis, severe LA dilation, and mild-moderate RA dilation, IVC dilation with <50% collapsibility. Continued on diuresis, overall 11 L net negative. SOB overall improving. Appears to be at baseline in terms of oxygen need, 2-3% nasal cannula. Currently pending transfer to [facility] for cath. However, it has cardiology, might perform an angiogram without PCI if transferred does not happen tomorrow. ? Strict INOs ? Fluid restriction 1200 cc daily ? Maintain K > 4.0 and Mg > 2.0 ? Continue JARDIANCE daily ? Continue METOPROLOL 12.5 mg QDAY ? Continue BUMEX 1 mg IV BID ? Continue BiPAP PRN Acute on chronic respiratory failure Aspiration pneumonia (resolving) As stated above, admitted with acute hypoxic respiratory failure due to aspiration while on BiPAP, intubated on 12/17, successfully extubated since. Completed course of UNASYN. Afebrile, no leukocytosis, blood and sputum cultures have been negative. Syncope Ground-level mechanical fall Stroke ruled out Presented with sudden onset headache followed by generalized weakness and fall on the day of admission. Head CT, CTA head/neck were negative for acute pathology. Cervical spine CT and lumbar spine x-ray no fracture noted Teleneurology recommended ASPIRIN stroke precaution. 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 stated she bought a secondhand CPAP machine from [employer], although has never been evaluated for sleep disorder nor has he ever been prescribed CPAP machine. ? Continue BiPAP/CPAP HS and PRN IDDM, type II Admission. A1c 6.5 ? Continue INSULIN GLARGINE 6 units HS ? INSULIN sliding scale ? Accu-Cheks Hemoptysis (resolved) Had a nonrecurrent episode on 12/23, likely 2/2 pneumonia and cough. Hgb has been stable. Will resume HEPARIN DVT prophylaxis. Health maintenance Diet: Cardiac, pur?ed GI prophylaxis: PROTONIX DVT prophylaxis: HEPARIN subcu Antibiotics: None CODE STATUS: Full code Disposition: Pending transfer for cardiac intervention. Case was discussed with attending physician and senior resident. Kev Oneal DO PGY II This document was transcribed using voice recognition technology. Minor inaccuracies may be present. Attending Provider Attestation/Addendum I attest that I was physically present for the evaluation, physical examination, lab and imaging review of the patient with the residents. I discussed the case with the residents and agree with the findings and plans of care as documented above. Jona Wong MD
[2024-12-26 08:48] LABS: Basophils # (Auto) 0.0 Thou/mm3 (0.0-0.2); Basophils % (Auto) 1 % (0-2.5); Eosinophils # (Auto) 0.2 Thou/mm3 (0.0-0.5); Eosinophils % (Auto) 4 % (0-10); Hematocrit 36.9 % (41.0-53.0); Hemoglobin 11.2 g/dL (13.5-16.0); Immature Granulocytes Auto 0.01 Thou/mm3 (0.00-0.00); Lymphocytes # (Auto) 1.5 Thou/mm3 (1.0-4.8); Lymphocytes % (Auto) 30 % (10-50); Mean Corpuscular HGB Conc 30.4 g/dl (31.0-37.0); Mean Corpuscular Hemoglobin 27.5 pg (25.0-35.0); Mean Corpuscular Volume 91 fL (80-100); Monocytes # (Auto) 0.6 Thou/mm3 (0.0-0.8); Monocytes % (Auto) 13 % (0-12); Neutrophils # (Auto) 2.6 Thou/mm3 (1.8-7.7); Neutrophils % (Auto) 53 % (37-80); Nucleated Red Blood Cell # 0.00 Thou/mm3 (0.00-0.00); Nucleated Red Blood Cell % 0 /100 WBC (0); Platelet Count 164 Thou/mm3 (140-440); RDW Standard Deviation 51.8 fL (35.1-43.9); Red Blood Count 4.07 Miln/mm3 (4.50-5.90); White Blood Count 4.9 Thou/mm3 (3.8-10.6)
[2024-12-26] MEDS: METOPROLOL SUCCINATE XL 25 MG TABCR 12.5 MG PO (08:55)
[2024-12-26] MEDS: TAMSULOSIN HCL 0.4 MG CAPSULE PO (08:55)
[2024-12-26] MEDS: BUMETANIDE INJ 0.25 MG/ML VIAL 4 ML 1 MG IVP (08:56)
[2024-12-26] MEDS: DAPAGLIFLOZIN PROPANEDIOL 5 MG TABLET PO (08:56)
[2024-12-26] MEDS: PANTOPRAZOLE 40 MG TABLET PO (08:56)
[2024-12-26] MEDS: POLYETHYLENE GLYCOL 17 GM PACKET PO (08:56)
[2024-12-26 09:01] LABS: Alanine Aminotransferase 22 U/L (10-49); Albumin, Serum 3.5 gm/dL (3.4-4.8); Albumin/Globulin Ratio 0.7 (1.2-2.2); Alkaline Phosphatase 87 U/L (46-116); Anion Gap 7 (7-16); Aspartate Amino Transferase 28 U/L (0-34); BUN/Creatinine Ratio 19 Ratio (12-20); Bilirubin,Total 1.2 mg/dL (0.3-1.2); Blood Urea Nitrogen 21 mg/dL (9-23); Calcium 9.6 mg/dL (8.3-10.6); Calcium (Corrected) 10.0 mg/dL (8.5-10.1); Carbon Dioxide 31.2 mMol/L (20.0-31.0); Chloride 104 mMol/L (98-107); Creatinine (Component) 1.1 mg/dL (0.6-1.3); Estimated Creatinine Clearance 64.5 mL/min (>60); Globulin 5.0 gm/dL (2.3-3.5); Glucose 148 mg/dL (74-106); Osmolality,Calculated 289 (275-295); Potassium 3.8 mMol/L (3.4-5.1); Sodium 142 mMol/L (136-145); Total Protein 8.5 gm/dL (5.7-8.2); eGFR > 60 See Note
--- NOTE | 2024-12-26 09:38 | PC.CM ---
Addendum entered by Mary Alice Ybarra RN 12/26/24 10:14: I received a call from [facility] wanting to know if we still wanted a transfer. I let them know that Dr and patient want to go to [facility] so I will cancel the transfer at this time. Original Note: I received a call from Ledy at [facility] phone # [phone] ext, [phone]. She wanted to know if we had an accepting facility for patient. I let her know Dr. Bledsoe would like patient to go to [facility] because patient had been there in the past. [facility] did not have any beds yesterday so we will reach out to them today.
--- NOTE | 2024-12-26 09:51 | PC.CC ---
Addendum entered by Nilay South RN 12/26/24 15:44: 1540 Chloe from transfer center at [facility] called to decline patient due to ICU capacity. Addendum entered by Nilay South RN 12/26/24 15:40: 1530 Hailee from [facility] from transfer center reached out with update on no bed availability at this time and to reach out after 2[address]. Recommend[address] Lundberg to reach out to [facility] for requests to transfer and updated clinical information. Dr. Lundberg texted with requested information from Hailee at Transfer Center. Original Note: 0590 [facility] contacted [place], currently not accepting outside transfers due to capacity at [facility]. Will be placed on wait list and can recontact after 1400. [address] Lundberg for update on patient transfer. Dr. Lundberg requested that follow be made to [facility] secondary to patient having prior procedures at this facility. Dr. Lundberg also state is requesting transfer to that hospital. Dr. Lundberg made aware of capacity at [facility] and that attempt will be made aware this morning. He requested a text follow up.
--- NOTE | 2024-12-26 09:59 | PC.CC ---
0928 Text message was sent to Dr. Lundberg with status of transfer.
--- NOTE | 2024-12-26 10:02 | ESPR_ITS ---
Documentation for date of: 12/26/24 Subjective Subjective Interval history: Patient seen and examined at the bedside. Given his altered mental status per primary team repeated MRI brain yesterday, but was negative for any acute hemorrhage or midline shift or mass effect. Patient with the symptoms better today and is much more awake as patient did use his BiPAP overnight. Again there was a concern of questionable hemoptysis with some blood or clot. Hemoglobin is still stable around 10. Chest x-ray was repeated today and appears much improved from before there is still some mild congestion and will continue with diuresis. Recommended to continue BiPAP at night. Repeat echo was performed on 12/25/2024 and exactly similar as the previous echo and no change from admission on 12/20/2024. EF is still less than 20% and patient is awaiting transfer to [facility]. Patient apparently a has been using his CPAP machine at home but never has been officially diagnosed with CHEYANNE. Patient appears to be adequately diuresed at the present point of time and kidney function continues to be stable with Bumex 1 mg IV twice daily. He was negative by approximately 2 L in last 24 hours. As discussed previously patient is awaiting transfer to higher level of care [facility] at the request of the , but if the patient does not get transferred by this evening, we will proceed with Cardiac Cath here in [facility] by tomorrow morning. Exam Vital Signs Temp Pulse Resp BP Pulse Ox O2 Del Method O2 Flow Rate 97.8 F 71 14 106/64 99 Nasal Cannula 3 12/26/24 07:45 12/26/24 08:56 12/26/24 07:45 12/26/24 08:56 12/26/24 07:45 12/26/24 07:45 12/26/24 07:45 FiO2 30 12/26/24 07:45 Narrative Exam General Appearance: Alert & Oriented x 3, mildly confused but clear mental status compared to before HEENT: Skull symmetrical and atraumatic. Conjunctivae pale and moist. Pupils equal, round, reactive to light and accommodation (PERRL). External ear without lesion or discharge. Cardio: Normal Rate and Rhythm with S1 and S2 heart sounds. No murmurs or extra heart sounds auscultated-difficult to appreciate secondary to body habitus. No bruits on carotid auscultation. No peripheral edema Lungs: Symmetric with good expansion. Chest and back non-tender. Breath sounds vesicular dificult to appreciate it. Abdomen: Non-tender, Non-distended, Normal Reactive Bowel Sounds Neuro: Alert awake oriented x 3 in no major focal deficits except for slight confusion. Objective Labs 12/28/24 04:47 12/28/24 04:47 Labs: Laboratory Results - last 24 hr 12/26/24 08:21 WBC 4.9 RBC 4.07 L Hgb 11.2 L Hct 36.9 L MCV 91 MCH 27.5 MCHC 30.4 L RDW Std Deviation 51.8 H Plt Count 164 Neut % (Auto) 53 Lymph % (Auto) 30 Isabella % (Auto) 13 H Eos % (Auto) 4 Baso % (Auto) 1 Neut # (Auto) 2.6 Lymph # (Auto) 1.5 Isabella # (Auto) 0.6 Eos # (Auto) 0.2 Baso # (Auto) 0.0 Immature Gran # (Auto) 0.01 H Absolute Nucleated RBC 0.00 Immature Gran % 0 Nucleated RBC % 0 Sodium 142 Potassium 3.8 Chloride 104 Carbon Dioxide 31.2 H Anion Gap 7 BUN 21 Creatinine 1.1 Estim Creat Clear Calc 64.5 eGFR > 60 BUN/Creatinine Ratio 19 Glucose 148 H Calculated Osmolality 289 Calcium 9.6 Corrected Calcium 10.0 Total Bilirubin 1.2 AST 28 ALT 22 Alkaline Phosphatase 87 Total Protein 8.5 H Albumin 3.5 Globulin 5.0 H Albumin/Globulin Ratio 0.7 L ABG Interpretation ABG results: 12/16/24 12/17/24 12/17/24 17:14 05:12 06:48 ABG pH 7.41 7.35 7.34 L ABG pCO2 38 47 49 H ABG pO2 49 L* 72 L D 170 H D ABG HCO3 24 26 27 H ABG O2 Saturation 82 L 94 100 H ABG Base Excess 0 0 0 VBG pH VBG pCO2 VBG pO2 VBG Base Excess 12/21/24 12/22/24 12/24/24 09:30 09:06 22:07 ABG pH 7.52 H 7.42 D ABG pCO2 41 59 H D ABG pO2 73 L 75 L ABG HCO3 34 H 38 H ABG O2 Saturation 96 96 ABG Base Excess 10 H 12 H VBG pH 7.41 VBG pCO2 48 VBG pO2 39 VBG Base Excess 4 H Quality Measures Quality Measures VTE prophylaxis Advance care planning discussed with:: patient Assessment & Plan Assessment Current Active Medications: Generic Name Dose Route Start Last Admin Trade Name Juan Antonio PRN Reason Stop Dose Admin Acetaminophen 650 mg 12/17/24 06:35 12/25/24 20:36 Acetaminophen 325 Mg Tablet PO 01/15/25 17:41 650 mg Q6H PRN Administration Fever >100.3 Atorvastatin Calcium 40 mg 12/16/24 21:00 12/25/24 20:36 Atorvastatin Calcium 20 Mg Tablet PO 01/15/25 20:59 40 mg HS SHAZIA Administration Bumetanide 1 mg 12/22/24 21:00 12/26/24 08:56 Bumetanide Inj 0.25 Mg/Ml Vial 4 Ml IVP 01/21/25 20:59 1 mg BID SHAZIA Administration Dapagliflozin 5 mg 12/22/24 12:45 12/26/24 08:56 Dapagliflozin Propanediol 5 Mg Tablet PO 01/21/25 12:44 5 mg QAM SHAZIA Administration Dextrose 50 ml 12/18/24 16:56 Dextrose 50%-Water Inj 50 Ml Syringe IV 01/17/25 16:55 Q15MIN PRN BG <50 OR BG <70 & pt unresponsive Enoxaparin Sodium 40 mg 12/17/24 09:00 12/23/24 09:46 Enoxaparin Sod Inj 40 Mg/0.4 Ml Syringe SC 12/31/24 08:59 Not Given QDAY SHAZIA Glucagon 1 mg 12/18/24 16:56 Glucagon Inj 1 Mg Vial IM Q15MIN PRN BG <70, and no IV access Guaifenesin 200 mg 12/19/24 17:00 12/26/24 06:14 Guaifenesin Syrup 200 Mg/10 Ml Udc PO 01/18/25 16:59 200 mg QID SHAZIA Administration Protocol Insulin Glargine 6 unit 12/20/24 21:00 12/25/24 20:48 Insulin Glargine (Lantus) 5 Unit/0.05 Ml (Per 5 Units) SC 01/19/25 20:59 6 unit HS SHAZIA Administration Insulin Human Lispro 0 unit 12/20/24 11:30 12/26/24 07:14 Insulin Lispro (Admelog) 1 Unit/0.01 Ml Unit SC 01/19/25 11:29 Not Given ACHS SHAZIA Protocol Magnesium Hydroxide 30 ml 12/19/24 08:18 Milk Of Magnesia Susp 30 Ml Udc PO 01/18/25 08:17 QDAY PRN CONSTIPATION Protocol Melatonin 3 mg 12/21/24 19:00 12/25/24 20:36 Melatonin 3 Mg Tablet PO 01/20/25 18:59 3 mg HS SHAZIA Administration Metoprolol Succinate 12.5 mg 12/22/24 12:45 12/26/24 08:55 Metoprolol Succinate Xl 25 Mg Tabcr PO 01/21/25 12:44 12.5 mg QDAY SHAZIA Administration Ondansetron HCl 4 mg 12/16/24 17:42 12/21/24 20:35 Ondansetron Inj 2 Mg/Ml Inj 2 Ml IVP 01/15/25 17:41 4 mg Q6H PRN Administration NAUSEA OR VOMITING Protocol Pantoprazole Sodium 40 mg 12/21/24 09:00 12/26/24 08:56 Pantoprazole 40 Mg Tablet PO 01/20/25 08:59 40 mg QDAY SHAZIA Administration Protocol Polyethylene Glycol 17 gm 12/21/24 09:00 12/26/24 08:56 Polyethylene Glycol 17 Gm Packet PO 01/20/25 08:59 17 gm QDAY SHAZIA Administration Ropinirole HCl 1 mg 12/24/24 19:00 12/25/24 19:33 Ropinirole Hcl 1 Mg Tablet PO 01/23/25 18:59 1 mg QDAY@1900 SHAZIA Administration Sennosides 1 tab 12/17/24 09:00 12/26/24 08:56 Senna Tablet PO 01/16/25 08:59 1 tab QDAY SHAZIA Administration Protocol Tamsulosin HCl 0.4 mg 12/17/24 09:00 12/26/24 08:55 Tamsulosin Hcl 0.4 Mg Capsule PO 01/16/25 08:59 0.4 mg QDAY SHAZIA Administration Plan A 79-year-old male patient with a past medical history of severe systolic congestive heart failure with an EF of 25 to 30%, old left bundle branch block, 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 Initial workup did show that the patient was hypoxic with saturation of 90% on 2 L nasal cannula. Labs showed only mildly elevated troponins at 0.05 and previous was 0.06 during last admission. EKG showed normal sinus rhythm with left bundle branch block and no acute ST-T changes history of ischemia. Chest x-ray with moderate vascular congestion. Head CT, CTA head and neck was negative. Cervical spine CT showed degenerative disc disease. UA was negative. Labs showed mild anemia at 10.5, WBC normal at 7.3 and platelets of 127. Potassium was low at 3.2 BUN of 11 creatinine of 1.0 and glucose of 167. After admission patient did continue to be hypoxic and had a vomitus when he was placed on the BiPAP mask because of his acute hypoxic respiratory failure. There was possible aspiration pneumonia and patient continued to desaturate and he was intubated and started on mechanical ventilation and transferred to the ICU. Normal IV antibiotics for the pneumonia. Patient also fluid overloaded and was started on diuresis. Assessment and plan: 1. Acute hypoxic respiratory failure on mechanical ventilation mostly secondary to aspiration pneumonia as well as CHF exacerbation 2. Altered mental status with headaches, generalized weakness-ruled out stroke 3. Fall secondary to the weakness 4. Acute on chronic severe systolic congestive heart failure with an last known EF of 25 to 30% in July 2023 5. Left bundle branch block 6. 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 Morbid obesity 8. Essential hypertension . Diabetes mellitus type 2 10. Chronic anemia 11. Hyperlipidemia 12. Obstructive sleep apnea on CPAP 13. BPH 14. Restless leg syndrome Patient known to me from the previous hospitalization in July 2024 when he was initially diagnosed with severe systolic CHF with an EF of 25 to 30%. Patient was in CHF exacerbation along with pneumonia and acute hypoxic respiratory failure which was aggressively treated and was discharged home on 08/05/2024. Patient did follow-up with me in clinic on 08/08/2024 and was recommended a nuclear stress test given his new systolic congestive heart failure which was completed on 08/16/2024. Lexiscan stress test did show evidence of stress-induced ischemia in the apical as well as mid to apical anterior segments. LVEF was also low at 32%. Patient was recommended left heart cardiac catheterization but never followed up with the office and was adamant that his heart's was in good condition and does not need any further procedures. Patient presented with headache, generalized weakness as well as a fall. CTA head and neck, head CT were negative for any acute stroke. Neurology is following. Fall appears to be mechanical in review of the chart shows that there was no evidence of any syncope or loss of consciousness on admission. Patient could not get up because of the weakness but was awake alert. Acute hypoxic respiratory failure and on mechanical ventilation at the present point of time mostly secondary to the aspiration pneumonia and started on IV antibiotics by the critical care team which will be continued. Also patient does have CHF exacerbation and recommend to continue the diuresis for the same. Acute on chronic severe systolic congestive heart failure exacerbation. Echo from July 2024 showed Normal left ventricular size, wall thickness. Severely reduced LV function LVEF estimated at 25-30 %. RV is normal in size and systolic function. Could not estimate RVSP as TR not visualiozed well. Moderate AV thickening with mild calcification. AV sclerosis without stenosis. V max 2.1 m/s. Possibly underestimated due to low EF. MIld thickening and clacification of mitral leafts too. Mild to moderate MR. Mild LA dilataion. IVC dilated but with > 50% collapse. Echo - 12/20/24 - Dilated cardiomyopathy. Moderate to severe LV enlargement. Severely reduced LV function with an LVEF of 15 to 20%. Mildly dilated RV with normal systolic function. Could not estimate RVSP as TR not visualiozed well. Moderate AV thickening with moderate calcification. Moderate AV sclerosis without stenosis based on V max 2.1 m/s. Possibly underestimated due to the low EF and could be mild on moderate . Trace AI. MIld thickening and clacification of mitral leafts too. Mild to moderate MR. Trace to mild TR. Severe LA dilatation and mild to moderate RA dilatation. IVC dilated with <50% collapse during inspiration. No pericardial effusion. Left pleural effusion noted. Recommend to continue aggressive diuresis with Lasix 40 mg IV twice daily for now. Strict input output Daily weights and 2 g sodium diet. Fluid restriction to 15 mL/day. Mancera potassium greater than 4 and magnesium greater than 2.0 at all times. Will continue to monitor renal function closely and the BUN/creatinine normal now. His systolic congestive heart failure etiology was not determined hence was seen in the clinic as noted above and had an NST which did show evidence of stress- induced ischemia with decreased uptake in the apical as well as mid to apical anterior segments. Patient was recommended left heart cardiac catheterization. Did not follow-up with any appointments as outpatient in spite of multiple calls from my office, felt that his heart was in good condition. Discussed in detail with the and patient apparently had procedure through his groin at [facility] in February 2024 and was apparently normal. Patient not sure if the patient had a carotid angiogram or intervention of the intraventricular hemorrhage which he had at that point of time or he had a cardiac catheterization. wanted us to wait for the operative reports from the outside hospital. Recommend primary team to obtain all operative reports from his previous hospitalization in February 2024 from [facility] and to find out if the patient had any cardiac catheterization procedure. Troponins only minimally elevated at 0.05. EKG also did not show any acute ST-T changes history of active ischemia. Patient did not have any complaints of chest pain or chest pressure prior to the admission. Patient will benefit from left and right heart cardiac catheterization once he is hemodynamically stable after active treatment of the aspiration pneumonia as well as CHF exacerbation. 12/22/2024: Patient was difficult to arouse as per the primary team and was significantly altered patient had an ABG done which showed a PCO2 of 59 and a PO2 of 75 and patient was again started on BiPAP. Patient now has acute hypoxic as well as hypercapnic respiratory failure. Unable to follow any commands. Patient overall hemodynamically stable and has been diuresing well with Bumex 1 mg IV twice daily. Renal function appears to be stable. Plan was for her to perform a left and right heart cardiac catheterization for the patient to continue with his ischemic workup as well as his CHF. Unfortunately patient has been confused since yesterday and his respiratory status has not been stable and is unable to lie down flat on the bed. Patient possibly has CAD with multivessel disease given his worsening EF and recent positive stress test and less likely nonischemic cardiomyopathy. Given his severely low ejection fraction patient will also need complex PCI with stent by [facility] given his low ejection fraction of 15%. This institution does not have [facility] or other MCS available to perform the complex PCI and it would be appropriate to transfer the patient to a higher level of care. Also patient does have a history of hemorrhagic CVA with procedures performed at [facility] previously and we are unable to obtain any records until now. Continue with heparin drip along with IV diuresis for now along with BiPAP Discussed with the and also requested for higher level of care and she has requested for [facility] as he was previously admitted there in April 2024. 12/25/2024: Given his altered mental status per primary team again plan to repeat an MRI today. Patient with the symptoms better today and is much more awake as patient did use his BiPAP yesterday. Again there was a concern of questionable hemoptysis with some blood or clot. Hemoglobin is still stable around 10. Chest x-ray was repeated today and appears much improved from before there is still some mild congestion and will continue with diuresis. Recommended to continue BiPAP at night. Repeat echo was performed today on 12/25/2024 and exactly similar as the previous echo and no change from admission on 12/20/2024. EF is still less than 20% and patient is awaiting transfer to [facility]. Patient apparently a has been using his CPAP machine at home but never has been officially diagnosed with CHEYANNE. Patient appears to be adequately diuresed at the present point of time and kidney function continues to be stable with Bumex 1 mg IV twice daily. Bicarbonate was slightly high and was given Diamox 500 mg x 1 now bicarbonate is 30. As discussed previously patient is awaiting transfer to higher level of care [facility] at the request of the . 12/26/2024: The patient was doing much better today. He was much alert and oriented than yesterday. He reported doing well, and his reported the same. Vitals were fairly stable saturating 99% on 3 L of NC. MRI brain done yesterday was unremarkable for any acute changes. He was negative by about 2 L in last 24 hours. The plan is to transfer the patient to higher level of care at [facility] at the request of his , for possible percutaneous intervention, but if the transfer is nnnnnnnnnnnnnnnnnnnnnnnnnnnnnnnnnnnnnnnnnnnnnnnnnnnnnnnnnnnnnnnnnnnnnnnnnnnnnnnn nnnnnnnnnnnnnnnnnnnn nnnnnnnnnnnnnnnnnnnnnnnnnnnnnnnnnnnnnnnnnnnnnnnnnnnnnnnnnnnnnnnnnnnnnnnnnnnnnnnn nnnnnnnnnnnnnnnnnnnn nnnnnnnnnnnnnnnnnnnnnnnnnnnnnnnnnnnnnnnnnnnnnnnnnnnnnnnnnnnnnnnnnnnnnnnnnnnnnnnn nnnnnnnnnnnn Management of rest of the medical conditions as per primary team and other consultants. Thank you for the consult and allowing me to participate in the care of the patient. Cardiology will continue to follow. The patient's management plan was discussed with my attending physician MD Venancio Oh MD, PGY3 Attending Provider Attestation/Addendum I have personally seen and examined the patient separately on the above date of service and discussed the plan of care with the resident. I reviewed the resident Dr. Venancio Cosme consultation progress note and agree with the resident findings and plan in the note above and have also edited the documentation to reflect my findings and plan. Rakan Lundberg M.D. Interventional Cardiology
[2024-12-26] MEDS: POTASSIUM CHLORIDE 10% 20 MEQ/15 ML UDC PO (10:27)
--- NOTE | 2024-12-26 10:42 | CHAP ---
Patient was visited by a Spiritual Care Volunteer on 12/26/2024 between 0900 and 0930 and received comfort, encouragement and/or prayer.
[2024-12-26 11:02] LABS: Magnesium 2.5 mg/dL (1.6-2.6)
[2024-12-26] MEDS: INSULIN LISPRO (AdmeLOG) 1 UNIT/0.01 ML UNIT SC ×3 (11:54→20:29)
[2024-12-26] MEDS: ACETAMINOPHEN 325 MG TABLET 650 MG PO (15:35)
--- NOTE | 2024-12-26 20:02 | PC.NURSE ---
Spoke with Ton at [facility], she is waiting to speak with the hot pipe gauger at [facility]. She said they currently don't have a bed available, but she will call back with any updates
[2024-12-26] MEDS: MELATONIN 3 MG TABLET PO (20:28)
[2024-12-26] MEDS: ATORVASTATIN CALCIUM 20 MG TABLET 40 MG PO (20:28)
[2024-12-26] MEDS: INSULIN GLARGINE (Lantus) 5 UNIT/0.05 ML (PER 5 UNITS) 6 UNIT SC (20:29)
[2024-12-26] MEDS: HEPARIN SOD INJ 5000 UNIT/ML VIAL SC (20:29)
--- NOTE | 2024-12-26 23:37 | ESPR_ITS ---
Documentation for date of: 12/26/24 Subjective Subjective Interval history: Seen in telemetry today at the bedside, with one on one supervision. Intermittently confused. He has the BIPAP on now. Exam - Neurology Vital Signs Temp Pulse Resp BP Pulse Ox O2 Del Method O2 Flow Rate 97.8 F 76 16 93/66 98 Nasal Cannula 3 12/26/24 20:00 12/26/24 20:57 12/26/24 20:00 12/26/24 20:57 12/26/24 20:00 12/26/24 20:00 12/26/24 20:00 FiO2 30 12/26/24 07:45 Narrative Exam GENERAL APPEARANCE: Well hydrated, well-nourished male in NAD HEENT: Normocephalic, atraumatic, extraocular movements intact. Pupils: Equal reacting to light. NECK: Supple, no JVD or bruits. CARDIOVASULAR: Heart: S1, S2 heard, regular without S3-S4 or murmur no rubs or gallops. LUNGS/CHEST: Clear to auscultation bilaterally. No rails, rhonchi, or wheezing. Normal inspection. ABDOMEN: Soft, nontender, with normal bowel sounds. No pulsatile masses. No rebound, rigidity, or guarding. Normal inspection and palpation. EXTREMITIES: Normal inspection and palpation. No edema, clubbing or cyanosis. SKIN: Warm and dry without rashes. Normal inspection. MUSCULOSKELETAL: No cervical , thoracic, lumbar or midline bony tenderness. Normal inspection. NEURO: aao2, speech and lang: normal no focal deficit noted. No signs of meningeal irritation noted. PSYCHIATRIC: Normal mood and affect. Objective Labs 12/26/24 08:21 12/26/24 08:21 Labs: Laboratory Results - last 24 hr 12/26/24 08:21 WBC 4.9 RBC 4.07 L Hgb 11.2 L Hct 36.9 L MCV 91 MCH 27.5 MCHC 30.4 L RDW Std Deviation 51.8 H Plt Count 164 Neut % (Auto) 53 Lymph % (Auto) 30 Loup % (Auto) 13 H Eos % (Auto) 4 Baso % (Auto) 1 Neut # (Auto) 2.6 Lymph # (Auto) 1.5 Loup # (Auto) 0.6 Eos # (Auto) 0.2 Baso # (Auto) 0.0 Immature Gran # (Auto) 0.01 H Absolute Nucleated RBC 0.00 Immature Gran % 0 Nucleated RBC % 0 Sodium 142 Potassium 3.8 Chloride 104 Carbon Dioxide 31.2 H Anion Gap 7 BUN 21 Creatinine 1.1 Estim Creat Clear Calc 64.5 eGFR > 60 BUN/Creatinine Ratio 19 Glucose 148 H Calculated Osmolality 289 Calcium 9.6 Corrected Calcium 10.0 Magnesium 2.5 Total Bilirubin 1.2 AST 28 ALT 22 Alkaline Phosphatase 87 Total Protein 8.5 H Albumin 3.5 Globulin 5.0 H Albumin/Globulin Ratio 0.7 L ABG Interpretation ABG results: 12/16/24 12/17/24 12/17/24 17:14 05:12 06:48 ABG pH 7.41 7.35 7.34 L ABG pCO2 38 47 49 H ABG pO2 49 L* 72 L D 170 H D ABG HCO3 24 26 27 H ABG O2 Saturation 82 L 94 100 H ABG Base Excess 0 0 0 VBG pH VBG pCO2 VBG pO2 VBG Base Excess 12/21/24 12/22/24 12/24/24 09:30 09:06 22:07 ABG pH 7.52 H 7.42 D ABG pCO2 41 59 H D ABG pO2 73 L 75 L ABG HCO3 34 H 38 H ABG O2 Saturation 96 96 ABG Base Excess 10 H 12 H VBG pH 7.41 VBG pCO2 48 VBG pO2 39 VBG Base Excess 4 H Assessment & Plan Assessment and plan (1) Stroke-like symptom: Status: Acute Assessment and plan: no focal deficit on exam 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 No acute infarction noted. PT eval. when stable. (2) Sleep apnea in adult: Status: Chronic Assessment and plan: uses CPAP even though it is not officially diagnosed. (3) Community acquired pneumonia: Status: Acute Assessment and plan: on IV antibiotics and bronchodilators (4) Heart failure: Status: Acute Assessment and plan: Repeat echo was performed today on 12/25/2024 and exactly similar as the previous echo and no change from admission on 12/20/2024. EF is still less than 20% and patient is awaiting transfer to [facility] for higher level of care as per 's request.
[2024-12-27] VITALS (16 sets, daily range): BP systolic 92–142; BP diastolic 65–79; PULSE 69–91; RESP 9–24; TEMP 36.4–37; O2SAT 92–99; BMI 29.8
[2024-12-27 06:22] LABS: Basophils # (Auto) 0.0 Thou/mm3 (0.0-0.2); Basophils % (Auto) 1 % (0-2.5); Eosinophils # (Auto) 0.2 Thou/mm3 (0.0-0.5); Eosinophils % (Auto) 3 % (0-10); Hematocrit 37.0 % (41.0-53.0); Hemoglobin 11.2 g/dL (13.5-16.0); Immature Granulocytes Auto 0.01 Thou/mm3 (0.00-0.00); Lymphocytes # (Auto) 2.1 Thou/mm3 (1.0-4.8); Lymphocytes % (Auto) 39 % (10-50); Mean Corpuscular HGB Conc 30.3 g/dl (31.0-37.0); Mean Corpuscular Hemoglobin 27.7 pg (25.0-35.0); Mean Corpuscular Volume 91 fL (80-100); Monocytes # (Auto) 0.7 Thou/mm3 (0.0-0.8); Monocytes % (Auto) 12 % (0-12); Neutrophils # (Auto) 2.4 Thou/mm3 (1.8-7.7); Neutrophils % (Auto) 45 % (37-80); Nucleated Red Blood Cell # 0.00 Thou/mm3 (0.00-0.00); Nucleated Red Blood Cell % 0 /100 WBC (0); Platelet Count 145 Thou/mm3 (140-440); RDW Standard Deviation 52.4 fL (35.1-43.9); Red Blood Count 4.05 Miln/mm3 (4.50-5.90); White Blood Count 5.3 Thou/mm3 (3.8-10.6)
[2024-12-27 07:23] LABS: Alanine Aminotransferase 27 U/L (10-49); Albumin, Serum 3.6 gm/dL (3.4-4.8); Albumin/Globulin Ratio 0.7 (1.2-2.2); Alkaline Phosphatase 88 U/L (46-116); Anion Gap 9 (7-16); Aspartate Amino Transferase 37 U/L (0-34); BUN/Creatinine Ratio 16 Ratio (12-20); Bilirubin,Total 1.0 mg/dL (0.3-1.2); Blood Urea Nitrogen 18 mg/dL (9-23); Calcium 9.6 mg/dL (8.3-10.6); Calcium (Corrected) 9.9 mg/dL (8.5-10.1); Carbon Dioxide 29.4 mMol/L (20.0-31.0); Chloride 102 mMol/L (98-107); Creatinine (Component) 1.1 mg/dL (0.6-1.3); Estimated Creatinine Clearance 64.5 mL/min (>60); Globulin 5.1 gm/dL (2.3-3.5); Glucose 138 mg/dL (74-106); Magnesium 2.4 mg/dL (1.6-2.6); Osmolality,Calculated 283 (275-295); Phosphorous 3.9 mg/dL (2.4-5.1); Potassium 4.2 mMol/L (3.4-5.1); Sodium 140 mMol/L (136-145); Total Protein 8.7 gm/dL (5.7-8.2); eGFR > 60 See Note
--- NOTE | 2024-12-27 08:38 | PC.CM ---
Addendum entered by Mary Alice Ybarra RN 12/27/24 15:10: 1500 Dr. Avalos let me know I can cancel the transfer to [facility]. He took patient to the laboratory sample carrier her at our hospital. I will update team B. I called [facility] and I gave them the information to cancel transfer. Addendum entered by Mary Alice Ybarra RN 12/27/24 15:08: 1450 I received a call from Massiel at [facility]. She states they are still waiting to hear back from Dr. Hinton. Addendum entered by Mary Alice Ybarra RN 12/27/24 12:23: 1135 I called [facility] and I spoke to Sheila transfer nurse. She states they are waiting for a call back from Dr. Hinton. She states if he does accept patient we may still have the problem of waiting for an open bed. I updated Dr. Bledsoe. Addendum entered by Mary Alice Ybarra RN 12/27/24 10:31: 0933 I received a call from Dr. Avalos following up on status of transfer. I let him know that [facility] is reaching out to their doctor today to see if they would be willing to accept patient. I let him know that they still do not have any beds at this time. Dr. Avalos states he probably will do something here at our facility if they do not accept today. He asked that I let him know what [facility] says and get back to him in the next 2 hours if possible. Original Note: 0833 I received a call from Massiel with the transfer center at [facility] transfer center. She states she stated they still do not have any beds but they did escalate this case and they will reach out to their doctor to see if they can accept patient. I provided updated VS and gave her update on labs and patient.
--- NOTE | 2024-12-27 13:21 | ESPR_ITS ---
Documentation for date of: 12/27/24 Subjective Subjective Interval history: Patient seen and examined at the bedside. Patient with the symptoms better today and is much more awake as patient did use his BiPAP overnight. Continue with Bumex 1mg BID Recommended to continue BiPAP at night. Repeat echo was performed on 12/25/2024 and exactly similar as the previous echo and no change from admission on 12/20/2024. Cardiac cath revealed [facility] findings: 1. Left ventricular ejection fraction was severely 20-25% without any regional wall motion abnormalities. LVEDP was normal at 16 mmHg. There was no significant transvalvular aortic gradient. 2. Right dominant circulation. Left main artery is a large-caliber vessel with mild 20-30% calcified stenosis. 3. LAD is a large sized artery with calcified 20-30% stenosis of mid segment. A medium size diagonal and does not show any significant disease. 4. LCx is a large sized artery with 20-30% stenosis in mid segment. A medium OM1 and small OM2 without any significant disease. 5. RCA is a large artery with 20% stenosis of proximal segment. Medium RPDA and RPL without any significant disease. RHC findings: Mean right atrial pressure was 1 mmHg. Right atrial pressure was 3/3 mmHg. Pulmonary artery pressure was 32/28 mmHg with a mean of 27 mmHg. Mean pulmonary capillary wedge pressure was 13 mmHg. TPG was 14 mmHg Pulmonary artery PA saturation was 59.9%.? Arterial saturation was 92.5% on room air. Cardiac output was 5.0 L/min and cardiac index was normal at 2.33 L/min/m? Patient recommended to follow-up with me in the office within 7 days after discharge. Summary/findings: 1. Non ischemic cardiomyopathy: LHC showed mild CAD with 20-30% calcified stenosis of Left main and mid LAD, 20-30% stenosis of mid LCx and proximal RCA. Rest of the coronaries without any angiographically significant obstruction and few luminal irregularities. 2. LVEF was severely low at 20-25%. 3. LVEDP was 14 mmHg. 4. Normal right heart pressures. Normal cardiac output was 5.0 L/min and normal cardiac index was at 2.33 L/min/m? Recommendations: 1. Recommend aggressive medical management and aggressive risk factor modification - Will need goal-directed medical therapy with metoprolol XL, Entresto and eventually spironolactone. Can decrease Bumex to 1 mg once daily orally 2. Patient recommended not to lift more than 5 lbs for the next 7-10 days and follow up with me in my office in 7 days. Patient apparently a has been using his CPAP machine at home but never has been officially diagnosed with CHEYANNE. He was negative by about a liter in last 24 hours. Exam Vital Signs Temp Pulse Resp BP Pulse Ox O2 Del Method O2 Flow Rate 97.7 F 81 9 L 100/69 99 Nasal Cannula 4 12/27/24 08:00 12/27/24 08:25 12/27/24 08:25 12/27/24 08:00 12/27/24 08:25 12/27/24 08:00 12/27/24 08:25 FiO2 30 12/26/24 21:50 Narrative Exam General Appearance: Alert & Oriented x 3, mildly confused but clear mental status compared to before HEENT: Skull symmetrical and atraumatic. Conjunctivae pale and moist. Pupils equal, round, reactive to light and accommodation (PERRL). External ear without lesion or discharge. Cardio: Normal Rate and Rhythm with S1 and S2 heart sounds. No murmurs or extra heart sounds auscultated-difficult to appreciate secondary to body habitus. No bruits on carotid auscultation. No peripheral edema Lungs: Symmetric with good expansion. Chest and back non-tender. Breath sounds vesicular dificult to appreciate it. Abdomen: Non-tender, Non-distended, Normal Reactive Bowel Sounds Neuro: Alert awake oriented x 3 in no major focal deficits except for slight confusion. Objective Labs 12/27/24 05:56 12/27/24 05:56 Labs: Laboratory Results - last 24 hr 12/27/24 05:56 WBC 5.3 RBC 4.05 L Hgb 11.2 L Hct 37.0 L MCV 91 MCH 27.7 MCHC 30.3 L RDW Std Deviation 52.4 H Plt Count 145 Neut % (Auto) 45 Lymph % (Auto) 39 [place] % (Auto) 12 Eos % (Auto) 3 Baso % (Auto) 1 Neut # (Auto) 2.4 Lymph # (Auto) 2.1 [place] # (Auto) 0.7 Eos # (Auto) 0.2 Baso # (Auto) 0.0 Immature Gran # (Auto) 0.01 H Absolute Nucleated RBC 0.00 Immature Gran % 0 Nucleated RBC % 0 Sodium 140 Potassium 4.2 Chloride 102 Carbon Dioxide 29.4 Anion Gap 9 BUN 18 Creatinine 1.1 Estim Creat Clear Calc 64.5 eGFR > 60 BUN/Creatinine Ratio 16 Glucose 138 H Calculated Osmolality 283 Calcium 9.6 Corrected Calcium 9.9 Phosphorus 3.9 Magnesium 2.4 Total Bilirubin 1.0 AST 37 H ALT 27 Alkaline Phosphatase 88 Total Protein 8.7 H Albumin 3.6 Globulin 5.1 H Albumin/Globulin Ratio 0.7 L ABG Interpretation ABG results: 12/16/24 12/17/24 12/17/24 17:14 05:12 06:48 ABG pH 7.41 7.35 7.34 L ABG pCO2 38 47 49 H ABG pO2 49 L* 72 L D 170 H D ABG HCO3 24 26 27 H ABG O2 Saturation 82 L 94 100 H ABG Base Excess 0 0 0 VBG pH VBG pCO2 VBG pO2 VBG Base Excess 12/21/24 12/22/24 12/24/24 09:30 09:06 22:07 ABG pH 7.52 H 7.42 D ABG pCO2 41 59 H D ABG pO2 73 L 75 L ABG HCO3 34 H 38 H ABG O2 Saturation 96 96 ABG Base Excess 10 H 12 H VBG pH 7.41 VBG pCO2 48 VBG pO2 39 VBG Base Excess 4 H Quality Measures Quality Measures VTE prophylaxis Advance care planning discussed with:: patient and spouse Assessment & Plan Assessment Current Active Medications: Generic Name Dose Route Start Last Admin Trade Name Freq PRN Reason Stop Dose Admin Acetaminophen 650 mg 12/17/24 06:35 12/26/24 15:35 Acetaminophen 325 Mg Tablet PO 01/15/25 17:41 650 mg Q6H PRN Administration Fever >100.3 Atorvastatin Calcium 40 mg 12/16/24 21:00 12/26/24 20:28 Atorvastatin Calcium 20 Mg Tablet PO 01/15/25 20:59 40 mg HS SHAZIA Administration Bumetanide 1 mg 12/22/24 21:00 12/27/24 09:33 Bumetanide Inj 0.25 Mg/Ml Vial 4 Ml IVP 01/21/25 20:59 Not Given BID SHAZIA Dapagliflozin 10 mg 12/27/24 09:00 12/27/24 09:33 Dapagliflozin Propanediol 5 Mg Tablet PO 01/26/25 08:59 Not Given QAM SHAZIA Dextrose 50 ml 12/18/24 16:56 Dextrose 50%-Water Inj 50 Ml Syringe IV 01/17/25 16:55 Q15MIN PRN BG <50 OR BG <70 & pt unresponsive Glucagon 1 mg 12/18/24 16:56 Glucagon Inj 1 Mg Vial IM Q15MIN PRN BG <70, and no IV access Guaifenesin 200 mg 12/19/24 17:00 12/27/24 13:12 Guaifenesin Syrup 200 Mg/10 Ml Udc PO 01/18/25 16:59 Not Given QID [facility] Protocol Heparin Sodium (Porcine) 5,000 unit 12/26/24 21:00 12/27/24 09:33 Heparin Sod Inj 5000 Unit/Ml Vial SC 01/09/25 20:59 Not Given BID SHAZIA Insulin Glargine 6 unit 12/20/24 21:00 12/26/24 20:29 Insulin Glargine (Lantus) 5 Unit/0.05 Ml (Per 5 Units) SC 01/19/25 20:59 6 unit HS SHAZIA Administration Insulin Human Lispro 0 unit 12/20/24 11:30 12/27/24 13:13 Insulin Lispro (Admelog) 1 Unit/0.01 Ml Unit SC 01/19/25 11:29 Not Given ACHS [facility] Protocol Magnesium Hydroxide 30 ml 12/19/24 08:18 Milk Of Magnesia Susp 30 Ml Udc PO 01/18/25 08:17 QDAY PRN CONSTIPATION Protocol Melatonin 3 mg 12/21/24 19:00 12/26/24 20:28 Melatonin 3 Mg Tablet PO 01/20/25 18:59 3 mg HS SHAZIA Administration Metoprolol Succinate 12.5 mg 12/22/24 12:45 12/27/24 09:34 Metoprolol Succinate Xl 25 Mg Tabcr PO 01/21/25 12:44 Not Given QDAY SHAZIA Ondansetron HCl 4 mg 12/16/24 17:42 12/21/24 20:35 Ondansetron Inj 2 Mg/Ml Inj 2 Ml IVP 01/15/25 17:41 4 mg Q6H PRN Administration NAUSEA OR VOMITING Protocol Pantoprazole Sodium 40 mg 12/21/24 09:00 12/27/24 09:34 Pantoprazole 40 Mg Tablet PO 01/20/25 08:59 Not Given QDAY [facility] Protocol Polyethylene Glycol 17 gm 12/21/24 09:00 12/27/24 09:36 Polyethylene Glycol 17 Gm Packet PO 01/20/25 08:59 Not Given QDAY SHAZIA Ropinirole HCl 1 mg 12/24/24 19:00 12/26/24 19:23 Ropinirole Hcl 1 Mg Tablet PO 01/23/25 18:59 1 mg QDAY@1900 [facility] Administration Sennosides 1 tab 12/17/24 09:00 12/27/24 09:36 Senna Tablet PO 01/16/25 08:59 Not Given QDAY [facility] Protocol Tamsulosin HCl 0.4 mg 12/17/24 09:00 12/27/24 09:36 Tamsulosin Hcl 0.4 Mg Capsule PO 01/16/25 08:59 Not Given QDAY [facility] Plan A 79-year-old male patient with a past medical history of severe systolic congestive heart failure with an EF of 25 to 30%, old left bundle branch block, 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 Initial workup did show that the patient was hypoxic with saturation of 90% on 2 L nasal cannula. Labs showed only mildly elevated troponins at 0.05 and previous was 0.06 during last admission. EKG showed normal sinus rhythm with left bundle branch block and no acute ST-T changes history of ischemia. Chest x-ray with moderate vascular congestion. Head CT, CTA head and neck was negative. Cervical spine CT showed degenerative disc disease. UA was negative. Labs showed mild anemia at 10.5, WBC normal at 7.3 and platelets of 127. Potassium was low at 3.2 BUN of 11 creatinine of 1.0 and glucose of 167. After admission patient did continue to be hypoxic and had a vomitus when he was placed on the BiPAP mask because of his acute hypoxic respiratory failure. There was possible aspiration pneumonia and patient continued to desaturate and he was intubated and started on mechanical ventilation and transferred to the ICU. Normal IV antibiotics for the pneumonia. Patient also fluid overloaded and was started on diuresis. Assessment and plan: 1. Acute hypoxic respiratory failure on mechanical ventilation mostly secondary to aspiration pneumonia as well as CHF exacerbation 2. Altered mental status with headaches, generalized weakness-ruled out stroke 3. Fall secondary to the weakness 4. Acute on chronic severe systolic congestive heart failure with an last known EF of 25 to 30% in July 2023 5. Left bundle branch block 6. 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 Morbid obesity 8. Essential hypertension . Diabetes mellitus type 2 10. Chronic anemia 11. Hyperlipidemia 12. Obstructive sleep apnea on CPAP 13. BPH 14. Restless leg syndrome Patient known to me from the previous hospitalization in July 2024 when he was initially diagnosed with severe systolic CHF with an EF of 25 to 30%. Patient was in CHF exacerbation along with pneumonia and acute hypoxic respiratory failure which was aggressively treated and was discharged home on 08/05/2024. Patient did follow-up with me in clinic on 08/08/2024 and was recommended a nuclear stress test given his new systolic congestive heart failure which was completed on 08/16/2024. Lexiscan stress test did show evidence of stress-induced ischemia in the apical as well as mid to apical anterior segments. LVEF was also low at 32%. Patient was recommended left heart cardiac catheterization but never followed up with the office and was adamant that his heart's was in good condition and does not need any further procedures. Patient presented with headache, generalized weakness as well as a fall. CTA head and neck, head CT were negative for any acute stroke. Neurology is following. Fall appears to be mechanical in review of the chart shows that there was no evidence of any syncope or loss of consciousness on admission. Patient could not get up because of the weakness but was awake alert. Acute hypoxic respiratory failure and on mechanical ventilation at the present point of time mostly secondary to the aspiration pneumonia and started on IV antibiotics by the critical care team which will be continued. Also patient does have CHF exacerbation and recommend to continue the diuresis for the same. Acute on chronic severe systolic congestive heart failure exacerbation. Echo from July 2024 showed Normal left ventricular size, wall thickness. Severely reduced LV function LVEF estimated at 25-30 %. RV is normal in size and systolic function. Could not estimate RVSP as TR not visualiozed well. Moderate AV thickening with mild calcification. AV sclerosis without stenosis. V max 2.1 m/s. Possibly underestimated due to low EF. MIld thickening and clacification of mitral leafts too. Mild to moderate MR. Mild LA dilataion. IVC dilated but with > 50% collapse. Echo - 12/20/24 - Dilated cardiomyopathy. Moderate to severe LV enlargement. Severely reduced LV function with an LVEF of 15 to 20%. Mildly dilated RV with normal systolic function. Could not estimate RVSP as TR not visualiozed well. Moderate AV thickening with moderate calcification. Moderate AV sclerosis without stenosis based on V max 2.1 m/s. Possibly underestimated due to the low EF and could be mild on moderate . Trace AI. MIld thickening and clacification of mitral leafts too. Mild to moderate MR. Trace to mild TR. Severe LA dilatation and mild to moderate RA dilatation. IVC dilated with <50% collapse during inspiration. No pericardial effusion. Left pleural effusion noted. Recommend to continue aggressive diuresis with Lasix 40 mg IV twice daily for now. Strict input output Daily weights and 2 g sodium diet. Fluid restriction to 15 mL/day. Mancera potassium greater than 4 and magnesium greater than 2.0 at all times. Will continue to monitor renal function closely and the BUN/creatinine normal now. His systolic congestive heart failure etiology was not determined hence was seen in the clinic as noted above and had an NST which did show evidence of stress- induced ischemia with decreased uptake in the apical as well as mid to apical anterior segments. Patient was recommended left heart cardiac catheterization. Did not follow-up with any appointments as outpatient in spite of multiple calls from my office, felt that his heart was in good condition. Discussed in detail with the and patient apparently had procedure through his groin at [facility] in February 2024 and was apparently normal. Patient not sure if the patient had a carotid angiogram or intervention of the intraventricular hemorrhage which he had at that point of time or he had a cardiac catheterization. wanted us to wait for the operative reports from the outside hospital. Recommend primary team to obtain all operative reports from his previous hospitalization in February 2024 from [facility] and to find out if the patient had any cardiac catheterization procedure. Troponins only minimally elevated at 0.05. EKG also did not show any acute ST-T changes history of active ischemia. Patient did not have any complaints of chest pain or chest pressure prior to the admission. Patient will benefit from left and right heart cardiac catheterization once he is hemodynamically stable after active treatment of the aspiration pneumonia as well as CHF exacerbation. 12/22/2024: Patient was difficult to arouse as per the primary team and was significantly altered patient had an ABG done which showed a PCO2 of 59 and a PO2 of 75 and patient was again started on BiPAP. Patient now has acute hypoxic as well as hypercapnic respiratory failure. Unable to follow any commands. Patient overall hemodynamically stable and has been diuresing well with Bumex 1 mg IV twice daily. Renal function appears to be stable. Plan was for her to perform a left and right heart cardiac catheterization for the patient to continue with his ischemic workup as well as his CHF. Unfortunately patient has been confused since yesterday and his respiratory status has not been stable and is unable to lie down flat on the bed. Patient possibly has CAD with multivessel disease given his worsening EF and recent positive stress test and less likely nonischemic cardiomyopathy. Given his severely low ejection fraction patient will also need complex PCI with stent by [facility] given his low ejection fraction of 15%. This institution does not have [facility] or other MCS available to perform the complex PCI and it would be appropriate to transfer the patient to a higher level of care. Also patient does have a history of hemorrhagic CVA with procedures performed at [facility] previously and we are unable to obtain any records until now. Continue with heparin drip along with IV diuresis for now along with BiPAP Discussed with the and also requested for higher level of care and she has requested for [facility] as he was previously admitted there in April 2024. 12/25/2024: Given his altered mental status per primary team again plan to repeat an MRI today. Patient with the symptoms better today and is much more awake as patient did use his BiPAP yesterday. Again there was a concern of questionable hemoptysis with some blood or clot. Hemoglobin is still stable around 10. Chest x-ray was repeated today and appears much improved from before there is still some mild congestion and will continue with diuresis. Recommended to continue BiPAP at night. Repeat echo was performed today on 12/25/2024 and exactly similar as the previous echo and no change from admission on 12/20/2024. EF is still less than 20% and patient is awaiting transfer to [facility]. Patient apparently a has been using his CPAP machine at home but never has been officially diagnosed with CHEYANNE. Patient appears to be adequately diuresed at the present point of time and kidney function continues to be stable with Bumex 1 mg IV twice daily. Bicarbonate was slightly high and was given Diamox 500 mg x 1 now bicarbonate is 30. As discussed previously patient is awaiting transfer to higher level of care [facility] at the request of the . 12/26/2024: The patient was doing much better today. He was much alert and oriented than yesterday. He reported doing well, and his reported the same. Vitals were fairly stable saturating 99% on 3 L of NC. MRI brain done yesterday was unremarkable for any acute changes. He was negative by about 2 L in last 24 hours. The plan is to transfer the patient to higher level of care at [facility] at the request of his , for possible percutaneous intervention, but if the transfer is not done by today evening, we will proceed with cardiac cath tomorrow morning here in [facility]. In the meantime, we will continue with Bumex 1 mg IV twice daily, and continue to maintain potassium and magnesium level greater than 4 and 2 respectively. Recommended to continue the patient on BiPAP overnight, and keep the patient n.p.o. after midnight. 12/27/2024: Patient seen and examined at the bedside. Patient with the symptoms better today and is much more awake as patient did use his BiPAP overnight. He wished to proceed with cardiac cath here in [facility]. Continue with Bumex 1mg BID Recommended to continue BiPAP at night. Cardiac Cath revealed [facility] findings: 1. Left ventricular ejection fraction was severely 20-25% without any regional wall motion abnormalities. LVEDP was normal at 16 mmHg. There was no significant transvalvular aortic gradient. 2. Right dominant circulation. Left main artery is a large-caliber vessel with mild 20-30% calcified stenosis. 3. LAD is a large sized artery with calcified 20-30% stenosis of mid segment. A medium size diagonal and does not show any significant disease. 4. LCx is a large sized artery with 20-30% stenosis in mid segment. A medium OM1 and small OM2 without any significant disease. 5. RCA is a large artery with 20% stenosis of proximal segment. Medium RPDA and RPL without any significant disease. RHC findings: Mean right atrial pressure was 1 mmHg. Right atrial pressure was 3/3 mmHg. Pulmonary artery pressure was 32/28 mmHg with a mean of 27 mmHg. Mean pulmonary capillary wedge pressure was 13 mmHg. TPG was 14 mmHg Pulmonary artery PA saturation was 59.9%.? Arterial saturation was 92.5% on room air. Cardiac output was 5.0 L/min and cardiac index was normal at 2.33 L/min/m? Patient recommended to follow-up with me in the office within 7 days after discharge. Summary/findings: 1. Non ischemic cardiomyopathy: LHC showed mild CAD with 20-30% calcified stenosis of Left main and mid LAD, 20-30% stenosis of mid LCx and proximal RCA. Rest of the coronaries without any angiographically significant obstruction and few luminal irregularities. 2. LVEF was severely low at 20-25%. 3. LVEDP was 14 mmHg. 4. Normal right heart pressures. Normal cardiac output was 5.0 L/min and normal cardiac index was at 2.33 L/min/m? Recommendations: 1. Recommend aggressive medical management and aggressive risk factor modification - Will need goal-directed medical therapy with metoprolol XL, Entresto and eventually spironolactone. Can decrease Bumex to 1 mg once daily orally 2. Patient recommended not to lift more than 5 lbs for the next 7-10 days and follow up with me in my office in 7 days. Management of rest of the medical conditions as per primary team and other consultants. Thank you for the consult and allowing me to participate in the care of the patient. Cardiology will continue to follow. The patient's management plan was discussed with my attending physician MD Venancio Oh MD, PGY3
--- NOTE | 2024-12-27 15:09 | ESOP_ITS ---
Cardiac Cath Procedure Procedure Name Date of procedure: 12/27/2024 SPRINKLER FITTER APPRENTICE: Rakan Lundberg MD PROCEDURE PERFORMED: 1. Left heart and right heart cardiac catheterization including right, left coronary angiograms and left ventriculogram - CPT 29376 2. Ultrasound-guided access of the right radial artery and right femoral vein - CPT 22255 3. 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 Patient had an echo done which showed severely reduced LV function with an LVEF of 15 to 20%. Patient had a positive lexiscan nuclear stress test as outpatient in my office, which showed inducible ischemia in mid to apical anterior and the apex. Admitted fpr Cardiogenic shock which resolved now and was recommended left and right heart cathterizations Discussed with patient risks, benefits and alternatives of performingthe cathterization including the risks of bleeding, heart rate, stroke and with the procedure. Patient understands the risks and is willing to undergo the procedure. Consent provided for the same. H&P updated and consent was signed prior to the procedure DESCRIPTION OF PROCEDURE: The patient was brought to the cardiac catheterization lab and all asceptic precautions were followed. Patient was given 1 Mg of Versed and 50 mcg of fentanyl for moderate conscious sedation. 2 mL of lidocaine was given in the right wrist. The right radial artery was accessed via the ultrasound guidance as well as micropuncture technique. A 6 Monegasque glide sheath was introduced. A 10 ml of lidocaine was then injected in the right femoral area and right femoral vein vein was accessed with ultrasound guidance and micropuncture technique. A 7 turkmen femoral sheath was used. A 7 Monegasque [place]ophe catheter was used with a [place] wire to direct into the right atrium with inflated balloon. Serial measurements of right atrium, right ventricle, pulmonary artery and pulmonary capillary wedge were taken severely with normal respiration as well as at end expiration as noted below. We then used a 6 Monegasque TIG 4 catheter to perform the left and right coronary angiogram as well as a left ventriculogram which showed the following findings. LHC findings: 1. Left ventricular ejection fraction was severely 20-25% without any regional wall motion abnormalities. LVEDP was normal at 14 mmHg. There was no significant transvalvular aortic gradient. 2. Right dominant circulation. Left main artery is a large-caliber vessel with mild 20-30% calcified stenosis. 3. LAD is a large sized artery with calcified 20-30% stenosis of mid segment. A medium size diagonal and does not show any significant disease. 4. LCx is a large sized artery with 20-30% stenosis in mid segment. A medium OM1 and small OM2 without any significant disease. 5. RCA is a large artery with less than 20% stenosis of proximal segment. Medium RPDA and RPL without any significant disease. RHC findings: Mean right atrial pressure was 1 mmHg. Right atrial pressure was 3/3 mmHg. Pulmonary artery pressure was 32/28 mmHg with a mean of 27 mmHg. Mean pulmonary capillary wedge pressure was 13 mmHg. TPG was 14 mmHg Pulmonary artery PA saturation was 59.9%.? Arterial saturation was 92.5% on room air. Cardiac output was 5.0 L/min and cardiac index was normal at 2.33 L/min/m? A radial band was used to achieve the hemostasis of the right radial artery access and manual hemostasis for the right antecubital vein. Patient will be monitored in the cardiac rn medical inpatient services for the next 2 to 3 hours and will be sent to the telemetry floor. Patient recommended to follow-up with me in the office within 7 days after discharge. Complications: None Specimens: None Blood loss: Estimated 5 ml Summary/findings: 1. Non ischemic cardiomyopathy: LHC showed mild CAD with 20-30% calcified stenosis of Left main and mid LAD, 20-30% stenosis of mid LCx and proximal RCA. Rest of the coronaries without any angiographically significant obstruction and few luminal irregularities. 2. LVEF was severely low at 20-25%. 3. LVEDP was 14 mmHg. 4. Normal right heart pressures. Normal cardiac output was 5.0 L/min and normal cardiac index was at 2.33 L/min/m? Recommendations: 1. Recommend aggressive medical management and aggressive risk factor modification - Will need goal-directed medical therapy with metoprolol XL, Entre sto and eventually spironolactone. Can decrease Bumex to 1 mg once daily orally 2. Patient recommended not to lift more than 5 lbs for the next 7-10 days and follow up with me in my office in 7 days. Rakan Lundberg MD Interventional Cardiology.
[2024-12-27 15:31] LABS: O2 Saturation (Cath Lab) 60 % (91-98); O2 Saturation (Cath Lab) 93 % (91-98); Puncture Site Aortic; Puncture Site Pulmonary Artery
[2024-12-27] MEDS: INSULIN LISPRO (AdmeLOG) 1 UNIT/0.01 ML UNIT SC ×2 (17:06→20:25)
[2024-12-27] MEDS: guaiFENesin SYRUP 200 MG/10 ML UDC PO ×2 (17:07→20:24)
[2024-12-27] MEDS: ACETAMINOPHEN 325 MG TABLET 650 MG PO (17:07)
--- NOTE | 2024-12-27 17:59 | PC.NURSE ---
patient arrived to unit, right groin assessed. dressing is gauze and tegaderm . dressing is clean, dry, and intact. no hematoma observed, soft to touch. bilateral pedal pulses palpable. to right wrist blue coban in place c/d/i to be removed at 1615. tegaderm underneath to be removed 12/29/24 at 1615. Patient and family member instructed to avoid bending, twisting at the wrist. not to carry anything above 5 pounds for 3-5 days
--- NOTE | 2024-12-27 18:34 | ESPR_ITS ---
Documentation for date of: 12/27/24 Subjective Subjective Interval history: No acute overnight events. No new or worsening symptoms. Denies fever, chills, headaches, chest pain, sob, cough, GI or urinary symptoms. Completed Membership Coordinator with cardiology today. We initiated GDMT. Will discharge tomorrow 12/28/2024 if remains stable. Exam Vital Signs Temp Pulse Resp BP Pulse Ox O2 Del Method O2 Flow Rate 97.6 F 80 16 109/72 98 Nasal Cannula 1 12/27/24 14:36 12/27/24 16:15 12/27/24 16:15 12/27/24 16:15 12/27/24 16:15 12/27/24 16:15 12/27/24 16:15 FiO2 30 12/27/24 15:45 Narrative Exam General: Awake. HEENT: Normocephalic, atraumatic, mucous membranes moist. Heart: Regular rate and rhythm, no murmurs. Lungs: Bilateral fine inspiratory crackles heard in the basilar areas. Abdomen: Soft, nondistended, nontender, positive bowel sounds. ?No guarding or rebound tenderness. Neurologic: Alert and oriented x3, no gross neurological deficit, and patient able to move all 4 extremities. Extremities: No edema. Skin: No rash or ecchymoses. Objective Labs 12/28/24 04:47 12/28/24 04:47 Labs: Laboratory Results - last 24 hr 12/27/24 12/27/24 12/27/24 05:56 14:09 14:09 WBC 5.3 RBC 4.05 L Hgb 11.2 L Hct 37.0 L MCV 91 MCH 27.7 MCHC 30.3 L RDW Std Deviation 52.4 H Plt Count 145 Neut % (Auto) 45 Lymph % (Auto) 39 [place] % (Auto) 12 Eos % (Auto) 3 Baso % (Auto) 1 Neut # (Auto) 2.4 Lymph # (Auto) 2.1 [place] # (Auto) 0.7 Eos # (Auto) 0.2 Baso # (Auto) 0.0 Immature Gran # (Auto) 0.01 H Absolute Nucleated RBC 0.00 Immature Gran % 0 Nucleated RBC % 0 POC Blood Site Aortic Pulmonary Artery POC O2 Saturation 93 Sodium 140 Potassium 4.2 Chloride 102 Carbon Dioxide 29.4 Anion Gap 9 BUN 18 Creatinine 1.1 Estim Creat Clear Calc 64.5 eGFR > 60 BUN/Creatinine Ratio 16 Glucose 138 H Calculated Osmolality 283 Calcium 9.6 Corrected Calcium 9.9 Phosphorus 3.9 Magnesium 2.4 Total Bilirubin 1.0 AST 37 H ALT 27 Alkaline Phosphatase 88 Total Protein 8.7 H Albumin 3.6 Globulin 5.1 H Albumin/Globulin Ratio 0.7 L 12/27/24 14:09 WBC RBC Hgb Hct MCV MCH MCHC RDW Std Deviation Plt Count Neut % (Auto) Lymph % (Auto) [place] % (Auto) Eos % (Auto) Baso % (Auto) Neut # (Auto) Lymph # (Auto) [place] # (Auto) Eos # (Auto) Baso # (Auto) Immature Gran # (Auto) Absolute Nucleated RBC Immature Gran % Nucleated RBC % POC Blood Site POC O2 Saturation 60 L Sodium Potassium Chloride Carbon Dioxide Anion Gap BUN Creatinine Estim Creat Clear Calc eGFR BUN/Creatinine Ratio Glucose Calculated Osmolality Calcium Corrected Calcium Phosphorus Magnesium Total Bilirubin AST ALT Alkaline Phosphatase Total Protein Albumin Globulin Albumin/Globulin Ratio ABG Interpretation ABG results: 12/16/24 12/17/24 12/17/24 17:14 05:12 06:48 ABG pH 7.41 7.35 7.34 L ABG pCO2 38 47 49 H ABG pO2 49 L* 72 L D 170 H D ABG HCO3 24 26 27 H ABG O2 Saturation 82 L 94 100 H ABG Base Excess 0 0 0 VBG pH VBG pCO2 VBG pO2 VBG Base Excess 12/21/24 12/22/24 12/24/24 09:30 09:06 22:07 ABG pH 7.52 H 7.42 D ABG pCO2 41 59 H D ABG pO2 73 L 75 L ABG HCO3 34 H 38 H ABG O2 Saturation 96 96 ABG Base Excess 10 H 12 H VBG pH 7.41 VBG pCO2 48 VBG pO2 39 VBG Base Excess 4 H Quality Measures Quality Measures VTE prophylaxis Advance care planning discussed with:: patient Assessment & Plan Assessment Current Active Medications: Generic Name Dose Route Start Last Admin Trade Name Freq PRN Reason Stop Dose Admin Acetaminophen 650 mg 12/17/24 06:35 12/27/24 17:07 Acetaminophen 325 Mg Tablet PO 01/15/25 17:41 650 mg Q6H PRN Administration Fever >100.3 Atorvastatin Calcium 40 mg 12/16/24 21:00 12/26/24 20:28 Atorvastatin Calcium 20 Mg Tablet PO 01/15/25 20:59 40 mg HS SHAZIA Administration Dapagliflozin 10 mg 12/27/24 09:00 12/27/24 09:33 Dapagliflozin Propanediol 5 Mg Tablet PO 01/26/25 08:59 Not Given QAM SHAZIA Dextrose 50 ml 12/18/24 16:56 Dextrose 50%-Water Inj 50 Ml Syringe IV 01/17/25 16:55 Q15MIN PRN BG <50 OR BG <70 & pt unresponsive Glucagon 1 mg 12/18/24 16:56 Glucagon Inj 1 Mg Vial IM Q15MIN PRN BG <70, and no IV access Guaifenesin 200 mg 12/19/24 17:00 12/27/24 17:07 Guaifenesin Syrup 200 Mg/10 Ml Udc PO 01/18/25 16:59 200 mg QID SHAZIA Administration Protocol Heparin Sodium (Porcine) 5,000 unit 12/26/24 21:00 12/27/24 09:33 Heparin Sod Inj 5000 Unit/Ml Vial SC 01/09/25 20:59 Not Given BID SHAZIA Insulin Glargine 6 unit 12/20/24 21:00 12/26/24 20:29 Insulin Glargine (Lantus) 5 Unit/0.05 Ml (Per 5 Units) SC 01/19/25 20:59 6 unit HS SHAZIA Administration Insulin Human Lispro 0 unit 12/20/24 11:30 12/27/24 17:06 Insulin Lispro (Admelog) 1 Unit/0.01 Ml Unit SC 01/19/25 11:29 1 unit ACHS SHAZIA Administration Protocol Magnesium Hydroxide 30 ml 12/19/24 08:18 Milk Of Magnesia Susp 30 Ml Udc PO 01/18/25 08:17 QDAY PRN CONSTIPATION Protocol Melatonin 3 mg 12/21/24 19:00 12/26/24 20:28 Melatonin 3 Mg Tablet PO 01/20/25 18:59 3 mg HS SHAZIA Administration Metoprolol Succinate 12.5 mg 12/22/24 12:45 12/27/24 09:34 Metoprolol Succinate Xl 25 Mg Tabcr PO 01/21/25 12:44 Not Given QDAY SHAZIA Ondansetron HCl 4 mg 12/16/24 17:42 12/21/24 20:35 Ondansetron Inj 2 Mg/Ml Inj 2 Ml IVP 01/15/25 17:41 4 mg Q6H PRN Administration NAUSEA OR VOMITING Protocol Pantoprazole Sodium 40 mg 12/21/24 09:00 12/27/24 09:34 Pantoprazole 40 Mg Tablet PO 01/20/25 08:59 Not Given QDAY SHAZIA Protocol Polyethylene Glycol 17 gm 12/21/24 09:00 12/27/24 09:36 Polyethylene Glycol 17 Gm Packet PO 01/20/25 08:59 Not Given QDAY SHAZIA Ropinirole HCl 1 mg 12/24/24 19:00 12/26/24 19:23 Ropinirole Hcl 1 Mg Tablet PO 01/23/25 18:59 1 mg QDAY@1900 SHAZIA Administration Sennosides 1 tab 12/17/24 09:00 12/27/24 09:36 Senna Tablet PO 01/16/25 08:59 Not Given QDAY SHAZIA Protocol Tamsulosin HCl 0.4 mg 12/17/24 09:00 12/27/24 09:36 Tamsulosin Hcl 0.4 Mg Capsule PO 01/16/25 08:59 Not Given QDAY SHAZIA Plan A 79-year-old male with significant past medical history of hypertension, diabetes mellitus, asthma, intracranial bleed, using oxygen, 2 L at home as needed, HFrEF presented to the hospital with chief complaints of sudden onset headache followed by generalized weakness on the day of admission. Admitted for CHF exacerbation. Acute CHF exacerbation CHF with a EF 15-20% Presented with 4+ pitting edema up to the knee. He has chronic CHF, on 2 L home oxygen. CXR showed moderate vascular congestion. Echocardiogram showed EEF 15-20% (EF 25-30% from 07/2024), there is also severe reduced LV function with moderate to severe LV enlargement, moderate AV thickening and moderate calcification, moderate AV sclerosis without stenosis, severe LA dilation, and mild-moderate RA dilation, IVC dilation with <50% collapsibility. Continued on diuresis, overall 11 L net negative. SOB overall improving. Appears to be at baseline in terms of oxygen need, 2-3% nasal cannula. Currently pending transfer [facility] for cath. However, it has cardiology, might perform an angiogram without PCI if transferred does not happen tomorrow. LHC on 12/27/2024 showed nonischemic cardiomyopathy with 20-30% stenosis of left main and mid LAD, 20-30% stenosis of mid LCx and proximal RCA. LVH, severely low at ? 25%, normal right heart pressure. Cardiology recommended GDMT. ? Strict INOs ? Fluid restriction 1200 cc daily ? Maintain K > 4.0 and Mg > 2.0 ? Continue FARXIGA 10 mg daily ? Continue METOPROLOL 12.5 mg QDAY ? Continue BUMEX 1 mg IV BID, will discharge on LASIX 20 mg daily. ? Continue BiPAP PRN Acute on chronic respiratory failure Aspiration pneumonia (resolving) As stated above, admitted with acute hypoxic respiratory failure due to aspiration while on BiPAP, intubated on 12/17, successfully extubated since. Completed course of UNASYN. Afebrile, no leukocytosis, blood and sputum cultures have been negative. Syncope Ground-level mechanical fall Stroke ruled out Presented with sudden onset headache followed by generalized weakness and fall on the day of admission. Head CT, CTA head/neck were negative for acute pathology. Cervical spine CT and lumbar spine x-ray no fracture noted Teleneurology recommended ASPIRIN stroke precaution. 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 stated she bought a secondhand CPAP machine from medical supply, although has never been evaluated for sleep disorder nor has he ever been prescribed CPAP machine. ? Continue BiPAP/CPAP HS and PRN IDDM, type II Admission. A1c 6.5 ? Continue INSULIN GLARGINE 6 units HS ? INSULIN sliding scale ? Accu-Cheks Hemoptysis (resolved) Had a nonrecurrent episode on 12/23, likely 2/2 pneumonia and cough. Hgb has been stable. Will resume HEPARIN DVT prophylaxis. Health maintenance Diet: Cardiac, pur?ed GI prophylaxis: PROTONIX DVT prophylaxis: HEPARIN subcu Antibiotics: None CODE STATUS: Full code Disposition: Pending transfer for cardiac intervention. Case was discussed with attending physician and senior resident. Kev Oneal DO PGY II This document was transcribed using voice recognition technology. Minor inaccuracies may be present. Attending Provider Attestation/Addendum I attest that I was physically present for the evaluation, physical examination, lab and imaging review of the patient with the residents. I discussed the case with the residents and agree with the findings and plans of care as documented above. Jona Wong MD
[2024-12-27] MEDS: ATORVASTATIN CALCIUM 20 MG TABLET 40 MG PO (20:24)
[2024-12-27] MEDS: MELATONIN 3 MG TABLET PO (20:24)
[2024-12-27] MEDS: HEPARIN SOD INJ 5000 UNIT/ML VIAL SC (20:28)
[2024-12-27] MEDS: INSULIN GLARGINE (Lantus) 5 UNIT/0.05 ML (PER 5 UNITS) 6 UNIT SC (20:29)
[2024-12-28] VITALS (10 sets, daily range): BP systolic 94–111; BP diastolic 60–78; PULSE 72–90; RESP 12–25; TEMP 36–36.6; O2SAT 93–100; BMI 28.8
--- NOTE | 2024-12-28 00:35 | ESCONSULT_ITS ---
HPI Data of Consult Requesting Physician: Jona Wong MD Admitting Provider: Mulu Cadet DO Attending Provider: Jona Wong MD Primary Care Provider: Bao Stephens MD Consult Narrative History of present illness: Interval history: Patient seen at bedside. No new concerns at this time. Intermittently confused, difficulty with following commands cc:: cc: Jona Wogn MD Review of Systems Review of Systems Narrative Review of Systems: 14-point ROS negative other than stated in HPI Exam Vital Signs Temp Pulse Resp BP Pulse Ox O2 Del Method O2 Flow Rate 98.6 F 85 15 113/78 99 Nasal Cannula 3 12/27/24 20:00 12/27/24 20:00 12/27/24 20:00 12/27/24 20:00 12/27/24 20:00 12/27/24 20:00 12/27/24 20:00 FiO2 30 12/27/24 15:45 Narrative Exam General: No acute distress, well nourished Eye: PERRL, EOMI, normal conjunctiva, no scleral icterus HENT: Normocephalic, atraumatic, hearing intact to conversation Neck: Supple, no JVD Lungs: Non-labored respirations, symmetric chest rise Heart: Peripheral pulses intact bilaterally Abdomen: Soft, non-distended Musculoskeletal: Normal range of motion and strength Skin: Skin is warm, dry, no rashes or lesions. Neurologic: Alert, awake and oriented x2. Intermittent difficulty following commands, engaging in conversation. Cranial nerves: II through XII grossly intact. Strength: 5 out of 5 in all 4 extremities. Plantar reflex: Downgoing bilaterally. Sensory system: Intact to light touch. Coordination: Intact to [id number] and [id number] test bilaterally. Gait: not tested. Psychiatric: Cooperative Results Labs 12/28/24 04:47 12/28/24 04:47 Labs: Short CBC 12/27/24 Range/Units 05:56 WBC 5.3 (3.8-10.6) Thou/mm3 Hgb 11.2 L (13.5-16.0) g/dL Hct 37.0 L (41.0-53.0) % Plt Count 145 (140-440) Thou/mm3 BMP 12/27/24 05:56 Sodium 140 Potassium 4.2 Chloride 102 Carbon Dioxide 29.4 BUN 18 Creatinine 1.1 Glucose 138 H Calcium 9.6 Liver Function 12/27/24 Range/Units 05:56 Total Bilirubin 1.0 (0.3-1.2) mg/dL AST 37 H (0-34) U/L ALT 27 (10-49) U/L Alkaline Phosphatase 88 (46-116) U/L Albumin 3.6 (3.4-4.8) gm/dL ABG Interpretation ABG results: 12/16/24 12/17/24 12/17/24 17:14 05:12 06:48 ABG pH 7.41 7.35 7.34 L ABG pCO2 38 47 49 H ABG pO2 49 L* 72 L D 170 H D ABG HCO3 24 26 27 H ABG O2 Saturation 82 L 94 100 H ABG Base Excess 0 0 0 VBG pH VBG pCO2 VBG pO2 VBG Base Excess 12/21/24 12/22/24 12/24/24 09:30 09:06 22:07 ABG pH 7.52 H 7.42 D ABG pCO2 41 59 H D ABG pO2 73 L 75 L ABG HCO3 34 H 38 H ABG O2 Saturation 96 96 ABG Base Excess 10 H 12 H VBG pH 7.41 VBG pCO2 48 VBG pO2 39 VBG Base Excess 4 H Quality Measures Quality Measures VTE prophylaxis Advance care planning discussed with:: patient and spouse Medications Home Medications and Allergies Home Medications ?Medication ?Instructions ?Recorded ?Confirmed ?Type finasteride 5 mg tablet 5 mg PO QDAY 08/02/24 History ropinirole 1 mg tablet 1 mg PO .COMPLEX 08/02/24 History tamsulosin 0.4 mg capsule 0.4 mg PO Q24H 08/02/2411/27 History furosemide 40 mg tablet 40 mg PO QDAY 12/18/2412/18 History sucralfate 1 gram tablet 1 g PO Q12H 12/18/24 5 History Allergies Allergy/AdvReac Type Severity Reaction Status Date / Time No Known Allergies Allergy Verified 12/16/24 13:05 Visit Medications Acetaminophen (Acetaminophen 325 Mg Tablet) 650 mg PO Q6H PRN PRN Reason: Fever >100.3 Stop: 01/15/25 17:41 Last Admin: 12/27/24 17:07 Dose: 650 mg Atorvastatin Calcium (Atorvastatin Calcium 20 Mg Tablet) 40 mg PO HS [facility] Stop: 01/15/25 20:59 Last Admin: 12/27/24 20:24 Dose: 40 mg Dapagliflozin (Dapagliflozin Propanediol 5 Mg Tablet) 10 mg PO QAM [facility] Stop: 01/26/25 08:59 Last Admin: 12/27/24 09:33 Dose: Not Given Dextrose (Dextrose 50%-Water Inj 50 Ml Syringe) 50 ml IV Q15MIN PRN PRN Reason: BG <50 OR BG <70 & pt unresponsive Stop: 01/17/25 16:55 Glucagon (Glucagon Inj 1 Mg Vial) 1 mg IM Q15MIN PRN PRN Reason: BG <70, and no IV access Guaifenesin (Guaifenesin Syrup 200 Mg/10 Ml Udc) 200 mg PO QID [facility]; Protocol Stop: 01/18/25 16:59 Last Admin: 12/27/24 20:24 Dose: 200 mg Heparin Sodium (Porcine) (Heparin Sod Inj 5000 Unit/Ml Vial) 5,000 unit SC BID [facility] Stop: 01/09/25 20:59 Last Admin: 12/27/24 20:28 Dose: 5,000 unit Insulin Glargine (Insulin Glargine (Lantus) 5 Unit/0.05 Ml (Per 5 Units)) 6 unit SC [facility] Stop: 01/19/25 20:59 Last Admin: 12/27/24 20:29 Dose: 6 unit Insulin Human Lispro (Insulin Lispro (Admelog) 1 Unit/0.01 Ml Unit) 0 unit SC [facility]; Protocol Stop: 01/19/25 11:29 Last Admin: 12/27/24 20:25 Dose: 1 unit Magnesium Hydroxide (Milk Of Magnesia Susp 30 Ml Udc) 30 ml PO QDAY PRN; Protocol PRN Reason: CONSTIPATION Stop: 01/18/25 08:17 Melatonin (Melatonin 3 Mg Tablet) 3 mg PO [facility] Stop: 01/20/25 18:59 Last Admin: 12/27/24 20:24 Dose: 3 mg Metoprolol Succinate (Metoprolol Succinate Xl 25 Mg Tabcr) 12.5 mg PO QDAY [facility] Stop: 01/21/25 12:44 Last Admin: 12/27/24 09:34 Dose: Not Given Ondansetron HCl (Ondansetron Inj 2 Mg/Ml Inj 2 Ml) 4 mg IVP Q6H PRN; Protocol PRN Reason: NAUSEA OR VOMITING Stop: 01/15/25 17:41 Last Admin: 12/21/24 20:35 Dose: 4 mg Pantoprazole Sodium (Pantoprazole 40 Mg Tablet) 40 mg PO QDAY [facility]; Protocol Stop: 01/20/25 08:59 Last Admin: 12/27/24 09:34 Dose: Not Given Polyethylene Glycol (Polyethylene Glycol 17 Gm Packet) 17 gm PO QDAY [facility] Stop: 01/20/25 08:59 Last Admin: 12/27/24 09:36 Dose: Not Given Ropinirole HCl (Ropinirole Hcl 1 Mg Tablet) 1 mg PO QDAY@1900 [facility] Stop: 01/23/25 18:59 Last Admin: 12/27/24 19:27 Dose: 1 mg Sennosides (Senna Tablet) 1 tab PO QDAY [facility]; Protocol Stop: 01/16/25 08:59 Last Admin: 12/27/24 09:36 Dose: Not Given Tamsulosin HCl (Tamsulosin Hcl 0.4 Mg Capsule) 0.4 mg PO QDAY [facility] Stop: 01/16/25 08:59 Last Admin: 12/27/24 09:36 Dose: Not Given Discontinued Medications Acetaminophen (Acetaminophen 325 Mg Tablet) 650 mg PO Q6H PRN PRN Reason: Fever >101.5 Stop: 01/15/25 17:41 Last Admin: 12/16/24 20:52 Dose: 650 mg Hydrocodone Bitart/Acetaminophen (Hydrocodone/Apap 5/325 Tablet) 1 tab PO X1 ONE Stop: 12/16/24 22:56 Last Admin: 12/17/24 00:15 Dose: Not Given Acetazolamide (Acetazolamide 250 Mg Tablet) 250 mg PO X1 ONE Stop: 12/21/24 15:53 Last Admin: 12/21/24 16:38 Dose: 250 mg Acetazolamide (Acetazolamide 250 Mg Tablet) 250 mg PO X1 ONE Stop: 12/22/24 07:29 Last Admin: 12/22/24 07:40 Dose: Not Given Acetazolamide (Acetazolamide 250 Mg Tablet) 250 mg PO X1 ONE Stop: 12/23/24 10:26 Last Admin: 12/23/24 12:37 Dose: 250 mg Acetylcysteine (Acetylcysteine Rt Liya 10% 4 Ml Nebu) 3 ml INH Q8HRRT [facility] Stop: 01/18/25 14:59 Last Admin: 12/23/24 14:10 Dose: Not Given Albuterol/Ipratropium (Albuterol/Ipratropium (Duoneb) Rt Liya 3 Ml Nebu) 3 ml INH Q8HR [facility] Stop: 01/15/25 21:59 Last Admin: 12/23/24 06:32 Dose: 3 ml Aspirin (Aspirin 325 Mg Tablet) 325 mg PO X1 ONE Stop: 12/16/24 16:49 Last Admin: 12/16/24 17:25 Dose: 325 mg Aspirin (Aspirin Ec 81 Mg Tabec) 81 mg PO QDAY [facility] Stop: 01/16/25 08:59 Last Admin: 12/21/24 07:13 Dose: Not Given Aspirin (Aspirin 81 Mg Chew) 81 mg GT QDAY [facility] Stop: 01/16/25 07:59 Last Admin: 12/18/24 08:15 Dose: 81 mg Aspirin (Aspirin 81 Mg Chew) 81 mg PO QDAY [facility] Stop: 01/18/25 08:59 Last Admin: 12/23/24 09:46 Dose: Not Given Bumetanide (Bumetanide Inj 0.25 Mg/Ml Vial 4 Ml) 2 mg IVP X1 ONE Stop: 12/21/24 10:01 Last Admin: 12/21/24 11:44 Dose: 2 mg Bumetanide (Bumetanide Inj 0.25 Mg/Ml Vial 4 Ml) 1 mg IVP BID [facility] Stop: 01/21/25 20:59 Last Admin: 12/27/24 09:33 Dose: Not Given Olanzapine 10 mg/ Sterile (Water 2.1 ml) 0 mg IM QDAY [facility] Stop: 01/23/25 10:04 Last Admin: 12/24/24 10:53 Dose: Not Given Olanzapine 10 mg/ Sterile (Water 2.1 ml) 0 mg IM X1 ONE Stop: 12/24/24 10:16 Last Admin: 12/24/24 10:52 Dose: Not Given Olanzapine 5 mg/ Sterile Water (1 ml) 0 mg IM X1 ONE Stop: 12/24/24 10:31 Last Admin: 12/24/24 10:21 Dose: 5 dose Dapagliflozin (Dapagliflozin Propanediol 5 Mg Tablet) 5 mg PO QAM [facility] Stop: 01/21/25 12:44 Last Admin: 12/26/24 08:56 Dose: 5 mg Diphenhydramine HCl (Diphenhydramine Inj 50 Mg/Ml Vial) 50 mg IVP X1 ONE Stop: 12/20/24 17:45 Last Admin: 12/21/24 07:14 Dose: Not Given Enoxaparin Sodium (Enoxaparin Sod Inj 40 Mg/0.4 Ml Syringe) 40 mg SC QDAY [facility] Stop: 12/31/24 08:59 Last Admin: 12/23/24 09:46 Dose: Not Given Etomidate (Etomidate Inj 2 Mg/Ml Vial 10 Ml) 30 mg IV X1 ONE Stop: 12/17/24 05:38 Last Admin: 12/17/24 05:29 Dose: 30 mg Famotidine (Famotidine Inj 10 Mg/Ml Vial 2 Ml) 20 mg IVP X1 ONE Stop: 12/20/24 17:45 Last Admin: 12/21/24 07:14 Dose: Not Given Furosemide (Furosemide Inj 10 Mg/Ml 4ml Vial) 40 mg IVP X1 ONE Stop: 12/16/24 17:03 Last Admin: 12/16/24 17:21 Dose: 40 mg Furosemide (Furosemide Inj 10 Mg/Ml 4ml Vial) 40 mg IVP BIDD [facility] Stop: 01/15/25 19:59 Last Admin: 12/21/24 05:06 Dose: 40 mg Hydrocortisone Sodium Succinate (Hydrocortisone Sod Succ Inj 100 Mg Vial) 100 mg IV X1 ONE Stop: 12/20/24 17:45 Last Admin: 12/21/24 07:14 Dose: Not Given Hydromorphone HCl (Hydromorphone Inj 2 Mg/Ml Vial) 1 mg IVP Q4HR PRN PRN Reason: PAIN 4-10 Stop: 12/25/24 17:36 Last Admin: 12/21/24 16:14 Dose: 1 mg Propofol (Diprivan Ivpb) 1,000 mg in 100 mls @ 3.13 mls/hr IV .Q24H PRN; Protocol PRN Reason: PER PROTOCOL Stop: 01/16/25 05:31 Last Titration: 12/17/24 21:00 Dose: Infused Fentanyl Citrate (Sublimaze Inj 2,500 Mcg/250 Ml Bag) 2,500 mcg in 250 mls @ 2.5 mls/hr IV .Q24H PRN; Protocol PRN Reason: PER PROTOCOL Stop: 12/22/24 05:31 Last Titration: 12/18/24 07:20 Dose: 0 mcg/hr, 0 mls/hr Potassium Chloride (Kcl Ivpb) 10 meq in 100 mls @ 100 mls/hr IV Q1H [facility] Stop: 12/17/24 08:34 Last Infusion: 12/17/24 19:20 Dose: Infused Magnesium Sulfate (Magnesium Sulfate Ivpb) 2 gm in 50 mls @ 25 mls/hr IV X1 ONE Stop: 12/17/24 07:42 Last Infusion: 12/17/24 19:20 Dose: Infused Ampicillin Sodium/Sulbactam (Sodium 1.5 gm/ Sodium Chloride) 50 mls @ 100 mls/hr IV Q6HR [facility] Stop: 12/24/24 05:59 Last Infusion: 12/17/24 19:20 Dose: Infused Ampicillin Sodium/Sulbactam (Sodium 3 gm/ Sodium Chloride) 100 mls @ 200 mls/hr IV Q6HR [facility] Stop: 12/24/24 11:59 Last Admin: 12/24/24 05:50 Dose: 200 mls/hr Ampicillin Sodium/Sulbactam (Sodium 1.5 gm/ Sodium Chloride) 50 mls @ 100 mls/hr IV X1 ONE Stop: 12/17/24 07:30 Last Infusion: 12/17/24 19:20 Dose: Infused Potassium Chloride (Kcl Ivpb) 10 meq in 100 mls @ 100 mls/hr IV Q1H [facility] Stop: 12/17/24 21:08 Last Admin: 12/21/24 07:13 Dose: Not Given Magnesium Sulfate (Magnesium Sulfate Ivpb) 2 gm in 50 mls @ 25 mls/hr IV X1 ONE Stop: 12/17/24 19:08 Last Admin: 12/17/24 17:24 Dose: 25 mls/hr Potassium Chloride (Kcl Ivpb) 10 meq in 100 mls @ 100 mls/hr IV Q1H [facility] Stop: 12/17/24 19:20 Last Admin: 12/17/24 18:33 Dose: 100 mls/hr Fentanyl Citrate (Sublimaze Inj 2,500 Mcg/250 Ml Bag) 2,500 mcg in 250 mls @ 2.5 mls/hr IV .Q24H PRN; Protocol PRN Reason: PER PROTOCOL Stop: 12/22/24 05:31 Propofol (Diprivan Ivpb) 1,000 mg in 100 mls @ 3.156 mls/hr IV .Q24H PRN; Protocol PRN Reason: PER PROTOCOL Stop: 01/16/25 05:31 Last Titration: 12/18/24 07:05 Dose: 0 mcg/kg/min, 0 mls/hr Potassium Chloride (Kcl Ivpb) 10 meq in 100 mls @ 100 mls/hr IV Q1H [facility] Stop: 12/21/24 09:49 Last Admin: 12/21/24 14:38 Dose: 50 mls/hr Insulin Human Lispro (Insulin Lispro (Admelog) 1 Unit/0.01 Ml Unit) 0 unit SC [facility]; Protocol Stop: 01/17/25 16:59 Last Admin: 12/20/24 07:48 Dose: 1 unit Ketorolac Tromethamine (Ketorolac Inj 30 Mg/Ml Vial) 30 mg IVP X1 ONE Stop: 12/18/24 09:19 Last Admin: 12/18/24 09:29 Dose: 30 mg Lidocaine (Lidocaine 5% 1 Patch) 1 patch TOP X1 ONE Stop: 12/16/24 18:12 Last Admin: 12/16/24 19:39 Dose: 1 patch Lidocaine (Lidocaine 5% 1 Patch) 1 patch TOP X1 ONE Stop: 12/20/24 09:52 Last Admin: 12/20/24 11:55 Dose: 1 patch Magnesium Hydroxide (Milk Of Magnesia Susp 30 Ml Udc) 30 ml PO X1 ONE; Protocol Stop: 12/19/24 08:19 Last Admin: 12/19/24 08:55 Dose: 30 ml Morphine Sulfate (Morphine Sulf Inj 10 Mg/Ml Vial) 1 mg IVP Q4HR PRN PRN Reason: Pain 7 - 10 Stop: 12/21/24 18:20 Ondansetron HCl (Ondansetron Inj 2 Mg/Ml Inj 2 Ml) 4 mg IVP Q4HR PRN PRN Reason: NAUSEA OR VOMITING Stop: 01/15/25 13:42 Last Admin: 12/17/24 05:00 Dose: 4 mg Pantoprazole Sodium (Pantoprazole 40 Mg Tablet) 40 mg PO QDAY [facility] Stop: 01/16/25 08:59 Pantoprazole Sodium (Pantoprazole Inj 40 Mg Vial) 40 mg IVP QDAY [facility] Stop: 01/16/25 09:14 Last Admin: 12/20/24 09:16 Dose: 40 mg Polyethylene Glycol (Polyethylene Glycol 17 Gm Packet) 17 gm PO QDAY [facility] Stop: 01/19/25 08:59 Polyethylene Glycol (Polyethylene Glycol 17 Gm Packet) 17 gm PO QDAY PRN PRN Reason: constipation Stop: 01/19/25 08:59 Potassium Chloride (Potassium Chloride 20 Meq Tabcr) 40 meq PO X1 ONE Stop: 12/16/24 16:49 Last Admin: 12/16/24 17:25 Dose: 40 meq Potassium Chloride (Potassium Chloride 10% 20 Meq/15 Ml Udc) 40 meq PO X1 ONE Stop: 12/19/24 07:40 Last Admin: 12/19/24 08:54 Dose: 40 meq Potassium Chloride (Potassium Chloride 10% 20 Meq/15 Ml Udc) 20 meq PO X1 ONE Stop: 12/19/24 12:01 Last Admin: 12/19/24 12:16 Dose: 20 meq Potassium Chloride (Potassium Chloride 20 Meq Tabcr) 40 meq PO X1 ONE Stop: 12/20/24 07:56 Last Admin: 12/20/24 09:19 Dose: 40 meq Potassium Chloride (Potassium Chloride 20 Meq Tabcr) 40 meq PO X1 ONE Stop: 12/21/24 07:50 Last Admin: 12/21/24 10:59 Dose: Not Given Potassium Chloride (Potassium Chloride 20 Meq Tabcr) 40 meq PO X1 ONE Stop: 12/23/24 10:40 Last Admin: 12/23/24 12:34 Dose: 40 meq Potassium Chloride (Potassium Chloride 20 Meq Tabcr) 40 meq PO X1 ONE Stop: 12/24/24 07:25 Last Admin: 12/24/24 09:05 Dose: 40 meq Potassium Chloride (Potassium Chloride 10% 20 Meq/15 Ml Udc) 20 meq PO X1 ONE Stop: 12/26/24 09:30 Last Admin: 12/26/24 10:27 Dose: 20 meq Rocuronium [place] (Rocuronium Inj 10 Mg/Ml Vial 10 Ml) 100 mg IV X1 ONE Stop: 12/17/24 05:38 Last Admin: 12/17/24 05:29 Dose: 100 mg Tranexamic Acid (Tranexamic Acid Inj 1,000 Mg/10 Ml Vial) 500 mg INH TID [facility] Stop: 12/28/24 06:01 Last Admin: 12/23/24 17:30 Dose: Not Given Tranexamic Acid (Tranexamic Acid Inj 1,000 Mg/10 Ml Vial) 500 mg INH TID [facility] Stop: 12/28/24 06:01 Tranexamic Acid (Tranexamic Acid Inj 1,000 Mg/10 Ml Vial) 500 mg INH TID [facility] Stop: 12/28/24 06:01 Last Admin: 12/24/24 06:51 Dose: 500 mg Assessment & Plan Assessment #Stroke-like symptoms, resolved Initially presented on 12/15/24 with sudden onset headache followed by generalized weakness, now resolved. 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 No acute infarction noted. PT recs: SNF Plan: Pending placement for safe discharge No further recs at this time #Sleep apnea in adult Plan: Uses CPAP even though it is not officially diagnosed. #Community acquired pneumonia Management per primary team #HFrEF Repeat echo was performed 12/25/2024 and exactly similar as the previous echo and no change from admission on 12/20/2024. EF is still less than 20% Plan: Management per primary team Plan discussed with Dr. Chang Miranda, PGY1 Attending Provider Attestation/Addendum Personally have seen and examined the patient at the bedside and I agreed with the resident's findings, assessment and plan of care. He does have clinical and radiological findings consistent with vascular dementia. Continue with the vascular risk factors reduction for preventing progression. Patient is waiting for safe discharge plan after physical therapy sees him today as his is thinking that he is going to be discharged home.
[2024-12-28] MEDS: guaiFENesin SYRUP 200 MG/10 ML UDC PO ×2 (05:11→20:43)
[2024-12-28 05:59] LABS: Basophils # (Auto) 0.0 Thou/mm3 (0.0-0.2); Basophils % (Auto) 1 % (0-2.5); Eosinophils # (Auto) 0.1 Thou/mm3 (0.0-0.5); Eosinophils % (Auto) 2 % (0-10); Hematocrit 36.0 % (41.0-53.0); Hemoglobin 11.0 g/dL (13.5-16.0); Immature Granulocytes Auto 0.01 Thou/mm3 (0.00-0.00); Lymphocytes # (Auto) 1.5 Thou/mm3 (1.0-4.8); Lymphocytes % (Auto) 28 % (10-50); Mean Corpuscular HGB Conc 30.6 g/dl (31.0-37.0); Mean Corpuscular Hemoglobin 27.9 pg (25.0-35.0); Mean Corpuscular Volume 91 fL (80-100); Monocytes # (Auto) 0.7 Thou/mm3 (0.0-0.8); Monocytes % (Auto) 12 % (0-12); Neutrophils # (Auto) 3.0 Thou/mm3 (1.8-7.7); Neutrophils % (Auto) 57 % (37-80); Nucleated Red Blood Cell # 0.00 Thou/mm3 (0.00-0.00); Nucleated Red Blood Cell % 0 /100 WBC (0); Platelet Count 155 Thou/mm3 (140-440); RDW Standard Deviation 52.1 fL (35.1-43.9); Red Blood Count 3.94 Miln/mm3 (4.50-5.90); White Blood Count 5.3 Thou/mm3 (3.8-10.6)
[2024-12-28 06:28] LABS: Alanine Aminotransferase 22 U/L (10-49); Albumin, Serum 3.5 gm/dL (3.4-4.8); Albumin/Globulin Ratio 0.7 (1.2-2.2); Alkaline Phosphatase 90 U/L (46-116); Anion Gap 7 (7-16); Aspartate Amino Transferase 23 U/L (0-34); BUN/Creatinine Ratio 18 Ratio (12-20); Bilirubin,Total 1.1 mg/dL (0.3-1.2); Blood Urea Nitrogen 16 mg/dL (9-23); Calcium 9.5 mg/dL (8.3-10.6); Calcium (Corrected) 9.9 mg/dL (8.5-10.1); Carbon Dioxide 30.6 mMol/L (20.0-31.0); Chloride 102 mMol/L (98-107); Creatinine (Component) 0.9 mg/dL (0.6-1.3); Estimated Creatinine Clearance 77.6 mL/min (>60); Globulin 5.0 gm/dL (2.3-3.5); Glucose 129 mg/dL (74-106); Magnesium 2.3 mg/dL (1.6-2.6); Osmolality,Calculated 282 (275-295); Phosphorous 3.5 mg/dL (2.4-5.1); Potassium 3.7 mMol/L (3.4-5.1); Sodium 140 mMol/L (136-145); Total Protein 8.5 gm/dL (5.7-8.2); eGFR > 60 See Note
--- NOTE | 2024-12-28 09:02 | PC.SS ---
SS follow up: attempted contact with patient's was spouse, Monica Chicas to discuss the d/c plan. Voicemail was provided with call back number.
--- NOTE | 2024-12-28 09:23 | PD.RESPRO ---
Documentation for date of: 12/28/24 Subjective Subjective Interval history: Patient seen at bedside. No new concerns at this time. Intermittently confused, difficulty with following commands. PT recommended homehealth PT/OT. Exam Vital Signs Temp Pulse Resp BP Pulse Ox O2 Del Method O2 Flow Rate 97.4 F 78 18 100/73 98 Nasal Cannula 3 12/28/24 08:00 12/28/24 08:00 12/28/24 08:00 12/28/24 08:00 12/28/24 08:00 12/28/24 08:00 12/28/24 08:00 FiO2 30 12/28/24 00:00 Narrative Exam General: No acute distress, well nourished Eye: PERRL, EOMI, normal conjunctiva, no scleral icterus HENT: Normocephalic, atraumatic, hearing intact to conversation Neck: Supple, no JVD Lungs: Non-labored respirations, symmetric chest rise Heart: Peripheral pulses intact bilaterally Abdomen: Soft, non-distended Musculoskeletal: Normal range of motion and strength Skin: Skin is warm, dry, no rashes or lesions. Neurologic: Alert, awake and oriented x2. Intermittent difficulty following commands, engaging in conversation. Cranial nerves: II through XII grossly intact. Strength: 5 out of 5 in all 4 extremities. Sensory system: Intact to light touch.. Psychiatric: Cooperative Objective Labs 12/29/24 05:25 12/29/24 05:25 Labs: Laboratory Results - last 24 hr 12/27/24 12/27/24 12/27/24 14:09 14:09 14:09 WBC RBC Hgb Hct MCV MCH MCHC RDW Std Deviation Plt Count Neut % (Auto) Lymph % (Auto) Maverick % (Auto) Eos % (Auto) Baso % (Auto) Neut # (Auto) Lymph # (Auto) Maverick # (Auto) Eos # (Auto) Baso # (Auto) Immature Gran # (Auto) Absolute Nucleated RBC Immature Gran % Nucleated RBC % POC Blood Site Aortic Pulmonary Artery POC O2 Saturation 93 60 L Sodium Potassium Chloride Carbon Dioxide Anion Gap BUN Creatinine Estim Creat Clear Calc eGFR BUN/Creatinine Ratio Glucose Calculated Osmolality Calcium Corrected Calcium Phosphorus Magnesium Total Bilirubin AST ALT Alkaline Phosphatase Total Protein Albumin Globulin Albumin/Globulin Ratio 12/28/24 04:47 WBC 5.3 RBC 3.94 L Hgb 11.0 L Hct 36.0 L MCV 91 MCH 27.9 MCHC 30.6 L RDW Std Deviation 52.1 H Plt Count 155 Neut % (Auto) 57 Lymph % (Auto) 28 Maverick % (Auto) 12 Eos % (Auto) 2 Baso % (Auto) 1 Neut # (Auto) 3.0 Lymph # (Auto) 1.5 Maverick # (Auto) 0.7 Eos # (Auto) 0.1 Baso # (Auto) 0.0 Immature Gran # (Auto) 0.01 H Absolute Nucleated RBC 0.00 Immature Gran % 0 Nucleated RBC % 0 POC Blood Site POC O2 Saturation Sodium 140 Potassium 3.7 D Chloride 102 Carbon Dioxide 30.6 Anion Gap 7 BUN 16 Creatinine 0.9 Estim Creat Clear Calc 77.6 eGFR > 60 BUN/Creatinine Ratio 18 Glucose 129 H Calculated Osmolality 282 Calcium 9.5 Corrected Calcium 9.9 Phosphorus 3.5 Magnesium 2.3 Total Bilirubin 1.1 AST 23 ALT 22 Alkaline Phosphatase 90 Total Protein 8.5 H Albumin 3.5 Globulin 5.0 H Albumin/Globulin Ratio 0.7 L ABG Interpretation ABG results: 12/16/24 12/17/24 12/17/24 17:14 05:12 06:48 ABG pH 7.41 7.35 7.34 L ABG pCO2 38 47 49 H ABG pO2 49 L* 72 L D 170 H D ABG HCO3 24 26 27 H ABG O2 Saturation 82 L 94 100 H ABG Base Excess 0 0 0 VBG pH VBG pCO2 VBG pO2 VBG Base Excess 12/21/24 12/22/24 12/24/24 09:30 09:06 22:07 ABG pH 7.52 H 7.42 D ABG pCO2 41 59 H D ABG pO2 73 L 75 L ABG HCO3 34 H 38 H ABG O2 Saturation 96 96 ABG Base Excess 10 H 12 H VBG pH 7.41 VBG pCO2 48 VBG pO2 39 VBG Base Excess 4 H Quality Measures Quality Measures VTE prophylaxis Advance care planning discussed with:: patient and spouse Assessment & Plan Assessment Current Active Medications: Generic Name Dose Route Start Last Admin Trade Name Freq PRN Reason Stop Dose Admin Acetaminophen 650 mg 12/17/24 06:35 12/27/24 17:07 Acetaminophen 325 Mg Tablet PO 01/15/25 17:41 650 mg Q6H PRN Administration Fever >100.3 Atorvastatin Calcium 40 mg 12/16/24 21:00 12/27/24 20:24 Atorvastatin Calcium 20 Mg Tablet PO 01/15/25 20:59 40 mg HS [facility] Administration Dapagliflozin 10 mg 12/27/24 09:00 12/27/24 09:33 Dapagliflozin Propanediol 5 Mg Tablet PO 01/26/25 08:59 Not Given QAM [facility] Dextrose 50 ml 12/18/24 16:56 Dextrose 50%-Water Inj 50 Ml Syringe IV 01/17/25 16:55 Q15MIN PRN BG <50 OR BG <70 & pt unresponsive Glucagon 1 mg 12/18/24 16:56 Glucagon Inj 1 Mg Vial IM Q15MIN PRN BG <70, and no IV access Guaifenesin 200 mg 12/19/24 17:00 12/28/24 05:11 Guaifenesin Syrup 200 Mg/10 Ml Udc PO 01/18/25 16:59 200 mg QID [facility] Administration Protocol Heparin Sodium (Porcine) 5,000 unit 12/26/24 21:00 12/27/24 20:28 Heparin Sod Inj 5000 Unit/Ml Vial SC 01/09/25 20:59 5,000 unit BID [facility] Administration Insulin Glargine 6 unit 12/20/24 21:00 12/27/24 20:29 Insulin Glargine (Lantus) 5 Unit/0.05 Ml (Per 5 Units) SC 01/19/25 20:59 6 unit HS [facility] Administration Insulin Human Lispro 0 unit 12/20/24 11:30 12/28/24 08:35 Insulin Lispro (Admelog) 1 Unit/0.01 Ml Unit SC 01/19/25 11:29 Not Given ACHS [facility] Protocol Magnesium Hydroxide 30 ml 12/19/24 08:18 Milk Of Magnesia Susp 30 Ml Udc PO 01/18/25 08:17 QDAY PRN CONSTIPATION Protocol Melatonin 3 mg 12/21/24 19:00 12/27/24 20:24 Melatonin 3 Mg Tablet PO 01/20/25 18:59 3 mg HS [facility] Administration Metoprolol Succinate 12.5 mg 12/22/24 12:45 12/27/24 09:34 Metoprolol Succinate Xl 25 Mg Tabcr PO 01/21/25 12:44 Not Given QDAY [facility] Ondansetron HCl 4 mg 12/16/24 17:42 12/21/24 20:35 Ondansetron Inj 2 Mg/Ml Inj 2 Ml IVP 01/15/25 17:41 4 mg Q6H PRN Administration NAUSEA OR VOMITING Protocol Pantoprazole Sodium 40 mg 12/21/24 09:00 12/27/24 09:34 Pantoprazole 40 Mg Tablet PO 01/20/25 08:59 Not Given QDAY [facility] Protocol Polyethylene Glycol 17 gm 12/21/24 09:00 12/27/24 09:36 Polyethylene Glycol 17 Gm Packet PO 01/20/25 08:59 Not Given QDAY [facility] Ropinirole HCl 1 mg 12/24/24 19:00 12/27/24 19:27 Ropinirole Hcl 1 Mg Tablet PO 01/23/25 18:59 1 mg QDAY@1900 SHAZIA Administration Sennosides 1 tab 12/17/24 09:00 12/27/24 09:36 Senna Tablet PO 01/16/25 08:59 Not Given QDAY SHAZIA Protocol Tamsulosin HCl 0.4 mg 12/17/24 09:00 12/27/24 09:36 Tamsulosin Hcl 0.4 Mg Capsule PO 01/16/25 08:59 Not Given QDAY SHAZIA Plan #Stroke-like symptoms, resolved Initially presented on 12/15/24 with sudden onset headache followed by generalized weakness, now resolved. 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 No acute infarction noted. PT recs: homehealth PT/OT Plan: No further recs at this time #Sleep apnea in adult Plan: Uses CPAP even though it is not officially diagnosed. #Community acquired pneumonia Management per primary team #HFrEF Repeat echo was performed 12/25/2024 and exactly similar as the previous echo and no change from admission on 12/20/2024. EF is still less than 20% Plan: Management per primary team Plan discussed with Dr. Chang Miranda, PGY1 Attending Provider Attestation/Addendum I personally have seen and examined the patient at the bedside and agree with resident's findings, assessment and plan of care. Patient is stable from neurology standpoint no focal neurological deficit noted, most likely will be discharged home. He does have vascular dementia based on both clinical and radiological evaluation.
--- NOTE | 2024-12-28 09:27 | PC.SS ---
Addendum entered by KARO Juares 12/28/24 12:01: SS update: notified patient's RN-Ernestina again of need for 02 testing to be completed in order to sumbit DME referral and patient will require insurance authorization for DME. Addendum entered by KARO Juares 12/28/24 10:43: PT has recommended home health for PT needs. Notified medical team of need for HH orders. Addendum entered by KARO Juares 12/28/24 09:36: SS update: notified patient's RN-Ernestina of need for 02 testing to be completed in order to sumbit DME referral and patient will require insurance authorization for DME. Original Note: SS follow up: [employer] PERSON met with patient to discuss his d/c plan. Patient informs he will return home upon d/c. Patient previously aligned with [facility] health services and if recommended would like to continue with them. Patient indicates his is able to transport him home at discharge.
[2024-12-28] MEDS: HEPARIN SOD INJ 5000 UNIT/ML VIAL SC ×2 (10:15→20:46)
[2024-12-28] MEDS: DAPAGLIFLOZIN PROPANEDIOL 5 MG TABLET 10 MG PO (10:15)
[2024-12-28] MEDS: PANTOPRAZOLE 40 MG TABLET PO (10:16)
[2024-12-28] MEDS: TAMSULOSIN HCL 0.4 MG CAPSULE PO (10:17)
[2024-12-28] MEDS: POLYETHYLENE GLYCOL 17 GM PACKET PO (10:17)
[2024-12-28] MEDS: METOPROLOL SUCCINATE XL 25 MG TABCR 12.5 MG PO (10:36)
[2024-12-28] MEDS: INSULIN LISPRO (AdmeLOG) 1 UNIT/0.01 ML UNIT SC ×2 (12:12→20:46)
--- NOTE | 2024-12-28 13:06 | PC.NURSE ---
Pt sitting with SpO2 at 84%, pt put back into bed with 2L of Oxygen via nc and pt SpO2 at 95%.
--- NOTE | 2024-12-28 13:21 | PC.SS ---
Addendum entered by KARO Juares 12/28/24 17:14: SS follow up: met at bed side with patient and Monica and resident Dr. Oneal. Patient's has verbalized being upset with waiting on 02 to be delivered. Explained to her at this time there is no contracted DME vendor that has been located, additionally DME will require insurance authorization. is aware and other options were discussed as patient and do not want to wait on DME. SNF option was discussed and was declined. Purchasing 02 privately out of pocket was also discussed, is considering doing this, resource handout with local DME vendors were provided to her for review. has also thrown the idea that she will take patient AMA, which Dr. Oneal and myself have explained is not recommended as not safe for discharge as patient could return back to the hospital. Charge nurse updated on current status. Addendum entered by KARO Juares 12/28/24 15:08: SS follow up: provided update to patient and at bedside. appears to be upset and frustrated, informs she is on the phone with the patient's insurance. Updated RN-Ernestina on current status. Addendum entered by KARO Juares 12/28/24 14:42: SS update: per [employer], the following DME companies have declined the referral as they indicate they are not contracted with patient's insurance: [employer], [employer] and [employer]. Contacted [facility] and they also inform that they are not contracted with patient's insurance. Addendum entered by KARO Juares 12/28/24 14:37: SS follow up: no accepting DME vendor for the 02 as of yet. Was informed the contracted vendor is [facility]. Contacted [facility] and spoke with Skye who informed that patient's insurance plan with [employer] is not contracted with them as of 12/26/24. Addendum entered by KARO Juares 12/28/24 13:42: DME referral sent via [employer]. Pending response. Original Note: Patient will need home 02 and portable 02 tank. OXYGEN Pt is discharged in a chronic stable state and has been treated optimally and has other respiratory needs. Oxygen has been ordered due to acute hypoxic respiratory failure.
--- NOTE | 2024-12-28 13:55 | PC.NURSE ---
Notified Dr. Wong, before giving Entresto pt BP 105/78 (87) HR84, after giving Entresto pt BP 92/69 (76) HR 79. Ok to D/C patient home.
--- NOTE | 2024-12-28 14:22 | PC.NURSE ---
Called [facility], pt will be discharged when O2 is approved by insurance.
--- NOTE | 2024-12-28 14:53 | ESPR_ITS ---
Documentation for date of: 12/28/24 Subjective Subjective Interval history: Patient seen and examined at the bedside. Patient reported doing well. He denied any headache, dizziness, chest pain, SOB, palpitation, orthopnea or PND, leg swelling, fever or chills, nausea or vomiting. Continue with Bumex 1mg daily, and was negative by 250cc overnight. His vitals has been fairly stable with borderline low blood pressure, His potassium was 3.7, magnesium 2.3, with stable BUN and creatinine. Recommended to continue BiPAP at night. Recommendations: 1. Recommend aggressive medical management and aggressive risk factor modification - Will need goal-directed medical therapy with metoprolol XL, Entresto and eventually spironolactone. Can decrease Bumex to 1 mg once daily orally or lasix 40mg daily. 2. Patient recommended not to lift more than 5 lbs for the next 7-10 days and follow up with Dr. Lundberg in office in 7 days. Exam Vital Signs Temp Pulse Resp BP Pulse Ox O2 Del Method O2 Flow Rate 97.6 F 81 20 105/74 99 Nasal Cannula 3 12/28/24 12:00 12/28/24 12:00 12/28/24 12:00 12/28/24 12:00 12/28/24 12:00 12/28/24 12:12/28/24 12:00 FiO2 30 12/28/24 00:00 Narrative Exam General Appearance: Alert & Oriented x 3, mildly confused but clear mental status compared to before HEENT: Skull symmetrical and atraumatic. Conjunctivae pale and moist. Pupils equal, round, reactive to light and accommodation (PERRL). External ear without lesion or discharge. Cardio: Normal Rate and Rhythm with S1 and S2 heart sounds. No murmurs or extra heart sounds auscultated-difficult to appreciate secondary to body habitus. No bruits on carotid auscultation. No peripheral edema Lungs: Symmetric with good expansion. Chest and back non-tender. Breath sounds vesicular dificult to appreciate it. Abdomen: Non-tender, Non-distended, Normal Reactive Bowel Sounds Neuro: Alert awake oriented x 3 in no major focal deficits except for slight confusion. Objective Labs 12/29/24 05:25 12/29/24 05:25 Labs: Laboratory Results - last 24 hr 12/27/24 12/27/24 12/27/24 14:09 14:09 14:09 WBC RBC Hgb Hct MCV MCH MCHC RDW Std Deviation Plt Count Neut % (Auto) Lymph % (Auto) [place] % (Auto) Eos % (Auto) Baso % (Auto) Neut # (Auto) Lymph # (Auto) [place] # (Auto) Eos # (Auto) Baso # (Auto) Immature Gran # (Auto) Absolute Nucleated RBC Immature Gran % Nucleated RBC % POC Blood Site Aortic Pulmonary Artery POC O2 Saturation 93 60 L Sodium Potassium Chloride Carbon Dioxide Anion Gap BUN Creatinine Estim Creat Clear Calc eGFR BUN/Creatinine Ratio Glucose Calculated Osmolality Calcium Corrected Calcium Phosphorus Magnesium Total Bilirubin AST ALT Alkaline Phosphatase Total Protein Albumin Globulin Albumin/Globulin Ratio 12/28/24 04:47 WBC 5.3 RBC 3.94 L Hgb 11.0 L Hct 36.0 L MCV 91 MCH 27.9 MCHC 30.6 L RDW Std Deviation 52.1 H Plt Count 155 Neut % (Auto) 57 Lymph % (Auto) 28 [place] % (Auto) 12 Eos % (Auto) 2 Baso % (Auto) 1 Neut # (Auto) 3.0 Lymph # (Auto) 1.5 [place] # (Auto) 0.7 Eos # (Auto) 0.1 Baso # (Auto) 0.0 Immature Gran # (Auto) 0.01 H Absolute Nucleated RBC 0.00 Immature Gran % 0 Nucleated RBC % 0 POC Blood Site POC O2 Saturation Sodium 140 Potassium 3.7 D Chloride 102 Carbon Dioxide 30.6 Anion Gap 7 BUN 16 Creatinine 0.9 Estim Creat Clear Calc 77.6 eGFR > 60 BUN/Creatinine Ratio 18 Glucose 129 H Calculated Osmolality 282 Calcium 9.5 Corrected Calcium 9.9 Phosphorus 3.5 Magnesium 2.3 Total Bilirubin 1.1 AST 23 ALT 22 Alkaline Phosphatase 90 Total Protein 8.5 H Albumin 3.5 Globulin 5.0 H Albumin/Globulin Ratio 0.7 L ABG Interpretation ABG results: 12/16/24 12/17/24 12/17/24 17:14 05:12 06:48 ABG pH 7.41 7.35 7.34 L ABG pCO2 38 47 49 H ABG pO2 49 L* 72 L D 170 H D ABG HCO3 24 26 27 H ABG O2 Saturation 82 L 94 100 H ABG Base Excess 0 0 0 VBG pH VBG pCO2 VBG pO2 VBG Base Excess 12/21/24 12/22/24 12/24/24 09:30 09:06 22:07 ABG pH 7.52 H 7.42 D ABG pCO2 41 59 H D ABG pO2 73 L 75 L ABG HCO3 34 H 38 H ABG O2 Saturation 96 96 ABG Base Excess 10 H 12 H VBG pH 7.41 VBG pCO2 48 VBG pO2 39 VBG Base Excess 4 H Quality Measures Quality Measures VTE prophylaxis Advance care planning discussed with:: patient Assessment & Plan Assessment Current Active Medications: Generic Name Dose Route Start Last Admin Trade Name Freq PRN Reason Stop Dose Admin Acetaminophen 650 mg 12/17/24 06:35 12/27/24 17:07 Acetaminophen 325 Mg Tablet PO 01/15/25 17:41 650 mg Q6H PRN Administration Fever >100.3 Atorvastatin Calcium 40 mg 12/16/24 21:00 12/27/24 20:24 Atorvastatin Calcium 20 Mg Tablet PO 01/15/25 20:59 40 mg HS SHAZIA Administration Dapagliflozin 10 mg 12/27/24 09:00 12/28/24 10:15 Dapagliflozin Propanediol 5 Mg Tablet PO 01/26/25 08:59 10 mg QAM SHAZIA Administration Dextrose 50 ml 12/18/24 16:56 Dextrose 50%-Water Inj 50 Ml Syringe IV 01/17/25 16:55 Q15MIN PRN BG <50 OR BG <70 & pt unresponsive Glucagon 1 mg 12/18/24 16:56 Glucagon Inj 1 Mg Vial IM Q15MIN PRN BG <70, and no IV access Guaifenesin 200 mg 12/19/24 17:00 12/28/24 12:14 Guaifenesin Syrup 200 Mg/10 Ml Udc PO 01/18/25 16:59 Not Given QID [facility] Protocol Heparin Sodium (Porcine) 5,000 unit 12/26/24 21:00 12/28/24 10:15 Heparin Sod Inj 5000 Unit/Ml Vial SC 01/09/25 20:59 5,000 unit BID SHAZIA Administration Insulin Glargine 6 unit 12/20/24 21:00 12/27/24 20:29 Insulin Glargine (Lantus) 5 Unit/0.05 Ml (Per 5 Units) SC 01/19/25 20:59 6 unit HS SHAZIA Administration Insulin Human Lispro 0 unit 12/20/24 11:30 12/28/24 12:12 Insulin Lispro (Admelog) 1 Unit/0.01 Ml Unit SC 01/19/25 11:29 1 unit ACHS SHAZIA Administration Protocol Magnesium Hydroxide 30 ml 12/19/24 08:18 Milk Of Magnesia Susp 30 Ml Udc PO 01/18/25 08:17 QDAY PRN CONSTIPATION Protocol Melatonin 3 mg 12/21/24 19:00 12/27/24 20:24 Melatonin 3 Mg Tablet PO 01/20/25 18:59 3 mg HS SHAZIA Administration Metoprolol Succinate 12.5 mg 12/22/24 12:45 12/28/24 10:36 Metoprolol Succinate Xl 25 Mg Tabcr PO 01/21/25 12:44 12.5 mg QDAY SHAZIA Administration Ondansetron HCl 4 mg 12/16/24 17:42 12/21/24 20:35 Ondansetron Inj 2 Mg/Ml Inj 2 Ml IVP 01/15/25 17:41 4 mg Q6H PRN Administration NAUSEA OR VOMITING Protocol Pantoprazole Sodium 40 mg 12/21/24 09:00 12/28/24 10:16 Pantoprazole 40 Mg Tablet PO 01/20/25 08:59 40 mg QDAY SHAZIA Administration Protocol Polyethylene Glycol 17 gm 12/21/24 09:00 12/28/24 10:17 Polyethylene Glycol 17 Gm Packet PO 01/20/25 08:59 17 gm QDAY SHAZIA Administration Ropinirole HCl 1 mg 12/24/24 19:00 12/27/24 19:27 Ropinirole Hcl 1 Mg Tablet PO 01/23/25 18:59 1 mg QDAY@1900 SHAZIA Administration Sacubitril/Valsartan 0.5 tab 12/28/24 21:00 Sacubitril 24 Mg/Valsartan 26 Mg Tablet PO 01/27/25 20:59 BID SHAZIA Sennosides 1 tab 12/17/24 09:00 12/28/24 10:17 Senna Tablet PO 01/16/25 08:59 1 tab QDAY SHAZIA Administration Protocol Tamsulosin HCl 0.4 mg 12/17/24 09:00 12/28/24 10:17 Tamsulosin Hcl 0.4 Mg Capsule PO 01/16/25 08:59 0.4 mg QDAY SHAZIA Administration Plan A 79-year-old male patient with a past medical history of severe systolic congestive heart failure with an EF of 25 to 30%, old left bundle branch block, 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 Initial workup did show that the patient was hypoxic with saturation of 90% on 2 L nasal cannula. Labs showed only mildly elevated troponins at 0.05 and previous was 0.06 during last admission. EKG showed normal sinus rhythm with left bundle branch block and no acute ST-T changes history of ischemia. Chest x-ray with moderate vascular congestion. Head CT, CTA head and neck was negative. Cervical spine CT showed degenerative disc disease. UA was negative. Labs showed mild anemia at 10.5, WBC normal at 7.3 and platelets of 127. Potassium was low at 3.2 BUN of 11 creatinine of 1.0 and glucose of 167. After admission patient did continue to be hypoxic and had a vomitus when he was placed on the BiPAP mask because of his acute hypoxic respiratory failure. There was possible aspiration pneumonia and patient continued to desaturate and he was intubated and started on mechanical ventilation and transferred to the ICU. Normal IV antibiotics for the pneumonia. Patient also fluid overloaded and was started on diuresis. Assessment and plan: 1. Acute hypoxic respiratory failure on mechanical ventilation mostly secondary to aspiration pneumonia as well as CHF exacerbation 2. Altered mental status with headaches, generalized weakness-ruled out stroke 3. Fall secondary to the weakness 4. Acute on chronic severe systolic congestive heart failure with an last known EF of 25 to 30% in July 2023 5. Left bundle branch block 6. History of CVA secondary to intraventricular hemorrhage after fall in February 2024 treated at [facility] 7. Morbid obesity 8. Essential hypertension . Diabetes mellitus type 2 10. Chronic anemia 11. Hyperlipidemia 12. Obstructive sleep apnea on CPAP 13. BPH 14. Restless leg syndrome Patient known to me from the previous hospitalization in July 2024 when he was initially diagnosed with severe systolic CHF with an EF of 25 to 30%. Patient was in CHF exacerbation along with pneumonia and acute hypoxic respiratory failure which was aggressively treated and was discharged home on 08/05/2024. Patient did follow-up with me in clinic on 08/08/2024 and was recommended a nuclear stress test given his new systolic congestive heart failure which was completed on 08/16/2024. Lexiscan stress test did show evidence of stress-induced ischemia in the apical as well as mid to apical anterior segments. LVEF was also low at 32%. Patient was recommended left heart cardiac catheterization but never followed up with the office and was adamant that his heart's was in good condition and does not need any further procedures. Patient presented with headache, generalized weakness as well as a fall. CTA head and neck, head CT were negative for any acute stroke. Neurology is following. Fall appears to be mechanical in review of the chart shows that there was no evidence of any syncope or loss of consciousness on admission. Patient could not get up because of the weakness but was awake alert. Acute hypoxic respiratory failure and on mechanical ventilation at the present point of time mostly secondary to the aspiration pneumonia and started on IV antibiotics by the critical care team which will be continued. Also patient does have CHF exacerbation and recommend to continue the diuresis for the same. Acute on chronic severe systolic congestive heart failure exacerbation. Echo from July 2024 showed Normal left ventricular size, wall thickness. Severely reduced LV function LVEF estimated at 25-30 %. RV is normal in size and systolic function. Could not estimate RVSP as TR not visualiozed well. Moderate AV thickening with mild calcification. AV sclerosis without stenosis. V max 2.1 m/s. Possibly underestimated due to low EF. MIld thickening and clacification of mitral leafts too. Mild to moderate MR. Mild LA dilataion. IVC dilated but with > 50% collapse. Echo - 12/20/24 - Dilated cardiomyopathy. Moderate to severe LV enlargement. Severely reduced LV function with an LVEF of 15 to 20%. Mildly dilated RV with normal systolic function. Could not estimate RVSP as TR not visualiozed well. Moderate AV thickening with moderate calcification. Moderate AV sclerosis without stenosis based on V max 2.1 m/s. Possibly underestimated due to the low EF and could be mild on moderate . Trace AI. MIld thickening and clacification of mitral leafts too. Mild to moderate MR. Trace to mild TR. Severe LA dilatation and mild to moderate RA dilatation. IVC dilated with <50% collapse during inspiration. No pericardial effusion. Left pleural effusion noted. Recommend to continue aggressive diuresis with Lasix 40 mg IV twice daily for now. Strict input output Daily weights and 2 g sodium diet. Fluid restriction to 15 mL/day. Mancera potassium greater than 4 and magnesium greater than 2.0 at all times. Will continue to monitor renal function closely and the BUN/creatinine normal now. His systolic congestive heart failure etiology was not determined hence was seen in the clinic as noted above and had an NST which did show evidence of stress- induced ischemia with decreased uptake in the apical as well as mid to apical anterior segments. Patient was recommended left heart cardiac catheterization. Did not follow-up with any appointments as outpatient in spite of multiple calls from my office, felt that his heart was in good condition. Discussed in detail with the and patient apparently had procedure through his groin at [facility] in February 2024 and was apparently normal. Patient not sure if the patient had a carotid angiogram or intervention of the intraventricular hemorrhage which he had at that point of time or he had a cardiac catheterization. wanted us to wait for the operative reports from the outside hospital. Recommend primary team to obtain all operative reports from his previous hospitalization in February 2024 from [facility] and to find out if the patient had any cardiac catheterization procedure. Troponins only minimally elevated at 0.05. EKG also did not show any acute ST-T changes history of active ischemia. Patient did not have any complaints of chest pain or chest pressure prior to the admission. Patient will benefit from left and right heart cardiac catheterization once he is hemodynamically stable after active treatment of the aspiration pneumonia as well as CHF exacerbation. 12/22/2024: Patient was difficult to arouse as per the primary team and was significantly altered patient had an ABG done which showed a PCO2 of 59 and a PO2 of 75 and patient was again started on BiPAP. Patient now has acute hypoxic as well as hypercapnic respiratory failure. Unable to follow any commands. Patient overall hemodynamically stable and has been diuresing well with Bumex 1 mg IV twice daily. Renal function appears to be stable. Plan was for her to perform a left and right heart cardiac catheterization for the patient to continue with his ischemic workup as well as his CHF. Unfortunately patient has been confused since yesterday and his respiratory status has not been stable and is unable to lie down flat on the bed. Patient possibly has CAD with multivessel disease given his worsening EF and recent positive stress test and less likely nonischemic cardiomyopathy. Given his severely low ejection fraction patient will also need complex PCI with stent by [facility] given his low ejection fraction of 15%. This institution does not have [facility] or other MCS available to perform the complex PCI and it would be appropriate to transfer the patient to a higher level of care. Also patient does have a history of hemorrhagic CVA with procedures performed at [facility] previously and we are unable to obtain any records until now. Continue with heparin drip along with IV diuresis for now along with BiPAP Discussed with the and also requested for higher level of care and she has requested for [facility] as he was previously admitted there in April 2024. 12/25/2024: Given his altered mental status per primary team again plan to repeat an MRI today. Patient with the symptoms better today and is much more awake as patient did use his BiPAP yesterday. Again there was a concern of questionable hemoptysis with some blood or clot. Hemoglobin is still stable around 10. Chest x-ray was repeated today and appears much improved from before there is still some mild congestion and will continue with diuresis. Recommended to continue BiPAP at night. Repeat echo was performed today on 12/25/2024 and exactly similar as the previous echo and no change from admission on 12/20/2024. EF is still less than 20% and patient is awaiting transfer to [facility]. Patient apparently a has been using his CPAP machine at home but never has been officially diagnosed with CHEYANNE. Patient appears to be adequately diuresed at the present point of time and kidney function continues to be stable with Bumex 1 mg IV twice daily. Bicarbonate was slightly high and was given Diamox 500 mg x 1 now bicarbonate is 30. As discussed previously patient is awaiting transfer to higher level of care [facility] at the request of the . 12/26/2024: The patient was doing much better today. He was much alert and oriented than yesterday. He reported doing well, and his reported the same. Vitals were fairly stable saturating 99% on 3 L of NC. MRI brain done yesterday was unremarkable for any acute changes. He was negative by about 2 L in last 24 hours. The plan is to transfer the patient to higher level of care at [facility] at the request of his , for possible percutaneous intervention, but if the transfer is not done by today evening, we will proceed with cardiac cath tomorrow morning here in [facility]. In the meantime, we will continue with Bumex 1 mg IV twice daily, and continue to maintain potassium and magnesium level greater than 4 and 2 respectively. Recommended to continue the patient on BiPAP overnight, and keep the patient n.p.o. after midnight. Cardiac Cath on 12/27/2024 revealed [facility] findings: 1. Left ventricular ejection fraction was severely 20-25% without any regional wall motion abnormalities. LVEDP was normal at 16 mmHg. There was no significant transvalvular aortic gradient. 2. Right dominant circulation. Left main artery is a large-caliber vessel with mild 20-30% calcified stenosis. 3. LAD is a large sized artery with calcified 20-30% stenosis of mid segment. A medium size diagonal and does not show any significant disease. 4. LCx is a large sized artery with 20-30% stenosis in mid segment. A medium OM1 and small OM2 without any significant disease. 5. RCA is a large artery with 20% stenosis of proximal segment. Medium RPDA and RPL without any significant disease. RHC findings: Mean right atrial pressure was 1 mmHg. Right atrial pressure was 3/3 mmHg. Pulmonary artery pressure was 32/28 mmHg with a mean of 27 mmHg. Mean pulmonary capillary wedge pressure was 13 mmHg. TPG was 14 mmHg Pulmonary artery PA saturation was 59.9%.? Arterial saturation was 92.5% on room air. Cardiac output was 5.0 L/min and cardiac index was normal at 2.33 L/min/m? Patient recommended to follow-up with me in the office within 7 days after discharge. Summary/findings: 1. Non ischemic cardiomyopathy: LHC showed mild CAD with 20-30% calcified stenosis of Left main and mid LAD, 20-30% stenosis of mid LCx and proximal RCA. Rest of the coronaries without any angiographically significant obstruction and few luminal irregularities. 2. LVEF was severely low at 20-25%. 3. LVEDP was 14 mmHg. 4. Normal right heart pressures. Normal cardiac output was 5.0 L/min and normal cardiac index was at 2.33 L/min/m? Recommendations: 1. Recommend aggressive medical management and aggressive risk factor modification - Will need goal-directed medical therapy with metoprolol XL, Entresto and eventually spironolactone. Can decrease Bumex to 1 mg once daily orally or Lasix 40 Mg p.o. once daily. 2. Patient recommended not to lift more than 5 lbs for the next 7-10 days and follow up with me in my office in 7 days. Management of rest of the medical conditions as per primary team and other consultants. Thank you for the consult and allowing me to participate in the care of the patient. Cardiology will continue to follow. The patient's management plan was discussed with my attending physician MD Venancio Oh MD, PGY3 Attending Provider Attestation/Addendum I have personally seen and examined the patient separately on the above date of service and discussed the plan of care with the resident. I reviewed the resident Dr. Venancio Cosme consultation progress note and agree with the resident findings and plan in the note above and have also edited the documentation to reflect my findings and plan. Electrocardioversion performed on 12/27/2024 showed only mild CAD indicating nonischemic cardiomyopathy with an EF of less than 20%. Patient blood pressure is on the lower side and hence all goal-directed medical therapy could not be started for the patient. Only started on low-dose metoprolol XL for now and if blood pressure stable as outpatient and patient should be started on Entresto and spironolactone based on the blood pressure. Aspirin and statin for the mild CAD along with a beta-graciela. Patient has been diuresed well during this admission and his right heart pressures are completely normal. His cardiac output and cardiac index were also normal. Recommend to discharge patient at least on Bumex 1 mg once daily at the time of discharge. Keep potassium regimen for magnesium greater than 2.0. Patient is still awaiting oxygen and BiPAP machine supplies for his home. Patient recommended to follow-up with me in 7 days whenever he is discharged from the hospital. Rakan Lundberg M.D. Interventional Cardiology
--- NOTE | 2024-12-28 15:36 | ESDS_ITS ---
Planned Discharge Date 12/28/24 DS: Providers Provider Date of admission: 12/16/24 17:42 Primary care physician: Bao Stephens MD Admitting Provider: Mulu Cadet DO Attending Provider on Admission: Jona Wong MD Consults: 12/16/24 13:43 Consult to Neurology / Tele-Neurology Routine Comment: Consulting Provider: [facility] 12/16/24 18:22 Consult to Cardiology Routine Comment: CHF Consulting Provider: Rakan Lundberg 12/16/24 18:25 Consult to Neurology / Tele-Neurology Routine Comment: Consulting Provider: Dariusz Downing 12/18/24 11:06 Referral Speech Therapy Routine Comment: 12/22/24 13:29 Referral - Photography Intern Routine Service Needed for Transfer: Cardiovascular/Thoracic Surg Addl Comments:: Impella guided PCI 12/27/24 11:52 Referral Physical Therapy Routine Comment: Physician Instructions: Attending Provider on DC: Jona Wong MD Discharging Provider: Jona Wong MD DS: Diagnosis Problem List Completed Was Problem List Reviewed/Reconciled?: Yes Hospital Course Hospital Course Hospital course: A 79-year-old male with significant past medical history of hypertension, diabe evette mellitus, asthma, intracranial bleed, using oxygen, 2 L at home as needed, HFrEF presented to the hospital with chief complaints of sudden onset headache followed by generalized weakness on the day. Admitted for ground-level fall, syncope versus stroke, and CHF exacerbation. Workup for stroke was negative (based on findings below). He was followed by neurology. Symptoms resolved shortly. He continued on BiPAP and aggressive diuresis for CHF exacerbation. In interim he had an episode of hypoxia while on BiPAP, secondary to aspiration, requiring ICU admission and intubation. He was subsequently extubated successfully. He continued a course of ANTIBIOTICS for aspiration pneumonia. 24-hour blood, urine and sputum culture showed no growth. Cardiology was following, echocardiogram showed significant EF reduction (15- 20%). Cardiology recommended left heart cath to evaluate for ischemic causes of cardiomyopathy. However, family initially requested lateral transfer for tertiary center. Attempts at transferring to multiple facilities was unsuccessful. Eventually, family elected to proceed with left heart cath with our in-house managing broker. Left heart cath showed nonischemic cardiomyopathy. Cardiology recommended aggressive management with GDMT, which was initiated here in the hospital. He was evaluated after cath by physical therapy, and patient will need home health PT/OT after discharge. He still requires 2-3 L home oxygen, which is baseline for him. However, his (Monica) stated that his PCP has discontinued oxygen. Currently he does not have oxygen at home. [employer] has been working on outpatient oxygen supplement, however has been unable to find a company that accept his insurance. Patient and family has been adamant on discharge, and we highly advised against leaving home without oxygen, which is unsafe in his condition. We have provided additional options including: SNF placement, paying [id number] for oxygen, or delaying discharge until an oxyge n. Our social working is actively working on finding an oxygen supplier that accept his insurance. We have provided a list of oxygen providers for , and she is currently in the process of reaching out to different suppliers. IMAGE FINDINGS: * Head CT showed no acute pathology. * Brain MRI showed no acute pathology, but positive for prominent microvascular white matter changes. * CT cervical spine showed moderate disc degeneration C5-C6, no acute cervical fracture. * CXR showed moderate heart failure, no acute fracture or pneumonia. * Lumbar spine x-ray showed no acute lumbar fracture. * Abdominal x-ray showed large amount of stool throughout the colon. * Head CT and head/neck CTA showed no acute pathology. * EKG showed sinus rhythm with first-degree block, no acute ST changes. * Echocardiogram shows moderate to severe LV enlargement with severely reduced systolic function (EF 15?20%) and mild RV dilation with normal function. The AV is moderately thickened and calcified without significant stenosis (Vmax 2.1 m/s), though severity may be underestimated. There is trace AI, mild to moderate MR with leaflet thickening and calcification, trace to mild TR, severe LA dilation, mild to moderate RA enlargement, and a dilated IVC with reduced inspiratory collapse, suggesting elevated right-sided pressures. PATIENT INSTRUCTIONS: * Follow-up with PCP within 1-2 weeks of discharge. * Follow-up with cardiology, Dr. Lundberg, within 1 weeks of discharge. * Continue using oxygen as needed for shortness of breath. * Continue taking LASIX/FUROSEMIDE 40 mg daily (NEW). * Continue taking ATORVASTATIN 20 mg daily (NEW). * Continue taking METOPROLOL SUCCINATE 12.5 mg daily (DOSE ADJUSTED). * Continue taking FARXIGA 10 mg daily (NEW). * Continue taking ENTRESTO 1/2 TABLET daily. Do not take if blood pressure is less than 100/70. Please discuss dose adjustment with your PCP or Cardiology. * Recommended to continue to use BiPAP at night. * Avoid lift more than 5 lbs for the next 7-10 days. * Return to Emergency Room if symptoms persist, worsen, or new symptoms develop. * Continue taking medications as prescribed below. 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 Kev Oneal DO PGY II This document was transcribed using voice recognition technology. Minor inaccuracies may be present. Time Spent with Patient Time attestation: Total time spent providing and/or coordinating discharge services: Time spent: Greater than 30 minutes Quality: Stroke Pt Provided Written Stroke Discharge Instructions: No (STROKE S/S) Home Health Home Health Referral Orders: 12/28/24 10:43 Home Health Referral Routine Reason For Exam: Generalized weakness Home-Bound The patient must either because of illness or injury, need the aid of supportive devices such as crutches, canes, wheelchairs, and walkers; the use of special transportation; or the assistance of another person in order to leave their place of residence; OR have a condition such that leaving his or her home is medically contraindicated. In addition, the patient also meets the following criteria: patient is normally unable to leave the home and leaving home requires considerable taxing effort. Addendum to Home Health Certification Practitioner's Certification: I certify that the patient has been under my care in the hospital and the care of attending physician (see below). We had a [id number]-[id number] encounter on (see date below). My clinical findings indicate that the patient is home bound per the above criteria and the Home Health Services noted in these orders are medically necessary. The primary reason for the [id number] encounter is related to the fact that the patient requires home health services. Date Certifying Ktut-vg-Nnok Physician Encounter: 01/15/25 Physician's Name who will Assume Oversight for Services: Bao Stephens Physician's Phone No.who will Assume Oversight for Service: DENTURE MODEL MAKER - Community Resources: No PT to Evaluate: Yes PT to evaluate and provide a treatmnet plan to increase patient's mobility and strength. Wound Care: No IV Therapy: No RN Safety Evaluation: Yes RN to evaluate and create a plan of care that will produce positive outcomes. Palliative Treatment: No Palliative treatment and evaluate the need for hospice. Home Health Aide - Personal Care: No Home Health Aide to assist with any ADL's. Exam Vital Signs Temp Pulse Resp BP Pulse Ox O2 Del Method O2 Flow Rate 97.6 F 81 20 105/74 99 Nasal Cannula 3 12/28/24 12:00 12/28/24 12:00 12/28/24 12:00 12/28/24 12:00 12/28/24 12:00 12/28/24 12:12/28/24 12:00 FiO2 30 12/28/24 00:00 Narrative Exam General: Awake. HEENT: Normocephalic, atraumatic, mucous membranes moist. Heart: Regular rate and rhythm, no murmurs. Lungs: CTAB, no w/r/r Abdomen: Soft, nondistended, nontender, positive bowel sounds. ?No guarding or rebound tenderness. Neurologic: Alert and oriented x3, no gross neurological deficit, and patient able to move all 4 extremities. Extremities: No edema. Skin: No rash or ecchymoses. Discharge Plan Plan Patient Disposition: Home w/HOME HEALTH Patient condition on transfer: Stable Care Plan Goals: * Follow-up with PCP within 1-2 weeks of discharge. * Follow-up with cardiology, Dr. Lundberg, within 1 weeks of discharge. * Continue using oxygen as needed for shortness of breath. * Continue taking LASIX/FUROSEMIDE 40 mg daily (NEW). * Continue taking ATORVASTATIN 20 mg daily (NEW). * Continue taking METOPROLOL SUCCINATE 12.5 mg daily (DOSE ADJUSTED). * Continue taking FARXIGA 10 mg daily (NEW). * Continue taking ENTRESTO 1/2 TABLET daily. Do not take if blood pressure is less than 100/70. Please discuss dose adjustment with your PCP or Cardiology. * Recommended to continue to use BiPAP at night. * Avoid lift more than 5 lbs for the next 7-10 days. * Return to Emergency Room if symptoms persist, worsen, or new symptoms develop. * Continue taking medications as prescribed below. Prescriptions/Referrals Prescriptions/Med Rec: New atorvastatin 20 mg Tablet 40 mg PO HS Qty: 30 0RF metoprolol succinate 25 mg Tablet Extended Release 24 Hr 12.5 mg PO QDAY Qty: 30 0RF dapagliflozin propanediol [Farxiga] 10 mg tablet 10 mg PO QDAY Qty: 30 0RF Continued ropinirole 1 mg tablet 1 mg PO .COMPLEX Patient Comments: HS Rx Instructions: 1 mg orally 1-3 hours before bedtime; tamsulosin 0.4 mg capsule 0.4 mg PO Q24H finasteride 5 mg tablet 5 mg PO QDAY Patient Comments: TAKE 1 TABLET BY MOUTH EVERY DAY FOR 30 DAYS furosemide 40 mg tablet 40 mg PO QDAY Patient Comments: 40 MG ORALLY DAILY FOR 30 DAYS sucralfate 1 gram tablet 1 g PO Q12H Patient Comments: TAKE 1 TABLET BY MOUTH TWICE A DAY ON EMPTY STOMACH Discontinued simvastatin 20 mg tablet 20 mg PO QDAY Patient Comments: HS dapagliflozin propanediol 5 mg Tablet 5 mg PO QAM Qty: 30 0RF metoprolol succinate 25 mg tablet extended release 24 hr 25 mg PO QDAY Patient Comments: TAKE 1 TABLET BY MOUTH EVERY DAY Referrals: Bao Stephens MD [Primary Care Provider] - Patient/Caregiver Discharge Instructions Education Materials: Chest and Lung Problems, Coping with Heart Failure, Traveling with Oxygen, Using an Oxygen Tank at Home, Heart Failure, Overview of Sleep Problems Print Language: German Stand Alone Forms: [employer]iko Award Info., Patient Portal Info Letter Discharge Order Discharge Orders: Discharge (Routine); Ordered 12/28/24 Ordered By: Kev Oneal Quality Discharge Quality Measures VTE prophylaxis Attestestation Attestation I attest that I was physically present for the evaluation, physical examination, lab and imaging review of the patient with the residents. I discussed the case with the residents and agree with the findings and plans of care as documented above. Jona Wong MD
[2024-12-28] MEDS: MELATONIN 3 MG TABLET PO (20:44)
[2024-12-28] MEDS: ATORVASTATIN CALCIUM 20 MG TABLET 40 MG PO (20:44)
[2024-12-28] MEDS: INSULIN GLARGINE (Lantus) 5 UNIT/0.05 ML (PER 5 UNITS) 6 UNIT SC (20:45)
[2024-12-29] VITALS (16 sets, daily range): BP systolic 85–109; BP diastolic 50–65; PULSE 70–93; RESP 14–22; TEMP 36.1–36.7; O2SAT 95–99; BMI 28.8
[2024-12-29] MEDS: guaiFENesin SYRUP 200 MG/10 ML UDC PO (06:19)
[2024-12-29 06:33] LABS: Basophils # (Auto) 0.1 Thou/mm3 (0.0-0.2); Basophils % (Auto) 1 % (0-2.5); Eosinophils # (Auto) 0.2 Thou/mm3 (0.0-0.5); Eosinophils % (Auto) 4 % (0-10); Hematocrit 36.3 % (41.0-53.0); Hemoglobin 11.1 g/dL (13.5-16.0); Immature Granulocytes Auto 0.01 Thou/mm3 (0.00-0.00); Lymphocytes # (Auto) 1.7 Thou/mm3 (1.0-4.8); Lymphocytes % (Auto) 34 % (10-50); Mean Corpuscular HGB Conc 30.6 g/dl (31.0-37.0); Mean Corpuscular Hemoglobin 27.8 pg (25.0-35.0); Mean Corpuscular Volume 91 fL (80-100); Monocytes # (Auto) 0.7 Thou/mm3 (0.0-0.8); Monocytes % (Auto) 13 % (0-12); Neutrophils # (Auto) 2.4 Thou/mm3 (1.8-7.7); Neutrophils % (Auto) 48 % (37-80); Nucleated Red Blood Cell # 0.00 Thou/mm3 (0.00-0.00); Nucleated Red Blood Cell % 0 /100 WBC (0); Platelet Count 158 Thou/mm3 (140-440); RDW Standard Deviation 52.5 fL (35.1-43.9); Red Blood Count 3.99 Miln/mm3 (4.50-5.90); White Blood Count 4.9 Thou/mm3 (3.8-10.6)
[2024-12-29 07:02] LABS: Alanine Aminotransferase 19 U/L (10-49); Albumin, Serum 3.5 gm/dL (3.4-4.8); Albumin/Globulin Ratio 0.7 (1.2-2.2); Alkaline Phosphatase 89 U/L (46-116); Anion Gap 10 (7-16); Aspartate Amino Transferase 20 U/L (0-34); BUN/Creatinine Ratio 16 Ratio (12-20); Bilirubin,Total 1.1 mg/dL (0.3-1.2); Blood Urea Nitrogen 14 mg/dL (9-23); Calcium 9.5 mg/dL (8.3-10.6); Calcium (Corrected) 9.9 mg/dL (8.5-10.1); Carbon Dioxide 28.6 mMol/L (20.0-31.0); Chloride 101 mMol/L (98-107); Creatinine (Component) 0.9 mg/dL (0.6-1.3); Estimated Creatinine Clearance 77.7 mL/min (>60); Globulin 5.0 gm/dL (2.3-3.5); Glucose 120 mg/dL (74-106); Magnesium 2.2 mg/dL (1.6-2.6); Osmolality,Calculated 280 (275-295); Phosphorous 3.8 mg/dL (2.4-5.1); Potassium 4.0 mMol/L (3.4-5.1); Sodium 140 mMol/L (136-145); Total Protein 8.5 gm/dL (5.7-8.2); eGFR > 60 See Note
--- NOTE | 2024-12-29 09:42 | PCS.ST ---
Swallow evaluation was completed. 12/18/24 with recommendations for regular diet/regular liquids. Pt was taking a puree diet. Spoke with pt and RN. Pt can tolerate advanced diet.
[2024-12-29] MEDS: HEPARIN SOD INJ 5000 UNIT/ML VIAL SC ×2 (10:15→20:32)
[2024-12-29] MEDS: PANTOPRAZOLE 40 MG TABLET PO (10:17)
[2024-12-29] MEDS: TAMSULOSIN HCL 0.4 MG CAPSULE PO (10:17)
[2024-12-29] MEDS: DAPAGLIFLOZIN PROPANEDIOL 5 MG TABLET 10 MG PO (10:17)
[2024-12-29] MEDS: METOPROLOL SUCCINATE XL 25 MG TABCR 12.5 MG PO (10:27)
[2024-12-29] MEDS: INSULIN LISPRO (AdmeLOG) 1 UNIT/0.01 ML UNIT SC ×3 (11:52→20:32)
--- NOTE | 2024-12-29 12:18 | PD.RESPRO ---
Documentation for date of: 12/29/24 Subjective Subjective Interval history: Patient seen and examined at the bedside. Patient reported doing well. He denied any headache, dizziness, chest pain, SOB, palpitation, orthopnea or PND, leg swelling, fever or chills, nausea or vomiting. Continue with Bumex 0.5 Mg daily or Lasix 20 Mg daily, and was negative by 260cc overnight. His vitals has been fairly stable with borderline low blood pressure, His potassium was 3.7, magnesium 2.3, with stable BUN and creatinine. Recommended to continue BiPAP at night. Recommendations: 1. Recommend aggressive medical management and aggressive risk factor modification - Will need goal-directed medical therapy with metoprolol XL, Entresto and eventually spironolactone. Can decrease Bumex to 0.5 mg once daily orally or lasix 20mg daily. 2. Patient recommended not to lift more than 5 lbs for the next 7-10 days and follow up with Dr. Lundberg in office in 7 days. Exam Vital Signs Temp Pulse Resp BP Pulse Ox O2 Del Method O2 Flow Rate 97.0 F 77 20 85/62 L 99 Nasal Cannula 4 12/29/24 08:17 12/29/24 10:31 12/29/24 08:20 12/29/24 10:31 12/29/24 08:20 12/29/24 08:17 12/29/24 08:20 FiO2 30 12/28/24 21:32 Narrative Exam General Appearance: Alert & Oriented x 3, mildly confused but clear mental status compared to before HEENT: Skull symmetrical and atraumatic. Conjunctivae pale and moist. Pupils equal, round, reactive to light and accommodation (PERRL). External ear without lesion or discharge. Cardio: Normal Rate and Rhythm with S1 and S2 heart sounds. No murmurs or extra heart sounds auscultated-difficult to appreciate secondary to body habitus. No bruits on carotid auscultation. No peripheral edema Lungs: Symmetric with good expansion. Chest and back non-tender. Breath sounds vesicular dificult to appreciate it. Abdomen: Non-tender, Non-distended, Normal Reactive Bowel Sounds Neuro: Alert awake oriented x 3 in no major focal deficits except for slight confusion. Objective Labs 12/30/24 04:34 12/30/24 04:34 Labs: Laboratory Results - last 24 hr 12/29/24 05:25 WBC 4.9 RBC 3.99 L Hgb 11.1 L Hct 36.3 L MCV 91 MCH 27.8 MCHC 30.6 L RDW Std Deviation 52.5 H Plt Count 158 Neut % (Auto) 48 Lymph % (Auto) 34 [place] % (Auto) 13 H Eos % (Auto) 4 Baso % (Auto) 1 Neut # (Auto) 2.4 Lymph # (Auto) 1.7 [place] # (Auto) 0.7 Eos # (Auto) 0.2 Baso # (Auto) 0.1 Immature Gran # (Auto) 0.01 H Absolute Nucleated RBC 0.00 Immature Gran % 0 Nucleated RBC % 0 Sodium 140 Potassium 4.0 Chloride 101 Carbon Dioxide 28.6 Anion Gap 10 BUN 14 Creatinine 0.9 Estim Creat Clear Calc 77.7 eGFR > 60 BUN/Creatinine Ratio 16 Glucose 120 H Calculated Osmolality 280 Calcium 9.5 Corrected Calcium 9.9 Phosphorus 3.8 Magnesium 2.2 Total Bilirubin 1.1 AST 20 ALT 19 Alkaline Phosphatase 89 Total Protein 8.5 H Albumin 3.5 Globulin 5.0 H Albumin/Globulin Ratio 0.7 L ABG Interpretation ABG results: 12/16/24 12/17/24 12/17/24 17:14 05:12 06:48 ABG pH 7.41 7.35 7.34 L ABG pCO2 38 47 49 H ABG pO2 49 L* 72 L D 170 H D ABG HCO3 24 26 27 H ABG O2 Saturation 82 L 94 100 H ABG Base Excess 0 0 0 VBG pH VBG pCO2 VBG pO2 VBG Base Excess 12/21/24 12/22/24 12/24/24 09:30 09:06 22:07 ABG pH 7.52 H 7.42 D ABG pCO2 41 59 H D ABG pO2 73 L 75 L ABG HCO3 34 H 38 H ABG O2 Saturation 96 96 ABG Base Excess 10 H 12 H VBG pH 7.41 VBG pCO2 48 VBG pO2 39 VBG Base Excess 4 H Quality Measures Quality Measures VTE prophylaxis Advance care planning discussed with:: patient and spouse Assessment & Plan Assessment Current Active Medications: Generic Name Dose Route Start Last Admin Trade Name Freq PRN Reason Stop Dose Admin Acetaminophen 650 mg 12/17/24 06:35 12/27/24 17:07 Acetaminophen 325 Mg Tablet PO 01/15/25 17:41 650 mg Q6H PRN Administration Fever >100.3 Atorvastatin Calcium 40 mg 12/16/24 21:00 12/28/24 20:44 Atorvastatin Calcium 20 Mg Tablet PO 01/15/25 20:59 40 mg HS SHAZIA Administration Dapagliflozin 10 mg 12/27/24 09:00 12/29/24 10:17 Dapagliflozin Propanediol 5 Mg Tablet PO 01/26/25 08:59 10 mg QAM SHAZIA Administration Dextrose 50 ml 12/18/24 16:56 Dextrose 50%-Water Inj 50 Ml Syringe IV 01/17/25 16:55 Q15MIN PRN BG <50 OR BG <70 & pt unresponsive Furosemide 20 mg 12/30/24 09:00 Furosemide 20 Mg Tablet PO 01/29/25 08:59 QAM SHAZIA Glucagon 1 mg 12/18/24 16:56 Glucagon Inj 1 Mg Vial IM Q15MIN PRN BG <70, and no IV access Guaifenesin 200 mg 12/19/24 17:00 12/29/24 11:54 Guaifenesin Syrup 200 Mg/10 Ml Udc PO 01/18/25 16:59 Not Given QID SHAZIA Protocol Heparin Sodium (Porcine) 5,000 unit 12/26/24 21:00 12/29/24 10:15 Heparin Sod Inj 5000 Unit/Ml Vial SC 01/09/25 20:59 5,000 unit BID SHAZIA Administration Insulin Glargine 6 unit 12/20/24 21:00 12/28/24 20:45 Insulin Glargine (Lantus) 5 Unit/0.05 Ml (Per 5 Units) SC 01/19/25 20:59 6 unit HS SHAZIA Administration Insulin Human Lispro 0 unit 12/20/24 11:30 12/29/24 11:52 Insulin Lispro (Admelog) 1 Unit/0.01 Ml Unit SC 01/19/25 11:29 1 unit ACHS SHAZIA Administration Protocol Magnesium Hydroxide 30 ml 12/19/24 08:18 Milk Of Magnesia Susp 30 Ml Udc PO 01/18/25 08:17 QDAY PRN CONSTIPATION Protocol Melatonin 3 mg 12/21/24 19:00 12/28/24 20:44 Melatonin 3 Mg Tablet PO 01/20/25 18:59 3 mg HS SHAZIA Administration Metoprolol Succinate 12.5 mg 12/22/24 12:45 12/29/24 10:27 Metoprolol Succinate Xl 25 Mg Tabcr PO 01/21/25 12:44 12.5 mg QDAY SHAZIA Administration Ondansetron HCl 4 mg 12/16/24 17:42 12/21/24 20:35 Ondansetron Inj 2 Mg/Ml Inj 2 Ml IVP 01/15/25 17:41 4 mg Q6H PRN Administration NAUSEA OR VOMITING Protocol Pantoprazole Sodium 40 mg 12/21/24 09:00 12/29/24 10:17 Pantoprazole 40 Mg Tablet PO 01/20/25 08:59 40 mg QDAY SHAZIA Administration Protocol Polyethylene Glycol 17 gm 12/21/24 09:00 12/29/24 10:32 Polyethylene Glycol 17 Gm Packet PO 01/20/25 08:59 Not Given QDAY SHAZIA Ropinirole HCl 1 mg 12/24/24 19:00 12/28/24 19:17 Ropinirole Hcl 1 Mg Tablet PO 01/23/25 18:59 1 mg QDAY@1900 SHAZIA Administration Sennosides 1 tab 12/17/24 09:00 12/29/24 10:17 Senna Tablet PO 01/16/25 08:59 1 tab QDAY SHAZIA Administration Protocol Tamsulosin HCl 0.4 mg 12/17/24 09:00 12/29/24 10:17 Tamsulosin Hcl 0.4 Mg Capsule PO 01/16/25 08:59 0.4 mg QDAY SHAZIA Administration Plan A 79-year-old male patient with a past medical history of severe systolic congestive heart failure with an EF of 25 to 30%, old left bundle branch block, 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 Initial workup did show that the patient was hypoxic with saturation of 90% on 2 L nasal cannula. Labs showed only mildly elevated troponins at 0.05 and previous was 0.06 during last admission. EKG showed normal sinus rhythm with left bundle branch block and no acute ST-T changes history of ischemia. Chest x-ray with moderate vascular congestion. Head CT, CTA head and neck was negative. Cervical spine CT showed degenerative disc disease. UA was negative. Labs showed mild anemia at 10.5, WBC normal at 7.3 and platelets of 127. Potassium was low at 3.2 BUN of 11 creatinine of 1.0 and glucose of 167. After admission patient did continue to be hypoxic and had a vomitus when he was placed on the BiPAP mask because of his acute hypoxic respiratory failure. There was possible aspiration pneumonia and patient continued to desaturate and he was intubated and started on mechanical ventilation and transferred to the ICU. Normal IV antibiotics for the pneumonia. Patient also fluid overloaded and was started on diuresis. Assessment and plan: 1. Acute hypoxic respiratory failure on mechanical ventilation mostly secondary to aspiration pneumonia as well as CHF exacerbation 2. Altered mental status with headaches, generalized weakness-ruled out stroke 3. Fall secondary to the weakness 4. Acute on chronic severe systolic congestive heart failure with an last known EF of 25 to 30% in July 2023 5. Left bundle branch block 6. 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 Morbid obesity 8. Essential hypertension . Diabetes mellitus type 2 10. Chronic anemia 11. Hyperlipidemia 12. Obstructive sleep apnea on CPAP 13. BPH 14. Restless leg syndrome Patient known to me from the previous hospitalization in July 2024 when he was initially diagnosed with severe systolic CHF with an EF of 25 to 30%. Patient was in CHF exacerbation along with pneumonia and acute hypoxic respiratory failure which was aggressively treated and was discharged home on 08/05/2024. Patient did follow-up with me in clinic on 08/08/2024 and was recommended a nuclear stress test given his new systolic congestive heart failure which was completed on 08/16/2024. Lexiscan stress test did show evidence of stress-induced ischemia in the apical as well as mid to apical anterior segments. LVEF was also low at 32%. Patient was recommended left heart cardiac catheterization but never followed up with the office and was adamant that his heart's was in good condition and does not need any further procedures. Patient presented with headache, generalized weakness as well as a fall. CTA head and neck, head CT were negative for any acute stroke. Neurology is following. Fall appears to be mechanical in review of the chart shows that there was no evidence of any syncope or loss of consciousness on admission. Patient could not get up because of the weakness but was awake alert. Acute hypoxic respiratory failure and on mechanical ventilation at the present point of time mostly secondary to the aspiration pneumonia and started on IV antibiotics by the critical care team which will be continued. Also patient does have CHF exacerbation and recommend to continue the diuresis for the same. Acute on chronic severe systolic congestive heart failure exacerbation. Echo from July 2024 showed Normal left ventricular size, wall thickness. Severely reduced LV function LVEF estimated at 25-30 %. RV is normal in size and systolic function. Could not estimate RVSP as TR not visualiozed well. Moderate AV thickening with mild calcification. AV sclerosis without stenosis. V max 2.1 m/s. Possibly underestimated due to low EF. MIld thickening and clacification of mitral leafts too. Mild to moderate MR. Mild LA dilataion. IVC dilated but with > 50% collapse. Echo - 12/20/24 - Dilated cardiomyopathy. Moderate to severe LV enlargement. Severely reduced LV function with an LVEF of 15 to 20%. Mildly dilated RV with normal systolic function. Could not estimate RVSP as TR not visualiozed well. Moderate AV thickening with moderate calcification. Moderate AV sclerosis without stenosis based on V max 2.1 m/s. Possibly underestimated due to the low EF and could be mild on moderate . Trace AI. MIld thickening and clacification of mitral leafts too. Mild to moderate MR. Trace to mild TR. Severe LA dilatation and mild to moderate RA dilatation. IVC dilated with <50% collapse during inspiration. No pericardial effusion. Left pleural effusion noted. Recommend to continue aggressive diuresis with Lasix 40 mg IV twice daily for now. Strict input output Daily weights and 2 g sodium diet. Fluid restriction to 15 mL/day. [place] potassium greater than 4 and magnesium greater than 2.0 at all times. Will continue to monitor renal function closely and the BUN/creatinine normal now. His systolic congestive heart failure etiology was not determined hence was seen in the clinic as noted above and had an NST which did show evidence of stress-induced ischemia with decreased uptake in the apical as well as mid to apical anterior segments. Patient was recommended left heart cardiac catheterization. Did not follow-up with any appointments as outpatient in spite of multiple calls from my office, felt that his heart was in good condition. Discussed in detail with the and patient apparently had procedure through his groin at [facility] in February 2024 and was apparently normal. Patient not sure if the patient had a carotid angiogram or intervention of the intraventricular hemorrhage which he had at that point of time or he had a cardiac catheterization. wanted us to wait for the operative reports from the outside hospital. Recommend primary team to obtain all operative reports from his previous hospitalization in February 2024 from [facility] and to find out if the patient had any cardiac catheterization procedure. Troponins only minimally elevated at 0.05. EKG also did not show any acute ST-T changes history of active ischemia. Patient did not have any complaints of chest pain or chest pressure prior to the admission. Patient will benefit from left and right heart cardiac catheterization once he is hemodynamically stable after active treatment of the aspiration pneumonia as well as CHF exacerbation. 12/22/2024: Patient was difficult to arouse as per the primary team and was significantly altered patient had an ABG done which showed a PCO2 of 59 and a PO2 of 75 and patient was again started on BiPAP. Patient now has acute hypoxic as well as hypercapnic respiratory failure. Unable to follow any commands. Patient overall hemodynamically stable and has been diuresing well with Bumex 1 mg IV twice daily. Renal function appears to be stable. Plan was for her to perform a left and right heart cardiac catheterization for the patient to continue with his ischemic workup as well as his CHF. Unfortunately patient has been confused since yesterday and his respiratory status has not been stable and is unable to lie down flat on the bed. Patient possibly has CAD with multivessel disease given his worsening EF and recent positive stress test and less likely nonischemic cardiomyopathy. Given his severely low ejection fraction patient will also need complex PCI with stent by [facility] given his low ejection fraction of 15%. This institution does not have [facility] or other MCS available to perform the complex PCI and it would be appropriate to transfer the patient to a higher level of care. Also patient does have a history of hemorrhagic CVA with procedures performed at [facility] previously and we are unable to obtain any records until now. Continue with heparin drip along with IV diuresis for now along with BiPAP Discussed with the and also requested for higher level of care and she has requested for [facility] as he was previously admitted there in April 2024. 12/25/2024: Given his altered mental status per primary team again plan to repeat an MRI today. Patient with the symptoms better today and is much more awake as patient did use his BiPAP yesterday. Again there was a concern of questionable hemoptysis with some blood or clot. Hemoglobin is still stable around 10. Chest x-ray was repeated today and appears much improved from before there is still some mild congestion and will continue with diuresis. Recommended to continue BiPAP at night. Repeat echo was performed today on 12/25/2024 and exactly similar as the previous echo and no change from admission on 12/20/2024. EF is still less than 20% and patient is awaiting transfer to [facility]. Patient apparently a has been using his CPAP machine at home but never has been officially diagnosed with CHEYANNE. Patient appears to be adequately diuresed at the present point of time and kidney function continues to be stable with Bumex 1 mg IV twice daily. Bicarbonate was slightly high and was given Diamox 500 mg x 1 now bicarbonate is 30. As discussed previously patient is awaiting transfer to higher level of care [facility] at the request of the . 12/26/2024: The patient was doing much better today. He was much alert and oriented than yesterday. He reported doing well, and his reported the same. Vitals were fairly stable saturating 99% on 3 L of NC. MRI brain done yesterday was unremarkable for any acute changes. He was negative by about 2 L in last 24 hours. The plan is to transfer the patient to higher level of care at [facility] at the request of his , for possible percutaneous intervention, but if the transfer is not done by today evening, we will proceed with cardiac cath tomorrow morning here in [facility] In the meantime, we will continue with Bumex 1 mg IV twice daily, and continue to maintain potassium and magnesium level greater than 4 and 2 respectively. Recommended to continue the patient on BiPAP overnight, and keep the patient n.p.o. after midnight. Cardiac Cath on 12/27/2024 revealed [facility] findings: 1. Left ventricular ejection fraction was severely 20-25% without any regional wall motion abnormalities. LVEDP was normal at 16 mmHg. There was no significant transvalvular aortic gradient. 2. Right dominant circulation. Left main artery is a large-caliber vessel with mild 20-30% calcified stenosis. 3. LAD is a large sized artery with calcified 20-30% stenosis of mid segment. A medium size diagonal and does not show any significant disease. 4. LCx is a large sized artery with 20-30% stenosis in mid segment. A medium OM1 and small OM2 without any significant disease. 5. RCA is a large artery with 20% stenosis of proximal segment. Medium RPDA and RPL without any significant disease. RHC findings: Mean right atrial pressure was 1 mmHg. Right atrial pressure was 3/3 mmHg. Pulmonary artery pressure was 32/28 mmHg with a mean of 27 mmHg. Mean pulmonary capillary wedge pressure was 13 mmHg. TPG was 14 mmHg Pulmonary artery PA saturation was 59.9%.? Arterial saturation was 92.5% on room air. Cardiac output was 5.0 L/min and cardiac index was normal at 2.33 L/min/m? Patient recommended to follow-up with me in the office within 7 days after discharge. Summary/findings: 1. Non ischemic cardiomyopathy: LHC showed mild CAD with 20-30% calcified stenosis of Left main and mid LAD, 20-30% stenosis of mid LCx and proximal RCA. Rest of the coronaries without any angiographically significant obstruction and few luminal irregularities. 2. LVEF was severely low at 20-25%. 3. LVEDP was 14 mmHg. 4. Normal right heart pressures. Normal cardiac output was 5.0 L/min and normal cardiac index was at 2.33 L/min/m? Recommendations: 1. Recommend aggressive medical management and aggressive risk factor modification - Will need goal-directed medical therapy with metoprolol XL, Entresto and eventually spironolactone. Can decrease Bumex to 0.5 mg once daily orally or Lasix 20 Mg p.o. once daily. 2. Patient recommended not to lift more than 5 lbs for the next 7-10 days and follow up with me in my office in 7 days. Management of rest of the medical conditions as per primary team and other consultants. Thank you for the consult and allowing me to participate in the care of the patient. Cardiology will continue to follow. The patient's management plan was discussed with my attending physician MD Venancio Oh MD, PGY3 Attending Provider Attestation/Addendum I reviewed the resident Dr. Venancio Cosme consultation progress note and agree with the resident findings and plan in the note above and have also edited the documentation to reflect my findings and plan. Rakan Lundberg M.D. Interventional Cardiology
--- NOTE | 2024-12-29 12:24 | PC.SS ---
Icing Maker met with patient and spouse Monica Chicas at bedside. Icing Maker explained there are no accepting DME providers due to not being contracted with patient?s insurance. ?Icing Maker informed patient?s spouse Monica that [facility] and [facility] were contacted and messages were left to return call. Icing Maker explained holiday may interfere with response times from DME companies. Monica provided [employer] company for SS to follow up with. [facility], [facility], [facility], and [employer] have declined. [facility] was contacted due to not providing response and they were closed due to today?s holiday. [facility] [phone] was also contacted, no answer. A message was left requesting a return call.
--- NOTE | 2024-12-29 15:33 | ESDS_ITS ---
Planned Discharge Date 12/29/24 DS: Providers Provider Date of admission: 12/16/24 17:42 Primary care physician: Bao Stephens MD Admitting Provider: Mulu Cadet DO Attending Provider on Admission: Jona Wong MD Consults: 12/16/24 13:43 Consult to Neurology / Tele-Neurology Routine Comment: Consulting Provider: [facility] 12/16/24 18:22 Consult to Cardiology Routine Comment: CHF Consulting Provider: Rakan Lundberg 12/16/24 18:25 Consult to Neurology / Tele-Neurology Routine Comment: Consulting Provider: Dariusz Downing 12/18/24 11:06 Referral Speech Therapy Routine Comment: 12/22/24 13:29 Referral - Chucking Machine Set Up Operator Tool Routine Service Needed for Transfer: Cardiovascular/Thoracic Surg Addl Comments:: Impella guided PCI 12/27/24 11:52 Referral Physical Therapy Routine Comment: Physician Instructions: Attending Provider on DC: Jona Wong MD Discharging Provider: Jona Wong MD DS: Diagnosis Problem List Completed Was Problem List Reviewed/Reconciled?: Yes Hospital Course Hospital Course Hospital course: A 79-year-old male with significant past medical history of hypertension, diabe evette mellitus, asthma, intracranial bleed, using oxygen, 2 L at home as needed, HFrEF presented to the hospital with chief complaints of sudden onset headache followed by generalized weakness on the day. Admitted for ground-level fall, syncope versus stroke, and CHF exacerbation. Workup for stroke was negative (based on findings below). He was followed by neurology. Symptoms resolved shortly. He continued on BiPAP and aggressive diuresis for CHF exacerbation. In interim he had an episode of hypoxia while on BiPAP, secondary to aspiration, requiring ICU admission and intubation. He was subsequently extubated successfully. He continued a course of ANTIBIOTICS for aspiration pneumonia. 24-hour blood, urine and sputum culture showed no growth. Cardiology was following, echocardiogram showed significant EF reduction (15- 20%). Cardiology recommended left heart cath to evaluate for ischemic causes of cardiomyopathy. However, family initially requested lateral transfer for tertiary center. Attempts at transferring to multiple facilities was unsuccessful. Eventually, family elected to proceed with left heart cath with our in-house demand planning analyst. Left heart cath showed nonischemic cardiomyopathy. Cardiology recommended aggressive management with GDMT, which was initiated here in the hospital. He was evaluated after cath by physical therapy, and patient will need home health PT/OT after discharge. He still requires 2-3 L home oxygen, which is baseline for him. However, his (Monica) stated that his PCP has discontinued oxygen. Currently he does not have oxygen at home. [employer] has been working on outpatient oxygen supplement, however has been unable to find a company that accept his insurance. Patient and family has been adamant on discharge, and we highly advised against leaving home without oxygen, which is unsafe in his condition. We have provided additional options including: SNF placement, paying pfs-dw-khdaay for oxygen, or delaying discharge until an oxyge n. Our social working is actively working on finding an oxygen supplier that accept his insurance. We have provided a list of oxygen providers for , and she is currently in the process of reaching out to different suppliers. IMAGE FINDINGS: * Head CT showed no acute pathology. * Brain MRI showed no acute pathology, but positive for prominent microvascular white matter changes. * CT cervical spine showed moderate disc degeneration C5-C6, no acute cervical fracture. * CXR showed moderate heart failure, no acute fracture or pneumonia. * Lumbar spine x-ray showed no acute lumbar fracture. * Abdominal x-ray showed large amount of stool throughout the colon. * Head CT and head/neck CTA showed no acute pathology. * EKG showed sinus rhythm with first-degree block, no acute ST changes. * Echocardiogram shows moderate to severe LV enlargement with severely reduced systolic function (EF 15?20%) and mild RV dilation with normal function. The AV is moderately thickened and calcified without significant stenosis (Vmax 2.1 m/s), though severity may be underestimated. There is trace AI, mild to moderate MR with leaflet thickening and calcification, trace to mild TR, severe LA dilation, mild to moderate RA enlargement, and a dilated IVC with reduced inspiratory collapse, suggesting elevated right-sided pressures. PATIENT INSTRUCTIONS: * Follow-up with PCP within 1-2 weeks of discharge. * Follow-up with cardiology, Dr. Lundberg, within 1 weeks of discharge. * Continue using oxygen as needed for shortness of breath. * Continue taking LASIX/FUROSEMIDE 40 mg daily (NEW). * Continue taking ATORVASTATIN 20 mg daily (NEW). * Continue taking METOPROLOL SUCCINATE 12.5 mg daily (DOSE ADJUSTED). * Continue taking FARXIGA 10 mg daily (NEW). * Continue taking ENTRESTO 1/2 TABLET daily. Do not take if blood pressure is less than 100/70. Please discuss dose adjustment with your PCP or Cardiology. * Recommended to continue to use BiPAP at night. * Avoid lift more than 5 lbs for the next 7-10 days. * Return to Emergency Room if symptoms persist, worsen, or new symptoms develop. * Continue taking medications as prescribed below. 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 Kev Oneal DO PGY II This document was transcribed using voice recognition technology. Minor inaccuracies may be present. Time Spent with Patient Time attestation: Total time spent providing and/or coordinating discharge services: Time spent: Less than 30 minutes Quality: Stroke Pt Provided Written Stroke Discharge Instructions: No Home Health Home Health Referral Orders: 12/28/24 10:43 Home Health Referral Routine Reason For Exam: Generalized weakness Home-Bound The patient must either because of illness or injury, need the aid of supportive devices such as crutches, canes, wheelchairs, and walkers; the use of special transportation; or the assistance of another person in order to leave their place of residence; OR have a condition such that leaving his or her home is medically contraindicated. In addition, the patient also meets the following criteria: patient is normally unable to leave the home and leaving home requires considerable taxing effort. Addendum to Home Health Certification Practitioner's Certification: I certify that the patient has been under my care in the hospital and the care of attending physician (see below). We had a gjar-dw-ndkh encounter on (see date below). My clinical findings indicate that the patient is home bound per the above criteria and the Home Health Services noted in these orders are medically necessary. The primary reason for the qeqw-jf-yjco encounter is related to the fact that the patient requires home health services. Date Certifying Nuqr-el-Thzs Physician Encounter: 01/15/25 Physician's Name who will Assume Oversight for Services: Bao Stephens Physician's Phone No.who will Assume Oversight for Service: TECHNICAL EDITOR - Community Resources: No PT to Evaluate: Yes PT to evaluate and provide a treatmnet plan to increase patient's mobility and strength. Wound Care: No IV Therapy: No RN Safety Evaluation: Yes RN to evaluate and create a plan of care that will produce positive outcomes. Palliative Treatment: No Palliative treatment and evaluate the need for hospice. Home Health Aide - Personal Care: No Home Health Aide to assist with any ADL's. Exam Vital Signs Temp Pulse Resp BP Pulse Ox O2 Del Method O2 Flow Rate 97.1 F 93 18 99/62 98 Nasal Cannula 4 12/29/24 12:44 12/29/24 12:44 12/29/24 12:44 12/29/24 12:44 12/29/24 12:44 12/29/24 12:44 12/29/24 12:44 FiO2 30 12/28/24 21:32 Narrative Exam General: Awake. HEENT: Normocephalic, atraumatic, mucous membranes moist. Heart: Regular rate and rhythm, no murmurs. Lungs: CTAB, no w/r/r Abdomen: Soft, nondistended, nontender, positive bowel sounds. ?No guarding or rebound tenderness. Neurologic: Alert and oriented x3, no gross neurological deficit, and patient able to move all 4 extremities. Extremities: No edema. Skin: No rash or ecchymoses. Discharge Plan Plan Patient Disposition: Home w/HOME HEALTH Patient condition on transfer: Stable Care Plan Goals: * Follow-up with PCP within 1-2 weeks of discharge. * Follow-up with cardiology, Dr. Lundberg, within 1 weeks of discharge. * Continue using oxygen as needed for shortness of breath. * Continue taking LASIX 20 mg daily (DOSE ADJUSTED). * Continue taking ATORVASTATIN 20 mg daily (NEW). * Continue taking METOPROLOL SUCCINATE 12.5 mg daily (DOSE ADJUSTED). * Continue taking FARXIGA 10 mg daily (NEW). * Unable to start ENTRESTO given low blood pressure. Discuss with PCP/Cardiology regarding resuming. * Recommended to continue to use BiPAP at night. * Avoid lift more than 5 lbs for the next 7-10 days. * Return to Emergency Room if symptoms persist, worsen, or new symptoms develop. * Continue taking medications as prescribed below. Prescriptions/Referrals Prescriptions/Med Rec: New metoprolol succinate 25 mg Tablet Extended Release 24 Hr 12.5 mg PO QDAY Qty: 30 0RF dapagliflozin propanediol [Farxiga] 10 mg tablet 10 mg PO QDAY Qty: 30 0RF simvastatin 20 mg tablet 20 mg PO QDAY Qty: 30 0RF furosemide [Lasix] 20 mg tablet 20 mg PO QDAY Qty: 30 0RF Continued ropinirole 1 mg tablet 1 mg PO .COMPLEX Patient Comments: HS Rx Instructions: 1 mg orally 1-3 hours before bedtime; tamsulosin 0.4 mg capsule 0.4 mg PO Q24H finasteride 5 mg tablet 5 mg PO QDAY Patient Comments: TAKE 1 TABLET BY MOUTH EVERY DAY FOR 30 DAYS sucralfate 1 gram tablet 1 g PO Q12H Patient Comments: TAKE 1 TABLET BY MOUTH TWICE A DAY ON EMPTY STOMACH Discontinued simvastatin 20 mg tablet 20 mg PO QDAY Patient Comments: HS dapagliflozin propanediol 5 mg Tablet 5 mg PO QAM Qty: 30 0RF furosemide 40 mg tablet 40 mg PO QDAY Patient Comments: 40 MG ORALLY DAILY FOR 30 DAYS metoprolol succinate 25 mg tablet extended release 24 hr 25 mg PO QDAY Patient Comments: TAKE 1 TABLET BY MOUTH EVERY DAY Referrals: Bao Stephens MD [Primary Care Provider] - Patient/Caregiver Discharge Instructions Education Materials: Chest and Lung Problems, Coping with Heart Failure, Traveling with Oxygen, Using an Oxygen Tank at Home, Heart Failure, Overview of Sleep Problems Print Language: Ghanaian Stand Alone Forms: Keiko Award Info., Patient Portal Info Letter Discharge Order Discharge Orders: Discharge (Routine); Ordered 12/29/24 Ordered By: Kev Oneal Quality Discharge Quality Measures VTE prophylaxis Attestestation Attestation I attest that I was physically present for the evaluation, physical examination, lab and imaging review of the patient with the residents. I discussed the case with the residents and agree with the findings and plans of care as documented above. Jona Wong MD
[2024-12-29] MEDS: INSULIN GLARGINE (Lantus) 5 UNIT/0.05 ML (PER 5 UNITS) 6 UNIT SC (20:31)
[2024-12-29] MEDS: ATORVASTATIN CALCIUM 20 MG TABLET 40 MG PO (20:32)
[2024-12-29] MEDS: MELATONIN 3 MG TABLET PO (20:32)
--- NOTE | 2024-12-29 23:23 | PC.NURSE ---
pt complaining of chest pain radiating to his right ribs, Dr. Ornelas was made aware. MD is coming to assess pt. VS 82/64, HR 74, O2 96, R 17.
--- NOTE | 2024-12-29 23:43 | VVPN_ITS ---
Telemedicine visit statement This visit was conducted with the use of phone was obtained on 12/29/24 at 2343. Documentation for date of: 12/29/24 Subjective Subjective Interval history: Patient is in telemetry today.No new symptoms or recurrence of similar symptoms after admission. He c/o chest pain radiating to the left nad not able to sleep few minutes ago despite the melatonin. Virtual exam Vital Signs Temp Pulse Resp BP Pulse Ox O2 Del Method O2 Flow Rate 97.3 F 70 22 H 90/60 95 Nasal Cannula 4 12/29/24 21:00 12/29/24 21:25 12/29/24 21:25 12/29/24 21:00 12/29/24 21:25 12/29/24 21:00 12/29/24 21:25 FiO2 30 12/28/24 21:32 Objective Labs 12/29/24 05:25 12/29/24 05:25 Labs: Laboratory Results - last 24 hr 12/29/24 05:25 WBC 4.9 RBC 3.99 L Hgb 11.1 L Hct 36.3 L MCV 91 MCH 27.8 MCHC 30.6 L RDW Std Deviation 52.5 H Plt Count 158 Neut % (Auto) 48 Lymph % (Auto) 34 [place] % (Auto) 13 H Eos % (Auto) 4 Baso % (Auto) 1 Neut # (Auto) 2.4 Lymph # (Auto) 1.7 [place] # (Auto) 0.7 Eos # (Auto) 0.2 Baso # (Auto) 0.1 Immature Gran # (Auto) 0.01 H Absolute Nucleated RBC 0.00 Immature Gran % 0 Nucleated RBC % 0 Sodium 140 Potassium 4.0 Chloride 101 Carbon Dioxide 28.6 Anion Gap 10 BUN 14 Creatinine 0.9 Estim Creat Clear Calc 77.7 eGFR > 60 BUN/Creatinine Ratio 16 Glucose 120 H Calculated Osmolality 280 Calcium 9.5 Corrected Calcium 9.9 Phosphorus 3.8 Magnesium 2.2 Total Bilirubin 1.1 AST 20 ALT 19 Alkaline Phosphatase 89 Total Protein 8.5 H Albumin 3.5 Globulin 5.0 H Albumin/Globulin Ratio 0.7 L ABG Interpretation ABG results: 12/16/24 12/17/24 12/17/24 17:14 05:12 06:48 ABG pH 7.41 7.35 7.34 L ABG pCO2 38 47 49 H ABG pO2 49 L* 72 L D 170 H D ABG HCO3 24 26 27 H ABG O2 Saturation 82 L 94 100 H ABG Base Excess 0 0 0 VBG pH VBG pCO2 VBG pO2 VBG Base Excess 12/21/24 12/22/24 12/24/24 09:30 09:06 22:07 ABG pH 7.52 H 7.42 D ABG pCO2 41 59 H D ABG pO2 73 L 75 L ABG HCO3 34 H 38 H ABG O2 Saturation 96 96 ABG Base Excess 10 H 12 H VBG pH 7.41 VBG pCO2 48 VBG pO2 39 VBG Base Excess 4 H Assessment & Plan Problem List (1) Stroke-like symptom: Status: Acute Assessment and plan: his Symptoms have resolved and no focal deficit noted. consider adding Trazodone to help with sleep if Melatonin does not help. (2) Sleep apnea in adult: Status: Chronic Assessment and plan: need objective in house sleep study to confirm the diagnosis so that he can officially get CPAP and accessories. (3) Hypoxia: Status: Acute Assessment and plan: waiting for home oxygen approval from his insurance (4) Heart failure: Status: Acute Assessment and plan: continue current mgt as per cardiac recs
[2024-12-30] VITALS (11 sets, daily range): BP systolic 89–96; BP diastolic 49–70; PULSE 74–90; RESP 16–24; TEMP 36.1–36.8; O2SAT 97–99; BMI 28.8
[2024-12-30] MEDS: DiphenhydrAMINE ELIX 25 MG/10 ML UDC 12.5 MG PO (00:15)
[2024-12-30 05:45] LABS: Basophils # (Auto) 0.0 Thou/mm3 (0.0-0.2); Basophils % (Auto) 1 % (0-2.5); Eosinophils # (Auto) 0.2 Thou/mm3 (0.0-0.5); Eosinophils % (Auto) 4 % (0-10); Hematocrit 37.5 % (41.0-53.0); Hemoglobin 11.2 g/dL (13.5-16.0); Immature Granulocytes Auto 0.00 Thou/mm3 (0.00-0.00); Lymphocytes # (Auto) 1.7 Thou/mm3 (1.0-4.8); Lymphocytes % (Auto) 36 % (10-50); Mean Corpuscular HGB Conc 29.9 g/dl (31.0-37.0); Mean Corpuscular Hemoglobin 27.7 pg (25.0-35.0); Mean Corpuscular Volume 93 fL (80-100); Monocytes # (Auto) 0.5 Thou/mm3 (0.0-0.8); Monocytes % (Auto) 11 % (0-12); Neutrophils # (Auto) 2.3 Thou/mm3 (1.8-7.7); Neutrophils % (Auto) 49 % (37-80); Nucleated Red Blood Cell # 0.00 Thou/mm3 (0.00-0.00); Nucleated Red Blood Cell % 0 /100 WBC (0); Platelet Count 163 Thou/mm3 (140-440); RDW Standard Deviation 54.1 fL (35.1-43.9); Red Blood Count 4.04 Miln/mm3 (4.50-5.90); White Blood Count 4.7 Thou/mm3 (3.8-10.6)
[2024-12-30 06:20] LABS: Alanine Aminotransferase 22 U/L (10-49); Albumin, Serum 3.4 gm/dL (3.4-4.8); Albumin/Globulin Ratio 0.7 (1.2-2.2); Alkaline Phosphatase 91 U/L (46-116); Anion Gap 14 (7-16); Aspartate Amino Transferase 31 U/L (0-34); BUN/Creatinine Ratio 10 Ratio (12-20); Bilirubin,Total 0.7 mg/dL (0.3-1.2); Blood Urea Nitrogen 11 mg/dL (9-23); Calcium 9.4 mg/dL (8.3-10.6); Calcium (Corrected) 9.9 mg/dL (8.5-10.1); Carbon Dioxide 27.4 mMol/L (20.0-31.0); Chloride 100 mMol/L (98-107); Creatinine (Component) 1.1 mg/dL (0.6-1.3); Estimated Creatinine Clearance 63.5 mL/min (>60); Globulin 5.1 gm/dL (2.3-3.5); Glucose 111 mg/dL (74-106); Magnesium 2.2 mg/dL (1.6-2.6); Osmolality,Calculated 281 (275-295); Phosphorous 4.3 mg/dL (2.4-5.1); Potassium 4.2 mMol/L (3.4-5.1); Sodium 141 mMol/L (136-145); Total Protein 8.5 gm/dL (5.7-8.2); eGFR > 60 See Note
[2024-12-30] MEDS: POLYETHYLENE GLYCOL 17 GM PACKET PO (08:38)
[2024-12-30] MEDS: TAMSULOSIN HCL 0.4 MG CAPSULE PO (08:38)
[2024-12-30] MEDS: HEPARIN SOD INJ 5000 UNIT/ML VIAL SC ×2 (08:38→20:59)
[2024-12-30] MEDS: DAPAGLIFLOZIN PROPANEDIOL 5 MG TABLET 10 MG PO (08:38)
[2024-12-30] MEDS: PANTOPRAZOLE 40 MG TABLET PO (08:38)
--- NOTE | 2024-12-30 09:17 | PC.SS ---
Addendum entered by Piper Smith 12/30/24 12:00: Provders who have declined: [facility] [address] [place], [place] [facility] [address] [place], [place] [facility] [address] [place], [place] [facility] [address], [place] [facility] [address] [facility] [address] [place], [place] Quality Team [facility] [address] [facility] [address] [place], [facility] [address] [place], [place] Original Note: ASW spoke with pts who stated she is unable to purchase the O2 that pt needs at home. ASW uploaded the request for O2 via [facility] today as so far there has not been accepting providers. ASW contacted [facility] as pts reported that they accept her insurance. However, when ASW contacted [facility], Abelino reported that they no longer accept [place] [employer] as he stated, they don't pay enough and I absolutely do not deliver to [place]. ASW contacted [facility] [place] and [facility] reported they do not accept insurance and only work with Hospice companies.
[2024-12-30] MEDS: INSULIN LISPRO (AdmeLOG) 1 UNIT/0.01 ML UNIT SC ×3 (11:39→21:00)
[2024-12-30] MEDS: guaiFENesin SYRUP 200 MG/10 ML UDC PO ×2 (11:41→16:56)
[2024-12-30] MEDS: ACETAMINOPHEN 325 MG TABLET 650 MG PO (11:45)
--- NOTE | 2024-12-30 16:06 | PC.SS ---
The following DME companies were contacted for oxygen: [facility] [phone]: Not contracted with patient?s insurance. [facility] [phone]: no answer, left message [facility] [phone]: no answer, left message [facility] [phone]: diabetic DME provided only. [facility] [phone]: no answer, left message. [facility] [phone]: no answer, left message. [facility] [phone]: Andrew stated their not contracted with [place] Medicare insurance.
--- NOTE | 2024-12-30 17:45 | PD.IMPROG ---
Documentation for date of: 12/30/24 Subjective Subjective Interval history: Patient seen and examined at bedside. No new complaints. No chest pain shortness of breath and getting better. Patient is awake alert but is intermittently confused. Continue goal-directed medical therapy for now along with aggressive medical management for the mild CAD. His blood pressure continues to be low and recommended to decrease Bumex to 0.5 mg once daily and also to hold metoprolol for now. Recommend or encourage patient to Patient will be discharged after the weekend once his oxygen set up is confirmed by the primary team. Exam Vital Signs Temp Pulse Resp BP Pulse Ox O2 Del Method O2 Flow Rate 98.1 F 90 18 92/49 L 99 Nasal Cannula 4 12/30/24 16:00 12/30/24 16:00 12/30/24 16:00 12/30/24 16:00 12/30/24 16:12/30/24 16:00 12/30/24 16:00 FiO2 30 12/30/24 16:00 Narrative Exam General: Alert and oriented x3. In no acute distress. Eyes: Pupils are equal and reactive to light bilaterally. HEENT: Atraumatic, normocephalic. No JVD noted. Mucosa moist. Cardiovascular: Normal S1 and S2. Normal rate and regular rhythm. 2/6 systolic murmurs appreciated. trace peripheral pitting edema noted. Respiratory: No respiratory distress. Lungs are clear to auscultation bilaterally. No wheezing or crackles heard. Abdomen: Soft, nontender, nondistended. Skin: No rash. Warm to touch. Musculoskeletal: No gross injuries. Able to move all 4 extremities. Neuro: Alert and oriented x3. No focal neuro deficits. Psych: Normal affect and mood Objective Labs 12/31/24 05:26 12/30/24 04:34 Labs: Laboratory Results - last 24 hr 12/30/24 04:34 WBC 4.7 RBC 4.04 L Hgb 11.2 L Hct 37.5 L MCV 93 MCH 27.7 MCHC 29.9 L RDW Std Deviation 54.1 H Plt Count 163 Neut % (Auto) 49 Lymph % (Auto) 36 Ceiba % (Auto) 11 Eos % (Auto) 4 Baso % (Auto) 1 Neut # (Auto) 2.3 Lymph # (Auto) 1.7 Ceiba # (Auto) 0.5 Eos # (Auto) 0.2 Baso # (Auto) 0.0 Immature Gran # (Auto) 0.00 Absolute Nucleated RBC 0.00 Immature Gran % 0 Nucleated RBC % 0 Sodium 141 Potassium 4.2 Chloride 100 Carbon Dioxide 27.4 Anion Gap 14 BUN 11 Creatinine 1.1 Estim Creat Clear Calc 63.5 eGFR > 60 BUN/Creatinine Ratio 10 L Glucose 111 H Calculated Osmolality 281 Calcium 9.4 Corrected Calcium 9.9 Phosphorus 4.3 Magnesium 2.2 Total Bilirubin 0.7 AST 31 ALT 22 Alkaline Phosphatase 91 Total Protein 8.5 H Albumin 3.4 Globulin 5.1 H Albumin/Globulin Ratio 0.7 L ABG Interpretation ABG results: 12/16/24 12/17/24 12/17/24 17:14 05:12 06:48 ABG pH 7.41 7.35 7.34 L ABG pCO2 38 47 49 H ABG pO2 49 L* 72 L D 170 H D ABG HCO3 24 26 27 H ABG O2 Saturation 82 L 94 100 H ABG Base Excess 0 0 0 VBG pH VBG pCO2 VBG pO2 VBG Base Excess 12/21/24 12/22/24 12/24/24 09:30 09:06 22:07 ABG pH 7.52 H 7.42 D ABG pCO2 41 59 H D ABG pO2 73 L 75 L ABG HCO3 34 H 38 H ABG O2 Saturation 96 96 ABG Base Excess 10 H 12 H VBG pH 7.41 VBG pCO2 48 VBG pO2 39 VBG Base Excess 4 H Assessment & Plan A&P Narrative A 79-year-old male patient with a past medical history of severe systolic congestive heart failure with an EF of 25 to 30%, old left bundle branch block, 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 Initial workup did show that the patient was hypoxic with saturation of 90% on 2 L nasal cannula. Labs showed only mildly elevated troponins at 0.05 and previous was 0.06 during last admission. EKG showed normal sinus rhythm with left bundle branch block and no acute ST-T changes history of ischemia. Chest x-ray with moderate vascular congestion. Head CT, CTA head and neck was negative. Cervical spine CT showed degenerative disc disease. UA was negative. Labs showed mild anemia at 10.5, WBC normal at 7.3 and platelets of 127. Potassium was low at 3.2 BUN of 11 creatinine of 1.0 and glucose of 167. After admission patient did continue to be hypoxic and had a vomitus when he was placed on the BiPAP mask because of his acute hypoxic respiratory failure. There was possible aspiration pneumonia and patient continued to desaturate and he was intubated and started on mechanical ventilation and transferred to the ICU. Normal IV antibiotics for the pneumonia. Patient also fluid overloaded and was started on diuresis. Assessment and plan: 1. Acute hypoxic respiratory failure on mechanical ventilation mostly secondary to aspiration pneumonia as well as CHF exacerbation 2. Altered mental status with headaches, generalized weakness-ruled out stroke 3. Fall secondary to the weakness 4. Acute on chronic severe systolic congestive heart failure with an last known EF of 25 to 30% in July 2023 5. Left bundle branch block 6. 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 Morbid obesity 8. Essential hypertension . Diabetes mellitus type 2 10. Chronic anemia 11. Hyperlipidemia 12. Obstructive sleep apnea on CPAP 13. BPH 14. Restless leg syndrome Patient known to me from the previous hospitalization in July 2024 when he was initially diagnosed with severe systolic CHF with an EF of 25 to 30%. Patient was in CHF exacerbation along with pneumonia and acute hypoxic respiratory failure which was aggressively treated and was discharged home on 08/05/2024. Patient did follow-up with me in clinic on 08/08/2024 and was recommended a nuclear stress test given his new systolic congestive heart failure which was completed on 08/16/2024. Lexiscan stress test did show evidence of stress-induced ischemia in the apical as well as mid to apical anterior segments. LVEF was also low at 32%. Patient was recommended left heart cardiac catheterization but never followed up with the office and was adamant that his heart's was in good condition and does not need any further procedures. Patient presented with headache, generalized weakness as well as a fall. CTA head and neck, head CT were negative for any acute stroke. Neurology is following. Fall appears to be mechanical in review of the chart shows that there was no evidence of any syncope or loss of consciousness on admission. Patient could not get up because of the weakness but was awake alert. Acute hypoxic respiratory failure and on mechanical ventilation at the present point of time mostly secondary to the aspiration pneumonia and started on IV antibiotics by the critical care team which will be continued. Also patient does have CHF exacerbation and recommend to continue the diuresis for the same. Acute on chronic severe systolic congestive heart failure exacerbation. Echo from July 2024 showed Normal left ventricular size, wall thickness. Severely reduced LV function LVEF estimated at 25-30 %. RV is normal in size and systolic function. Could not estimate RVSP as TR not visualiozed well. Moderate AV thickening with mild calcification. AV sclerosis without stenosis. V max 2.1 m/s. Possibly underestimated due to low EF. MIld thickening and clacification of mitral leafts too. Mild to moderate MR. Mild LA dilataion. IVC dilated but with > 50% collapse. Echo - 12/20/24 - Dilated cardiomyopathy. Moderate to severe LV enlargement. Severely reduced LV function with an LVEF of 15 to 20%. Mildly dilated RV with normal systolic function. Could not estimate RVSP as TR not visualiozed well. Moderate AV thickening with moderate calcification. Moderate AV sclerosis without stenosis based on V max 2.1 m/s. Possibly underestimated due to the low EF and could be mild on moderate . Trace AI. MIld thickening and clacification of mitral leafts too. Mild to moderate MR. Trace to mild TR. Severe LA dilatation and mild to moderate RA dilatation. IVC dilated with <50% collapse during inspiration. No pericardial effusion. Left pleural effusion noted. Recommend to continue aggressive diuresis with Lasix 40 mg IV twice daily for now. Strict input output Daily weights and 2 g sodium diet. Fluid restriction to 15 mL/day. Mancera potassium greater than 4 and magnesium greater than 2.0 at all times. Will continue to monitor renal function closely and the BUN/creatinine normal now. His systolic congestive heart failure etiology was not determined hence was seen in the clinic as noted above and had an NST which did show evidence of stress-induced ischemia with decreased uptake in the apical as well as mid to apical anterior segments. Patient was recommended left heart cardiac catheterization. Did not follow-up with any appointments as outpatient in spite of multiple calls from my office, felt that his heart was in good condition. Discussed in detail with the and patient apparently had procedure through his groin at [facility] in February 2024 and was apparently normal. Patient not sure if the patient had a carotid angiogram or intervention of the intraventricular hemorrhage which he had at that point of time or he had a cardiac catheterization. wanted us to wait for the operative reports from the outside hospital. Recommend primary team to obtain all operative reports from his previous hospitalization in February 2024 from [facility] and to find out if the patient had any cardiac catheterization procedure. Troponins only minimally elevated at 0.05. EKG also did not show any acute ST-T changes history of active ischemia. Patient did not have any complaints of chest pain or chest pressure prior to the admission. Patient will benefit from left and right heart cardiac catheterization once he is hemodynamically stable after active treatment of the aspiration pneumonia as well as CHF exacerbation. 12/22/2024: Patient was difficult to arouse as per the primary team and was significantly altered patient had an ABG done which showed a PCO2 of 59 and a PO2 of 75 and patient was again started on BiPAP. Patient now has acute hypoxic as well as hypercapnic respiratory failure. Unable to follow any commands. Patient overall hemodynamically stable and has been diuresing well with Bumex 1 mg IV twice daily. Renal function appears to be stable. Plan was for her to perform a left and right heart cardiac catheterization for the patient to continue with his ischemic workup as well as his CHF. Unfortunately patient has been confused since yesterday and his respiratory status has not been stable and is unable to lie down flat on the bed. Patient possibly has CAD with multivessel disease given his worsening EF and recent positive stress test and less likely nonischemic cardiomyopathy. Given his severely low ejection fraction patient will also need complex PCI with stent by [facility] given his low ejection fraction of 15%. This institution does not have [facility] or other MCS available to perform the complex PCI and it would be appropriate to transfer the patient to a higher level of care. Also patient does have a history of hemorrhagic CVA with procedures performed at [facility] previously and we are unable to obtain any records until now. Continue with heparin drip along with IV diuresis for now along with BiPAP Discussed with the and also requested for higher level of care and she has requested for [facility] as he was previously admitted there in April 2024. 12/25/2024: Given his altered mental status per primary team again plan to repeat an MRI today. Patient with the symptoms better today and is much more awake as patient did use his BiPAP yesterday. Again there was a concern of questionable hemoptysis with some blood or clot. Hemoglobin is still stable around 10. Chest x-ray was repeated today and appears much improved from before there is still some mild congestion and will continue with diuresis. Recommended to continue BiPAP at night. Repeat echo was performed today on 12/25/2024 and exactly similar as the previous echo and no change from admission on 12/20/2024. EF is still less than 20% and patient is awaiting transfer to [facility]. Patient apparently a has been using his CPAP machine at home but never has been officially diagnosed with CHEYANNE. Patient appears to be adequately diuresed at the present point of time and kidney function continues to be stable with Bumex 1 mg IV twice daily. Bicarbonate was slightly high and was given Diamox 500 mg x 1 now bicarbonate is 30. As discussed previously patient is awaiting transfer to higher level of care [facility] at the request of the . 12/26/2024: The patient was doing much better today. He was much alert and oriented than yesterday. He reported doing well, and his reported the same. Vitals were fairly stable saturating 99% on 3 L of NC. MRI brain done yesterday was unremarkable for any acute changes. He was negative by about 2 L in last 24 hours. The plan is to transfer the patient to higher level of care at [facility] at the request of his , for possible percutaneous intervention, but if the transfer is not done by today evening, we will proceed with cardiac cath tomorrow morning here in [facility]. In the meantime, we will continue with Bumex 1 mg IV twice daily, and continue to maintain potassium and magnesium level greater than 4 and 2 respectively. Recommended to continue the patient on BiPAP overnight, and keep the patient n.p.o. after midnight. Cardiac Cath on 12/27/2024 revealed [facility] findings: 1. Left ventricular ejection fraction was severely 20-25% without any regional wall motion abnormalities. LVEDP was normal at 16 mmHg. There was no significant transvalvular aortic gradient. 2. Right dominant circulation. Left main artery is a large-caliber vessel with mild 20-30% calcified stenosis. 3. LAD is a large sized artery with calcified 20-30% stenosis of mid segment. A medium size diagonal and does not show any significant disease. 4. LCx is a large sized artery with 20-30% stenosis in mid segment. A medium OM1 and small OM2 without any significant disease. 5. RCA is a large artery with 20% stenosis of proximal segment. Medium RPDA and RPL without any significant disease. RHC findings: Mean right atrial pressure was 1 mmHg. Right atrial pressure was 3/3 mmHg. Pulmonary artery pressure was 32/28 mmHg with a mean of 27 mmHg. Mean pulmonary capillary wedge pressure was 13 mmHg. TPG was 14 mmHg Pulmonary artery PA saturation was 59.9%.? Arterial saturation was 92.5% on room air. Cardiac output was 5.0 L/min and cardiac index was normal at 2.33 L/min/m? Patient recommended to follow-up with me in the office within 7 days after discharge. Summary/findings: 1. Non ischemic cardiomyopathy: LHC showed mild CAD with 20-30% calcified stenosis of Left main and mid LAD, 20-30% stenosis of mid LCx and proximal RCA. Rest of the coronaries without any angiographically significant obstruction and few luminal irregularities. 2. LVEF was severely low at 20-25%. 3. LVEDP was 14 mmHg. 4. Normal right heart pressures. Normal cardiac output was 5.0 L/min and normal cardiac index was at 2.33 L/min/m? Recommendations: 1. Recommend aggressive medical management and aggressive risk factor modification - Will need goal-directed medical therapy with metoprolol XL, Entresto and eventually spironolactone if BP permisssible. Can decrease Bumex to 0.5 mg once daily orally or Lasix 20 Mg p.o. once daily. 2. Patient recommended not to lift more than 5 lbs for the next 7-10 days and follow up with me in my office in 7 days. Management of rest of the medical conditions as per primary team and other consultants. Thank you for the consult and allowing me to participate in the care of the patient. Cardiology will continue to follow. Rakan Lundberg M.D. Interventional Cardiology Time Spent With Patient Time: Total time spent is greater than 50% in coordination of care (as documented) at patient's floor/unit and/or counseling patient:
--- NOTE | 2024-12-30 20:38 | ESDS_ITS ---
Planned Discharge Date 12/30/24 DS: Providers Provider Date of admission: 12/16/24 17:42 Primary care physician: Bao Stephens MD Admitting Provider: Mulu Cadet DO Attending Provider on Admission: Jona Wong MD Consults: 12/16/24 13:43 Consult to Neurology / Tele-Neurology Routine Comment: Consulting Provider: [facility] 12/16/24 18:22 Consult to Cardiology Routine Comment: CHF Consulting Provider: Rakan Lundberg 12/16/24 18:25 Consult to Neurology / Tele-Neurology Routine Comment: Consulting Provider: Dariusz Downing 12/18/24 11:06 Referral Speech Therapy Routine Comment: 12/22/24 13:29 Referral - Copyright Expert Routine Service Needed for Transfer: Cardiovascular/Thoracic Surg Addl Comments:: Impella guided PCI 12/27/24 11:52 Referral Physical Therapy Routine Comment: Physician Instructions: Attending Provider on DC: Abe Loco MD Discharging Provider: Abe Loco MD DS: Diagnosis Problem List Completed Was Problem List Reviewed/Reconciled?: Yes Hospital Course Hospital Course Hospital course: A 79-year-old male with significant past medical history of hypertension, winsome betes mellitus, asthma, intracranial bleed, using oxygen, 2 L at home as needed, HFrEF presented to the hospital with chief complaints of sudden onset headache followed by generalized weakness on the day. Admitted for ground-level fall, syncope versus stroke, and CHF exacerbation. Workup for stroke was negative (based on findings below). He was followed by neurology. Symptoms resolved shortly. He continued on BiPAP and aggressive diuresis for CHF exacerbation. In interim he had an episode of hypoxia while on BiPAP, secondary to aspiration, requiring ICU admission and intubation. He was subsequently extubated successfully. He continued a course of ANTIBIOTICS for aspiration pneumonia. 24-hour blood, urine and sputum culture showed no growth. Cardiology was following, echocardiogram showed significant EF reduction (15- 20%). Cardiology recommended left heart cath to evaluate for ischemic causes of cardiomyopathy. However, family initially requested lateral transfer for tertiary center. Attempts at transferring to multiple facilities was unsuccessful. Eventually, family elected to proceed with left heart cath with our in-house anglesmith helper. Left heart cath showed nonischemic cardiomyopathy. Cardiology recommended aggressive management with GDMT, which was initiated here in the hospital. He was evaluated after cath by physical therapy, and patient will need home health PT/OT after discharge. He still requires 2-3 L home oxygen, which is baseline for him. However, his (Monica) stated that his PCP has discontinued oxygen. Currently he does not have oxygen at home. [employer] has been working on outpatient oxygen supplement, however has been unable to find a company that accept his insurance. Patient and family has been adamant on discharge, and we highly advised against leaving home without oxygen, which is unsafe in his condition. We have provided additional options including: SNF placement, paying [id number] for oxygen, or delaying discharge until an oxy gen. Our social working is actively working on finding an oxygen supplier that accept his insurance. We have provided a list of oxygen providers for , and she is currently in the process of reaching out to different suppliers. IMAGE FINDINGS: * Head CT showed no acute pathology. * Brain MRI showed no acute pathology, but positive for prominent microvascular white matter changes. * CT cervical spine showed moderate disc degeneration C5-C6, no acute cervical fracture. * CXR showed moderate heart failure, no acute fracture or pneumonia. * Lumbar spine x-ray showed no acute lumbar fracture. * Abdominal x-ray showed large amount of stool throughout the colon. * Head CT and head/neck CTA showed no acute pathology. * EKG showed sinus rhythm with first-degree block, no acute ST changes. * Echocardiogram shows moderate to severe LV enlargement with severely reduced systolic function (EF 15?20%) and mild RV dilation with normal function. The AV is moderately thickened and calcified without significant stenosis (Vmax 2.1 m/s), though severity may be underestimated. There is trace AI, mild to moderate MR with leaflet thickening and calcification, trace to mild TR, severe LA dilation, mild to moderate RA enlargement, and a dilated IVC with reduced inspiratory collapse, suggesting elevated right-sided pressures. PATIENT INSTRUCTIONS: * Follow-up with PCP within 1-2 weeks of discharge. * Follow-up with cardiology, Dr. Lundberg, within 1 weeks of discharge. * Continue using oxygen as needed for shortness of breath. * Continue taking LASIX/FUROSEMIDE 40 mg daily (NEW). * Continue taking ATORVASTATIN 20 mg daily (NEW). * Continue taking METOPROLOL SUCCINATE 12.5 mg daily (DOSE ADJUSTED). * Continue taking FARXIGA 10 mg daily (NEW). * Continue taking ENTRESTO 1/2 TABLET daily. Do not take if blood pressure is less than 100/70. Please discuss dose adjustment with your PCP or Cardiology. * Recommended to continue to use BiPAP at night. * Avoid lift more than 5 lbs for the next 7-10 days. * Return to Emergency Room if symptoms persist, worsen, or new symptoms develop. * Continue taking medications as prescribed below. 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 Aruna Moe, PGY II This document was transcribed using voice recognition technology. Minor inaccuracies may be present. Time Spent with Patient Time attestation: Total time spent providing and/or coordinating discharge services: Time spent: Greater than 30 minutes Quality: Stroke Pt Provided Written Stroke Discharge Instructions: No Exam Vital Signs Temp Pulse Resp BP Pulse Ox O2 Del Method O2 Flow Rate 98.1 F 88 24 H 92/49 L 97 Nasal Cannula 3 12/30/24 16:00 12/30/24 19:04 12/30/24 19:04 12/30/24 16:00 12/30/24 19:04 12/30/24 16:00 12/30/24 19:04 FiO2 30 12/30/24 16:00 Narrative Exam General: Awake. HEENT: Normocephalic, atraumatic, mucous membranes moist. Heart: Regular rate and rhythm, no murmurs. Lungs: CTAB, no w/r/r Abdomen: Soft, nondistended, nontender, positive bowel sounds. ?No guarding or rebound tenderness. Neurologic: Alert and oriented x3, no gross neurological deficit, and patient able to move all 4 extremities. Extremities: No edema. Skin: No rash or ecchymoses. Discharge Plan Plan Patient Disposition: Home w/HOME HEALTH Patient condition on transfer: Stable Care Plan Goals: * Follow-up with PCP within 1-2 weeks of discharge. * Follow-up with cardiology, Dr. Lundberg, within 1 weeks of discharge. * Continue using oxygen as needed for shortness of breath. * Continue taking LASIX 20 mg daily (DOSE ADJUSTED). * Continue taking ATORVASTATIN 20 mg daily (NEW). * Continue taking METOPROLOL SUCCINATE 12.5 mg (half of 25 mg tablet) daily (DOSE ADJUSTED). * Unable to start ENTRESTO given low blood pressure. Discuss with PCP/Cardiology regarding resuming. * Recommended to continue to use BiPAP at night. * Avoid lift more than 5 lbs for the next 7-10 days. * Return to Emergency Room if symptoms persist, worsen, or new symptoms develop. * Continue taking medications as prescribed below. Prescriptions/Referrals Prescriptions/Med Rec: New metoprolol succinate 25 mg Tablet Extended Release 24 Hr 12.5 mg PO QDAY Qty: 30 0RF simvastatin 20 mg tablet 20 mg PO QDAY Qty: 30 0RF furosemide [Lasix] 20 mg tablet 20 mg PO QDAY Qty: 30 0RF Continued ropinirole 1 mg tablet 1 mg PO .COMPLEX Patient Comments: HS Rx Instructions: 1 mg orally 1-3 hours before bedtime; tamsulosin 0.4 mg capsule 0.4 mg PO Q24H finasteride 5 mg tablet 5 mg PO QDAY Patient Comments: TAKE 1 TABLET BY MOUTH EVERY DAY FOR 30 DAYS sucralfate 1 gram tablet 1 g PO Q12H Patient Comments: TAKE 1 TABLET BY MOUTH TWICE A DAY ON EMPTY STOMACH Discontinued simvastatin 20 mg tablet 20 mg PO QDAY Patient Comments: HS dapagliflozin propanediol 5 mg Tablet 5 mg PO QAM Qty: 30 0RF furosemide 40 mg tablet 40 mg PO QDAY Patient Comments: 40 MG ORALLY DAILY FOR 30 DAYS metoprolol succinate 25 mg tablet extended release 24 hr 25 mg PO QDAY Patient Comments: TAKE 1 TABLET BY MOUTH EVERY DAY Referrals: Bao Stephens MD [Primary Care Provider] - Patient/Caregiver Discharge Instructions Education Materials: Chest and Lung Problems, Coping with Heart Failure, Traveling with Oxygen, Using an Oxygen Tank at Home, Heart Failure, Overview of Sleep Problems Print Language: Kiswahili Stand Alone Forms: Keiko Award Info., Patient Portal Info Letter Discharge Order Discharge Orders: Discharge (Routine); Ordered 12/29/24 Ordered By: Kev Oneal Quality Discharge Quality Measures VTE prophylaxis (Heparin) Attestestation Attestation Patient not discharged on December 30, 2024. Pending oxygen set up. Continue current treatment. Discussed with house staff.
[2024-12-30] MEDS: MELATONIN 3 MG TABLET PO (20:59)
[2024-12-30] MEDS: ATORVASTATIN CALCIUM 20 MG TABLET 40 MG PO (20:59)
[2024-12-30] MEDS: INSULIN GLARGINE (Lantus) 5 UNIT/0.05 ML (PER 5 UNITS) 6 UNIT SC (21:00)
--- NOTE | 2024-12-30 23:59 | VVPN_ITS ---
Telemedicine visit statement This visit was conducted with the use of phone was obtained on 12/30/24 at 2359. Documentation for date of: 12/30/24 Subjective Subjective Interval history: Patient is in telemetry today.No new symptoms or recurrence of similar symptoms after admission. Virtual exam Vital Signs Temp Pulse Resp BP Pulse Ox O2 Del Method O2 Flow Rate 97.0 F 88 23 H 90/66 98 Nasal Cannula 3 12/30/24 20:00 12/30/24 20:00 12/30/24 20:00 12/30/24 20:00 12/30/24 20:00 12/30/24 16:00 12/30/24 19:04 FiO2 30 12/30/24 16:00 Objective Labs 12/30/24 04:34 12/30/24 04:34 Labs: Laboratory Results - last 24 hr 12/30/24 04:34 WBC 4.7 RBC 4.04 L Hgb 11.2 L Hct 37.5 L MCV 93 MCH 27.7 MCHC 29.9 L RDW Std Deviation 54.1 H Plt Count 163 Neut % (Auto) 49 Lymph % (Auto) 36 [place] % (Auto) 11 Eos % (Auto) 4 Baso % (Auto) 1 Neut # (Auto) 2.3 Lymph # (Auto) 1.7 [place] # (Auto) 0.5 Eos # (Auto) 0.2 Baso # (Auto) 0.0 Immature Gran # (Auto) 0.00 Absolute Nucleated RBC 0.00 Immature Gran % 0 Nucleated RBC % 0 Sodium 141 Potassium 4.2 Chloride 100 Carbon Dioxide 27.4 Anion Gap 14 BUN 11 Creatinine 1.1 Estim Creat Clear Calc 63.5 eGFR > 60 BUN/Creatinine Ratio 10 L Glucose 111 H Calculated Osmolality 281 Calcium 9.4 Corrected Calcium 9.9 Phosphorus 4.3 Magnesium 2.2 Total Bilirubin 0.7 AST 31 ALT 22 Alkaline Phosphatase 91 Total Protein 8.5 H Albumin 3.4 Globulin 5.1 H Albumin/Globulin Ratio 0.7 L ABG Interpretation ABG results: 12/16/24 12/17/24 12/17/24 17:14 05:12 06:48 ABG pH 7.41 7.35 7.34 L ABG pCO2 38 47 49 H ABG pO2 49 L* 72 L D 170 H D ABG HCO3 24 26 27 H ABG O2 Saturation 82 L 94 100 H ABG Base Excess 0 0 0 VBG pH VBG pCO2 VBG pO2 VBG Base Excess 12/21/24 12/22/24 12/24/24 09:30 09:06 22:07 ABG pH 7.52 H 7.42 D ABG pCO2 41 59 H D ABG pO2 73 L 75 L ABG HCO3 34 H 38 H ABG O2 Saturation 96 96 ABG Base Excess 10 H 12 H VBG pH 7.41 VBG pCO2 48 VBG pO2 39 VBG Base Excess 4 H Assessment & Plan Problem List (1) Stroke-like symptom: Status: Acute Assessment and plan: his Symptoms have resolved and no focal deficit noted. consider adding Trazodone to help with sleep if Melatonin does not help. (2) Sleep apnea in adult: Status: Chronic Assessment and plan: need objective in house sleep study to confirm the diagnosis so that he can officially get CPAP and accessories. (3) Hypoxia: Status: Acute Assessment and plan: waiting for home oxygen approval from his insurance (4) Heart failure: Status: Acute Assessment and plan: continue current mgt as per cardiac recs
[2024-12-31] VITALS (8 sets, daily range): BP systolic 86–110; BP diastolic 60–78; PULSE 88–95; RESP 15–24; TEMP 36.1–37; O2SAT 92–100
--- NOTE | 2024-12-31 00:07 | VVPN_ITS ---
Telemedicine visit statement This visit was conducted with the use of phone was obtained on 12/30/24 Documentation for date of: 12/31/24 Subjective Subjective Interval history: Patient is in telemetry today.No new symptoms or recurrence of similar symptoms after admission. Virtual exam Vital Signs Temp Pulse Resp BP Pulse Ox O2 Del Method O2 Flow Rate 97.0 F 88 23 H 90/66 98 Nasal Cannula 3 12/30/24 20:00 12/30/24 20:00 12/30/24 20:00 12/30/24 20:00 12/30/24 20:00 12/30/24 16:00 12/30/24 19:04 FiO2 30 12/30/24 16:00 Objective Labs 01/01/25 04:34 12/31/24 05:26 Labs: Laboratory Results - last 24 hr 12/30/24 04:34 WBC 4.7 RBC 4.04 L Hgb 11.2 L Hct 37.5 L MCV 93 MCH 27.7 MCHC 29.9 L RDW Std Deviation 54.1 H Plt Count 163 Neut % (Auto) 49 Lymph % (Auto) 36 [place] % (Auto) 11 Eos % (Auto) 4 Baso % (Auto) 1 Neut # (Auto) 2.3 Lymph # (Auto) 1.7 [place] # (Auto) 0.5 Eos # (Auto) 0.2 Baso # (Auto) 0.0 Immature Gran # (Auto) 0.00 Absolute Nucleated RBC 0.00 Immature Gran % 0 Nucleated RBC % 0 Sodium 141 Potassium 4.2 Chloride 100 Carbon Dioxide 27.4 Anion Gap 14 BUN 11 Creatinine 1.1 Estim Creat Clear Calc 63.5 eGFR > 60 BUN/Creatinine Ratio 10 L Glucose 111 H Calculated Osmolality 281 Calcium 9.4 Corrected Calcium 9.9 Phosphorus 4.3 Magnesium 2.2 Total Bilirubin 0.7 AST 31 ALT 22 Alkaline Phosphatase 91 Total Protein 8.5 H Albumin 3.4 Globulin 5.1 H Albumin/Globulin Ratio 0.7 L ABG Interpretation ABG results: 12/16/24 12/17/24 12/17/24 17:14 05:12 06:48 ABG pH 7.41 7.35 7.34 L ABG pCO2 38 47 49 H ABG pO2 49 L* 72 L D 170 H D ABG HCO3 24 26 27 H ABG O2 Saturation 82 L 94 100 H ABG Base Excess 0 0 0 VBG pH VBG pCO2 VBG pO2 VBG Base Excess 12/21/24 12/22/24 12/24/24 09:30 09:06 22:07 ABG pH 7.52 H 7.42 D ABG pCO2 41 59 H D ABG pO2 73 L 75 L ABG HCO3 34 H 38 H ABG O2 Saturation 96 96 ABG Base Excess 10 H 12 H VBG pH 7.41 VBG pCO2 48 VBG pO2 39 VBG Base Excess 4 H Assessment & Plan Problem List (1) Stroke-like symptom: Status: Acute Assessment and plan: his Symptoms have resolved and no focal deficit noted. (2) Sleep apnea in adult: Status: Chronic Assessment and plan: need objective in house sleep study to confirm the diagnosis so that he can officially get CPAP and accessories. (3) Hypoxia: Status: Chronic Assessment and plan: waiting for home oxygen approval from his insurance (4) Heart failure: Status: Chronic Assessment and plan: continue current mgt as per cardiac recs
[2024-12-31] MEDS: guaiFENesin SYRUP 200 MG/10 ML UDC PO ×2 (05:58→21:18)
[2024-12-31 06:17] LABS: Basophils # (Auto) 0.0 Thou/mm3 (0.0-0.2); Basophils % (Auto) 1 % (0-2.5); Eosinophils # (Auto) 0.2 Thou/mm3 (0.0-0.5); Eosinophils % (Auto) 4 % (0-10); Hematocrit 33.8 % (41.0-53.0); Hemoglobin 10.5 g/dL (13.5-16.0); Immature Granulocytes Auto 0.01 Thou/mm3 (0.00-0.00); Lymphocytes # (Auto) 1.3 Thou/mm3 (1.0-4.8); Lymphocytes % (Auto) 26 % (10-50); Mean Corpuscular HGB Conc 31.1 g/dl (31.0-37.0); Mean Corpuscular Hemoglobin 27.6 pg (25.0-35.0); Mean Corpuscular Volume 89 fL (80-100); Monocytes # (Auto) 0.6 Thou/mm3 (0.0-0.8); Monocytes % (Auto) 12 % (0-12); Neutrophils # (Auto) 2.9 Thou/mm3 (1.8-7.7); Neutrophils % (Auto) 58 % (37-80); Nucleated Red Blood Cell # 0.00 Thou/mm3 (0.00-0.00); Nucleated Red Blood Cell % 0 /100 WBC (0); Platelet Count 193 Thou/mm3 (140-440); RDW Standard Deviation 52.2 fL (35.1-43.9); Red Blood Count 3.80 Miln/mm3 (4.50-5.90); White Blood Count 5.1 Thou/mm3 (3.8-10.6)
[2024-12-31 06:42] LABS: Alanine Aminotransferase 20 U/L (10-49); Albumin, Serum 3.4 gm/dL (3.4-4.8); Albumin/Globulin Ratio 0.7 (1.2-2.2); Alkaline Phosphatase 86 U/L (46-116); Anion Gap 11 (7-16); Aspartate Amino Transferase 22 U/L (0-34); BUN/Creatinine Ratio 15 Ratio (12-20); Bilirubin,Total 0.6 mg/dL (0.3-1.2); Blood Urea Nitrogen 15 mg/dL (9-23); Calcium 9.3 mg/dL (8.3-10.6); Calcium (Corrected) 9.8 mg/dL (8.5-10.1); Carbon Dioxide 27.8 mMol/L (20.0-31.0); Chloride 103 mMol/L (98-107); Creatinine (Component) 1.0 mg/dL (0.6-1.3); Estimated Creatinine Clearance 69.9 mL/min (>60); Globulin 4.7 gm/dL (2.3-3.5); Glucose 157 mg/dL (74-106); Magnesium 2.1 mg/dL (1.6-2.6); Osmolality,Calculated 286 (275-295); Phosphorous 3.6 mg/dL (2.4-5.1); Potassium 3.9 mMol/L (3.4-5.1); Sodium 142 mMol/L (136-145); Total Protein 8.1 gm/dL (5.7-8.2); eGFR > 60 See Note
[2024-12-31] MEDS: TAMSULOSIN HCL 0.4 MG CAPSULE PO (08:14)
[2024-12-31] MEDS: PANTOPRAZOLE 40 MG TABLET PO (08:14)
[2024-12-31] MEDS: DAPAGLIFLOZIN PROPANEDIOL 5 MG TABLET 10 MG PO (08:14)
[2024-12-31] MEDS: POLYETHYLENE GLYCOL 17 GM PACKET PO (08:14)
[2024-12-31] MEDS: HEPARIN SOD INJ 5000 UNIT/ML VIAL SC ×2 (08:21→21:25)
--- NOTE | 2024-12-31 13:59 | ESDS_ITS ---
Planned Discharge Date 12/31/24 DS: Providers Provider Date of admission: 12/16/24 17:42 Primary care physician: Bao Stephens MD Admitting Provider: Mulu Cadet DO Attending Provider on Admission: Jona Wong MD Consults: 12/16/24 13:43 Consult to Neurology / Tele-Neurology Routine Comment: Consulting Provider: [facility] 12/16/24 18:22 Consult to Cardiology Routine Comment: CHF Consulting Provider: Rakan Lundberg 12/16/24 18:25 Consult to Neurology / Tele-Neurology Routine Comment: Consulting Provider: Dariusz Downing 12/18/24 11:06 Referral Speech Therapy Routine Comment: 12/22/24 13:29 Referral - Satellite Dish Installer Routine Service Needed for Transfer: Cardiovascular/Thoracic Surg Addl Comments:: Impella guided PCI 12/27/24 11:52 Referral Physical Therapy Routine Comment: Physician Instructions: Attending Provider on DC: Kev Oneal MD Discharging Provider: Kev Oneal MD DS: Diagnosis Problem List Completed Was Problem List Reviewed/Reconciled?: Yes Hospital Course Hospital Course Hospital course: A 79-year-old male with significant past medical history of hypertension, diabetes mellitus, asthma, intracranial bleed, using oxygen, 2 L at home as needed, HFrEF presented to the hospital with chief complaints of sudden onset headache followed by generalized weakness on the day. Admitted for ground-level fall, syncope versus stroke, and CHF exacerbation. Workup for stroke was negative (based on findings below). He was followed by neurology. Symptoms resolved shortly. He continued on BiPAP and aggressive diuresis for CHF exacerbation. In interim he had an episode of hypoxia while on BiPAP, secondary to aspiration, requiring ICU admission and intubation. He was subsequently extubated successfully. He continued a course of ANTIBIOTICS for aspiration pneumonia. 24-hour blood, urine and sputum culture showed no growth. Cardiology was following, echocardiogram showed significant EF reduction (15- 20%). Cardiology recommended left heart cath to evaluate for ischemic causes of cardiomyopathy. However, family initially requested lateral transfer for tertiary center. Attempts at transferring to multiple facilities was unsuccessful. Eventually, family elected to proceed with left heart cath with our in-house tumbler dyeing machine operator. Left heart cath showed nonischemic cardiomyopathy. Cardiology recommended aggressive management with GDMT, which was initiated here in the hospital. He was evaluated after cath by physical therapy, and patient will need home health PT/OT after discharge. He still requires 2-3 L home oxygen, which is baseline for him. However, his (Monica) stated that his PCP has discontinued oxygen. Currently he does not have oxygen at home. [employer] has been working on outpatient oxygen supplement, however has been unable to find a company that accept his insurance. Patient and family has been adamant on discharge, and we highly advised against leaving home without oxygen, which is unsafe in his condition. We have provided additional options including: SNF placement, paying [id number] for oxygen, or delaying discharge until an oxygen. Our social working is actively working on finding an oxygen supplier that accept his insurance. We have provided a list of oxygen providers for , and she is currently in the process of reaching out to different suppliers. IMAGE FINDINGS: * Head CT showed no acute pathology. * Brain MRI showed no acute pathology, but positive for prominent microvascular white matter changes. * CT cervical spine showed moderate disc degeneration C5-C6, no acute cervical fracture. * CXR showed moderate heart failure, no acute fracture or pneumonia. * Lumbar spine x-ray showed no acute lumbar fracture. * Abdominal x-ray showed large amount of stool throughout the colon. * Head CT and head/neck CTA showed no acute pathology. * EKG showed sinus rhythm with first-degree block, no acute ST changes. * Echocardiogram shows moderate to severe LV enlargement with severely reduced systolic function (EF 15?20%) and mild RV dilation with normal function. The AV is moderately thickened and calcified without significant stenosis (Vmax 2.1 m/s), though severity may be underestimated. There is trace AI, mild to moderate MR with leaflet thickening and calcification, trace to mild TR, severe LA dilation, mild to moderate RA enlargement, and a dilated IVC with reduced inspiratory collapse, suggesting elevated right-sided pressures. PATIENT INSTRUCTIONS: * Follow-up with PCP within 1-2 weeks of discharge. * Follow-up with cardiology, Dr. Lundberg, within 1 weeks of discharge. * Continue using oxygen as needed for shortness of breath. * Continue taking LASIX 20 mg daily (DOSE ADJUSTED). * Continue taking ATORVASTATIN 20 mg daily (NEW). * Continue taking METOPROLOL SUCCINATE 12.5 mg (half of 25 mg tablet) daily (DOSE ADJUSTED). * Unable to start ENTRESTO given low blood pressure. Discuss with PCP/Cardiology regarding resuming. * Recommended to continue to use BiPAP at night. * Avoid lift more than 5 lbs for the next 7-10 days. * Return to Emergency Room if symptoms persist, worsen, or new symptoms develop. * Continue taking medications as prescribed below. 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 Aruna Moe, PGY II This document was transcribed using voice recognition technology. Minor inaccuracies may be present. Time Spent with Patient Time attestation: Total time spent providing and/or coordinating discharge services: Time spent: Greater than 30 minutes Quality: Stroke Pt Provided Written Stroke Discharge Instructions: No Exam Vital Signs Temp Pulse Resp BP Pulse Ox O2 Del Method O2 Flow Rate 98.6 F 95 22 H 88/65 L 99 Nasal Cannula 2 12/31/24 12:12/31/24 12:12/31/24 12:12/31/24 12:12/31/24 12:12/31/24 12:00 12/31/24 12:00 FiO2 30 12/30/24 16:00 Narrative Exam General: Awake. HEENT: Normocephalic, atraumatic, mucous membranes moist. Heart: Regular rate and rhythm, no murmurs. Lungs: CTAB, no w/r/r Abdomen: Soft, nondistended, nontender, positive bowel sounds. ?No guarding or rebound tenderness. Neurologic: Alert and oriented x3, no gross neurological deficit, and patient able to move all 4 extremities. Extremities: No edema. Skin: No rash or ecchymoses. Discharge Plan Plan Patient Disposition: Home w/HOME HEALTH Patient condition on transfer: Stable Care Plan Goals: * Follow-up with PCP within 1-2 weeks of discharge. * Follow-up with cardiology, Dr. Lundberg, within 1 weeks of discharge. * Continue using oxygen as needed for shortness of breath. * Continue taking LASIX 20 mg daily (DOSE ADJUSTED). * Continue taking ATORVASTATIN 20 mg daily (NEW). * Continue taking METOPROLOL SUCCINATE 12.5 mg (half of 25 mg tablet) daily (DOSE ADJUSTED). * Unable to start ENTRESTO given low blood pressure. Discuss with PCP/Cardiology regarding resuming. * Recommended to continue to use BiPAP at night. * Avoid lift more than 5 lbs for the next 7-10 days. * Return to Emergency Room if symptoms persist, worsen, or new symptoms develop. * Continue taking medications as prescribed below. Prescriptions/Referrals Prescriptions/Med Rec: New metoprolol succinate 25 mg Tablet Extended Release 24 Hr 12.5 mg PO QDAY Qty: 30 0RF simvastatin 20 mg tablet 20 mg PO QDAY Qty: 30 0RF furosemide [Lasix] 20 mg tablet 20 mg PO QDAY Qty: 30 0RF Continued ropinirole 1 mg tablet 1 mg PO .COMPLEX Patient Comments: HS Rx Instructions: 1 mg orally 1-3 hours before bedtime; tamsulosin 0.4 mg capsule 0.4 mg PO Q24H finasteride 5 mg tablet 5 mg PO QDAY Patient Comments: TAKE 1 TABLET BY MOUTH EVERY DAY FOR 30 DAYS sucralfate 1 gram tablet 1 g PO Q12H Patient Comments: TAKE 1 TABLET BY MOUTH TWICE A DAY ON EMPTY STOMACH Discontinued simvastatin 20 mg tablet 20 mg PO QDAY Patient Comments: HS dapagliflozin propanediol 5 mg Tablet 5 mg PO QAM Qty: 30 0RF furosemide 40 mg tablet 40 mg PO QDAY Patient Comments: 40 MG ORALLY DAILY FOR 30 DAYS metoprolol succinate 25 mg tablet extended release 24 hr 25 mg PO QDAY Patient Comments: TAKE 1 TABLET BY MOUTH EVERY DAY Referrals: Bao Stephens MD [Primary Care Provider] - Patient/Caregiver Discharge Instructions Education Materials: Chest and Lung Problems, Coping with Heart Failure, Traveling with Oxygen, Using an Oxygen Tank at Home, Heart Failure, Overview of Sleep Problems Print Language: Sudanese Stand Alone Forms: Keiko Award Info., Patient Portal Info Letter Discharge Order Discharge Orders: Discharge (Routine); Ordered 12/29/24 Ordered By: Kev Oneal Quality Discharge Quality Measures VTE prophylaxis
--- NOTE | 2024-12-31 14:00 | PD.IMPROG ---
Documentation for date of: 12/31/24 Subjective Subjective Interval history: Patient seen and examined at bedside. No new complaints. No chest pain shortness of breath and getting better. Patient is awake alert but is intermittently confused. Left heart cardiac catheterization showed only mild CAD indicating nonischemic cardiomyopathy and was recommended continue goal-directed medical therapy for now along with aggressive medical management for the mild CAD. His blood pressure continues to be low and recommended to decrease Bumex to 0.5 mg once daily and also to hold metoprolol for now. Unfortunately goal-directed medical therapy could not be started for the patient because of the low blood pressure and will need to start it once patient is ambulatory and his blood pressure improves. Recommend or encourage patient to sit on the chair and ambulate as much as he can with the help of physical therapy. Patient, again instructed about sitting up straight for at least 2 hours after each meal to avoid any kind of aspiration. Patient will be discharged on Wednesday once his oxygen set up is confirmed by the primary team. Exam Vital Signs Temp Pulse Resp BP Pulse Ox O2 Del Method O2 Flow Rate 97.4 F 85 14 116/72 99 Nasal Cannula 3 01/01/25 04:00 01/01/25 04:15 01/01/25 04:00 01/01/25 04:00 01/01/25 04:00 01/01/25 04:00 01/01/25 00:00 FiO2 30 12/30/24 16:00 Narrative Exam General: Alert and oriented x3. In no acute distress. Eyes: Pupils are equal and reactive to light bilaterally. HEENT: Atraumatic, normocephalic. No JVD noted. Mucosa moist. Cardiovascular: Normal S1 and S2. Normal rate and regular rhythm. 2/6 systolic murmurs appreciated. trace peripheral pitting edema noted. Respiratory: No respiratory distress. Lungs are clear to auscultation bilaterally. No wheezing or crackles heard. Abdomen: Soft, nontender, nondistended. Skin: No rash. Warm to touch. Musculoskeletal: No gross injuries. Able to move all 4 extremities. Neuro: Alert and oriented x3. No focal neuro deficits. Psych: Normal affect and mood Objective Labs 12/31/24 05:26 12/31/24 05:26 Labs: Laboratory Results - last 24 hr 12/31/24 05:26 WBC 5.1 RBC 3.80 L Hgb 10.5 L Hct 33.8 L MCV 89 MCH 27.6 MCHC 31.1 RDW Std Deviation 52.2 H Plt Count 193 D Neut % (Auto) 58 Lymph % (Auto) 26 [place] % (Auto) 12 Eos % (Auto) 4 Baso % (Auto) 1 Neut # (Auto) 2.9 Lymph # (Auto) 1.3 [place] # (Auto) 0.6 Eos # (Auto) 0.2 Baso # (Auto) 0.0 Immature Gran # (Auto) 0.01 H Absolute Nucleated RBC 0.00 Immature Gran % 0 Nucleated RBC % 0 Sodium 142 Potassium 3.9 Chloride 103 Carbon Dioxide 27.8 Anion Gap 11 BUN 15 Creatinine 1.0 Estim Creat Clear Calc 69.9 eGFR > 60 BUN/Creatinine Ratio 15 Glucose 157 H Calculated Osmolality 286 Calcium 9.3 Corrected Calcium 9.8 Phosphorus 3.6 Magnesium 2.1 Total Bilirubin 0.6 AST 22 ALT 20 Alkaline Phosphatase 86 Total Protein 8.1 Albumin 3.4 Globulin 4.7 H Albumin/Globulin Ratio 0.7 L ABG Interpretation ABG results: 12/16/24 12/17/24 12/17/24 17:14 05:12 06:48 ABG pH 7.41 7.35 7.34 L ABG pCO2 38 47 49 H ABG pO2 49 L* 72 L D 170 H D ABG HCO3 24 26 27 H ABG O2 Saturation 82 L 94 100 H ABG Base Excess 0 0 0 VBG pH VBG pCO2 VBG pO2 VBG Base Excess 12/21/24 12/22/24 12/24/24 09:30 09:06 22:07 ABG pH 7.52 H 7.42 D ABG pCO2 41 59 H D ABG pO2 73 L 75 L ABG HCO3 34 H 38 H ABG O2 Saturation 96 96 ABG Base Excess 10 H 12 H VBG pH 7.41 VBG pCO2 48 VBG pO2 39 VBG Base Excess 4 H Assessment & Plan A&P Narrative A 79-year-old male patient with a past medical history of severe systolic congestive heart failure with an EF of 25 to 30%, old left bundle branch block, 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 Initial workup did show that the patient was hypoxic with saturation of 90% on 2 L nasal cannula. Labs showed only mildly elevated troponins at 0.05 and previous was 0.06 during last admission. EKG showed normal sinus rhythm with left bundle branch block and no acute ST-T changes history of ischemia. Chest x-ray with moderate vascular congestion. Head CT, CTA head and neck was negative. Cervical spine CT showed degenerative disc disease. UA was negative. Labs showed mild anemia at 10.5, WBC normal at 7.3 and platelets of 127. Potassium was low at 3.2 BUN of 11 creatinine of 1.0 and glucose of 167. After admission patient did continue to be hypoxic and had a vomitus when he was placed on the BiPAP mask because of his acute hypoxic respiratory failure. There was possible aspiration pneumonia and patient continued to desaturate and he was intubated and started on mechanical ventilation and transferred to the ICU. Normal IV antibiotics for the pneumonia. Patient also fluid overloaded and was started on diuresis. Assessment and plan: 1. Acute hypoxic respiratory failure on mechanical ventilation mostly secondary to aspiration pneumonia as well as CHF exacerbation 2. Altered mental status with headaches, generalized weakness-ruled out stroke 3. Fall secondary to the weakness 4. Acute on chronic severe systolic congestive heart failure with an last known EF of 25 to 30% in July 2023 5. Left bundle branch block 6. History of CVA secondary to intraventricular hemorrhage after fall in February [address] [facility] 7. Morbid obesity 8. Essential hypertension . Diabetes mellitus type 2 10. Chronic anemia 11. Hyperlipidemia 12. Obstructive sleep apnea on CPAP 13. BPH 14. Restless leg syndrome Patient known to me from the previous hospitalization in July 2024 when he was initially diagnosed with severe systolic CHF with an EF of 25 to 30%. Patient was in CHF exacerbation along with pneumonia and acute hypoxic respiratory failure which was aggressively treated and was discharged home on 08/05/2024. Patient did follow-up with me in clinic on 08/08/2024 and was recommended a nuclear stress test given his new systolic congestive heart failure which was completed on 08/16/2024. Lexiscan stress test did show evidence of stress-induced ischemia in the apical as well as mid to apical anterior segments. LVEF was also low at 32%. Patient was recommended left heart cardiac catheterization but never followed up with the office and was adamant that his heart's was in good condition and does not need any further procedures. Patient presented with headache, generalized weakness as well as a fall. CTA head and neck, head CT were negative for any acute stroke. Neurology is following. Fall appears to be mechanical in review of the chart shows that there was no evidence of any syncope or loss of consciousness on admission. Patient could not get up because of the weakness but was awake alert. Acute hypoxic respiratory failure and on mechanical ventilation at the present point of time mostly secondary to the aspiration pneumonia and started on IV antibiotics by the critical care team which will be continued. Also patient does have CHF exacerbation and recommend to continue the diuresis for the same. Acute on chronic severe systolic congestive heart failure exacerbation. Echo from July 2024 showed Normal left ventricular size, wall thickness. Severely reduced LV function LVEF estimated at 25-30 %. RV is normal in size and systolic function. Could not estimate RVSP as TR not visualiozed well. Moderate AV thickening with mild calcification. AV sclerosis without stenosis. V max 2.1 m/s. Possibly underestimated due to low EF. MIld thickening and clacification of mitral leafts too. Mild to moderate MR. Mild LA dilataion. IVC dilated but with > 50% collapse. Echo - 12/20/24 - Dilated cardiomyopathy. Moderate to severe LV enlargement. Severely reduced LV function with an LVEF of 15 to 20%. Mildly dilated RV with normal systolic function. Could not estimate RVSP as TR not visualiozed well. Moderate AV thickening with moderate calcification. Moderate AV sclerosis without stenosis based on V max 2.1 m/s. Possibly underestimated due to the low EF and could be mild on moderate . Trace AI. MIld thickening and clacification of mitral leafts too. Mild to moderate MR. Trace to mild TR. Severe LA dilatation and mild to moderate RA dilatation. IVC dilated with <50% collapse during inspiration. No pericardial effusion. Left pleural effusion noted. Recommend to continue aggressive diuresis with Lasix 40 mg IV twice daily for now. Strict input output Daily weights and 2 g sodium diet. Fluid restriction to 15 mL/day. [place] potassium greater than 4 and magnesium greater than 2.0 at all times. Will continue to monitor renal function closely and the BUN/creatinine normal now. His systolic congestive heart failure etiology was not determined hence was seen in the clinic as noted above and had an NST which did show evidence of stress-induced ischemia with decreased uptake in the apical as well as mid to apical anterior segments. Patient was recommended left heart cardiac catheterization. Did not follow-up with any appointments as outpatient in spite of multiple calls from my office, felt that his heart was in good condition. Discussed in detail with the and patient apparently had procedure through his groin at [facility] in February 2024 and was apparently normal. Patient not sure if the patient had a carotid angiogram or intervention of the intraventricular hemorrhage which he had at that point of time or he had a cardiac catheterization. wanted us to wait for the operative reports from the outside hospital. Recommend primary team to obtain all operative reports from his previous hospitalization in February [address] [facility] and to find out if the patient had any cardiac catheterization procedure. Troponins only minimally elevated at 0.05. EKG also did not show any acute ST-T changes history of active ischemia. Patient did not have any complaints of chest pain or chest pressure prior to the admission. Patient will benefit from left and right heart cardiac catheterization once he is hemodynamically stable after active treatment of the aspiration pneumonia as well as CHF exacerbation. 12/22/2024: Patient was difficult to arouse as per the primary team and was significantly altered patient had an ABG done which showed a PCO2 of 59 and a PO2 of 75 and patient was again started on BiPAP. Patient now has acute hypoxic as well as hypercapnic respiratory failure. Unable to follow any commands. Patient overall hemodynamically stable and has been diuresing well with Bumex 1 mg IV twice daily. Renal function appears to be stable. Plan was for her to perform a left and right heart cardiac catheterization for the patient to continue with his ischemic workup as well as his CHF. Unfortunately patient has been confused since yesterday and his respiratory status has not been stable and is unable to lie down flat on the bed. Patient possibly has CAD with multivessel disease given his worsening EF and recent positive stress test and less likely nonischemic cardiomyopathy. Given his severely low ejection fraction patient will also need complex PCI with stent by [facility] given his low ejection fraction of 15%. This institution does not have [facility] or other MCS available to perform the complex PCI and it would be appropriate to transfer the patient to a higher level of care. Also patient does have a history of hemorrhagic CVA with procedures performed at [facility] previously and we are unable to obtain any records until now. Continue with heparin drip along with IV diuresis for now along with BiPAP Discussed with the and also requested for higher level of care and she has requested for [facility] as he was previously admitted there in April 2024. 12/25/2024: Given his altered mental status per primary team again plan to repeat an MRI today. Patient with the symptoms better today and is much more awake as patient did use his BiPAP yesterday. Again there was a concern of questionable hemoptysis with some blood or clot. Hemoglobin is still stable around 10. Chest x-ray was repeated today and appears much improved from before there is still some mild congestion and will continue with diuresis. Recommended to continue BiPAP at night. Repeat echo was performed today on 12/25/2024 and exactly similar as the previous echo and no change from admission on 12/20/2024. EF is still less than 20% and patient is awaiting transfer to [facility]. Patient apparently a has been using his CPAP machine at home but never has been officially diagnosed with CHEYANNE. Patient appears to be adequately diuresed at the present point of time and kidney function continues to be stable with Bumex 1 mg IV twice daily. Bicarbonate was slightly high and was given Diamox 500 mg x 1 now bicarbonate is 30. As discussed previously patient is awaiting transfer to higher level of care [facility] at the request of the . 12/26/2024: The patient was doing much better today. He was much alert and oriented than yesterday. He reported doing well, and his reported the same. Vitals were fairly stable saturating 99% on 3 L of NC. MRI brain done yesterday was unremarkable for any acute changes. He was negative by about 2 L in last 24 hours. The plan is to transfer the patient to higher level of care at [facility] at the request of his , for possible percutaneous intervention, but if the transfer is not done by today evening, we will proceed with cardiac cath tomorrow morning here in [facility]. In the meantime, we will continue with Bumex 1 mg IV twice daily, and continue to maintain potassium and magnesium level greater than 4 and 2 respectively. Recommended to continue the patient on BiPAP overnight, and keep the patient n.p.o. after midnight. Cardiac Cath on 12/27/2024 revealed LHC findings: 1. Left ventricular ejection fraction was severely 20-25% without any regional wall motion abnormalities. LVEDP was normal at 16 mmHg. There was no significant transvalvular aortic gradient. 2. Right dominant circulation. Left main artery is a large-caliber vessel with mild 20-30% calcified stenosis. 3. LAD is a large sized artery with calcified 20-30% stenosis of mid segment. A medium size diagonal and does not show any significant disease. 4. LCx is a large sized artery with 20-30% stenosis in mid segment. A medium OM1 and small OM2 without any significant disease. 5. RCA is a large artery with 20% stenosis of proximal segment. Medium RPDA and RPL without any significant disease. RHC findings: Mean right atrial pressure was 1 mmHg. Right atrial pressure was 3/3 mmHg. Pulmonary artery pressure was 32/28 mmHg with a mean of 27 mmHg. Mean pulmonary capillary wedge pressure was 13 mmHg. TPG was 14 mmHg Pulmonary artery PA saturation was 59.9%.? Arterial saturation was 92.5% on room air. Cardiac output was 5.0 L/min and cardiac index was normal at 2.33 L/min/m? Patient recommended to follow-up with me in the office within 7 days after discharge. Summary/findings: 1. Non ischemic cardiomyopathy: LHC showed mild CAD with 20-30% calcified stenosis of Left main and mid LAD, 20-30% stenosis of mid LCx and proximal RCA. Rest of the coronaries without any angiographically significant obstruction and few luminal irregularities. 2. LVEF was severely low at 20-25%. 3. LVEDP was 14 mmHg. 4. Normal right heart pressures. Normal cardiac output was 5.0 L/min and normal cardiac index was at 2.33 L/min/m? Recommendations: 1. Recommend aggressive medical management and aggressive risk factor modification - Will need goal-directed medical therapy with metoprolol XL, Entresto and eventually spironolactone if BP permisssible. Can decrease Bumex to 0.5 mg once daily orally or Lasix 20 Mg p.o. once daily. 2. Patient recommended not to lift more than 5 lbs for the next 7-10 days and follow up with me in my office in 7 days. Management of rest of the medical conditions as per primary team and other consultants. Thank you for the consult and allowing me to participate in the care of the patient. Cardiology will continue to follow. Rakan Lundberg M.D. Interventional Cardiology Time Spent With Patient Time: Total time spent is greater than 50% in coordination of care (as documented) at patient's floor/unit and/or counseling patient:
[2024-12-31] MEDS: INSULIN LISPRO (AdmeLOG) 1 UNIT/0.01 ML UNIT SC ×2 (16:31→21:44)
--- NOTE | 2024-12-31 18:10 | PC.NURSE ---
Patient to room via w/c from Tele in stable condition, A&Ox4.
[2024-12-31] MEDS: ATORVASTATIN CALCIUM 20 MG TABLET 40 MG PO (21:17)
[2024-12-31] MEDS: MELATONIN 3 MG TABLET PO (21:18)
[2024-12-31] MEDS: Milk Of Magnesia Susp 30 ML UDC PO (21:41)
[2024-12-31] MEDS: INSULIN GLARGINE (Lantus) 5 UNIT/0.05 ML (PER 5 UNITS) 6 UNIT SC (21:44)
--- NOTE | 2024-12-31 23:58 | PD.NEUROPROG ---
Documentation for date of: 12/31/24 Subjective Subjective Interval history: Seen in telemetry today at the bedside, no new symptoms reported. Waiting for home oxygen set up. Exam - Neurology Vital Signs Temp Pulse Resp BP Pulse Ox O2 Del Method O2 Flow Rate 97.7 F 91 18 110/78 94 L Nasal Cannula 2 12/31/24 20:00 12/31/24 20:00 12/31/24 20:00 12/31/24 20:00 12/31/24 20:00 12/31/24 20:00 12/31/24 20:00 FiO2 30 12/30/24 16:00 Narrative Exam GENERAL APPEARANCE: Well hydrated, well-nourished male in NAD HEENT: Normocephalic, atraumatic, extraocular movements intact. Pupils: Equal reacting to light. NECK: Supple, no JVD or bruits. CARDIOVASULAR: Heart: S1, S2 heard, regular without S3-S4 or murmur no rubs or gallops. LUNGS/CHEST: Clear to auscultation bilaterally. No rails, rhonchi, or wheezing. Normal inspection. ABDOMEN: Soft, nontender, with normal bowel sounds. No pulsatile masses. No rebound, rigidity, or guarding. Normal inspection and palpation. EXTREMITIES: Normal inspection and palpation. No edema, clubbing or cyanosis. SKIN: Warm and dry without rashes. Normal inspection. MUSCULOSKELETAL: No cervical , thoracic, lumbar or midline bony tenderness. Normal inspection. NEURO: aao2, speech and lang: normal no focal deficit noted. No signs of meningeal irritation noted. PSYCHIATRIC: Normal mood and affect. Objective Labs 01/01/25 04:34 12/31/24 05:26 Labs: Laboratory Results - last 24 hr 12/31/24 05:26 WBC 5.1 RBC 3.80 L Hgb 10.5 L Hct 33.8 L MCV 89 MCH 27.6 MCHC 31.1 RDW Std Deviation 52.2 H Plt Count 193 D Neut % (Auto) 58 Lymph % (Auto) 26 [place] % (Auto) 12 Eos % (Auto) 4 Baso % (Auto) 1 Neut # (Auto) 2.9 Lymph # (Auto) 1.3 [place] # (Auto) 0.6 Eos # (Auto) 0.2 Baso # (Auto) 0.0 Immature Gran # (Auto) 0.01 H Absolute Nucleated RBC 0.00 Immature Gran % 0 Nucleated RBC % 0 Sodium 142 Potassium 3.9 Chloride 103 Carbon Dioxide 27.8 Anion Gap 11 BUN 15 Creatinine 1.0 Estim Creat Clear Calc 69.9 eGFR > 60 BUN/Creatinine Ratio 15 Glucose 157 H Calculated Osmolality 286 Calcium 9.3 Corrected Calcium 9.8 Phosphorus 3.6 Magnesium 2.1 Total Bilirubin 0.6 AST 22 ALT 20 Alkaline Phosphatase 86 Total Protein 8.1 Albumin 3.4 Globulin 4.7 H Albumin/Globulin Ratio 0.7 L ABG Interpretation ABG results: 12/16/24 12/17/24 12/17/24 17:14 05:12 06:48 ABG pH 7.41 7.35 7.34 L ABG pCO2 38 47 49 H ABG pO2 49 L* 72 L D 170 H D ABG HCO3 24 26 27 H ABG O2 Saturation 82 L 94 100 H ABG Base Excess 0 0 0 VBG pH VBG pCO2 VBG pO2 VBG Base Excess 12/21/24 12/22/24 12/24/24 09:30 09:06 22:07 ABG pH 7.52 H 7.42 D ABG pCO2 41 59 H D ABG pO2 73 L 75 L ABG HCO3 34 H 38 H ABG O2 Saturation 96 96 ABG Base Excess 10 H 12 H VBG pH 7.41 VBG pCO2 48 VBG pO2 39 VBG Base Excess 4 H Assessment & Plan Assessment and plan (1) Stroke-like symptom: Status: Resolved Assessment and plan: no focal deficit on exam 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 No acute infarction noted. PT eval. when stable. (2) Sleep apnea in adult: Status: Chronic Assessment and plan: uses CPAP even though it is not officially diagnosed. Will get a sleep study as an outpatient to confirm the diagnosis so he can get CPAP and accessories (3) Hypoxia: Status: Chronic Assessment and plan: Waiting for home oxygen set up after it gets approved by his insurance (4) Heart failure: Status: Chronic Assessment and plan: Repeat echo was performed today on 12/25/2024 and exactly similar as the previous echo and no change from admission on 12/20/2024. Continue with the current management as per cardiology recommendation (5) Community acquired pneumonia: Status: Resolved Assessment and plan: Treated with IV antibiotics and bronchodilators
[2025-01-01] VITALS (15 sets, daily range): BP systolic 90–116; BP diastolic 64–83; PULSE 72–98; RESP 14–21; TEMP 36.1–36.6; O2SAT 92–99
[2025-01-01] MEDS: ACETAMINOPHEN 325 MG TABLET 650 MG PO (01:51)
[2025-01-01 06:17] LABS: Basophils # (Auto) 0.0 Thou/mm3 (0.0-0.2); Basophils % (Auto) 0 % (0-2.5); Eosinophils # (Auto) 0.2 Thou/mm3 (0.0-0.5); Eosinophils % (Auto) 4 % (0-10); Hematocrit 35.9 % (41.0-53.0); Hemoglobin 10.6 g/dL (13.5-16.0); Immature Granulocytes Auto 0.01 Thou/mm3 (0.00-0.00); Lymphocytes # (Auto) 1.4 Thou/mm3 (1.0-4.8); Lymphocytes % (Auto) 29 % (10-50); Mean Corpuscular HGB Conc 29.5 g/dl (31.0-37.0); Mean Corpuscular Hemoglobin 27.3 pg (25.0-35.0); Mean Corpuscular Volume 93 fL (80-100); Monocytes # (Auto) 0.5 Thou/mm3 (0.0-0.8); Monocytes % (Auto) 10 % (0-12); Neutrophils # (Auto) 2.8 Thou/mm3 (1.8-7.7); Neutrophils % (Auto) 57 % (37-80); Nucleated Red Blood Cell # 0.00 Thou/mm3 (0.00-0.00); Nucleated Red Blood Cell % 0 /100 WBC (0); Platelet Count 151 Thou/mm3 (140-440); RDW Standard Deviation 54.9 fL (35.1-43.9); Red Blood Count 3.88 Miln/mm3 (4.50-5.90); White Blood Count 4.8 Thou/mm3 (3.8-10.6)
[2025-01-01 06:46] LABS: Alanine Aminotransferase 20 U/L (10-49); Albumin, Serum 3.5 gm/dL (3.4-4.8); Albumin/Globulin Ratio 0.7 (1.2-2.2); Alkaline Phosphatase 87 U/L (46-116); Anion Gap 11 (7-16); Aspartate Amino Transferase 20 U/L (0-34); BUN/Creatinine Ratio 15 Ratio (12-20); Bilirubin,Total 0.8 mg/dL (0.3-1.2); Blood Urea Nitrogen 15 mg/dL (9-23); Calcium 9.6 mg/dL (8.3-10.6); Calcium (Corrected) 10.0 mg/dL (8.5-10.1); Carbon Dioxide 28.2 mMol/L (20.0-31.0); Chloride 104 mMol/L (98-107); Creatinine (Component) 1.0 mg/dL (0.6-1.3); Estimated Creatinine Clearance 70.6 mL/min (>60); Globulin 4.9 gm/dL (2.3-3.5); Glucose 136 mg/dL (74-106); Magnesium 2.4 mg/dL (1.6-2.6); Osmolality,Calculated 287 (275-295); Phosphorous 4.2 mg/dL (2.4-5.1); Potassium 4.4 mMol/L (3.4-5.1); Sodium 143 mMol/L (136-145); Total Protein 8.4 gm/dL (5.7-8.2); eGFR > 60 See Note
[2025-01-01] MEDS: METOPROLOL SUCCINATE XL 25 MG TABCR 12.5 MG PO (08:37)
[2025-01-01] MEDS: PANTOPRAZOLE 40 MG TABLET PO (08:37)
[2025-01-01] MEDS: POLYETHYLENE GLYCOL 17 GM PACKET PO (08:38)
[2025-01-01] MEDS: HEPARIN SOD INJ 5000 UNIT/ML VIAL SC ×2 (08:38→20:48)
[2025-01-01] MEDS: TAMSULOSIN HCL 0.4 MG CAPSULE PO (08:38)
--- NOTE | 2025-01-01 09:08 | PC.SS ---
SS received a call from pt Monica Chicas [phone], who stated she is at bedside. SS went and met with her at bs, Monica reports she received mail from her neighbor who was out of town, for Mr. Tong, which had a letter from [employer], stating the new preferred DME company for [employer] members is [employer] [phone].
--- NOTE | 2025-01-01 09:50 | PC.SS ---
SS spoke to Lacie with [employer], who requested DME and clinicals be sent to , O2 testing to be within the last 24 hrs. SS contacted [employer] and inquired if a new O2 test can be completed and documented so i can submit fax to DME company.
--- NOTE | 2025-01-01 09:57 | PC.SS ---
TRILOGY MACHINE [J96.01 Chronic Respiratory Failure] The patient needs a mechanical ventilator due to chronic respiratory failure due to severe ARF. The patient needs to keep tidal volume and prevent CO2 retention. Ventilator is required to improve pulmonary status. Without this respiratory support, in home could lead to serious harm or . BiPAP therapy failed. OXYGEN To secure a safe discharge for the pt home oxygen is needed. The pt is mobile within the home and will need continuous, portable O2 via nasal cannula. Pt is discharged in a chronic stable state and has been treated optimally and has other respiratory needs.? Oxygen has been ordered due to acute respiratory failure.
--- NOTE | 2025-01-01 11:15 | PC.SS ---
SS spoke to [employer] in regards to O2 testing, she stated note will be updated momentarily
--- NOTE | 2025-01-01 11:36 | PC.NURSE ---
Patient lying in bed O2@2L oxygen saturation 94%, removed oxygen, had patient sit at side of bed and ambulated approximately 20ft, oxygenation 87% on RA, patient returned to bed, applied O2@2L after a few mins oxygenation 94%.
--- NOTE | 2025-01-01 12:00 | PC.NURSE ---
Addendum entered by CHERELLE CORTÉS RN 01/01/25 12:10: MD at bedside. Original Note: Patient persistent on having more fluids, educated on fluid restrictions, patient continue to refuse.
--- NOTE | 2025-01-01 12:25 | PC.SS ---
O2 note in, SS submitted DME order to [employer] [phone] via [employer] Fax.
--- NOTE | 2025-01-01 13:45 | PC.SS ---
SS contacted [facility] [employer] [facility] [employer] [facility] [phone] to follow up with DME order, per Marlee they have not received a fax for this pt and it can take 24hrs to receive. SS inquired if they would be calling SS back when order is received as pt is ready for DC, Marlee stated yes they will call SS back.
--- NOTE | 2025-01-01 15:19 | PD.RESPRO ---
Documentation for date of: 01/01/25 Subjective Subjective Interval history: Patient seen and examined at bedside. No new complaints. No chest pain shortness of breath and getting better. Patient is awake alert but is intermittently confused as usual. Left heart cardiac catheterization showed only mild CAD indicating nonischemic cardiomyopathy and was recommended continue goal-directed medical therapy for now along with aggressive medical management for the mild CAD. His blood pressure continues to be low and recommended to decrease Bumex to 0.5 mg once daily and also to hold metoprolol for now. Unfortunately goal-directed medical therapy could not be started for the patient because of the low blood pressure and will need to start it once patient is ambulatory and his blood pressure improves. Recommend or encourage patient to sit on the chair and ambulate as much as he can with the help of physical therapy. Patient, again instructed about sitting up straight for at least 2 hours after each meal to avoid any kind of aspiration. Patient pending discharge after oxygen set up is confirmed by the primary team. Exam Vital Signs Temp Pulse Resp BP Pulse Ox O2 Del Method O2 Flow Rate 97.1 F 86 19 107/71 99 Nasal Cannula 3 01/01/25 12:00 01/01/25 12:43 01/01/25 12:00 01/01/25 12:00 01/01/25 12:00 01/01/25 12:00 01/01/25 12:00 FiO2 30 12/30/24 16:00 Narrative Exam General: Alert and oriented x3. In no acute distress. Eyes: Pupils are equal and reactive to light bilaterally. HEENT: Atraumatic, normocephalic. No JVD noted. Mucosa moist. Cardiovascular: Normal S1 and S2. Normal rate and regular rhythm. 2/6 systolic murmurs appreciated. trace peripheral pitting edema noted. Respiratory: No respiratory distress. Lungs are clear to auscultation bilaterally. No wheezing or crackles heard. Abdomen: Soft, nontender, nondistended. Skin: No rash. Warm to touch. Musculoskeletal: No gross injuries. Able to move all 4 extremities. Neuro: Alert and oriented x3. No focal neuro deficits. Psych: Normal affect and mood Objective Labs 01/01/25 04:34 01/01/25 04:34 Labs: Laboratory Results - last 24 hr 01/01/25 04:34 WBC 4.8 RBC 3.88 L Hgb 10.6 L Hct 35.9 L MCV 93 MCH 27.3 MCHC 29.5 L RDW Std Deviation 54.9 H Plt Count 151 D Neut % (Auto) 57 Lymph % (Auto) 29 [place] % (Auto) 10 Eos % (Auto) 4 Baso % (Auto) 0 Neut # (Auto) 2.8 Lymph # (Auto) 1.4 [place] # (Auto) 0.5 Eos # (Auto) 0.2 Baso # (Auto) 0.0 Immature Gran # (Auto) 0.01 H Absolute Nucleated RBC 0.00 Immature Gran % 0 Nucleated RBC % 0 Sodium 143 Potassium 4.4 D Chloride 104 Carbon Dioxide 28.2 Anion Gap 11 BUN 15 Creatinine 1.0 Estim Creat Clear Calc 70.6 eGFR > 60 BUN/Creatinine Ratio 15 Glucose 136 H Calculated Osmolality 287 Calcium 9.6 Corrected Calcium 10.0 Phosphorus 4.2 Magnesium 2.4 Total Bilirubin 0.8 AST 20 ALT 20 Alkaline Phosphatase 87 Total Protein 8.4 H Albumin 3.5 Globulin 4.9 H Albumin/Globulin Ratio 0.7 L ABG Interpretation ABG results: 12/16/24 12/17/24 12/17/24 17:14 05:12 06:48 ABG pH 7.41 7.35 7.34 L ABG pCO2 38 47 49 H ABG pO2 49 L* 72 L D 170 H D ABG HCO3 24 26 27 H ABG O2 Saturation 82 L 94 100 H ABG Base Excess 0 0 0 VBG pH VBG pCO2 VBG pO2 VBG Base Excess 12/21/24 12/22/24 12/24/24 09:30 09:06 22:07 ABG pH 7.52 H 7.42 D ABG pCO2 41 59 H D ABG pO2 73 L 75 L ABG HCO3 34 H 38 H ABG O2 Saturation 96 96 ABG Base Excess 10 H 12 H VBG pH 7.41 VBG pCO2 48 VBG pO2 39 VBG Base Excess 4 H Quality Measures Quality Measures VTE prophylaxis Advance care planning discussed with:: patient and spouse Assessment & Plan Assessment Current Active Medications: Generic Name Dose Route Start Last Admin Trade Name Freq PRN Reason Stop Dose Admin Acetaminophen 650 mg 12/17/24 06:35 01/01/25 01:51 Acetaminophen 325 Mg Tablet PO 01/15/25 17:41 650 mg Q6H PRN Administration Fever >100.3 Atorvastatin Calcium 40 mg 12/16/24 21:00 12/31/24 21:17 Atorvastatin Calcium 20 Mg Tablet PO 01/15/25 20:59 40 mg HS SHAZIA Administration Dextrose 50 ml 12/18/24 16:56 Dextrose 50%-Water Inj 50 Ml Syringe IV 01/17/25 16:55 Q15MIN PRN BG <50 OR BG <70 & pt unresponsive Furosemide 20 mg 12/30/24 09:00 01/01/25 08:38 Furosemide 20 Mg Tablet PO 01/29/25 08:59 20 mg QAM SHAZIA Administration Glucagon 1 mg 12/18/24 16:56 Glucagon Inj 1 Mg Vial IM Q15MIN PRN BG <70, and no IV access Guaifenesin 200 mg 12/19/24 17:00 01/01/25 11:36 Guaifenesin Syrup 200 Mg/10 Ml Udc PO 01/18/25 16:59 Not Given QID SHAZIA Protocol Heparin Sodium (Porcine) 5,000 unit 12/26/24 21:00 01/01/25 08:38 Heparin Sod Inj 5000 Unit/Ml Vial SC 01/09/25 20:59 5,000 unit BID SHAZIA Administration Insulin Glargine 6 unit 12/20/24 21:00 12/31/24 21:44 Insulin Glargine (Lantus) 5 Unit/0.05 Ml (Per 5 Units) SC 01/19/25 20:59 6 unit HS SHAZIA Administration Insulin Human Lispro 0 unit 12/20/24 11:30 01/01/25 11:35 Insulin Lispro (Admelog) 1 Unit/0.01 Ml Unit SC 01/19/25 11:29 Not Given ACHS SHAZIA Protocol Magnesium Hydroxide 30 ml 12/19/24 08:18 12/31/24 21:41 Milk Of Magnesia Susp 30 Ml Udc PO 01/18/25 08:17 30 ml QDAY PRN Administration CONSTIPATION Protocol Melatonin 3 mg 12/21/24 19:00 12/31/24 21:18 Melatonin 3 Mg Tablet PO 01/20/25 18:59 3 mg HS SHAZIA Administration Metoprolol Succinate 12.5 mg 12/22/24 12:45 01/01/25 08:37 Metoprolol Succinate Xl 25 Mg Tabcr PO 01/21/25 12:44 12.5 mg QDAY SHAZIA Administration Ondansetron HCl 4 mg 12/16/24 17:42 12/21/24 20:35 Ondansetron Inj 2 Mg/Ml Inj 2 Ml IVP 01/15/25 17:41 4 mg Q6H PRN Administration NAUSEA OR VOMITING Protocol Pantoprazole Sodium 40 mg 12/21/24 09:00 01/01/25 08:37 Pantoprazole 40 Mg Tablet PO 01/20/25 08:59 40 mg QDAY SHAZIA Administration Protocol Polyethylene Glycol 17 gm 12/21/24 09:00 01/01/25 08:38 Polyethylene Glycol 17 Gm Packet PO 01/20/25 08:59 17 gm QDAY SHAZIA Administration Ropinirole HCl 1 mg 12/24/24 19:00 12/31/24 18:52 Ropinirole Hcl 1 Mg Tablet PO 01/23/25 18:59 1 mg QDAY@1900 SHAZIA Administration Sennosides 1 tab 12/17/24 09:00 01/01/25 08:37 Senna Tablet PO 01/16/25 08:59 1 tab QDAY SHAZIA Administration Protocol Tamsulosin HCl 0.4 mg 12/17/24 09:00 01/01/25 08:38 Tamsulosin Hcl 0.4 Mg Capsule PO 01/16/25 08:59 0.4 mg QDAY SHAZIA Administration Plan A 79-year-old male patient with a past medical history of severe systolic congestive heart failure with an EF of 25 to 30%, old left bundle branch block, 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 Initial workup did show that the patient was hypoxic with saturation of 90% on 2 L nasal cannula. Labs showed only mildly elevated troponins at 0.05 and previous was 0.06 during last admission. EKG showed normal sinus rhythm with left bundle branch block and no acute ST-T changes history of ischemia. Chest x-ray with moderate vascular congestion. Head CT, CTA head and neck was negative. Cervical spine CT showed degenerative disc disease. UA was negative. Labs showed mild anemia at 10.5, WBC normal at 7.3 and platelets of 127. Potassium was low at 3.2 BUN of 11 creatinine of 1.0 and glucose of 167. After admission patient did continue to be hypoxic and had a vomitus when he was placed on the BiPAP mask because of his acute hypoxic respiratory failure. There was possible aspiration pneumonia and patient continued to desaturate and he was intubated and started on mechanical ventilation and transferred to the ICU. Normal IV antibiotics for the pneumonia. Patient also fluid overloaded and was started on diuresis. Assessment and plan: 1. Acute hypoxic respiratory failure on mechanical ventilation mostly secondary to aspiration pneumonia as well as CHF exacerbation 2. Altered mental status with headaches, generalized weakness-ruled out stroke 3. Fall secondary to the weakness 4. Acute on chronic severe systolic congestive heart failure with an last known EF of 25 to 30% in July 2023 5. Left bundle branch block 6. 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 Morbid obesity 8. Essential hypertension . Diabetes mellitus type 2 10. Chronic anemia 11. Hyperlipidemia 12. Obstructive sleep apnea on CPAP 13. BPH 14. Restless leg syndrome Patient known to me from the previous hospitalization in July 2024 when he was initially diagnosed with severe systolic CHF with an EF of 25 to 30%. Patient was in CHF exacerbation along with pneumonia and acute hypoxic respiratory failure which was aggressively treated and was discharged home on 08/05/2024. Patient did follow-up with me in clinic on 08/08/2024 and was recommended a nuclear stress test given his new systolic congestive heart failure which was completed on 08/16/2024. Lexiscan stress test did show evidence of stress-induced ischemia in the apical as well as mid to apical anterior segments. LVEF was also low at 32%. Patient was recommended left heart cardiac catheterization but never followed up with the office and was adamant that his heart's was in good condition and does not need any further procedures. Patient presented with headache, generalized weakness as well as a fall. CTA head and neck, head CT were negative for any acute stroke. Neurology is following. Fall appears to be mechanical in review of the chart shows that there was no evidence of any syncope or loss of consciousness on admission. Patient could not get up because of the weakness but was awake alert. Acute hypoxic respiratory failure and on mechanical ventilation at the present point of time mostly secondary to the aspiration pneumonia and started on IV antibiotics by the critical care team which will be continued. Also patient does have CHF exacerbation and recommend to continue the diuresis for the same. Acute on chronic severe systolic congestive heart failure exacerbation. Echo from July 2024 showed Normal left ventricular size, wall thickness. Severely reduced LV function LVEF estimated at 25-30 %. RV is normal in size and systolic function. Could not estimate RVSP as TR not visualiozed well. Moderate AV thickening with mild calcification. AV sclerosis without stenosis. V max 2.1 m/s. Possibly underestimated due to low EF. MIld thickening and clacification of mitral leafts too. Mild to moderate MR. Mild LA dilataion. IVC dilated but with > 50% collapse. Echo - 12/20/24 - Dilated cardiomyopathy. Moderate to severe LV enlargement. Severely reduced LV function with an LVEF of 15 to 20%. Mildly dilated RV with normal systolic function. Could not estimate RVSP as TR not visualiozed well. Moderate AV thickening with moderate calcification. Moderate AV sclerosis without stenosis based on V max 2.1 m/s. Possibly underestimated due to the low EF and could be mild on moderate . Trace AI. MIld thickening and clacification of mitral leafts too. Mild to moderate MR. Trace to mild TR. Severe LA dilatation and mild to moderate RA dilatation. IVC dilated with <50% collapse during inspiration. No pericardial effusion. Left pleural effusion noted. Recommend to continue aggressive diuresis with Lasix 40 mg IV twice daily for now. Strict input output Daily weights and 2 g sodium diet. Fluid restriction to 15 mL/day. Mancera potassium greater than 4 and magnesium greater than 2.0 at all times. Will continue to monitor renal function closely and the BUN/creatinine normal now. His systolic congestive heart failure etiology was not determined hence was seen in the clinic as noted above and had an NST which did show evidence of stress-induced ischemia with decreased uptake in the apical as well as mid to apical anterior segments. Patient was recommended left heart cardiac catheterization. Did not follow-up with any appointments as outpatient in spite of multiple calls from my office, felt that his heart was in good condition. Discussed in detail with the and patient apparently had procedure through his groin at [facility] in February 2024 and was apparently normal. Patient not sure if the patient had a carotid angiogram or intervention of the intraventricular hemorrhage which he had at that point of time or he had a cardiac catheterization. wanted us to wait for the operative reports from the outside hospital. Recommend primary team to obtain all operative reports from his previous hospitalization in February 2024 from [facility] and to find out if the patient had any cardiac catheterization procedure. Troponins only minimally elevated at 0.05. EKG also did not show any acute ST-T changes history of active ischemia. Patient did not have any complaints of chest pain or chest pressure prior to the admission. Patient will benefit from left and right heart cardiac catheterization once he is hemodynamically stable after active treatment of the aspiration pneumonia as well as CHF exacerbation. 12/22/2024: Patient was difficult to arouse as per the primary team and was significantly altered patient had an ABG done which showed a PCO2 of 59 and a PO2 of 75 and patient was again started on BiPAP. Patient now has acute hypoxic as well as hypercapnic respiratory failure. Unable to follow any commands. Patient overall hemodynamically stable and has been diuresing well with Bumex 1 mg IV twice daily. Renal function appears to be stable. Plan was for her to perform a left and right heart cardiac catheterization for the patient to continue with his ischemic workup as well as his CHF. Unfortunately patient has been confused since yesterday and his respiratory status has not been stable and is unable to lie down flat on the bed. Patient possibly has CAD with multivessel disease given his worsening EF and recent positive stress test and less likely nonischemic cardiomyopathy. Given his severely low ejection fraction patient will also need complex PCI with stent by [facility] given his low ejection fraction of 15%. This institution does not have [facility] or other MCS available to perform the complex PCI and it would be appropriate to transfer the patient to a higher level of care. Also patient does have a history of hemorrhagic CVA with procedures performed at [facility] previously and we are unable to obtain any records until now. Continue with heparin drip along with IV diuresis for now along with BiPAP Discussed with the and also requested for higher level of care and she has requested for [facility] as he was previously admitted there in April 2024. 12/25/2024: Given his altered mental status per primary team again plan to repeat an MRI today. Patient with the symptoms better today and is much more awake as patient did use his BiPAP yesterday. Again there was a concern of questionable hemoptysis with some blood or clot. Hemoglobin is still stable around 10. Chest x-ray was repeated today and appears much improved from before there is still some mild congestion and will continue with diuresis. Recommended to continue BiPAP at night. Repeat echo was performed today on 12/25/2024 and exactly similar as the previous echo and no change from admission on 12/20/2024. EF is still less than 20% and patient is awaiting transfer to [facility]. Patient apparently a has been using his CPAP machine at home but never has been officially diagnosed with CHEYANNE. Patient appears to be adequately diuresed at the present point of time and kidney function continues to be stable with Bumex 1 mg IV twice daily. Bicarbonate was slightly high and was given Diamox 500 mg x 1 now bicarbonate is 30. As discussed previously patient is awaiting transfer to higher level of care [facility] at the request of the . 12/26/2024: The patient was doing much better today. He was much alert and oriented than yesterday. He reported doing well, and his reported the same. Vitals were fairly stable saturating 99% on 3 L of NC. MRI brain done yesterday was unremarkable for any acute changes. He was negative by about 2 L in last 24 hours. The plan is to transfer the patient to higher level of care at [facility] at the request of his , for possible percutaneous intervention, but if the transfer is not done by today evening, we will proceed with cardiac cath tomorrow morning here in [facility] In the meantime, we will continue with Bumex 1 mg IV twice daily, and continue to maintain potassium and magnesium level greater than 4 and 2 respectively. Recommended to continue the patient on BiPAP overnight, and keep the patient n.p.o. after midnight. Cardiac Cath on 12/27/2024 revealed [facility] findings: 1. Left ventricular ejection fraction was severely 20-25% without any regional wall motion abnormalities. LVEDP was normal at 16 mmHg. There was no significant transvalvular aortic gradient. 2. Right dominant circulation. Left main artery is a large-caliber vessel with mild 20-30% calcified stenosis. 3. LAD is a large sized artery with calcified 20-30% stenosis of mid segment. A medium size diagonal and does not show any significant disease. 4. LCx is a large sized artery with 20-30% stenosis in mid segment. A medium OM1 and small OM2 without any significant disease. 5. RCA is a large artery with 20% stenosis of proximal segment. Medium RPDA and RPL without any significant disease. RHC findings: Mean right atrial pressure was 1 mmHg. Right atrial pressure was 3/3 mmHg. Pulmonary artery pressure was 32/28 mmHg with a mean of 27 mmHg. Mean pulmonary capillary wedge pressure was 13 mmHg. TPG was 14 mmHg Pulmonary artery PA saturation was 59.9%.? Arterial saturation was 92.5% on room air. Cardiac output was 5.0 L/min and cardiac index was normal at 2.33 L/min/m? Patient recommended to follow-up with me in the office within 7 days after discharge. Summary/findings: 1. Non ischemic cardiomyopathy: LHC showed mild CAD with 20-30% calcified stenosis of Left main and mid LAD, 20-30% stenosis of mid LCx and proximal RCA. Rest of the coronaries without any angiographically significant obstruction and few luminal irregularities. 2. LVEF was severely low at 20-25%. 3. LVEDP was 14 mmHg. 4. Normal right heart pressures. Normal cardiac output was 5.0 L/min and normal cardiac index was at 2.33 L/min/m? Recommendations: 1. Recommend aggressive medical management and aggressive risk factor modification - Will need goal-directed medical therapy with metoprolol XL, Entresto and eventually spironolactone if BP permisssible. Can decrease Bumex to 0.5 mg once daily orally or Lasix 20 Mg p.o. once daily. 2. Patient recommended not to lift more than 5 lbs for the next 7 days and follow up with me in my office in 7 days. Management of rest of the medical conditions as per primary team and other consultants. Thank you for the consult and allowing me to participate in the care of the patient. Cardiology will continue to follow. The patient's management plan was discussed with my attending physician MD Venancio Oh MD, PGY3 Attending Provider Attestation/Addendum I have personally seen and examined the patient separately on the above date of service and discussed the plan of care with the resident. I reviewed the resident Dr. Venancio Cosme consultation progress note and agree with the resident findings and plan in the note above and have also edited the documentation to reflect my findings and plan. Rakan Lundberg M.D. Interventional Cardiology
--- NOTE | 2025-01-01 16:07 | PC.SS ---
Addendum entered by Leslie Mcconnell 01/01/25 16:48: S spoke to Marlee at [facility] [employer] [place], who stated it has been dispatched to director of labor and delivery but there is no ETA on delivery, SS spoke to Monica, pt and informed her of the O2 being delivered today to their home. SS instructed Monica [phone] once she has O2 tanks, she is to bring one to bedside when she picks up the pt. Original Note: SS contacted [facility] [employer] [facility] [phone]. SS spoke Marlee, who stated they received my fax, Marlee collected additional information.
[2025-01-01] MEDS: INSULIN LISPRO (AdmeLOG) 1 UNIT/0.01 ML UNIT SC (17:22)
--- NOTE | 2025-01-01 17:34 | PC.NURSE ---
Discharge orders noted. Waiting on home oxygen to be delivered to home so can bring to hospital prior to discharge.
--- NOTE | 2025-01-01 18:16 | PD.RESPRO ---
Documentation for date of: 01/01/25 Subjective Subjective Interval history: Seen in telemetry today, patient sitting on edge of bed, no new symptoms reported. Waiting for home oxygen set up. Exam Vital Signs Temp Pulse Resp BP Pulse Ox O2 Del Method O2 Flow Rate 97.0 F 90 19 91/66 99 Nasal Cannula 3 01/01/25 16:00 01/01/25 16:40 01/01/25 16:00 01/01/25 16:00 01/01/25 16:00 01/01/25 16:00 01/01/25 16:00 FiO2 30 12/30/24 16:00 Narrative Exam GENERAL APPEARANCE: Well hydrated, well-nourished male in NAD HEENT: Normocephalic, atraumatic, extraocular movements intact. Pupils: Equal reacting to light. NECK: Supple, no JVD or bruits. CARDIOVASULAR: Heart: S1, S2 heard, regular without S3-S4 or murmur no rubs or gallops. LUNGS/CHEST: Clear to auscultation bilaterally. No rails, rhonchi, or wheezing. Normal inspection. ABDOMEN: Soft, nontender, with normal bowel sounds. No pulsatile masses. No rebound, rigidity, or guarding. Normal inspection and palpation. EXTREMITIES: Normal inspection and palpation. No edema, clubbing or cyanosis. SKIN: Warm and dry without rashes. Normal inspection. MUSCULOSKELETAL: No cervical , thoracic, lumbar or midline bony tenderness. Normal inspection. NEURO: aao2, speech and lang: normal no focal deficit noted. No signs of meningeal irritation noted. PSYCHIATRIC: Normal mood and affect. Objective Labs 01/01/25 04:34 01/01/25 04:34 Labs: Laboratory Results - last 24 hr 01/01/25 04:34 WBC 4.8 RBC 3.88 L Hgb 10.6 L Hct 35.9 L MCV 93 MCH 27.3 MCHC 29.5 L RDW Std Deviation 54.9 H Plt Count 151 D Neut % (Auto) 57 Lymph % (Auto) 29 Cataño % (Auto) 10 Eos % (Auto) 4 Baso % (Auto) 0 Neut # (Auto) 2.8 Lymph # (Auto) 1.4 Cataño # (Auto) 0.5 Eos # (Auto) 0.2 Baso # (Auto) 0.0 Immature Gran # (Auto) 0.01 H Absolute Nucleated RBC 0.00 Immature Gran % 0 Nucleated RBC % 0 Sodium 143 Potassium 4.4 D Chloride 104 Carbon Dioxide 28.2 Anion Gap 11 BUN 15 Creatinine 1.0 Estim Creat Clear Calc 70.6 eGFR > 60 BUN/Creatinine Ratio 15 Glucose 136 H Calculated Osmolality 287 Calcium 9.6 Corrected Calcium 10.0 Phosphorus 4.2 Magnesium 2.4 Total Bilirubin 0.8 AST 20 ALT 20 Alkaline Phosphatase 87 Total Protein 8.4 H Albumin 3.5 Globulin 4.9 H Albumin/Globulin Ratio 0.7 L ABG Interpretation ABG results: 12/16/24 12/17/24 12/17/24 17:14 05:12 06:48 ABG pH 7.41 7.35 7.34 L ABG pCO2 38 47 49 H ABG pO2 49 L* 72 L D 170 H D ABG HCO3 24 26 27 H ABG O2 Saturation 82 L 94 100 H ABG Base Excess 0 0 0 VBG pH VBG pCO2 VBG pO2 VBG Base Excess 12/21/24 12/22/24 12/24/24 09:30 09:06 22:07 ABG pH 7.52 H 7.42 D ABG pCO2 41 59 H D ABG pO2 73 L 75 L ABG HCO3 34 H 38 H ABG O2 Saturation 96 96 ABG Base Excess 10 H 12 H VBG pH 7.41 VBG pCO2 48 VBG pO2 39 VBG Base Excess 4 H Quality Measures Quality Measures VTE prophylaxis Advance care planning discussed with:: patient Assessment & Plan Assessment Current Active Medications: Generic Name Dose Route Start Last Admin Trade Name Freq PRN Reason Stop Dose Admin Acetaminophen 650 mg 12/17/24 06:35 01/01/25 01:51 Acetaminophen 325 Mg Tablet PO 01/15/25 17:41 650 mg Q6H PRN Administration Fever >100.3 Atorvastatin Calcium 40 mg 12/16/24 21:00 12/31/24 21:17 Atorvastatin Calcium 20 Mg Tablet PO 01/15/25 20:59 40 mg HS SHAZIA Administration Dextrose 50 ml 12/18/24 16:56 Dextrose 50%-Water Inj 50 Ml Syringe IV 01/17/25 16:55 Q15MIN PRN BG <50 OR BG <70 & pt unresponsive Furosemide 20 mg 12/30/24 09:00 01/01/25 08:38 Furosemide 20 Mg Tablet PO 01/29/25 08:59 20 mg QAM SHAZIA Administration Glucagon 1 mg 12/18/24 16:56 Glucagon Inj 1 Mg Vial IM Q15MIN PRN BG <70, and no IV access Guaifenesin 200 mg 12/19/24 17:00 01/01/25 17:15 Guaifenesin Syrup 200 Mg/10 Ml Udc PO 01/18/25 16:59 Not Given QID SHAZIA Protocol Heparin Sodium (Porcine) 5,000 unit 12/26/24 21:00 01/01/25 08:38 Heparin Sod Inj 5000 Unit/Ml Vial SC 01/09/25 20:59 5,000 unit BID SHAZIA Administration Insulin Glargine 6 unit 12/20/24 21:00 12/31/24 21:44 Insulin Glargine (Lantus) 5 Unit/0.05 Ml (Per 5 Units) SC 01/19/25 20:59 6 unit HS SHAZIA Administration Insulin Human Lispro 0 unit 12/20/24 11:30 01/01/25 17:22 Insulin Lispro (Admelog) 1 Unit/0.01 Ml Unit SC 01/19/25 11:29 2 unit ACHS SHAZIA Administration Protocol Magnesium Hydroxide 30 ml 12/19/24 08:18 12/31/24 21:41 Milk Of Magnesia Susp 30 Ml Udc PO 01/18/25 08:17 30 ml QDAY PRN Administration CONSTIPATION Protocol Melatonin 3 mg 12/21/24 19:00 12/31/24 21:18 Melatonin 3 Mg Tablet PO 01/20/25 18:59 3 mg HS SHAZIA Administration Metoprolol Succinate 12.5 mg 12/22/24 12:45 01/01/25 08:37 Metoprolol Succinate Xl 25 Mg Tabcr PO 01/21/25 12:44 12.5 mg QDAY SHAZIA Administration Ondansetron HCl 4 mg 12/16/24 17:42 12/21/24 20:35 Ondansetron Inj 2 Mg/Ml Inj 2 Ml IVP 01/15/25 17:41 4 mg Q6H PRN Administration NAUSEA OR VOMITING Protocol Pantoprazole Sodium 40 mg 12/21/24 09:00 01/01/25 08:37 Pantoprazole 40 Mg Tablet PO 01/20/25 08:59 40 mg QDAY SHAZIA Administration Protocol Polyethylene Glycol 17 gm 12/21/24 09:00 01/01/25 08:38 Polyethylene Glycol 17 Gm Packet PO 01/20/25 08:59 17 gm QDAY SHAZIA Administration Ropinirole HCl 1 mg 12/24/24 19:00 12/31/24 18:52 Ropinirole Hcl 1 Mg Tablet PO 01/23/25 18:59 1 mg QDAY@1900 SHAZIA Administration Sennosides 1 tab 12/17/24 09:00 01/01/25 08:37 Senna Tablet PO 01/16/25 08:59 1 tab QDAY SHAZIA Administration Protocol Tamsulosin HCl 0.4 mg 12/17/24 09:00 01/01/25 08:38 Tamsulosin Hcl 0.4 Mg Capsule PO 01/16/25 08:59 0.4 mg QDAY SHAZIA Administration Plan #Stroke-like symptom: Status: Resolved Assessment and plan: no focal deficit on exam 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 No acute infarction noted. PT approved home-health Sleep apnea in adult: Status: Chronic Assessment and plan: uses CPAP even though it is not officially diagnosed. Will get a sleep study as an outpatient to confirm the diagnosis so he can get CPAP and accessories #Hypoxia: Status: Chronic Assessment and plan: Waiting for home oxygen set up after it gets approved by his insurance #Heart failure: Status: Chronic Assessment and plan: Repeat echo was performed on 12/25/2024 and exactly similar as the previous echo and no change from admission on 12/20/2024. Continue with the current management as per cardiology recommendation #Community acquired pneumonia: Status: Resolved Assessment and plan: Treated with IV antibiotics and bronchodilators Neurology will sign off at this time. Amie Miranda, PGY1 Attending Provider Attestation/Addendum I personally have seen and examined the patient at the bedside and agreed with resident's findings, assessment and plan of care. Continue with the current management, follow-up with the sleep study as an outpatient stable discharge home upon setting up of home oxygen
--- NOTE | 2025-01-01 18:46 | ESDS_ITS ---
Planned Discharge Date 01/01/25 DS: Providers Provider Date of admission: 12/16/24 17:42 Primary care physician: Bao Stephens MD Admitting Provider: Mulu Cadet DO Attending Provider on Admission: Abe Loco MD Consults: 12/16/24 13:43 Consult to Neurology / Tele-Neurology Routine Comment: Consulting Provider: [facility] 12/16/24 18:22 Consult to Cardiology Routine Comment: CHF Consulting Provider: Rakan Lundberg 12/16/24 18:25 Consult to Neurology / Tele-Neurology Routine Comment: Consulting Provider: Dariusz Downing 12/18/24 11:06 Referral Speech Therapy Routine Comment: 12/22/24 13:29 Referral - [employer] Plant Technician Routine Service Needed for Transfer: Cardiovascular/Thoracic Surg Addl Comments:: Impella guided PCI 12/27/24 11:52 Referral Physical Therapy Routine Comment: Physician Instructions: Attending Provider on DC: Abe Loco MD Discharging Provider: Abe Loco MD DS: Diagnosis Problem List Completed Was Problem List Reviewed/Reconciled?: Yes Hospital Course Hospital Course Hospital course: A 79-year-old male with significant past medical history of hypertension, di abetes mellitus, asthma, intracranial bleed, using oxygen, 2 L at home as needed, HFrEF presented to the hospital with chief complaints of sudden onset headache followed by generalized weakness on the day. Admitted for ground-level fall, syncope versus stroke, and CHF exacerbation. Workup for stroke was negative (based on findings below). He was followed by neurology. Symptoms resolved shortly. He continued on BiPAP and aggressive diuresis for CHF exacerbation. In interim he had an episode of hypoxia while on BiPAP, secondary to aspiration, requiring ICU admission and intubation. He was subsequently extubated successfully. He continued a course of ANTIBIOTICS for aspiration pneumonia. 24-hour blood, urine and sputum culture showed no growth. Cardiology was following, echocardiogram showed significant EF reduction (15- 20%). Cardiology recommended left heart cath to evaluate for ischemic causes of cardiomyopathy. However, family initially requested lateral transfer for tertiary center. Attempts at transferring to multiple facilities was unsuccessful. Eventually, family elected to proceed with left heart cath with our in-house contact representative. Left heart cath showed nonischemic cardiomyopathy. Cardiology recommended aggressive management with GDMT, which was initiated here in the hospital. He was evaluated after cath by physical therapy, and patient will need home health PT/OT after discharge. He still requires 2-3 L home oxygen, which is baseline for him. However, his (Monica) stated that his PCP has discontinued oxygen. Currently he does not have oxygen at home. [employer] has been working on outpatient oxygen supplement, however has been unable to find a company that accept his insurance. Patient and family has been adamant on discharge, and we highly advised against leaving home without oxygen, which is unsafe in his condition. We have provided additional options including: SNF placement, paying [id number] for oxygen, or delaying discharge until an ox ygen. Our social working is actively working on finding an oxygen supplier that accept his insurance. We have provided a list of oxygen providers for , and she is currently in the process of reaching out to different suppliers. IMAGE FINDINGS: * Head CT showed no acute pathology. * Brain MRI showed no acute pathology, but positive for prominent microvascular white matter changes. * CT cervical spine showed moderate disc degeneration C5-C6, no acute cervical fracture. * CXR showed moderate heart failure, no acute fracture or pneumonia. * Lumbar spine x-ray showed no acute lumbar fracture. * Abdominal x-ray showed large amount of stool throughout the colon. * Head CT and head/neck CTA showed no acute pathology. * EKG showed sinus rhythm with first-degree block, no acute ST changes. * Echocardiogram shows moderate to severe LV enlargement with severely reduced systolic function (EF 15?20%) and mild RV dilation with normal function. The AV is moderately thickened and calcified without significant stenosis (Vmax 2.1 m/s), though severity may be underestimated. There is trace AI, mild to moderate MR with leaflet thickening and calcification, trace to mild TR, sever e LA dilation, mild to moderate RA enlargement, and a dilated IVC with reduced inspiratory collapse, suggesting elevated right-sided pressures. PATIENT INSTRUCTIONS: * Follow-up with PCP within 1-2 weeks of discharge. * Follow-up with cardiology, Dr. Lundberg, within 1 weeks of discharge. * Continue using oxygen as needed for shortness of breath. * Continue taking LASIX 20 mg daily (DOSE ADJUSTED). * Continue taking ATORVASTATIN 20 mg daily (NEW). * Continue taking METOPROLOL SUCCINATE 12.5 mg (half of 25 mg tablet) daily (DOSE ADJUSTED). * Unable to start ENTRESTO given low blood pressure. Discuss with PCP/Cardiology regarding resuming. * Recommended to continue to use BiPAP at night. * Avoid lift more than 5 lbs for the next 7-10 days. * Return to Emergency Room if symptoms persist, worsen, or new symptoms develop. * Continue taking medications as prescribed below. 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 Aruna Moe, DO PGY II This document was transcribed using voice recognition technology. Minor inaccuracies may be present. Time Spent with Patient Time attestation: Total time spent providing and/or coordinating discharge services: Time spent: Greater than 30 minutes Quality: Stroke Pt Provided Written Stroke Discharge Instructions: No Exam Vital Signs Temp Pulse Resp BP Pulse Ox O2 Del Method O2 Flow Rate 97.0 F 90 19 91/66 99 Nasal Cannula 3 01/01/25 16:00 01/01/25 16:40 01/01/25 16:00 01/01/25 16:00 01/01/25 16:00 01/01/25 16:00 01/01/25 16:00 FiO2 30 12/30/24 16:00 Narrative Exam General: Awake. HEENT: Normocephalic, atraumatic, mucous membranes moist. Heart: Regular rate and rhythm, no murmurs. Lungs: CTAB, no w/r/r Abdomen: Soft, nondistended, nontender, positive bowel sounds. ?No guarding or rebound tenderness. Neurologic: Alert and oriented x3, no gross neurological deficit, and patient able to move all 4 extremities. Extremities: No edema. Skin: No rash or ecchymoses. Discharge Plan Plan Patient Disposition: Home w/HOME HEALTH Patient condition on transfer: Stable Care Plan Goals: * Follow-up with PCP within 1-2 weeks of discharge. * Follow-up with cardiology, Dr. Lundberg, within 1 weeks of discharge. * Continue using oxygen as needed for shortness of breath. * Continue taking LASIX 20 mg daily (DOSE ADJUSTED). * Continue taking ATORVASTATIN 20 mg daily (NEW). * Continue taking METOPROLOL SUCCINATE 12.5 mg (half of 25 mg tablet) daily (DOSE ADJUSTED). * Unable to start ENTRESTO given low blood pressure. Discuss with PCP/Cardiology regarding resuming. * Recommended to continue to use BiPAP at night. * Avoid lift more than 5 lbs for the next 7-10 days. * Return to Emergency Room if symptoms persist, worsen, or new symptoms develop. * Continue taking medications as prescribed below. Prescriptions/Referrals Prescriptions/Med Rec: New metoprolol succinate 25 mg Tablet Extended Release 24 Hr 12.5 mg PO QDAY Qty: 30 0RF simvastatin 20 mg tablet 20 mg PO QDAY Qty: 30 0RF furosemide [Lasix] 20 mg tablet 20 mg PO QDAY Qty: 30 0RF Continued ropinirole 1 mg tablet 1 mg PO .COMPLEX Patient Comments: HS Rx Instructions: 1 mg orally 1-3 hours before bedtime; tamsulosin 0.4 mg capsule 0.4 mg PO Q24H finasteride 5 mg tablet 5 mg PO QDAY Patient Comments: TAKE 1 TABLET BY MOUTH EVERY DAY FOR 30 DAYS sucralfate 1 gram tablet 1 g PO Q12H Patient Comments: TAKE 1 TABLET BY MOUTH TWICE A DAY ON EMPTY STOMACH Discontinued simvastatin 20 mg tablet 20 mg PO QDAY Patient Comments: HS dapagliflozin propanediol 5 mg Tablet 5 mg PO QAM Qty: 30 0RF furosemide 40 mg tablet 40 mg PO QDAY Patient Comments: 40 MG ORALLY DAILY FOR 30 DAYS metoprolol succinate 25 mg tablet extended release 24 hr 25 mg PO QDAY Patient Comments: TAKE 1 TABLET BY MOUTH EVERY DAY Referrals: Bao Stephens MD [Primary Care Provider] - Patient/Caregiver Discharge Instructions Education Materials: Chest and Lung Problems, Coping with Heart Failure, Traveling with Oxygen, Using an Oxygen Tank at Home, Heart Failure, Overview of Sleep Problems Print Language: Czech Stand Alone Forms: [employer] Award Info., Patient Portal Info Letter Discharge Order Discharge Orders: Discharge (Routine); Ordered 01/01/25 Ordered By: Kev Oneal Quality Discharge Quality Measures VTE prophylaxis Attestestation Attestation Patient seen and examined with housestaff. DIscharge plan as abpve. Follow up with PCP as scheduled, Return to ER for worsening or recurrent symptoms.
[2025-01-01] MEDS: MELATONIN 3 MG TABLET PO (20:48)
[2025-01-01] MEDS: ATORVASTATIN CALCIUM 20 MG TABLET 40 MG PO (20:48)
[2025-01-01] MEDS: guaiFENesin SYRUP 200 MG/10 ML UDC PO (20:48)
[2025-01-01] MEDS: INSULIN GLARGINE (Lantus) 5 UNIT/0.05 ML (PER 5 UNITS) 6 UNIT SC (20:50)
--- NOTE | 2025-01-02 08:11 | PC.CC ---
Addendum entered by Rakesh Rivera RN 01/02/25 09:56: [facility] accepted and booked, soc 01/03/25 Original Note: HH ref sent out, waiting for responses.
== END 2025-01-01 21:22 | disposition home health service (06) | DRG 286 ==
LOC: SERX 17:05 → SERHOLD 18:08 → S2NX 20:28 → S2SX 12-18 06:02 → S2NX 12-19 16:07 → S3SX 12-31 18:04
PROVIDERS: Internal Medicine Cardiovascular Disease; Nurse Practitioner Family; Student in an Organized Health Care Education/Training Program; Admitting Provider Internal Medicine; Emergency Provider Emergency Medicine; PCP Family Medicine; Visit Provider Internal Medicine
PROC: 4A023N8 Measurement of Cardiac Sampling and Pressure, Bilateral, Percutaneous Approach (ICD-10-PCS; principal; 2024-12-27 13:00)
DX: I11.0 Hypertensive heart disease with heart failure (principal); I50.23 Acute on chronic systolic (congestive) heart failure; J69.0 Pneumonitis due to inhalation of food and vomit; J96.21 Acute and chronic respiratory failure with hypoxia; R57.0 Cardiogenic shock; J96.22 Acute and chronic respiratory failure with hypercapnia; R04.2 Hemoptysis; E87.4 Mixed disorder of acid-base balance; G93.40 Encephalopathy, unspecified; I42.0 Dilated cardiomyopathy; M50.30 Other cervical disc degeneration, unspecified cervical region; E11.9 Type 2 diabetes mellitus without complications; J45.909 Unspecified asthma, uncomplicated; W18.30XA Fall on same level, unspecified, initial encounter; I44.0 Atrioventricular block, first degree; I44.7 Left bundle-branch block, unspecified; S00.83XA Contusion of other part of head, initial encounter; H02.403 Unspecified ptosis of bilateral eyelids; R47.1 Dysarthria and anarthria; R00.8 Other abnormalities of heart beat; E87.6 Hypokalemia; Z99.81 Dependence on supplemental oxygen; D63.8 Anemia in other chronic diseases classified elsewhere; D69.6 Thrombocytopenia, unspecified; E11.649 Type 2 diabetes mellitus with hypoglycemia without coma; E78.5 Hyperlipidemia, unspecified; G25.81 Restless legs syndrome; I25.10 Atherosclerotic heart disease of native coronary artery without angina pectoris; I25.5 Ischemic cardiomyopathy; F01.50 Vascular dementia, unspecified severity, without behavioral disturbance, psychotic disturbance, mood disturbance, and anxiety; N40.1 Benign prostatic hyperplasia with lower urinary tract symptoms; J98.4 Other disorders of lung; R33.8 Other retention of urine; Z59.71 Insufficient health insurance coverage; Z79.4 Long term (current) use of insulin; Z79.82 Long term (current) use of aspirin; Z79.84 Long term (current) use of oral hypoglycemic drugs; Z79.899 Other long term (current) drug therapy; Z91.81 History of falling; Z95.5 Presence of coronary angioplasty implant and graft; Z86.73 Personal history of transient ischemic attack (TIA), and cerebral infarction without residual deficits; W34.00XA Accidental discharge from unspecified firearms or gun, initial encounter; G47.33 Obstructive sleep apnea (adult) (pediatric)
CPT/HCPCS: 36415; 36600; 70450; 70496; 70498; 70551; 71045; 72100; 72125; 74018; 80053; 80061; 80307; 81001; 82550; 82728; 82803; 82810; 83036; 83540; 83550; 83605; 83735; 83880; 84100; 84443; 84484; 85014; 85018; 85025; 85610; 85730; 87086; 92610; 93005; 93225; 93306; 94002; 94003; 94640; 94660; 94667; 96374; 97162; 99152; 99153; 99285; A4216; A4649; A9270; C1769; C1887; J0153; J0171; J0282; J0295; J0461; J1171; J1643; J1644; J1650; J1815; J1885; J1938; J2250; J2310; J2358; J2371; J2405; J2470; J2704; J3010; J3475; J3480; J3490; J7050; J8499; Q9967; J2305; J2359

== ENCOUNTER → 2025-02-12 | Outpatient (CLI) | payer MEDICARE, SELFPAY ==
[2025-02-12 13:24] LABS: Anion Gap 8 (7-16); BUN/Creatinine Ratio 10 Ratio (12-20); Blood Urea Nitrogen 10 mg/dL (9-23); Calcium 9.4 mg/dL (8.3-10.6); Carbon Dioxide 32.3 mMol/L (20.0-31.0); Chloride 103 mMol/L (98-107); Creatinine (Component) 1.0 mg/dL (0.6-1.3); Glucose 116 mg/dL (74-106); Magnesium 2.2 mg/dL (1.6-2.6); Osmolality,Calculated 284 (275-295); Potassium 3.8 mMol/L (3.4-5.1); Sodium 143 mMol/L (136-145); eGFR > 60 See Note
== END | disposition home or self-care (01) ==
LOC: COPL 11:44
PROVIDERS: PCP Family Medicine; Referring Provider Internal Medicine Cardiovascular Disease; Visit Provider Internal Medicine Cardiovascular Disease
DX: E11.9 Type 2 diabetes mellitus without complications (principal); E78.5 Hyperlipidemia, unspecified; I10 Essential (primary) hypertension; I25.10 Atherosclerotic heart disease of native coronary artery without angina pectoris
CPT/HCPCS: 36415; 80048; 83735

== ENCOUNTER → 2025-03-15 | Outpatient (CLI) | payer MEDICARE, SELFPAY ==
[2025-03-15 16:28] LABS: Basophils # (Auto) 0.0 Thou/mm3 (0.0-0.2); Basophils % (Auto) 1 % (0-2.5); Eosinophils # (Auto) 0.2 Thou/mm3 (0.0-0.5); Eosinophils % (Auto) 3 % (0-10); Hematocrit 34.3 % (41.0-53.0); Hemoglobin 10.5 g/dL (13.5-16.0); Immature Granulocytes Auto 0.02 Thou/mm3 (0.00-0.00); Lymphocytes # (Auto) 1.4 Thou/mm3 (1.0-4.8); Lymphocytes % (Auto) 24 % (10-50); Mean Corpuscular HGB Conc 30.6 g/dl (31.0-37.0); Mean Corpuscular Hemoglobin 27.5 pg (25.0-35.0); Mean Corpuscular Volume 90 fL (80-100); Monocytes # (Auto) 0.7 Thou/mm3 (0.0-0.8); Monocytes % (Auto) 12 % (0-12); Neutrophils # (Auto) 3.5 Thou/mm3 (1.8-7.7); Neutrophils % (Auto) 60 % (37-80); Nucleated Red Blood Cell # 0.00 Thou/mm3 (0.00-0.00); Nucleated Red Blood Cell % 0 /100 WBC (0); Platelet Count 211 Thou/mm3 (140-440); RDW Standard Deviation 58.2 fL (35.1-43.9); Red Blood Count 3.82 Miln/mm3 (4.50-5.90); White Blood Count 5.7 Thou/mm3 (3.8-10.6)
[2025-03-15 16:39] LABS: B-Type Natriuretic Peptide 426 pg/mL (0-100)
[2025-03-15 16:40] LABS: Anion Gap 8 (7-16); BUN/Creatinine Ratio 13 Ratio (12-20); Blood Urea Nitrogen 13 mg/dL (9-23); Calcium 9.2 mg/dL (8.3-10.6); Carbon Dioxide 33.6 mMol/L (20.0-31.0); Chloride 102 mMol/L (98-107); Creatinine (Component) 1.0 mg/dL (0.6-1.3); Glucose 121 mg/dL (74-106); Magnesium 1.7 mg/dL (1.6-2.6); Osmolality,Calculated 287 (275-295); Potassium 3.8 mMol/L (3.4-5.1); Sodium 144 mMol/L (136-145); eGFR > 60 See Note
== END | disposition home or self-care (01) ==
LOC: COPL 15:12
PROVIDERS: PCP Family Medicine; Referring Provider Internal Medicine Cardiovascular Disease; Visit Provider Internal Medicine Cardiovascular Disease
DX: I25.10 Atherosclerotic heart disease of native coronary artery without angina pectoris (principal)
CPT/HCPCS: 36415; 80048; 83735; 83880; 85025

== ENCOUNTER → 2025-04-19 | Outpatient (CLI) | payer MEDICARE, SELFPAY ==
[2025-04-19 12:18] LABS: Anion Gap 14 (7-16); BUN/Creatinine Ratio 34 Ratio (12-20); Blood Urea Nitrogen 61 mg/dL (9-23); Calcium 9.5 mg/dL (8.3-10.6); Carbon Dioxide 34.3 mMol/L (20.0-31.0); Chloride 92 mMol/L (98-107); Creatinine (Component) 1.8 mg/dL (0.6-1.3); Glucose 169 mg/dL (74-106); Magnesium 2.4 mg/dL (1.6-2.6); Osmolality,Calculated 300 (275-295); Potassium 2.9 mMol/L (3.4-5.1); Sodium 140 mMol/L (136-145); eGFR 38 See Note
== END | disposition home or self-care (01) ==
LOC: COPL 10:53
PROVIDERS: PCP Family Medicine; Referring Provider Internal Medicine Cardiovascular Disease; Visit Provider Internal Medicine Cardiovascular Disease
DX: E78.5 Hyperlipidemia, unspecified (principal); I50.23 Acute on chronic systolic (congestive) heart failure
CPT/HCPCS: 36415; 80048; 83735